=== PATIENT | female | born 1960 | race Caucasian/White ===

== ENCOUNTER 2019-05-15 15:01 | Inpatient (IN) | payer MEDICAID ==
[~2019-05-15] VITALS: Ht 154 cm; Wt 95.3 kg
[2019-05-15] MEDS ORDERED: ONDANSETRON 4 MG TAB.RAPDIS GT PRN (16:00)
[2019-05-15] MEDS ORDERED: GLYCERIN ADULT 1 SUPP.RECT RC PRN (16:00)
[2019-05-15] MEDS ORDERED: NITROGLYCERIN 30 GM TUBE TP PRN (16:00)
[2019-05-15] MEDS ORDERED: MINERAL OIL 133 ML (PYXIS) 1 EA ENEMA RC PRN (16:00)
[2019-05-15] MEDS ORDERED: ACETAMINOPHEN 650 MG/20.3 ML UDC GT PRN (16:00)
[2019-05-15] MEDS ORDERED: POLYETHYLENE GLYCOL 3350 17 GM POWD.PACK GT PRN (16:00)
[2019-05-15] MEDS ORDERED: DOCUSATE SODIUM LIQ 100 MG/10 ML UDC GT PRN (16:00)
[2019-05-15] MEDS ORDERED: NYSTATIN TOP POWDER 15 GM BOTTLE TP SCH ×2 (17:00)
[2019-05-15] MEDS ORDERED: CHLORHEXIDINE GLUCONATE 15 ML UDC MM SCH (21:00)
[2019-05-15 22:00] VITALS: BP 132/72
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
[2019-05-16] VITALS (9 sets, daily range): BP systolic 128–150; BP diastolic 74–90
[2019-05-16] MEDS ORDERED: VITAL AF 1.2 1,000 ML BOTTLE GT PRN (03:00)
[2019-05-16] MEDS ORDERED: ACETAMINOPHEN 650 MG/20 ML UDC- SA PATIENTS-PAIN ONLY GT PRN (07:30)
[2019-05-16] MEDS ORDERED: ACETAMINOPHEN 650 MG/20 ML UDC- SA PATIENTS-FEVER ONLY GT PRN (07:30)
[2019-05-16] MEDS ORDERED: PANTOPRAZOLE 40 MG/PACK PACK GT SCH (07:31)
--- NOTE | 2019-05-16 08:33 | NUR ---
Called pt's daughter Khadijah to inform her that pt is here at [facility]. Left message.
[2019-05-16] MEDS ORDERED: AMAN100T GT (08:54)
[2019-05-16] MEDS ORDERED: NUT.237L65 GT (08:54)
[2019-05-16] MEDS ORDERED: BISA10SU11 RC (08:54)
[2019-05-16] MEDS ORDERED: ONDA4TAB5 GT (08:54)
[2019-05-16] MEDS ORDERED: MINE133E RC (08:54)
[2019-05-16] MEDS ORDERED: METO25TA6 GT (08:54)
[2019-05-16] MEDS ORDERED: ASCO500T9 GT (08:54)
[2019-05-16] MEDS ORDERED: PANT40TA2 GT (08:54)
[2019-05-16] MEDS ORDERED: ENOX40DI9 SQ (08:54)
[2019-05-16] MEDS ORDERED: POLY454P5 GT (08:54)
[2019-05-16] MEDS ORDERED: LEVE1000 PO (08:54)
[2019-05-16] MEDS ORDERED: MAGN400O21 GT (08:54)
[2019-05-16] MEDS ORDERED: MULT-1119 GT (08:54)
[2019-05-16] MEDS ORDERED: NITR1OIN2 TD (08:54)
[2019-05-16] MEDS ORDERED: PROVIGIL GT (08:54)
[2019-05-16] MEDS ORDERED: ACET-73 GT (08:54)
[2019-05-16] MEDS ORDERED: DOCU-141 GT (08:54)
[2019-05-16] MEDS ORDERED: CHLO473M3 MM (08:54)
[2019-05-16] MEDS: ZINC OXIDE 30 GM TUBE TP SCH ×2 (09:00→21:00)
[2019-05-16] MEDS: AMANTADINE HCL 100 MG CAPSULE GT SCH ×2 (09:00→21:00)
[2019-05-16] MEDS: Z GUARD REMEDY 4 OZ OINT TP SCH ×4 (09:00→21:00)
[2019-05-16] MEDS: ASPIRIN 81 MG TAB.CHEW GT SCH (09:00)
[2019-05-16] MEDS: VITAMINS A AND D 56.7 GM TUBE TP SCH ×4 (09:00→21:00)
[2019-05-16] MEDS: ASCORBIC ACID 500 MG TABLET GT SCH (09:00)
[2019-05-16] MEDS: HYDROGEL DRESSING 90 GM TUBE TP SCH ×2 (09:00→21:00)
[2019-05-16] MEDS: CLOTRIMAZOLE 1% 15 GM TUBE TP SCH ×2 (09:00→21:00)
[2019-05-16] MEDS: DOCUSATE SODIUM LIQ 100 MG/10 ML UDC GT SCH (09:00)
[2019-05-16] MEDS: LEVETIRACETAM SOL (5 ML) 100 MG/ML UDC GT SCH ×2 (09:00→21:00)
[2019-05-16] MEDS ORDERED: MULTIVITAMINS,THERAGRAN 1 UDTAB TABLET GT SCH (09:00)
[2019-05-16] MEDS: METOPROLOL TARTRATE 25 MG TABLET GT SCH ×2 (09:00→21:00)
[2019-05-16] MEDS: MODAFINIL 100 MG TABLET GT SCH (09:00)
[2019-05-16 09:25] LABS: BASOPHILS # (AUTO) 0.1 /CMM (0.0-0.2); BASOPHILS % (AUTO) 1.3 % (0.0-2.0); EOSINOPHILS % (AUTO) 11.7 % (0.0-6.0); HEMATOCRIT 35 % (33-45); HEMOGLOBIN 11.4 g/dL (11.5-14.8); LYMPHOCYTES # (AUTO) 1.8 /CMM (0.8-4.8); LYMPHOCYTES % (AUTO) 22.5 % (20.0-44.0); MEAN CORPUSCULAR HGB CONC 33 g/dl (31.0-36.0); MEAN CORPUSCULAR VOLUME 91 fL (82-100); MONOCYTES # (AUTO) 0.6 /CMM (0.1-1.30); MONOCYTES % (AUTO) 7.5 % (2.0-12.0); NEUTROPHILS # (AUTO) 4.6 /CMM (1.8-8.9); PLATELET COUNT (AUTO) 570 /CMM (150-450); RED BLOOD CELL COUNT(AUTO) 3.81 MIL/uL (4.0-5.2)
[2019-05-16 09:30] LABS: CALCIUM, SERUM 9.4 mg/dL (8.5-10.1); CREATININE 0.5 mg/dL (0.6-1.3); POTASSIUM 3.9 mmol/L (3.5-5.1)
[2019-05-16] MEDS: ENOXAPARIN SODIUM 40 MG/0.4 ML DISP.SYRIN SQ SCH ×2 (10:00→19:15)
--- NOTE | 2019-05-16 10:00 | NUR ---
Informed Dr Abebe that pt is here in Subacute. He said his INSIDE TRUCKER Brenda Srivastava will see pt today. Informed INSIDE TRUCKER Brenda Srivastava that pt does not have a current breathing treatment order. She ordered to give Albuterol and Atrovent via neb q 6 hours. She said she will see pt around 2pm today.
--- NOTE | 2019-05-16 10:20 | NUR ---
Notified Dr Carter that Metoprolol 25 mg is not covered, however 50 mg is covered. Received order to give Metoprolol 50 mg 1/2 tab (25 mg) via GT q 12 hours. Also notified him that Amantadine tablet is not covered, however capsule form is covered by insurance. He ordered to change Amantadine from tablet to capsule. Received order to DC Chlorhexidine Gluconate due to non-coverage. Informed Dr Carter that pt's daughter is asking for a second opinion of a neurologist. Dr Wynn was seeing pt at [facility] and he is the same neurologist seeing the patients here in Subacute. Dr Carter said he will see what he can do about it.
--- NOTE | 2019-05-16 10:45 | NUR ---
Pt was seen by PT. Received order for RNA to perform PROM exercises of bilateral lower extremities daily 5x/week Monday through Monday or as tolerated.
--- NOTE | 2019-05-16 11:20 | NUR ---
Protonix not covered by insurance. Notified Dr Carter. Received order to DC Protonix and give Omeprazole 20 mg via GT daily at 0600 for GERD.
[2019-05-16] MEDS ORDERED: TUBERCULIN,PURIF.PROT.DERIV. 5 TU/0.1 ML VIAL ID SCH (13:00)
[2019-05-16] MEDS: ALBUTEROL FS 2.5 MG/0.5 ML VIAL.NEB NEB SCH ×2 (13:30→19:55)
[2019-05-16] MEDS: IPRATROPIUM NEB FS 0.5 MG/2.5 ML AMPUL.NEB NEB SCH ×2 (13:30→19:55)
--- NOTE | 2019-05-16 14:47 | NUR ---
Seen by SUMIT Srivastava. Relayed lab results to her. No new order.
--- NOTE | 2019-05-16 15:15 | NUR ---
Received order to increase GT feeding Vital AF 1.2 from 65 to 70 mL/hr x 20 hours a day per dietary recommendation.
[2019-05-16] MEDS: VITAL AF 1.2 1,000 ML BOTTLE GT PRN (16:55)
[2019-05-16] MEDS ORDERED: ENOXAPARIN SODIUM 40 MG/0.4 ML DISP.SYRIN SQ SCH (22:00)
[2019-05-17] MEDS: IPRATROPIUM NEB FS 0.5 MG/2.5 ML AMPUL.NEB NEB SCH ×4 (02:18→20:10)
[2019-05-17] MEDS: ALBUTEROL FS 2.5 MG/0.5 ML VIAL.NEB NEB SCH ×4 (02:18→20:10)
[2019-05-17] MEDS: OMEPRAZOLE 20 MG CAPSULE.DR GT SCH (05:23)
[2019-05-17 07:38] VITALS: BP 132/88
[2019-05-17 08:30] VITALS: BP 141/89
[2019-05-17] MEDS: CLOTRIMAZOLE 1% 15 GM TUBE TP SCH ×2 (09:00→20:50)
[2019-05-17] MEDS: AMANTADINE HCL 100 MG CAPSULE GT SCH ×2 (09:00→20:49)
[2019-05-17] MEDS: MODAFINIL 100 MG TABLET GT SCH (09:00)
[2019-05-17] MEDS: LEVETIRACETAM SOL (5 ML) 100 MG/ML UDC GT SCH ×2 (09:00→20:48)
[2019-05-17] MEDS: ENOXAPARIN SODIUM 40 MG/0.4 ML DISP.SYRIN SQ SCH (09:00)
[2019-05-17] MEDS: DOCUSATE SODIUM LIQ 100 MG/10 ML UDC GT SCH (09:00)
[2019-05-17] MEDS: ASCORBIC ACID 500 MG TABLET GT SCH (09:00)
[2019-05-17] MEDS: ZINC OXIDE 30 GM TUBE TP SCH ×2 (09:00→20:51)
[2019-05-17] MEDS: Z GUARD REMEDY 4 OZ OINT TP SCH ×4 (09:00→20:50)
[2019-05-17] MEDS: METOPROLOL TARTRATE 25 MG TABLET GT SCH ×2 (09:00→20:49)
[2019-05-17] MEDS: VITAMINS A AND D 56.7 GM TUBE TP SCH ×4 (09:00→20:51)
[2019-05-17] MEDS: ASPIRIN 81 MG TAB.CHEW GT SCH (09:00)
[2019-05-17] MEDS: [UNRECOGNIZED DRUG - OTHER] GT SCH (09:00)
[2019-05-17] MEDS: HYDROGEL DRESSING 90 GM TUBE TP SCH ×2 (09:00→20:49)
--- NOTE | 2019-05-17 09:08 | NUR ---
WOUND CARE CONSULT: PT SEEN FOR SKIN ASSESSMENT AND NOTED TO HAVE ORTHO APPLIANCES ON LEFT ARM AND NECK, RT ANTERIOR LOWER LEG DRY SCABS WITHOUT ERYTHEMA OR DRAINAGE, BILATERAL EAR REDNESS(STAGE 1), SACRAL DIMPLE AND LEFT UNDERBREAST WOUND, PRESENT ON ADMISSION. BILATERAL EAR STAGE 1 AREAS MEASURE 0.5CM X 0.2CM X 0, NO DRAINAGE. LEFT UNDERBREAST WOUND IS YELLOW AND PINK IN COLOR WITH SCANT SEROUS DRAINAGE, NO ODOR, NO PERIWOUND ERYTHEMA. WOUND MEASURES 1CM X 2CM X UTD. RECOMMEND SURGICAL CONSULT. DR SEGOVIA NOTIFIED. DISCUSSED SKIN PROTECTION AND WOUND CARE WITH NURSING STAFF. CONCUR WITH CURRENT ORDERS FOR SKIN PROTECTION AND WOUND CARE (HYDROGEL AND MEPILEX TO LEFT UNDERBREAST WOUND AND MEPILEX/OFFLOADING FOR EARS. WILL SEE PRN. PT ON FIRST STEP EMIR MCKEON. IN AGREEMENT WITH PLAN OF CARE.
[2019-05-17] MEDS ORDERED: LIDOCAINE 1%-EPI 1:100,000 20 ML VIAL TP ONE (09:30)
--- NOTE | 2019-05-17 10:31 | NUR ---
Intake Paperwork: Patient Admitted to [facility] on Wednesday, May 15, 2019 at 2230. Litigation Claim Representative met with the resident's Daughter, Khadijah Hylton [phone] on 04/28/19 at 9am to complete initial admission paperwork (Patient Right's Acknowledgement, Documentation of Preferred Intensity of Care, Conditions of Admission, HERRICK CAMPUSH Agreement, and Voluntary Prior Express Consent form). SW provided patient with a copy of the Bill of Rights, patient information guide and [facility] resident and family guidelines. Khadijah wishes the resident be Full Code (CPR with maximum treatment). SW also completed the initial psychosocial assessment with Khadijah as patient is non-communicative. Admission paperwork was placed into the resident's chart. Litigation Claim Representative educated Khadijah on [facility] Directive and Conservatorship and provided informational packets. Resident's Daughter, Khadijah expressed understanding and stated that she would like to file for conservatorship as there is no conservatorship or POA currently in place. GENEVIEVE provided Khadijah with information for [facility] [employer] [[address] [facility], [address]; [phone]; [phone]] to begin filing for conservatorship. Khadijah expressed contentment and stated she would follow up. Addendum: 05/17/19 at 1156 by RALF VALLEJO Litigation Claim Representative completed the intake paperwork over the phone with the resident's Daughter, Khadijah Hylton [phone] on 04/28/19 at 9am because Khadijah resides 4.5 hrs away in [place], [place]. Addendum: 05/17/19 at 1159 by RALF VALLEJO Litigation Claim Representative completed the intake paperwork over the phone with the resident's Daughter, Khadijah Hylton [phone] on 04/28/19 at 9am as she resides 4.5 hours away in [place], [place].
[2019-05-17] MEDS: VITAL AF 1.2 1,000 ML BOTTLE GT PRN (10:42)
--- NOTE | 2019-05-17 10:59 | NUR ---
Resident seen and examined by RASHAD HammondsO given at this time.
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
--- NOTE | 2019-05-17 14:01 | NUR ---
Resident seen by wound information resource consultant and ELVIS Cruz to assess skin condition. No new order given, they both agreed with initial wound treatment order. According to ELVIS Love, she will dbride wound in the L underbreast wound, consent obtain obtain from resident's daughter Khadijah Hylton witnessed by two LN.
--- NOTE | 2019-05-17 14:46 | NUR ---
GENEVIEVE called the pt.'s daughter, Khadijah Hylton to inquire if the pt. has received their Flu shot or Pneumococcal Vaccine. Per Khadijah, she will contact [facility] [Address: [address] [place] [address] ], to find out and inform GENEVIEVE. Per Khadijah, the pt. was ta at [facility] prior to going to [facility] [[address] [facility] [address] FAX: [phone]; TEL:[phone]]. GENEVIEVE will await call.
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
[2019-05-17 20:30] VITALS: BP 130/81
[2019-05-17] MEDS: MAGNESIUM HYDROXIDE 30 ML UDC GT PRN (22:00)
--- NOTE | 2019-05-17 22:06 | NUR ---
PT RECEIVE STABLE ON CA 40% FIO2 VIA T-BAR, TRACH PATENT AND SECURED, STEPHEN ZAPATA AND MICHAEL BAG IS AT BEDSIDE , WILL CONTINUE TO MONITOR Addendum: 05/17/19 at 2206 by DILLON YOUNGBLOOD RT Amended: Links added.
[2019-05-18] MEDS: ALBUTEROL FS 2.5 MG/0.5 ML VIAL.NEB NEB SCH ×4 (01:00→19:45)
[2019-05-18] MEDS: IPRATROPIUM NEB FS 0.5 MG/2.5 ML AMPUL.NEB NEB SCH ×4 (01:00→19:45)
[2019-05-18 03:51] VITALS: BP 130/81
[2019-05-18 04:01] VITALS: BP 129/89
[2019-05-18] MEDS: OMEPRAZOLE 20 MG CAPSULE.DR GT SCH (05:26)
[2019-05-18] MEDS: VITAL AF 1.2 1,000 ML BOTTLE GT PRN ×2 (05:46→22:00)
[2019-05-18 08:21] VITALS: BP 128/78
[2019-05-18 08:30] VITALS: BP 120/78
[2019-05-18] MEDS: ASPIRIN 81 MG TAB.CHEW GT SCH (08:56)
[2019-05-18] MEDS: DOCUSATE SODIUM LIQ 100 MG/10 ML UDC GT SCH (08:56)
[2019-05-18] MEDS: AMANTADINE HCL 100 MG CAPSULE GT SCH ×2 (08:57→21:17)
[2019-05-18] MEDS: [UNRECOGNIZED DRUG - OTHER] GT SCH (08:57)
[2019-05-18] MEDS: LEVETIRACETAM SOL (5 ML) 100 MG/ML UDC GT SCH ×2 (08:57→21:16)
[2019-05-18] MEDS: ASCORBIC ACID 500 MG TABLET GT SCH (08:57)
[2019-05-18] MEDS: ENOXAPARIN SODIUM 40 MG/0.4 ML DISP.SYRIN SQ SCH (08:58)
[2019-05-18] MEDS: ZINC OXIDE 30 GM TUBE TP SCH ×2 (09:00→21:18)
[2019-05-18] MEDS: VITAMINS A AND D 56.7 GM TUBE TP SCH ×4 (09:00→21:18)
[2019-05-18] MEDS: METOPROLOL TARTRATE 25 MG TABLET GT SCH ×2 (09:00→21:17)
[2019-05-18] MEDS: HYDROGEL DRESSING 90 GM TUBE TP SCH ×2 (09:00→21:18)
[2019-05-18] MEDS: Z GUARD REMEDY 4 OZ OINT TP SCH ×4 (09:00→21:18)
[2019-05-18] MEDS: CLOTRIMAZOLE 1% 15 GM TUBE TP SCH ×2 (09:00→21:18)
[2019-05-18] MEDS: MODAFINIL 100 MG TABLET GT SCH (09:00)
--- NOTE | 2019-05-18 11:53 | NUR ---
Seen and examined by Dr. Antunez, ortho with new order to X ray L humerus. Order carried out. When asked how long patient should keep [place] collar, he is guessing about 6 weeks.
--- NOTE | 2019-05-18 13:00 | NUR ---
Notified Dr. Margarita Sharma that Provingil has not been given to patient because it is not covered by the patient's insurance. Also ask if she knew the patient from the previous facility whether she knows the indication for Amantidine use, she said to follow it up with Dr. Carter or Dr. Walker on Monday. Endorsed.
--- NOTE | 2019-05-18 18:05 | NUR ---
XRAY of the L humerus was done, but according to mechanical technical service specialist they only took the lateral view for now because if they turn the patient, if may worsen her fracture. Once result is available, it will be relayed to the doctor and if needed to take another view, the tech said they will do another retake. Endorsed.
[2019-05-18 20:48] VITALS: BP 127/83
--- NOTE | 2019-05-18 20:57 | NUR ---
PT RECEIVE STABLE ON CA 40% FIO2 VIA T-BAR, TRACH PATENT AND SECURED, STEPHEN ZAPATA AND MICHAEL BAG IS AT BEDSIDE , WILL CONTINUE TO MONITOR Addendum: 05/18/19 at 2056 by DILLON YOUNGBLOOD RT Amended: Links added.
[2019-05-19] MEDS: IPRATROPIUM NEB FS 0.5 MG/2.5 ML AMPUL.NEB NEB SCH ×4 (01:40→20:09)
[2019-05-19] MEDS: ALBUTEROL FS 2.5 MG/0.5 ML VIAL.NEB NEB SCH ×4 (01:40→20:09)
[2019-05-19] MEDS: OMEPRAZOLE 20 MG CAPSULE.DR GT SCH (05:32)
[2019-05-19 07:46] VITALS: BP 148/95
[2019-05-19] MEDS: HYDROGEL DRESSING 90 GM TUBE TP SCH ×2 (09:00→20:08)
[2019-05-19] MEDS: AMANTADINE HCL 100 MG CAPSULE GT SCH ×2 (09:00→20:08)
[2019-05-19] MEDS: DOCUSATE SODIUM LIQ 100 MG/10 ML UDC GT SCH (09:00)
[2019-05-19] MEDS: [UNRECOGNIZED DRUG - OTHER] GT SCH (09:00)
[2019-05-19] MEDS: VITAMINS A AND D 56.7 GM TUBE TP SCH ×4 (09:00→20:09)
[2019-05-19] MEDS: ZINC OXIDE 30 GM TUBE TP SCH ×2 (09:00→20:09)
[2019-05-19] MEDS: ASCORBIC ACID 500 MG TABLET GT SCH (09:00)
[2019-05-19] MEDS: Z GUARD REMEDY 4 OZ OINT TP SCH ×4 (09:00→20:09)
[2019-05-19] MEDS: METOPROLOL TARTRATE 25 MG TABLET GT SCH ×2 (09:00→20:07)
[2019-05-19] MEDS: LEVETIRACETAM SOL (5 ML) 100 MG/ML UDC GT SCH ×2 (09:00→20:07)
[2019-05-19] MEDS: ENOXAPARIN SODIUM 40 MG/0.4 ML DISP.SYRIN SQ SCH (09:00)
[2019-05-19] MEDS: ASPIRIN 81 MG TAB.CHEW GT SCH (09:00)
[2019-05-19] MEDS: CLOTRIMAZOLE 1% 15 GM TUBE TP SCH ×2 (09:00→20:09)
[2019-05-19] MEDS: MODAFINIL 100 MG TABLET GT SCH (09:00)
[2019-05-19] MEDS: VITAL AF 1.2 1,000 ML BOTTLE GT PRN (16:24)
[2019-05-19 20:33] VITALS: BP 139/92
[2019-05-19 21:38] VITALS: BP 139/92
--- NOTE | 2019-05-19 22:09 | NUR ---
PT RECEIVE STABLE ON CA 40% FIO2 VIA T-BAR, TRACH PATENT AND SECURED, STEPHEN ZAPATA AND MICHAEL BAG IS AT BEDSIDE , WILL CONTINUE TO MONITOR Addendum: 05/19/19 at 2209 by DILLON YOUNGBLOOD RT Amended: Links added.
[2019-05-20] MEDS: ALBUTEROL FS 2.5 MG/0.5 ML VIAL.NEB NEB SCH ×4 (01:34→19:44)
[2019-05-20] MEDS: IPRATROPIUM NEB FS 0.5 MG/2.5 ML AMPUL.NEB NEB SCH ×4 (01:34→19:44)
[2019-05-20] MEDS: OMEPRAZOLE 20 MG CAPSULE.DR GT SCH (05:33)
[2019-05-20] MEDS: VITAL AF 1.2 1,000 ML BOTTLE GT PRN (05:39)
[2019-05-20 07:46] VITALS: BP 146/88
[2019-05-20 08:00] VITALS: BP 146/88
[2019-05-20] MEDS: LEVETIRACETAM SOL (5 ML) 100 MG/ML UDC GT SCH ×2 (08:48→20:45)
[2019-05-20] MEDS: [UNRECOGNIZED DRUG - OTHER] GT SCH (08:48)
[2019-05-20] MEDS: ASPIRIN 81 MG TAB.CHEW GT SCH (08:48)
[2019-05-20] MEDS: DOCUSATE SODIUM LIQ 100 MG/10 ML UDC GT SCH (08:48)
[2019-05-20] MEDS: ENOXAPARIN SODIUM 40 MG/0.4 ML DISP.SYRIN SQ SCH (08:49)
[2019-05-20] MEDS: ASCORBIC ACID 500 MG TABLET GT SCH (08:49)
[2019-05-20] MEDS: AMANTADINE HCL 100 MG CAPSULE GT SCH ×2 (08:49→20:47)
[2019-05-20] MEDS: METOPROLOL TARTRATE 25 MG TABLET GT SCH ×2 (08:49→20:46)
[2019-05-20] MEDS: MODAFINIL 100 MG TABLET GT SCH (09:00)
[2019-05-20] MEDS: VITAMINS A AND D 56.7 GM TUBE TP SCH ×4 (10:30→20:48)
[2019-05-20] MEDS: CLOTRIMAZOLE 1% 15 GM TUBE TP SCH ×2 (10:30→20:47)
[2019-05-20] MEDS: ZINC OXIDE 30 GM TUBE TP SCH ×2 (10:30→20:48)
[2019-05-20] MEDS: Z GUARD REMEDY 4 OZ OINT TP SCH ×4 (10:30→20:48)
[2019-05-20] MEDS: HYDROGEL DRESSING 90 GM TUBE TP SCH ×2 (10:30→20:47)
--- NOTE | 2019-05-20 11:10 | NUR ---
Called the office of Dr Antunez. He is seeing patients at this time. Faxed left humerus x-ray result to his office .
--- NOTE | 2019-05-20 15:50 | NUR ---
SW contacted the patient's responsible green party/daughter, Khadijah Hylton [phone] as Khadijah had expressed 05/17/19 that she would be able to sign the intake paperwork over the [id number]-. However, it was not signed. Per Khadijah, she was not able to "make the drive to [place] over the weekend as she does not have the financial means to pay for the travel expenses". GENEVIEVE expressed understanding and informed her that her signature if required for [facility] to provide care for the pt. Khadijah expressed understanding and stated she would come in this week to provide signature to the documents filled out over the phone on 05/17/19.
--- NOTE | 2019-05-20 19:55 | NUR ---
RT NOTE: RECEIVED TRACH PT ON COOL AEROSOL. AMBU BAG @ BEDSIDE. Q6 BREATHING TX GIVEN PER MD ORDERS WITH NO ADVERSE REACTION NOTED. SX DONE PRN. TRACH PATENT AND SECURED. TRACH CARE DONE. NO RESP DISTRESS NOTED AT THIS TIME. WILL CONTINUE TO MONITOR PT Addendum: 05/20/19 at 2008 by CHIN MARINO RT Amended: Links added.
[2019-05-20 20:39] VITALS: BP 133/64
[2019-05-20 21:23] VITALS: BP 133/64
[2019-05-21] MEDS: VITAL AF 1.2 1,000 ML BOTTLE GT PRN (00:51)
[2019-05-21] MEDS: ALBUTEROL FS 2.5 MG/0.5 ML VIAL.NEB NEB SCH ×4 (02:06→19:50)
[2019-05-21] MEDS: IPRATROPIUM NEB FS 0.5 MG/2.5 ML AMPUL.NEB NEB SCH ×4 (02:06→19:50)
[2019-05-21] MEDS: OMEPRAZOLE 20 MG CAPSULE.DR GT SCH (05:51)
[2019-05-21 07:34] VITALS: BP 165/95
[2019-05-21 08:00] VITALS: BP 165/95
[2019-05-21] MEDS: CLOTRIMAZOLE 1% 15 GM TUBE TP SCH ×2 (09:00→21:12)
[2019-05-21] MEDS: Z GUARD REMEDY 4 OZ OINT TP SCH ×4 (09:00→21:12)
[2019-05-21] MEDS: HYDROGEL DRESSING 90 GM TUBE TP SCH ×2 (09:00→21:12)
[2019-05-21] MEDS: VITAMINS A AND D 56.7 GM TUBE TP SCH ×4 (09:00→21:12)
[2019-05-21] MEDS: ZINC OXIDE 30 GM TUBE TP SCH ×2 (09:00→21:12)
[2019-05-21] MEDS: MODAFINIL 100 MG TABLET GT SCH (09:00)
[2019-05-21] MEDS: [UNRECOGNIZED DRUG - OTHER] GT SCH (09:51)
[2019-05-21] MEDS: ASPIRIN 81 MG TAB.CHEW GT SCH (09:51)
[2019-05-21] MEDS: DOCUSATE SODIUM LIQ 100 MG/10 ML UDC GT SCH (09:51)
[2019-05-21] MEDS: METOPROLOL TARTRATE 25 MG TABLET GT SCH ×2 (09:51→21:11)
[2019-05-21] MEDS: LEVETIRACETAM SOL (5 ML) 100 MG/ML UDC GT SCH ×2 (09:51→21:11)
[2019-05-21] MEDS: AMANTADINE HCL 100 MG CAPSULE GT SCH ×2 (09:52→21:12)
[2019-05-21] MEDS: ENOXAPARIN SODIUM 40 MG/0.4 ML DISP.SYRIN SQ SCH (09:52)
[2019-05-21] MEDS: ASCORBIC ACID 500 MG TABLET GT SCH (09:52)
--- NOTE | 2019-05-21 10:05 | NUR ---
Seen and examined by Dr. Abebe, made aware that patient was seen by Dr. Antunez ortho last Monday. He mentioned that trach collar should probably stay for 6 weeks. Reported that Provigil has not been given as it is not covered by insurance, he said that he will take care of it. Gave an order for neurology consult, place an order in [facility] for Dr. Wynn.
[2019-05-21] MEDS ORDERED: NITROGLYCERIN 30 GM TUBE TP PRN (15:18)
--- NOTE | 2019-05-21 15:48 | NUR ---
Spoke with Dr. Wynn, notified that Provigil has been discontinue due to non-covered medication by patient's insurance. MD changed medication to Ritalin 5mg daily. Asked regarding indication for Amantadine, said it is for traumatic brain injury. Order faxed to [facility] and [facility] pharmacy. Informed MD that according to report, patient's daughter is requesting a second opinion to check neurological status of patient but since he also saw the patient at [facility] and no other neurologist on staff, he said he will talk to patient's daughter. Left a message to Khadijah to let us know of her availability.
--- NOTE | 2019-05-21 16:10 | NUR ---
Left a message to Dr. Wynn informing him that per patient's daughter Angela, she is available to speak with MD on the phone anytime tomorrow. Informed Angela of discontinuation of Provingil and new order Ritalin given. Appreciated the call. Spoke with Frances from [facility],to follow-up if medication is covered by insurance, said they will call the doctor to obtain authorization for Ritalin.
[2019-05-21 20:00] VITALS: BP 132/78
[2019-05-21 20:15] VITALS: BP 132/78
--- NOTE | 2019-05-21 23:29 | NUR ---
RT PT RECEIVED ON COOL AEROSOL AT 10 LPM. TRACHED WITH SHILEY 6 XLT. NO RESPIRATORY DISTRESS. AMBU BAG AT HEAD OF BED. SPARE TRACH AT BEDSIDE. WILL CONTINUE TO MONITOR. Addendum: 05/21/19 at 2329 by DANTE CORBIN RT Amended: Links added.
[2019-05-22] MEDS: IPRATROPIUM NEB FS 0.5 MG/2.5 ML AMPUL.NEB NEB SCH ×4 (01:32→19:45)
[2019-05-22] MEDS: ALBUTEROL FS 2.5 MG/0.5 ML VIAL.NEB NEB SCH ×4 (01:32→19:45)
[2019-05-22] MEDS: VITAL AF 1.2 1,000 ML BOTTLE GT PRN ×2 (02:03→18:35)
[2019-05-22] MEDS: OMEPRAZOLE 20 MG CAPSULE.DR GT SCH (05:07)
[2019-05-22] MEDS: MAGNESIUM HYDROXIDE 30 ML UDC GT PRN (06:49)
[2019-05-22 07:27] VITALS: BP 155/89
[2019-05-22] MEDS: Z GUARD REMEDY 4 OZ OINT TP SCH ×4 (09:00→21:39)
[2019-05-22] MEDS: HYDROGEL DRESSING 90 GM TUBE TP SCH ×2 (09:00→21:39)
[2019-05-22] MEDS: CLOTRIMAZOLE 1% 15 GM TUBE TP SCH ×2 (09:00→21:39)
[2019-05-22] MEDS: ZINC OXIDE 30 GM TUBE TP SCH ×2 (09:00→21:39)
[2019-05-22] MEDS: VITAMINS A AND D 56.7 GM TUBE TP SCH ×4 (09:00→21:39)
[2019-05-22] MEDS ORDERED: METHYLPHENIDATE HCL (5MG) 5 MG TABLET GT SCH (09:00)
[2019-05-22] MEDS: [UNRECOGNIZED DRUG - OTHER] GT SCH (09:36)
[2019-05-22] MEDS: LEVETIRACETAM SOL (5 ML) 100 MG/ML UDC GT SCH ×2 (09:36→21:38)
[2019-05-22] MEDS: ASPIRIN 81 MG TAB.CHEW GT SCH (09:36)
[2019-05-22] MEDS: DOCUSATE SODIUM LIQ 100 MG/10 ML UDC GT SCH (09:36)
[2019-05-22] MEDS: ASCORBIC ACID 500 MG TABLET GT SCH (09:37)
[2019-05-22] MEDS: AMANTADINE HCL 100 MG CAPSULE GT SCH ×2 (09:37→21:38)
[2019-05-22] MEDS: METOPROLOL TARTRATE 25 MG TABLET GT SCH ×2 (09:37→21:38)
[2019-05-22] MEDS: ENOXAPARIN SODIUM 40 MG/0.4 ML DISP.SYRIN SQ SCH (09:38)
[2019-05-22 16:59] VITALS: BP 155/89
[2019-05-22] MEDS: BISACODYL SUPP (10 MG) 10 MG/SUPP.RECT SUPP.RECT RC PRN (18:35)
[2019-05-22 19:58] VITALS: BP 130/75
[2019-05-22 20:00] VITALS: BP 130/75
--- NOTE | 2019-05-22 20:00 | NUR ---
RT pt received on cool aerosol at 10 lpm, 40%. trached with shiley 6 xlt. ambu bag at head of bed. spare trach at bedside. no respiratory distress. will continue to monitor. Addendum: 05/23/19 at 0241 by DANTE CORBIN RT Amended: Links added.
[2019-05-23] MEDS: ALBUTEROL FS 2.5 MG/0.5 ML VIAL.NEB NEB SCH ×4 (01:17→19:41)
[2019-05-23] MEDS: IPRATROPIUM NEB FS 0.5 MG/2.5 ML AMPUL.NEB NEB SCH ×4 (01:17→19:41)
[2019-05-23] MEDS: OMEPRAZOLE 20 MG CAPSULE.DR GT SCH (05:22)
[2019-05-23 07:27] VITALS: BP 135/77
[2019-05-23] MEDS: AMANTADINE HCL 100 MG CAPSULE GT SCH ×2 (09:00→20:55)
[2019-05-23] MEDS: HYDROGEL DRESSING 90 GM TUBE TP SCH ×2 (09:00→20:55)
[2019-05-23] MEDS: ASCORBIC ACID 500 MG TABLET GT SCH (09:00)
[2019-05-23] MEDS: METOPROLOL TARTRATE 25 MG TABLET GT SCH ×2 (09:00→20:55)
[2019-05-23] MEDS: LEVETIRACETAM SOL (5 ML) 100 MG/ML UDC GT SCH ×2 (09:00→20:54)
[2019-05-23] MEDS: CLOTRIMAZOLE 1% 15 GM TUBE TP SCH ×2 (09:00→20:55)
[2019-05-23] MEDS: Z GUARD REMEDY 4 OZ OINT TP SCH ×4 (09:00→20:55)
[2019-05-23] MEDS: ASPIRIN 81 MG TAB.CHEW GT SCH (09:00)
[2019-05-23] MEDS: [UNRECOGNIZED DRUG - OTHER] GT SCH (09:00)
[2019-05-23] MEDS: VITAMINS A AND D 56.7 GM TUBE TP SCH ×4 (09:00→20:56)
[2019-05-23] MEDS: ENOXAPARIN SODIUM 40 MG/0.4 ML DISP.SYRIN SQ SCH (09:00)
[2019-05-23] MEDS: ZINC OXIDE 30 GM TUBE TP SCH ×2 (09:00→20:56)
[2019-05-23] MEDS: DOCUSATE SODIUM LIQ 100 MG/10 ML UDC GT SCH (09:00)
--- NOTE | 2019-05-23 10:12 | NUR ---
Followed up Ritalin with [facility] yesterday, spoke with Laly. She said they are waiting to hear from Dr Wynn before they dispense it. Asked them to fax the Schedule II Controlled Substance form and will have Dr Wynn sign it if he comes to the hospital. Called [facility] again today and spoke with Bijal. She said they will call Dr Wynn again today. Asked her to fax the form to Subacute. Informed Dr Wynn that Ritalin has still not been given because pharmacy needs to speak with him before they dispense it. He said he is pretty sure he spoke with somebody. Called [facility] again and spoke with Aide, she denied that Dr Wynn spoke with any of them. She said she will call Dr Wynn herself and call back.
--- NOTE | 2019-05-23 11:44 | NUR ---
Spoke with Bijal (Anyi). She said they already got the approval for Ritalin from Dr Wynn and they will send it today.
[2019-05-23 15:54] VITALS: BP 135/77
--- NOTE | 2019-05-23 15:57 | NUR ---
SW contacted the patient's responsible constitution party/daughter, Khadijah Hylton [phone] to inquire when Khadijah is able to come in to fill out Intake paperwork as it was completed 05/17/19 and needs Khadijah's signatures. Khadijah stated that she is unsure when she is available next to provide signatures for intake paperwork. Per Khadijah she will "work something out" and inform SW when is able to visit the pt. and sign documents.
--- NOTE | 2019-05-23 15:57 | NUR ---
Seen by Dr Wynn. Notified him that pt has not yet receive Ritalin since it is not covered by insurance. Dr Wynn already filled out the controlled substance form. Called [facility] pharmacy and spoke with pharmacist Daniela to ask her what is the covered alternative. She said she tried processing the other medications but they are not covered as well due to pt's age. Ritalin and similar medications are covered for pts younger than 16 years old[address] Wynn. Daniela said they will continue working on the prior authorization. Dr Wynn spoke with pt's daughter on the phone and explained pt's condition to her. structural iron worker also spoke with pt's daughter. Khadijah said she will try to pay for pt's Ritalin. Pt has been occasionally opening her eyes.
--- NOTE | 2019-05-23 17:25 | NUR ---
Dr Wynn ordered to decrease Keppra from 1000 to 750 mg GT q 12 hours.
[2019-05-23 20:00] VITALS: BP_SYST 126
[2019-05-23 20:30] VITALS: BP 126/79
[2019-05-24] MEDS: VITAL AF 1.2 1,000 ML BOTTLE GT PRN ×2 (01:00→21:52)
[2019-05-24] MEDS: ALBUTEROL FS 2.5 MG/0.5 ML VIAL.NEB NEB SCH ×4 (01:30→20:23)
[2019-05-24] MEDS: IPRATROPIUM NEB FS 0.5 MG/2.5 ML AMPUL.NEB NEB SCH ×4 (01:30→20:23)
[2019-05-24] MEDS: OMEPRAZOLE 20 MG CAPSULE.DR GT SCH (06:11)
[2019-05-24 08:07] VITALS: BP 136/84
[2019-05-24] MEDS: ASPIRIN 81 MG TAB.CHEW GT SCH (08:51)
[2019-05-24] MEDS: LEVETIRACETAM SOL (5 ML) 100 MG/ML UDC GT SCH ×2 (08:51→20:09)
[2019-05-24] MEDS: DOCUSATE SODIUM LIQ 100 MG/10 ML UDC GT SCH (08:51)
[2019-05-24] MEDS: [UNRECOGNIZED DRUG - OTHER] GT SCH (08:51)
[2019-05-24] MEDS: ASCORBIC ACID 500 MG TABLET GT SCH (08:53)
[2019-05-24] MEDS: METOPROLOL TARTRATE 25 MG TABLET GT SCH ×2 (08:53→20:10)
[2019-05-24] MEDS: AMANTADINE HCL 100 MG CAPSULE GT SCH ×2 (08:53→20:10)
[2019-05-24] MEDS: ENOXAPARIN SODIUM 40 MG/0.4 ML DISP.SYRIN SQ SCH (08:56)
[2019-05-24] MEDS: VITAMINS A AND D 56.7 GM TUBE TP SCH ×4 (09:00→20:10)
[2019-05-24] MEDS: ZINC OXIDE 30 GM TUBE TP SCH ×2 (09:00→20:10)
[2019-05-24] MEDS ORDERED: PNEUMOCOCCAL 23-VAL P-SAC VAC 0.5 ML VIAL IM ONE (09:00)
[2019-05-24] MEDS: HYDROGEL DRESSING 90 GM TUBE TP SCH ×2 (09:00→20:10)
[2019-05-24] MEDS ORDERED: INFLUENZA VACCINE 2019-20 0.5 ML DISP.SYRIN IM ONE (09:00)
[2019-05-24] MEDS: CLOTRIMAZOLE 1% 15 GM TUBE TP SCH ×2 (09:00→20:10)
[2019-05-24] MEDS: Z GUARD REMEDY 4 OZ OINT TP SCH ×4 (09:00→20:10)
--- NOTE | 2019-05-24 15:46 | NUR ---
COST ESTIMATOR, RALF SPOKE TO DEVAN, DAUGHTER OF PATIENT FOR A VERBAL CONSENT FOR SO TO GIVE CARE FOR HER MOM. TWO RNS WERE ON SPEAKER PHONE WITH PATIENT'S DAUGHTER AND VERIFIED THAT SHE GIVES CONSENT.
[2019-05-24 15:48] VITALS: BP 136/84
--- NOTE | 2019-05-24 15:48 | NUR ---
GENEVIEVE made multiple attempts to have the patients daughterKhadijah come in to get wet signature for Intake paperwork this week. However, per Khadijah, I dont get paid until May 29, 2019 and dont have the financial means to make the trip to [place] before then. Khadijah resides [facility] [place], [place]. GENEVIEVE called the pt.s daughter, Khadijah to discuss intake paperwork.Khadijah gave verbal consent for [facility] to provide medical care for the pt. on 05/24/19 at 1535 and stated she would like the pt. to be Full Code. Verbal consent was also witnessed by 2 RNs: Trina and Stephanie Brumfield. Please see their documentation for further information. Per Khadijah, she will be able to provide a wet signature for intake paperwork upon her next visit. GENEVIEVE will follow up.
[2019-05-24] MEDS: MAGNESIUM HYDROXIDE 30 ML UDC GT PRN (18:12)
[2019-05-24 20:00] VITALS: BP 137/64
[2019-05-24 20:23] VITALS: BP 141/83
[2019-05-24 20:25] VITALS: BP 107/64
[2019-05-24 20:27] VITALS: BP 141/83
--- NOTE | 2019-05-24 22:41 | NUR ---
PT RECEIVE STABLE ON C/A @ 40% FIO2 VIA T-BAR, TRACH PATENT AND SECURED, STEPHEN ZAPATA AND MICHAEL FREITAS IS AT BEDSIDE, WILL CONTINUE TO MONITOR, Addendum: 05/24/19 at 2241 by DILLON YOUNGBLOOD RT Amended: Links added.
[2019-05-25] MEDS: IPRATROPIUM NEB FS 0.5 MG/2.5 ML AMPUL.NEB NEB SCH ×4 (02:08→20:02)
[2019-05-25] MEDS: ALBUTEROL FS 2.5 MG/0.5 ML VIAL.NEB NEB SCH ×4 (02:08→20:02)
[2019-05-25] MEDS: OMEPRAZOLE 20 MG CAPSULE.DR GT SCH (05:07)
[2019-05-25 07:44] VITALS: BP 155/96
[2019-05-25] MEDS: ASCORBIC ACID 500 MG TABLET GT SCH (09:00)
[2019-05-25] MEDS: LEVETIRACETAM SOL (5 ML) 100 MG/ML UDC GT SCH ×2 (09:00→21:18)
[2019-05-25] MEDS: AMANTADINE HCL 100 MG CAPSULE GT SCH ×2 (09:00→21:18)
[2019-05-25] MEDS: Z GUARD REMEDY 4 OZ OINT TP SCH ×4 (09:00→21:19)
[2019-05-25] MEDS: HYDROGEL DRESSING 90 GM TUBE TP SCH ×2 (09:00→21:18)
[2019-05-25] MEDS: ZINC OXIDE 30 GM TUBE TP SCH ×2 (09:00→21:19)
[2019-05-25] MEDS: ASPIRIN 81 MG TAB.CHEW GT SCH (09:00)
[2019-05-25] MEDS: ENOXAPARIN SODIUM 40 MG/0.4 ML DISP.SYRIN SQ SCH (09:00)
[2019-05-25] MEDS: DOCUSATE SODIUM LIQ 100 MG/10 ML UDC GT SCH (09:00)
[2019-05-25] MEDS: METHYLPHENIDATE HCL (5MG) 5 MG TABLET GT SCH (09:00)
[2019-05-25] MEDS: METOPROLOL TARTRATE 25 MG TABLET GT SCH ×2 (09:00→21:18)
[2019-05-25] MEDS: CLOTRIMAZOLE 1% 15 GM TUBE TP SCH ×2 (09:00→21:18)
[2019-05-25] MEDS: [UNRECOGNIZED DRUG - OTHER] GT SCH (09:00)
[2019-05-25] MEDS: VITAMINS A AND D 56.7 GM TUBE TP SCH ×4 (09:00→21:19)
[2019-05-25 13:58] VITALS: BP 138/70
[2019-05-25 18:00] VITALS: BP 134/73
[2019-05-25 20:00] VITALS: BP 119/65
[2019-05-25 21:00] VITALS: BP 119/65
[2019-05-25] MEDS: VITAL AF 1.2 1,000 ML BOTTLE GT PRN (23:58)
[2019-05-26] MEDS: IPRATROPIUM NEB FS 0.5 MG/2.5 ML AMPUL.NEB NEB SCH ×4 (00:55→19:42)
[2019-05-26] MEDS: ALBUTEROL FS 2.5 MG/0.5 ML VIAL.NEB NEB SCH ×4 (00:55→19:42)
[2019-05-26] MEDS: OMEPRAZOLE 20 MG CAPSULE.DR GT SCH (05:12)
[2019-05-26] MEDS: BISACODYL SUPP (10 MG) 10 MG/SUPP.RECT SUPP.RECT RC PRN (06:58)
[2019-05-26 07:53] VITALS: BP 135/84
[2019-05-26] MEDS: CLOTRIMAZOLE 1% 15 GM TUBE TP SCH ×2 (09:00→20:32)
[2019-05-26] MEDS: METHYLPHENIDATE HCL (5MG) 5 MG TABLET GT SCH (09:00)
[2019-05-26] MEDS: VITAMINS A AND D 56.7 GM TUBE TP SCH ×4 (09:00→20:32)
[2019-05-26] MEDS: HYDROGEL DRESSING 90 GM TUBE TP SCH ×2 (09:00→20:31)
[2019-05-26] MEDS: ZINC OXIDE 30 GM TUBE TP SCH ×2 (09:00→20:32)
[2019-05-26] MEDS: Z GUARD REMEDY 4 OZ OINT TP SCH ×4 (09:00→20:32)
[2019-05-26] MEDS: ENOXAPARIN SODIUM 40 MG/0.4 ML DISP.SYRIN SQ SCH (09:00)
[2019-05-26] MEDS: [UNRECOGNIZED DRUG - OTHER] GT SCH (09:57)
[2019-05-26] MEDS: LEVETIRACETAM SOL (5 ML) 100 MG/ML UDC GT SCH ×2 (09:57→20:30)
[2019-05-26] MEDS: DOCUSATE SODIUM LIQ 100 MG/10 ML UDC GT SCH (09:57)
[2019-05-26] MEDS: ASPIRIN 81 MG TAB.CHEW GT SCH (09:57)
[2019-05-26] MEDS: METOPROLOL TARTRATE 25 MG TABLET GT SCH ×2 (09:58→20:31)
[2019-05-26] MEDS: AMANTADINE HCL 100 MG CAPSULE GT SCH ×2 (09:58→20:31)
[2019-05-26] MEDS: ASCORBIC ACID 500 MG TABLET GT SCH (09:58)
[2019-05-26 12:00] VITALS: BP 120/66
[2019-05-26] MEDS: VITAL AF 1.2 1,000 ML BOTTLE GT PRN (16:43)
[2019-05-26 18:04] VITALS: BP 120/65
[2019-05-26 20:00] VITALS: BP 120/57
[2019-05-26 20:31] VITALS: BP 120/57
[2019-05-27] MEDS: ALBUTEROL FS 2.5 MG/0.5 ML VIAL.NEB NEB SCH ×4 (01:43→19:54)
[2019-05-27] MEDS: IPRATROPIUM NEB FS 0.5 MG/2.5 ML AMPUL.NEB NEB SCH ×4 (01:43→19:54)
[2019-05-27] MEDS: OMEPRAZOLE 20 MG CAPSULE.DR GT SCH (05:07)
[2019-05-27 07:50] VITALS: BP 126/59
[2019-05-27] MEDS: ZINC OXIDE 30 GM TUBE TP SCH ×2 (09:00→20:35)
[2019-05-27] MEDS: CLOTRIMAZOLE 1% 15 GM TUBE TP SCH ×2 (09:00→20:35)
[2019-05-27] MEDS: VITAMINS A AND D 56.7 GM TUBE TP SCH ×4 (09:00→20:35)
[2019-05-27] MEDS: HYDROGEL DRESSING 90 GM TUBE TP SCH ×2 (09:00→20:35)
[2019-05-27] MEDS: Z GUARD REMEDY 4 OZ OINT TP SCH ×4 (09:00→20:35)
[2019-05-27] MEDS: DOCUSATE SODIUM LIQ 100 MG/10 ML UDC GT SCH (09:50)
[2019-05-27] MEDS: ASPIRIN 81 MG TAB.CHEW GT SCH (09:50)
[2019-05-27] MEDS: LEVETIRACETAM SOL (5 ML) 100 MG/ML UDC GT SCH ×2 (09:50→20:33)
[2019-05-27] MEDS: [UNRECOGNIZED DRUG - OTHER] GT SCH (09:50)
[2019-05-27] MEDS: METOPROLOL TARTRATE 25 MG TABLET GT SCH ×2 (09:52→20:34)
[2019-05-27] MEDS: ASCORBIC ACID 500 MG TABLET GT SCH (09:52)
[2019-05-27] MEDS: AMANTADINE HCL 100 MG CAPSULE GT SCH ×2 (09:52→20:33)
[2019-05-27] MEDS: METHYLPHENIDATE HCL (5MG) 5 MG TABLET GT SCH (09:59)
[2019-05-27] MEDS: ENOXAPARIN SODIUM 40 MG/0.4 ML DISP.SYRIN SQ SCH (09:59)
[2019-05-27] MEDS: VITAL AF 1.2 1,000 ML BOTTLE GT PRN (10:43)
--- NOTE | 2019-05-27 11:32 | NUR ---
GENEVIEVE contacted [facility] TEL:[phone] and spoke to to inquire how the patients family can pay out of pocket for a 1 month supply of Methylphenidate 5 MG Tablet medication as it is not covered by the insurance at the moment. Per , she will fax GENEVIEVE and application for the family to complete which confirms that they are agreeing to become financially responsible for the payment of the medication. Per , the family will then be billed directly and have various ways of making a payment: online, over the phone or via check. GENEVIEVE will await application via fax.
[2019-05-27 12:00] VITALS: BP 123/74
[2019-05-27 18:29] VITALS: BP 122/73
[2019-05-27 20:21] VITALS: BP 117/72
--- NOTE | 2019-05-27 21:39 | NUR ---
PT RECEIVE STABLE ON 40% CA VIA T-BAR, TRACH PATENT AND SECURED, STEPHEN ZAPATA AND MICHAEL FREITAS IS AT BEDSIDE, WILL CONTINUE TO MONITOR Addendum: 05/27/19 at 2139 by DILLON YOUNGBLOOD RT Amended: Links added.
[2019-05-28] MEDS: IPRATROPIUM NEB FS 0.5 MG/2.5 ML AMPUL.NEB NEB SCH ×4 (01:37→19:48)
[2019-05-28] MEDS: ALBUTEROL FS 2.5 MG/0.5 ML VIAL.NEB NEB SCH ×4 (01:37→19:48)
[2019-05-28] MEDS: OMEPRAZOLE 20 MG CAPSULE.DR GT SCH (06:26)
[2019-05-28] MEDS: VITAL AF 1.2 1,000 ML BOTTLE GT PRN ×2 (07:00→20:45)
[2019-05-28 07:32] VITALS: BP 126/71
--- NOTE | 2019-05-28 08:51 | NUR ---
SW completed the Lead Software Architect portion of Admission MDS. The patients responsible constitution party is her daughter, Khadijah Hylton [phone] who is involved and supportive. The pt. is non-vent, with trache and TF: PEG Vital 1.2 70 ml/hr x 20 hr: (1400ml, 1680 calories, 105 gram protein, 1135ml free water). The pt. will be scheduled to have annual dental and podiatry exam. The pt. last visit by the box finisher, on 05/24/19.
[2019-05-28] MEDS: CLOTRIMAZOLE 1% 15 GM TUBE TP SCH ×2 (09:00→20:45)
[2019-05-28] MEDS: ZINC OXIDE 30 GM TUBE TP SCH ×2 (09:00→20:45)
[2019-05-28] MEDS: ASCORBIC ACID 500 MG TABLET GT SCH (09:00)
[2019-05-28] MEDS: METHYLPHENIDATE HCL (5MG) 5 MG TABLET GT SCH (09:00)
[2019-05-28] MEDS: [UNRECOGNIZED DRUG - OTHER] GT SCH (09:00)
[2019-05-28] MEDS: Z GUARD REMEDY 4 OZ OINT TP SCH ×4 (09:00→20:45)
[2019-05-28] MEDS: ENOXAPARIN SODIUM 40 MG/0.4 ML DISP.SYRIN SQ SCH (09:00)
[2019-05-28] MEDS: METOPROLOL TARTRATE 25 MG TABLET GT SCH ×2 (09:00→20:45)
[2019-05-28] MEDS: DOCUSATE SODIUM LIQ 100 MG/10 ML UDC GT SCH (09:00)
[2019-05-28] MEDS: LEVETIRACETAM SOL (5 ML) 100 MG/ML UDC GT SCH ×2 (09:00→20:44)
[2019-05-28] MEDS: VITAMINS A AND D 56.7 GM TUBE TP SCH ×4 (09:00→20:45)
[2019-05-28] MEDS: AMANTADINE HCL 100 MG CAPSULE GT SCH ×2 (09:00→20:45)
[2019-05-28] MEDS: HYDROGEL DRESSING 90 GM TUBE TP SCH ×2 (09:00→20:45)
[2019-05-28] MEDS: ASPIRIN 81 MG TAB.CHEW GT SCH (09:00)
[2019-05-28 12:00] VITALS: BP 121/70
--- NOTE | 2019-05-28 18:24 | NUR ---
Followed up Ritalin with [facility] today, spoke with Bijal who said that they are still waiting for the insurance's approval, prior authorization has been sent to insurance. She also said that the doctor needs to sign the CII continuance of therapy prescription form. Asked her to fax the form to Subacute as well as to the doctor's office. Pt's daughter Khadijah came to visit this evening and said she will pay for a month's supply of Ritalin (30 tabs). Faxed the paper to [employer] stating that daughter will be responsible for payment of 30 tablets, called them and spoke with Citlali. She said they can send 3 tablets for now while waiting for the doctor's signature. She will send the form to the doctor's office and the 3 tablets of Ritalin will be sent with the 7pm run charlie.
[2019-05-28 18:31] VITALS: BP 121/75
[2019-05-28 20:00] VITALS: BP 109/63
[2019-05-28 20:06] VITALS: BP 117/67
[2019-05-28 20:33] VITALS: BP 117/67
[2019-05-28] MEDS: HYDROGEN PEROXIDE 480 ML BOTTLE TP SCH (21:59)
[2019-05-29] MEDS: IPRATROPIUM NEB FS 0.5 MG/2.5 ML AMPUL.NEB NEB SCH ×4 (01:39→19:43)
[2019-05-29] MEDS: ALBUTEROL FS 2.5 MG/0.5 ML VIAL.NEB NEB SCH ×4 (01:39→19:43)
[2019-05-29] MEDS: OMEPRAZOLE 20 MG CAPSULE.DR GT SCH (06:15)
[2019-05-29] MEDS: BISACODYL SUPP (10 MG) 10 MG/SUPP.RECT SUPP.RECT RC PRN (06:59)
[2019-05-29 07:41] VITALS: BP 144/71
[2019-05-29] MEDS: ASPIRIN 81 MG TAB.CHEW GT SCH (08:40)
[2019-05-29] MEDS: DOCUSATE SODIUM LIQ 100 MG/10 ML UDC GT SCH (08:40)
[2019-05-29] MEDS: LEVETIRACETAM SOL (5 ML) 100 MG/ML UDC GT SCH ×2 (08:41→20:28)
[2019-05-29] MEDS: METOPROLOL TARTRATE 25 MG TABLET GT SCH ×2 (08:41→20:29)
[2019-05-29] MEDS: [UNRECOGNIZED DRUG - OTHER] GT SCH (08:41)
[2019-05-29] MEDS: ASCORBIC ACID 500 MG TABLET GT SCH (08:43)
[2019-05-29] MEDS: AMANTADINE HCL 100 MG CAPSULE GT SCH ×2 (08:43→20:29)
[2019-05-29] MEDS: ENOXAPARIN SODIUM 40 MG/0.4 ML DISP.SYRIN SQ SCH (08:47)
[2019-05-29] MEDS: Z GUARD REMEDY 4 OZ OINT TP SCH ×4 (09:00→20:30)
[2019-05-29] MEDS: HYDROGEN PEROXIDE 480 ML BOTTLE TP SCH ×2 (09:00→20:05)
[2019-05-29] MEDS: CLOTRIMAZOLE 1% 15 GM TUBE TP SCH ×2 (09:00→20:29)
[2019-05-29] MEDS: ZINC OXIDE 30 GM TUBE TP SCH ×2 (09:00→20:30)
[2019-05-29] MEDS: VITAMINS A AND D 56.7 GM TUBE TP SCH ×4 (09:00→20:30)
[2019-05-29] MEDS: METHYLPHENIDATE HCL (5MG) 5 MG TABLET GT SCH (09:00)
[2019-05-29] MEDS: HYDROGEL DRESSING 90 GM TUBE TP SCH ×2 (09:00→20:29)
[2019-05-29 14:44] VITALS: BP 144/71
[2019-05-29] MEDS: VITAL AF 1.2 1,000 ML BOTTLE GT PRN (16:39)
[2019-05-29] MEDS: MAGNESIUM HYDROXIDE 30 ML UDC GT PRN (16:41)
[2019-05-29 19:48] VITALS: BP 119/73
[2019-05-29 20:00] VITALS: BP 119/73
--- NOTE | 2019-05-29 20:37 | NUR ---
RT NOTE PT RECEIVED TRACHED ON COOL AEROSOL @ 35%. AMBU BAG/BACK UP TRACH @ BEDSIDE. TX GIVEN, NO ADVERSE REACTIONS NOTED. SX DONE, TRACH SECURED AND PATENT. WATER LEVEL GOOD. NO SOB NOTED. WILL MONITOR T/O SHIFT. CONT. PULSE OX CONNECTED. Addendum: 05/29/19 at 2037 by BRANDON ABDI RT Amended: Links added.
[2019-05-30] MEDS: ALBUTEROL FS 2.5 MG/0.5 ML VIAL.NEB NEB SCH ×2 (02:09→07:44)
[2019-05-30] MEDS: IPRATROPIUM NEB FS 0.5 MG/2.5 ML AMPUL.NEB NEB SCH ×2 (02:09→07:44)
[2019-05-30] MEDS: OMEPRAZOLE 20 MG CAPSULE.DR GT SCH (05:17)
[2019-05-30] MEDS: VITAL AF 1.2 1,000 ML BOTTLE GT PRN (06:40)
[2019-05-30 07:32] VITALS: BP 151/82
== END 2019-05-28 23:59 | disposition still patient (30) | DRG 951 ==
LOC: SA 21:54
PROVIDERS: ADMIT Internal Medicine Nephrology; ATTEND Internal Medicine Nephrology
PROC: 0HBU0ZZ Excision of Left Breast, Open Approach (ICD-10-PCS; principal; 2019-05-17)
DX: J96.21 Acute and chronic respiratory failure with hypoxia (principal); G93.40 Encephalopathy, unspecified; Z93.0 Tracheostomy status; B35.1 Tinea unguium; D64.9 Anemia, unspecified; S02.119D Unspecified fracture of occiput, subsequent encounter for fracture with routine healing; S06.6X9S Traumatic subarachnoid hemorrhage with loss of consciousness of unspecified duration, sequela; Z87.01 Personal history of pneumonia (recurrent); S22.5XXS Flail chest, sequela; S22.20XS Unspecified fracture of sternum, sequela; S27.0XXS Traumatic pneumothorax, sequela; S36 Injury of intra-abdominal organs; S42.302D Unspecified fracture of shaft of humerus, left arm, subsequent encounter for fracture with routine healing; V89.2XXS Person injured in unspecified motor-vehicle accident, traffic, sequela
CPT/HCPCS: 31720; 36415; 71045-TC; 73060-TC; 80048-TC; 85025-TC; 86580-TC; 87081-TC; 90732; 94640-TC; 94760-TC; 94762-TC; 97530-TC; A4623; A6248; A7526; J1953; J3490; Q2036

== ENCOUNTER 2019-08-02 10:52 | Outpatient (CLI) | payer OTHER ==
[~2019-08-02 10:52] MED LIST: ACET-73 GT; AMAN100T GT; ASCO500T9 GT; BISA10SU11 RC; CHLO473M3 MM; DOCU-141 GT; ENOX40DI9 SQ; LEVE1000 PO; MAGN400O21 GT; METO25TA6 GT; MINE133E RC; MULT-1119 GT; NITR1OIN2 TD; NUT.237L65 GT; ONDA4TAB5 GT; PANT40TA2 GT; POLY454P5 GT; PROVIGIL GT
== END 2019-08-02 23:59 | disposition home or self-care (01) ==
LOC: CT 10:52
PROVIDERS: ATTEND Internal Medicine
DX: S06.9X0A Unspecified intracranial injury without loss of consciousness, initial encounter (principal); S02.113A Unspecified occipital condyle fracture, initial encounter for closed fracture; G91.0 Communicating hydrocephalus; G93.89 Other specified disorders of brain; X58.XXXA Exposure to other specified factors, initial encounter; Y93.89 Activity, other specified; Y92.89 Other specified places as the place of occurrence of the external cause; Y99.8 Other external cause status
CPT/HCPCS: 70450-TC

== ENCOUNTER 2019-08-20 12:42 | Outpatient (CLI) | payer OTHER ==
[~2019-08-20 12:42] MED LIST changes: +ASCO500T20 GT; -ASCO500T9 GT
== END 2019-08-20 23:59 | disposition home or self-care (01) ==
LOC: MRI 12:42
PROVIDERS: ATTEND Internal Medicine
DX: S06.9X0D Unspecified intracranial injury without loss of consciousness, subsequent encounter (principal); S02.113D Unspecified occipital condyle fracture, subsequent encounter for fracture with routine healing; X58.XXXD Exposure to other specified factors, subsequent encounter; R60.0 Localized edema; R52 Pain, unspecified
CPT/HCPCS: 72141-TC

== ENCOUNTER 2022-05-29 | Inpatient (IN) | payer MEDICARE, OTHER ==
[~2022-05-29] VITALS: Ht 154.9 cm; Wt 75.7 kg
[~2022-05-29] MED LIST changes: +LEVE1000 GT; -LEVE1000 PO
[2022-05-31] MEDS ORDERED: MINERAL OIL 133 ML (PYXIS) 1 EA ENEMA RC PRN (06:38)
[2022-05-31] MEDS ORDERED: ONDANSETRON 4 MG TAB.RAPDIS GT PRN (06:38)
[2022-05-31] MEDS ORDERED: BISACODYL SUPP (10 MG) 10 MG/SUPP.RECT SUPP.RECT RC PRN (06:38)
[2022-05-31] MEDS ORDERED: ACETAMINOPHEN 650 MG/20 ML UDC- SA PATIENTS-FEVER ONLY GT PRN (06:38)
[2022-05-31] MEDS ORDERED: TUBERCULIN,PURIF.PROT.DERIV. 5 TU/0.1 ML VIAL ID SCH (06:38)
[2022-05-31] MEDS: IPRATROPIUM NEB FS 0.5 MG/2.5 ML AMPUL.NEB NEB SCH ×3 (07:35→18:30)
[2022-05-31] MEDS: ALBUTEROL FS 2.5 MG/0.5 ML VIAL.NEB NEB SCH ×3 (07:35→18:30)
[2022-05-31 07:42] VITALS: BP 130/71
[2022-05-31] MEDS: LEVETIRACETAM SOL (5 ML) 100 MG/ML UDC GT SCH ×2 (09:00→20:24)
[2022-05-31] MEDS: VITAMINS A AND D 56.7 GM TUBE TP SCH ×4 (09:00→20:24)
[2022-05-31] MEDS: DOCUSATE SODIUM LIQ 100 MG/10 ML UDC GT SCH (09:00)
[2022-05-31] MEDS: METOPROLOL TARTRATE 25 MG TABLET GT SCH ×2 (09:00→20:24)
[2022-05-31] MEDS: ASPIRIN 81 MG TAB.CHEW GT SCH (09:00)
[2022-05-31] MEDS: HYDROGEN PEROXIDE 480 ML BOTTLE TP SCH ×2 (09:00→19:49)
[2022-05-31] MEDS: APIXABAN 2.5 MG TABLET GT SCH ×2 (09:00→17:04)
[2022-05-31] MEDS: MULTIVIT W/MINERALS 1 TAB TABLET GT SCH (09:00)
[2022-05-31] MEDS: ASCORBIC ACID 500 MG TABLET GT SCH (09:00)
[2022-05-31] MEDS: AMANTADINE HCL 100 MG CAPSULE GT SCH ×2 (09:00→20:24)
[2022-05-31] MEDS: VITAL AF 1.2 1,000 ML BOTTLE GT PRN (13:00)
[2022-05-31 19:32] VITALS: BP 144/73
--- NOTE | 2022-05-31 20:52 | NUR ---
RT NOTE RECEIVED PT ON 2LPM W/ BUBBLE HUMIDIFIER (28% FIO2) VIA T-BAR. B/U TRACH AT BEDSIDE. AMBU BAG AT BEDSIDE. SX'ED PRN. NO S/S OF RESPIRATORY DISTRESS NOTED. NO S/S OF SOB NOTED. ALARMS ON AND AUDIBLE
[2022-05-31] MEDS: POLYETHYLENE GLYCOL 3350 17 GM POWD.PACK GT SCH (22:49)
[2022-06-01] MEDS: IPRATROPIUM NEB FS 0.5 MG/2.5 ML AMPUL.NEB NEB SCH ×4 (00:50→20:20)
[2022-06-01] MEDS: ALBUTEROL FS 2.5 MG/0.5 ML VIAL.NEB NEB SCH ×4 (00:50→20:20)
[2022-06-01] MEDS: OMEPRAZOLE 20 MG CAPSULE.DR GT SCH (05:20)
[2022-06-01 07:26] VITALS: BP 140/74
[2022-06-01] MEDS: APIXABAN 2.5 MG TABLET GT SCH ×2 (09:00→17:01)
[2022-06-01] MEDS: ASPIRIN 81 MG TAB.CHEW GT SCH (09:00)
[2022-06-01] MEDS: DOCUSATE SODIUM LIQ 100 MG/10 ML UDC GT SCH (09:00)
[2022-06-01] MEDS: LEVETIRACETAM SOL (5 ML) 100 MG/ML UDC GT SCH ×2 (09:00→21:39)
[2022-06-01] MEDS: VITAMINS A AND D 56.7 GM TUBE TP SCH ×4 (09:00→21:45)
[2022-06-01] MEDS: METOPROLOL TARTRATE 25 MG TABLET GT SCH ×2 (09:00→21:45)
[2022-06-01] MEDS: MULTIVIT W/MINERALS 1 TAB TABLET GT SCH (09:00)
[2022-06-01] MEDS: AMANTADINE HCL 100 MG CAPSULE GT SCH ×2 (09:00→21:45)
[2022-06-01] MEDS: ASCORBIC ACID 500 MG TABLET GT SCH (09:00)
[2022-06-01] MEDS: HYDROGEN PEROXIDE 480 ML BOTTLE TP SCH ×2 (09:43→20:20)
--- NOTE | 2022-06-01 11:16 | NUR ---
Family Invite to IDT Meeting: GENEVIEVE emailed the pt.'s daughter, Khadijah at [email or web address] to invite family to participate in 06/03/2022 IDT meeting between 12:30pm-1:30pm. GENEVIEVE will follow up at a later time.
[2022-06-01 12:07] VITALS: BP 127/65
[2022-06-01] MEDS: VITAL AF 1.2 1,000 ML BOTTLE GT PRN (18:44)
[2022-06-01 20:27] VITALS: BP 132/72
[2022-06-01] MEDS: POLYETHYLENE GLYCOL 3350 17 GM POWD.PACK GT SCH (21:45)
[2022-06-02 00:09] VITALS: BP 106/59
[2022-06-02] MEDS: IPRATROPIUM NEB FS 0.5 MG/2.5 ML AMPUL.NEB NEB SCH ×4 (01:32→13:52)
[2022-06-02] MEDS: ALBUTEROL FS 2.5 MG/0.5 ML VIAL.NEB NEB SCH ×4 (01:32→13:52)
[2022-06-02] MEDS: OMEPRAZOLE 20 MG CAPSULE.DR GT SCH (05:47)
[2022-06-02 07:38] VITALS: BP 143/90
[2022-06-02] MEDS: HYDROGEN PEROXIDE 480 ML BOTTLE TP PRN (08:23)
[2022-06-02] MEDS: ASCORBIC ACID 500 MG TABLET GT SCH (09:00)
[2022-06-02] MEDS: APIXABAN 2.5 MG TABLET GT SCH ×2 (09:00→17:58)
[2022-06-02] MEDS: AMANTADINE HCL 100 MG CAPSULE GT SCH ×2 (09:00→21:08)
[2022-06-02] MEDS: DOCUSATE SODIUM LIQ 100 MG/10 ML UDC GT SCH (09:00)
[2022-06-02] MEDS: LEVETIRACETAM SOL (5 ML) 100 MG/ML UDC GT SCH ×2 (09:00→21:06)
[2022-06-02] MEDS: MULTIVIT W/MINERALS 1 TAB TABLET GT SCH (09:00)
[2022-06-02] MEDS: ASPIRIN 81 MG TAB.CHEW GT SCH (09:00)
[2022-06-02] MEDS: VITAMINS A AND D 56.7 GM TUBE TP SCH ×4 (09:00→21:08)
[2022-06-02] MEDS: HYDROGEN PEROXIDE 480 ML BOTTLE TP SCH ×2 (09:00→19:55)
[2022-06-02] MEDS: METOPROLOL TARTRATE 25 MG TABLET GT SCH ×2 (09:00→21:08)
--- NOTE | 2022-06-02 11:35 | NUR ---
Please see resident's previous account [phone] for all assessments and nurses notes.
[2022-06-02 12:08] VITALS: BP 131/87
--- NOTE | 2022-06-02 13:34 | NUR ---
TX NOT GIVEN DUE STILL PATIENT ON COVID ISOLATION. FACILITY MAINTENANCE MECHANIC NOTIFIED. Addendum: 06/02/22 at 1335 by JOLIE RODRIGUEZ RT Amended: Links added.
--- NOTE | 2022-06-02 13:53 | NUR ---
Dr Abebe ordered to resume breathing treatments via nebulizer. Pt has tested negative for Covid.
[2022-06-02] MEDS: VITAL AF 1.2 1,000 ML BOTTLE GT PRN (18:16)
[2022-06-02 19:39] VITALS: BP 132/65
[2022-06-02] MEDS: POLYETHYLENE GLYCOL 3350 17 GM POWD.PACK GT SCH (21:08)
[2022-06-03 00:07] VITALS: BP 126/58
[2022-06-03] MEDS: ALBUTEROL FS 2.5 MG/0.5 ML VIAL.NEB NEB SCH ×4 (01:41→19:06)
[2022-06-03] MEDS: IPRATROPIUM NEB FS 0.5 MG/2.5 ML AMPUL.NEB NEB SCH ×4 (01:41→19:06)
[2022-06-03] MEDS: OMEPRAZOLE 20 MG CAPSULE.DR GT SCH (05:12)
[2022-06-03 07:39] VITALS: BP 123/74
[2022-06-03] MEDS: APIXABAN 2.5 MG TABLET GT SCH ×2 (09:54→17:45)
[2022-06-03] MEDS: LEVETIRACETAM SOL (5 ML) 100 MG/ML UDC GT SCH ×2 (09:54→20:39)
[2022-06-03] MEDS: ASPIRIN 81 MG TAB.CHEW GT SCH (09:54)
[2022-06-03] MEDS: DOCUSATE SODIUM LIQ 100 MG/10 ML UDC GT SCH (09:54)
[2022-06-03] MEDS: MULTIVIT W/MINERALS 1 TAB TABLET GT SCH (09:56)
[2022-06-03] MEDS: ASCORBIC ACID 500 MG TABLET GT SCH (09:56)
[2022-06-03] MEDS: AMANTADINE HCL 100 MG CAPSULE GT SCH ×2 (09:56→20:39)
[2022-06-03] MEDS: METOPROLOL TARTRATE 25 MG TABLET GT SCH ×2 (09:56→20:39)
[2022-06-03] MEDS: VITAMINS A AND D 56.7 GM TUBE TP SCH ×4 (09:57→20:39)
[2022-06-03] MEDS: HYDROGEN PEROXIDE 480 ML BOTTLE TP SCH ×2 (10:00→21:06)
[2022-06-03] MEDS: HYDROGEN PEROXIDE 480 ML BOTTLE TP PRN (10:01)
--- NOTE | 2022-06-03 15:30 | NUR ---
INTERDISCIPLINARY PLAN OF CARE CONFERENCE took place today. The patients responsible republican, Khadijah [phone] participated via [address] Abebe and Interdisciplinary team discussed the plan of care in detail. Current orders as well as treatments and medications were reviewed. The IDT addressed Khadijah's questions.
[2022-06-03] MEDS: VITAL AF 1.2 1,000 ML BOTTLE GT PRN (17:46)
[2022-06-03 19:05] VITALS: BP 118/65
[2022-06-03] MEDS: POLYETHYLENE GLYCOL 3350 17 GM POWD.PACK GT SCH (22:03)
[2022-06-03 23:49] VITALS: BP 122/70
[2022-06-04] MEDS: ALBUTEROL FS 2.5 MG/0.5 ML VIAL.NEB NEB SCH ×4 (00:38→19:17)
[2022-06-04] MEDS: IPRATROPIUM NEB FS 0.5 MG/2.5 ML AMPUL.NEB NEB SCH ×4 (00:38→19:17)
[2022-06-04] MEDS: OMEPRAZOLE 20 MG CAPSULE.DR GT SCH (06:00)
[2022-06-04 07:21] VITALS: BP 127/70
[2022-06-04] MEDS: HYDROGEN PEROXIDE 480 ML BOTTLE TP SCH ×2 (09:06→20:39)
[2022-06-04] MEDS: ASPIRIN 81 MG TAB.CHEW GT SCH (09:28)
[2022-06-04] MEDS: AMANTADINE HCL 100 MG CAPSULE GT SCH ×2 (09:28→21:34)
[2022-06-04] MEDS: METOPROLOL TARTRATE 25 MG TABLET GT SCH ×2 (09:28→21:34)
[2022-06-04] MEDS: APIXABAN 2.5 MG TABLET GT SCH ×2 (09:28→17:00)
[2022-06-04] MEDS: ASCORBIC ACID 500 MG TABLET GT SCH (09:28)
[2022-06-04] MEDS: LEVETIRACETAM SOL (5 ML) 100 MG/ML UDC GT SCH ×2 (09:28→21:34)
[2022-06-04] MEDS: MULTIVIT W/MINERALS 1 TAB TABLET GT SCH (09:28)
[2022-06-04] MEDS: DOCUSATE SODIUM LIQ 100 MG/10 ML UDC GT SCH (09:28)
[2022-06-04] MEDS: VITAMINS A AND D 56.7 GM TUBE TP SCH ×4 (09:29→21:34)
[2022-06-04 11:33] VITALS: BP 138/88
[2022-06-04] MEDS: VITAL AF 1.2 1,000 ML BOTTLE GT PRN (17:40)
--- NOTE | 2022-06-04 18:02 | NUR ---
Obtained order from Dr. Abebe to discontinue respiratory contact precaution due to Covid. Patient remain asymptomatic, no fever, no coughing, no SOB, no respiratory distress, no signs of Covid-19 symptoms. VS 97.7, 66, 14, 97%, 107/68. Patient has negative Covid-19 antigen test today. Patient's daughter Alena informed of discontinuation of contact respiratory precaution for Covid, appreciated the information provided.
[2022-06-04 19:55] VITALS: BP 129/70
[2022-06-04] MEDS: POLYETHYLENE GLYCOL 3350 17 GM POWD.PACK GT SCH (21:34)
[2022-06-05] MEDS: IPRATROPIUM NEB FS 0.5 MG/2.5 ML AMPUL.NEB NEB SCH ×4 (01:30→18:47)
[2022-06-05] MEDS: ALBUTEROL FS 2.5 MG/0.5 ML VIAL.NEB NEB SCH ×4 (01:30→18:47)
[2022-06-05] MEDS: OMEPRAZOLE 20 MG CAPSULE.DR GT SCH (05:35)
[2022-06-05 07:58] VITALS: BP 125/60
[2022-06-05] MEDS: METOPROLOL TARTRATE 25 MG TABLET GT SCH ×2 (09:00→21:02)
[2022-06-05] MEDS: ASPIRIN 81 MG TAB.CHEW GT SCH (09:45)
[2022-06-05] MEDS: DOCUSATE SODIUM LIQ 100 MG/10 ML UDC GT SCH (09:45)
[2022-06-05] MEDS: APIXABAN 2.5 MG TABLET GT SCH ×2 (09:46→17:45)
[2022-06-05] MEDS: AMANTADINE HCL 100 MG CAPSULE GT SCH ×2 (09:46→21:02)
[2022-06-05] MEDS: LEVETIRACETAM SOL (5 ML) 100 MG/ML UDC GT SCH ×2 (09:46→21:02)
[2022-06-05] MEDS: ASCORBIC ACID 500 MG TABLET GT SCH (09:47)
[2022-06-05] MEDS: VITAMINS A AND D 56.7 GM TUBE TP SCH ×4 (09:47→21:02)
[2022-06-05] MEDS: MULTIVIT W/MINERALS 1 TAB TABLET GT SCH (09:47)
[2022-06-05] MEDS: HYDROGEN PEROXIDE 480 ML BOTTLE TP SCH ×2 (09:51→20:36)
[2022-06-05 19:54] VITALS: BP 124/74
--- NOTE | 2022-06-05 20:38 | NUR ---
Pt. received on 2 LPM with bubble humidifier via t-piece and tolerating tx well. sx prn. no sob. no s/s of acute respiratory distress. trach care done. inner cannula changed.
[2022-06-05] MEDS: POLYETHYLENE GLYCOL 3350 17 GM POWD.PACK GT SCH (21:02)
[2022-06-06] MEDS: IPRATROPIUM NEB FS 0.5 MG/2.5 ML AMPUL.NEB NEB SCH ×4 (00:34→18:43)
[2022-06-06] MEDS: ALBUTEROL FS 2.5 MG/0.5 ML VIAL.NEB NEB SCH ×4 (00:34→18:43)
[2022-06-06 01:32] VITALS: BP 125/77
[2022-06-06] MEDS: OMEPRAZOLE 20 MG CAPSULE.DR GT SCH (05:21)
[2022-06-06 07:09] VITALS: BP 111/59
[2022-06-06] MEDS: APIXABAN 2.5 MG TABLET GT SCH ×2 (08:43→17:00)
[2022-06-06] MEDS: LEVETIRACETAM SOL (5 ML) 100 MG/ML UDC GT SCH ×2 (08:43→20:48)
[2022-06-06] MEDS: DOCUSATE SODIUM LIQ 100 MG/10 ML UDC GT SCH (08:43)
[2022-06-06] MEDS: ASPIRIN 81 MG TAB.CHEW GT SCH (08:43)
[2022-06-06] MEDS: METOPROLOL TARTRATE 25 MG TABLET GT SCH ×2 (08:45→20:49)
[2022-06-06] MEDS: MULTIVIT W/MINERALS 1 TAB TABLET GT SCH (08:45)
[2022-06-06] MEDS: AMANTADINE HCL 100 MG CAPSULE GT SCH ×2 (08:45→20:49)
[2022-06-06] MEDS: VITAMINS A AND D 56.7 GM TUBE TP SCH ×4 (08:45→20:49)
[2022-06-06] MEDS: ASCORBIC ACID 500 MG TABLET GT SCH (08:45)
[2022-06-06] MEDS: HYDROGEN PEROXIDE 480 ML BOTTLE TP SCH ×2 (09:25→20:21)
[2022-06-06 11:57] VITALS: BP 138/62
[2022-06-06] MEDS: VITAL AF 1.2 1,000 ML BOTTLE GT PRN (12:50)
--- NOTE | 2022-06-06 16:30 | NUR ---
Seen and examined by SUMIT Srivastava, no new order given.
[2022-06-06 19:58] VITALS: BP 132/71
[2022-06-06] MEDS: POLYETHYLENE GLYCOL 3350 17 GM POWD.PACK GT SCH (21:49)
[2022-06-07] MEDS: IPRATROPIUM NEB FS 0.5 MG/2.5 ML AMPUL.NEB NEB SCH ×4 (00:37→20:19)
[2022-06-07] MEDS: ALBUTEROL FS 2.5 MG/0.5 ML VIAL.NEB NEB SCH ×4 (00:37→20:19)
[2022-06-07] MEDS: OMEPRAZOLE 20 MG CAPSULE.DR GT SCH (05:14)
[2022-06-07 07:07] VITALS: BP 116/61
[2022-06-07] MEDS: ASPIRIN 81 MG TAB.CHEW GT SCH (08:46)
[2022-06-07] MEDS: APIXABAN 2.5 MG TABLET GT SCH ×2 (08:46→17:03)
[2022-06-07] MEDS: DOCUSATE SODIUM LIQ 100 MG/10 ML UDC GT SCH (08:46)
[2022-06-07] MEDS: LEVETIRACETAM SOL (5 ML) 100 MG/ML UDC GT SCH ×2 (08:48→20:07)
[2022-06-07] MEDS: METOPROLOL TARTRATE 25 MG TABLET GT SCH ×2 (08:48→20:08)
[2022-06-07] MEDS: ASCORBIC ACID 500 MG TABLET GT SCH (08:49)
[2022-06-07] MEDS: AMANTADINE HCL 100 MG CAPSULE GT SCH ×2 (08:49→20:08)
[2022-06-07] MEDS: MULTIVIT W/MINERALS 1 TAB TABLET GT SCH (08:49)
[2022-06-07] MEDS: VITAMINS A AND D 56.7 GM TUBE TP SCH ×4 (08:49→20:08)
[2022-06-07] MEDS: HYDROGEN PEROXIDE 480 ML BOTTLE TP SCH ×2 (09:30→21:04)
[2022-06-07 11:38] VITALS: BP 134/71
[2022-06-07 19:40] VITALS: BP 150/85
--- NOTE | 2022-06-07 21:03 | NUR ---
RT RECEIVED PT ON O2 SETTINGS: 2L FIO2 28%. TOLERATING SETTINGS WITH AN SPO2 OF 97%. NO RESPIRATORY DISTRESS OR SOB NOTED DURING ASSESSMENT. NEB TX GIVEN AND TOLERATED. NO ADVERSE REACTIONS NOTED. SUCTIONED X2. TRACH IS PATENT AND SECURE. EMERGENCY TRACH AND AMBU ARE BEDSIDE.
[2022-06-07] MEDS: POLYETHYLENE GLYCOL 3350 17 GM POWD.PACK GT SCH (22:00)
[2022-06-07] MEDS: VITAL AF 1.2 1,000 ML BOTTLE GT PRN (22:07)
[2022-06-08] MEDS: ALBUTEROL FS 2.5 MG/0.5 ML VIAL.NEB NEB SCH ×4 (01:17→19:49)
[2022-06-08] MEDS: IPRATROPIUM NEB FS 0.5 MG/2.5 ML AMPUL.NEB NEB SCH ×4 (01:17→19:49)
[2022-06-08] MEDS: OMEPRAZOLE 20 MG CAPSULE.DR GT SCH (05:12)
[2022-06-08 08:00] VITALS: BP 129/59
[2022-06-08] MEDS: HYDROGEN PEROXIDE 480 ML BOTTLE TP SCH ×2 (08:12→19:49)
[2022-06-08] MEDS: LEVETIRACETAM SOL (5 ML) 100 MG/ML UDC GT SCH ×2 (09:45→20:13)
[2022-06-08] MEDS: VITAMINS A AND D 56.7 GM TUBE TP SCH ×4 (09:45→20:13)
[2022-06-08] MEDS: AMANTADINE HCL 100 MG CAPSULE GT SCH ×2 (09:45→20:13)
[2022-06-08] MEDS: APIXABAN 2.5 MG TABLET GT SCH ×2 (09:45→17:23)
[2022-06-08] MEDS: MULTIVIT W/MINERALS 1 TAB TABLET GT SCH (09:45)
[2022-06-08] MEDS: METOPROLOL TARTRATE 25 MG TABLET GT SCH ×2 (09:45→20:13)
[2022-06-08] MEDS: ASPIRIN 81 MG TAB.CHEW GT SCH (09:45)
[2022-06-08] MEDS: DOCUSATE SODIUM LIQ 100 MG/10 ML UDC GT SCH (09:45)
[2022-06-08] MEDS: ASCORBIC ACID 500 MG TABLET GT SCH (09:45)
[2022-06-08 12:00] VITALS: BP 108/59
--- NOTE | 2022-06-08 16:12 | NUR ---
RECEIVED PATIENT ON COOL AEROSOL @ 28%. HAS A TRACH SHILEY 6XLT UNCUFFED. AIRWAY PATENT AND SECURE. INLINE HHN TXS KIRBY WELL WITH NO ADVERSE REACTION NOTED. AMBU BAG AND EMERGENCY TRACH AT THE BEDSIDE. SMALL YELLOW THICK SECRETIONS NOTED.
[2022-06-08] MEDS: VITAL AF 1.2 1,000 ML BOTTLE GT PRN (17:23)
[2022-06-08 21:35] VITALS: BP 134/75
[2022-06-08] MEDS: POLYETHYLENE GLYCOL 3350 17 GM POWD.PACK GT SCH (22:40)
[2022-06-08 23:59] VITALS: BP 128/65
[2022-06-09] MEDS: IPRATROPIUM NEB FS 0.5 MG/2.5 ML AMPUL.NEB NEB SCH ×4 (01:35→19:46)
[2022-06-09] MEDS: ALBUTEROL FS 2.5 MG/0.5 ML VIAL.NEB NEB SCH ×4 (01:35→19:46)
[2022-06-09] MEDS: OMEPRAZOLE 20 MG CAPSULE.DR GT SCH (05:17)
[2022-06-09 07:31] VITALS: BP 137/73
[2022-06-09] MEDS: HYDROGEN PEROXIDE 480 ML BOTTLE TP PRN (08:36)
[2022-06-09] MEDS: DOCUSATE SODIUM LIQ 100 MG/10 ML UDC GT SCH (09:12)
[2022-06-09] MEDS: ASPIRIN 81 MG TAB.CHEW GT SCH (09:12)
[2022-06-09] MEDS: APIXABAN 2.5 MG TABLET GT SCH ×2 (09:14→17:00)
[2022-06-09] MEDS: METOPROLOL TARTRATE 25 MG TABLET GT SCH ×2 (09:14→20:18)
[2022-06-09] MEDS: LEVETIRACETAM SOL (5 ML) 100 MG/ML UDC GT SCH ×2 (09:14→20:17)
[2022-06-09] MEDS: VITAMINS A AND D 56.7 GM TUBE TP SCH ×4 (09:15→20:18)
[2022-06-09] MEDS: AMANTADINE HCL 100 MG CAPSULE GT SCH ×2 (09:15→20:18)
[2022-06-09] MEDS: ASCORBIC ACID 500 MG TABLET GT SCH (09:15)
[2022-06-09] MEDS: MULTIVIT W/MINERALS 1 TAB TABLET GT SCH (09:15)
[2022-06-09] MEDS: HYDROGEN PEROXIDE 480 ML BOTTLE TP SCH ×2 (11:10→19:47)
[2022-06-09 14:15] VITALS: BP 140/70
[2022-06-09] MEDS: VITAL AF 1.2 1,000 ML BOTTLE GT PRN (18:37)
[2022-06-09 18:53] VITALS: BP 123/71
[2022-06-09] MEDS: POLYETHYLENE GLYCOL 3350 17 GM POWD.PACK GT SCH (21:13)
[2022-06-10 00:14] VITALS: BP 125/70
[2022-06-10] MEDS: IPRATROPIUM NEB FS 0.5 MG/2.5 ML AMPUL.NEB NEB SCH ×4 (01:40→18:53)
[2022-06-10] MEDS: ALBUTEROL FS 2.5 MG/0.5 ML VIAL.NEB NEB SCH ×4 (01:40→18:53)
[2022-06-10] MEDS: OMEPRAZOLE 20 MG CAPSULE.DR GT SCH (05:29)
[2022-06-10 07:18] VITALS: BP 135/85
[2022-06-10] MEDS: HYDROGEN PEROXIDE 480 ML BOTTLE TP SCH ×2 (09:19→20:31)
[2022-06-10] MEDS: ASPIRIN 81 MG TAB.CHEW GT SCH (09:45)
[2022-06-10] MEDS: DOCUSATE SODIUM LIQ 100 MG/10 ML UDC GT SCH (09:45)
[2022-06-10] MEDS: APIXABAN 2.5 MG TABLET GT SCH ×2 (09:46→16:10)
[2022-06-10] MEDS: LEVETIRACETAM SOL (5 ML) 100 MG/ML UDC GT SCH ×2 (09:47→20:36)
[2022-06-10] MEDS: METOPROLOL TARTRATE 25 MG TABLET GT SCH ×2 (09:48→20:36)
[2022-06-10] MEDS: AMANTADINE HCL 100 MG CAPSULE GT SCH ×2 (09:48→20:36)
[2022-06-10] MEDS: VITAMINS A AND D 56.7 GM TUBE TP SCH ×4 (09:49→20:36)
[2022-06-10] MEDS: ASCORBIC ACID 500 MG TABLET GT SCH (09:49)
[2022-06-10] MEDS: MULTIVIT W/MINERALS 1 TAB TABLET GT SCH (09:49)
[2022-06-10 11:09] VITALS: BP 133/71
--- NOTE | 2022-06-10 17:04 | NUR ---
RT NOTE Pt. received on 2 LPM with bubble humidifier 28% FIO2 via t-piece and tolerating well. Suction pt. 2x + prn. No SOB or respiratory distress noted. Tx. given with no adverse reaction noted. Ambu bag and back up trach is at the bed side. Trach care done. Will keep monitor the pt.
[2022-06-10 19:15] VITALS: BP 129/79
[2022-06-10] MEDS: POLYETHYLENE GLYCOL 3350 17 GM POWD.PACK GT SCH (21:04)
[2022-06-11] MEDS: IPRATROPIUM NEB FS 0.5 MG/2.5 ML AMPUL.NEB NEB SCH ×4 (00:37→19:54)
[2022-06-11] MEDS: ALBUTEROL FS 2.5 MG/0.5 ML VIAL.NEB NEB SCH ×4 (00:37→19:54)
[2022-06-11 00:45] VITALS: BP 116/72
[2022-06-11] MEDS: VITAL AF 1.2 1,000 ML BOTTLE GT PRN (05:05)
[2022-06-11] MEDS: OMEPRAZOLE 20 MG CAPSULE.DR GT SCH (05:05)
[2022-06-11 07:49] VITALS: BP 113/74
[2022-06-11] MEDS: ASPIRIN 81 MG TAB.CHEW GT SCH (08:59)
[2022-06-11] MEDS: DOCUSATE SODIUM LIQ 100 MG/10 ML UDC GT SCH (09:02)
[2022-06-11] MEDS: APIXABAN 2.5 MG TABLET GT SCH ×2 (09:02→16:46)
[2022-06-11] MEDS: LEVETIRACETAM SOL (5 ML) 100 MG/ML UDC GT SCH ×2 (09:03→20:33)
[2022-06-11] MEDS: AMANTADINE HCL 100 MG CAPSULE GT SCH ×2 (09:04→20:34)
[2022-06-11] MEDS: MULTIVIT W/MINERALS 1 TAB TABLET GT SCH (09:04)
[2022-06-11] MEDS: METOPROLOL TARTRATE 25 MG TABLET GT SCH ×2 (09:04→20:34)
[2022-06-11] MEDS: VITAMINS A AND D 56.7 GM TUBE TP SCH ×4 (09:05→20:34)
[2022-06-11] MEDS: ASCORBIC ACID 500 MG TABLET GT SCH (09:05)
[2022-06-11] MEDS: HYDROGEN PEROXIDE 480 ML BOTTLE TP SCH ×2 (09:25→19:54)
[2022-06-11 12:00] VITALS: BP 122/76
[2022-06-11 18:55] VITALS: BP 139/74
[2022-06-11] MEDS: POLYETHYLENE GLYCOL 3350 17 GM POWD.PACK GT SCH (21:03)
[2022-06-11 23:34] VITALS: BP 122/65
[2022-06-12] MEDS: IPRATROPIUM NEB FS 0.5 MG/2.5 ML AMPUL.NEB NEB SCH ×4 (01:37→19:51)
[2022-06-12] MEDS: ALBUTEROL FS 2.5 MG/0.5 ML VIAL.NEB NEB SCH ×4 (01:37→19:51)
[2022-06-12] MEDS: OMEPRAZOLE 20 MG CAPSULE.DR GT SCH (05:25)
[2022-06-12] MEDS: VITAL AF 1.2 1,000 ML BOTTLE GT PRN (05:25)
[2022-06-12 08:01] VITALS: BP 139/77
[2022-06-12] MEDS: HYDROGEN PEROXIDE 480 ML BOTTLE TP SCH ×2 (08:26→19:51)
[2022-06-12] MEDS: ASPIRIN 81 MG TAB.CHEW GT SCH (09:00)
[2022-06-12] MEDS: AMANTADINE HCL 100 MG CAPSULE GT SCH ×2 (09:00→20:42)
[2022-06-12] MEDS: MULTIVIT W/MINERALS 1 TAB TABLET GT SCH (09:00)
[2022-06-12] MEDS: DOCUSATE SODIUM LIQ 100 MG/10 ML UDC GT SCH (09:00)
[2022-06-12] MEDS: LEVETIRACETAM SOL (5 ML) 100 MG/ML UDC GT SCH ×2 (09:00→20:41)
[2022-06-12] MEDS: APIXABAN 2.5 MG TABLET GT SCH ×2 (09:00→16:35)
[2022-06-12] MEDS: ASCORBIC ACID 500 MG TABLET GT SCH (09:00)
[2022-06-12] MEDS: METOPROLOL TARTRATE 25 MG TABLET GT SCH ×2 (09:00→20:42)
[2022-06-12] MEDS: VITAMINS A AND D 56.7 GM TUBE TP SCH ×4 (09:00→20:42)
[2022-06-12 13:00] VITALS: BP 134/76
--- NOTE | 2022-06-12 17:15 | NUR ---
Called and spoke to patients' daughter Khadijah and made aware that one of the residents is tested positive Covid 19 test today. this patient on Covid 19 contact isolation and all precautions observed.
[2022-06-12 19:17] VITALS: BP 117/70
[2022-06-12] MEDS: POLYETHYLENE GLYCOL 3350 17 GM POWD.PACK GT SCH (21:47)
[2022-06-13] MEDS: IPRATROPIUM NEB FS 0.5 MG/2.5 ML AMPUL.NEB NEB SCH ×4 (01:41→19:36)
[2022-06-13] MEDS: ALBUTEROL FS 2.5 MG/0.5 ML VIAL.NEB NEB SCH ×4 (01:41→19:36)
[2022-06-13] MEDS: OMEPRAZOLE 20 MG CAPSULE.DR GT SCH (05:38)
[2022-06-13] MEDS: VITAL AF 1.2 1,000 ML BOTTLE GT PRN (05:38)
[2022-06-13 06:43] LABS: BASOPHILS % (AUTO) 0.3 % (0.0-2.0); HEMATOCRIT 39 % (33-45); HEMOGLOBIN 13.1 g/dL (11.5-14.8); LYMPHOCYTES # (AUTO) 1.9 K/uL (0.8-4.8); LYMPHOCYTES % (AUTO) 24.4 % (20.0-44.0); MEAN CORPUSCULAR HGB CONC 33 g/dl (31.0-36.0); MEAN CORPUSCULAR VOLUME 86 fL (82-100); MONOCYTES # (AUTO) 0.6 K/uL (0.1-1.30); MONOCYTES % (AUTO) 7.5 % (2.0-12.0); NEUTROPHILS % (AUTO) 64.8 % (43.0-81.0); PLATELET COUNT (AUTO) 399 K/uL (150-450); WHITE BLOOD COUNT (AUTO) 7.8 K/uL (4.3-11.0)
[2022-06-13 07:46] LABS: CALCIUM, SERUM 9.9 mg/dL (8.5-10.1); CREATININE 0.5 mg/dL (0.6-1.3); MAGNESIUM 2.2 mg/dL (1.8-2.4); PHOSPHORUS 6.2 mg/dL (2.5-4.9); POTASSIUM 3.9 mmol/L (3.5-5.1)
[2022-06-13] MEDS: HYDROGEN PEROXIDE 480 ML BOTTLE TP SCH ×2 (07:51→19:36)
[2022-06-13 07:54] VITALS: BP 129/76
[2022-06-13] MEDS: METOPROLOL TARTRATE 25 MG TABLET GT SCH ×2 (09:00→20:25)
[2022-06-13] MEDS: ASPIRIN 81 MG TAB.CHEW GT SCH (09:10)
[2022-06-13] MEDS: LEVETIRACETAM SOL (5 ML) 100 MG/ML UDC GT SCH ×2 (09:11→20:25)
[2022-06-13] MEDS: DOCUSATE SODIUM LIQ 100 MG/10 ML UDC GT SCH (09:11)
[2022-06-13] MEDS: APIXABAN 2.5 MG TABLET GT SCH ×2 (09:11→17:21)
[2022-06-13] MEDS: AMANTADINE HCL 100 MG CAPSULE GT SCH ×2 (09:12→20:25)
[2022-06-13] MEDS: VITAMINS A AND D 56.7 GM TUBE TP SCH ×4 (09:12→20:25)
[2022-06-13] MEDS: MULTIVIT W/MINERALS 1 TAB TABLET GT SCH (09:12)
[2022-06-13] MEDS: ASCORBIC ACID 500 MG TABLET GT SCH (09:12)
[2022-06-13 12:05] VITALS: BP 131/72
--- NOTE | 2022-06-13 16:36 | NUR ---
Facility Update: GENEVIEVE emailed the pt.'s daughter, Khadijah and notified them that, "As of 06/12/2022 Two Sub-Acute residents and 1 staff member tested positive for COVID-19 SO continues to following [facility] Health[facility] infection control guidelines. SO will continue response testing and screening for symptoms of Residents and staff." GENEVIEVE attached latest visitation guidelines and encouraged families to receive latest booster.
[2022-06-13 20:21] VITALS: BP 131/78
[2022-06-13] MEDS: POLYETHYLENE GLYCOL 3350 17 GM POWD.PACK GT SCH (21:04)
[2022-06-14] MEDS: IPRATROPIUM NEB FS 0.5 MG/2.5 ML AMPUL.NEB NEB SCH ×4 (01:27→19:37)
[2022-06-14] MEDS: ALBUTEROL FS 2.5 MG/0.5 ML VIAL.NEB NEB SCH ×4 (01:27→19:37)
--- NOTE | 2022-06-14 03:14 | NUR ---
PATIENT RECEIVED ON 28% AEROSOL T-TUBE, TOLERATING WITH NO DISTRESS/SOB NOTED. SUCTIONED FOR MINIMAL, THIN, WHITE SECRETIONS. GIVEN IN-LINE TREATMENTS WITH NO ADVERSE REACTIONS. AMBU BAG AT BEDSIDE. TRACH CARE DONE. Addendum: 06/14/22 at 0315 by LINDSAY RODRIGUES RT Amended: Links added.
[2022-06-14] MEDS: VITAL AF 1.2 1,000 ML BOTTLE GT PRN ×2 (03:23→14:41)
[2022-06-14] MEDS: OMEPRAZOLE 20 MG CAPSULE.DR GT SCH (05:54)
[2022-06-14 07:40] VITALS: BP 142/74
[2022-06-14] MEDS: ASPIRIN 81 MG TAB.CHEW GT SCH (08:26)
[2022-06-14] MEDS: DOCUSATE SODIUM LIQ 100 MG/10 ML UDC GT SCH (08:27)
[2022-06-14] MEDS: LEVETIRACETAM SOL (5 ML) 100 MG/ML UDC GT SCH ×2 (08:28→20:34)
[2022-06-14] MEDS: METOPROLOL TARTRATE 25 MG TABLET GT SCH ×2 (08:30→20:35)
[2022-06-14] MEDS: HYDROGEN PEROXIDE 480 ML BOTTLE TP SCH ×3 (08:31→19:54)
[2022-06-14] MEDS: ASCORBIC ACID 500 MG TABLET GT SCH (08:31)
[2022-06-14] MEDS: VITAMINS A AND D 56.7 GM TUBE TP SCH ×4 (08:31→20:35)
[2022-06-14] MEDS: MULTIVIT W/MINERALS 1 TAB TABLET GT SCH (08:55)
[2022-06-14] MEDS: AMANTADINE HCL 100 MG CAPSULE GT SCH ×2 (09:00→20:35)
[2022-06-14] MEDS: APIXABAN 2.5 MG TABLET GT SCH ×2 (09:45→16:17)
--- NOTE | 2022-06-14 11:32 | NUR ---
Intake Paperwork: GENEVIEVE mailed intake paperwork to Khadijah [[address] [facility] [address]] today per Khadijah's request.
[2022-06-14 11:33] VITALS: BP 139/72
--- NOTE | 2022-06-14 16:37 | NUR ---
Facility Update: GENEVIEVE emailed the pt.'s daughter, Khadijah and notified them that, "1 staff member tested positive for COVID-19 today. SO continues to following [facility] Department of Public Healths infection control guidelines. SO will continue response testing and screening for symptoms of Residents and staff." GENEVIEVE attached latest visitation guidelines and encouraged families to receive latest booster.
[2022-06-14 20:00] VITALS: BP 137/68
[2022-06-14] MEDS: POLYETHYLENE GLYCOL 3350 17 GM POWD.PACK GT SCH (21:09)
[2022-06-15] MEDS: ALBUTEROL FS 2.5 MG/0.5 ML VIAL.NEB NEB SCH ×4 (02:18→20:01)
[2022-06-15] MEDS: IPRATROPIUM NEB FS 0.5 MG/2.5 ML AMPUL.NEB NEB SCH ×4 (02:18→20:01)
[2022-06-15] MEDS: OMEPRAZOLE 20 MG CAPSULE.DR GT SCH (05:30)
[2022-06-15 07:33] VITALS: BP 141/76
[2022-06-15] MEDS: DOCUSATE SODIUM LIQ 100 MG/10 ML UDC GT SCH (09:01)
[2022-06-15] MEDS: ASPIRIN 81 MG TAB.CHEW GT SCH (09:01)
[2022-06-15] MEDS: APIXABAN 2.5 MG TABLET GT SCH ×2 (09:02→16:47)
[2022-06-15] MEDS: LEVETIRACETAM SOL (5 ML) 100 MG/ML UDC GT SCH ×2 (09:02→21:11)
[2022-06-15] MEDS: VITAMINS A AND D 56.7 GM TUBE TP SCH ×4 (09:03→21:12)
[2022-06-15] MEDS: METOPROLOL TARTRATE 25 MG TABLET GT SCH ×2 (09:03→21:12)
[2022-06-15] MEDS: AMANTADINE HCL 100 MG CAPSULE GT SCH ×2 (09:03→21:12)
[2022-06-15] MEDS: MULTIVIT W/MINERALS 1 TAB TABLET GT SCH (09:03)
[2022-06-15] MEDS: ASCORBIC ACID 500 MG TABLET GT SCH (09:03)
[2022-06-15 11:49] VITALS: BP 131/75
--- NOTE | 2022-06-15 13:54 | NUR ---
RT NOTE PATIENT RECEIVED ON 28% AEROSOL T-TUBE, TOLERATING WITH NO DISTRESS/SOB NOTED. SUCTIONED FOR MINIMAL, THIN, WHITE SECRETIONS. GIVEN IN-LINE TREATMENTS WITH NO ADVERSE REACTIONS. AMBU BAG AT BEDSIDE. TRACH CARE DONE. PT STABLE WILL CONTINUE TO MONITOR FOR ANY CHANGES.
[2022-06-15] MEDS: VITAL AF 1.2 1,000 ML BOTTLE GT PRN (17:00)
[2022-06-15 20:00] VITALS: BP 141/73
[2022-06-15] MEDS: HYDROGEN PEROXIDE 480 ML BOTTLE TP SCH (20:01)
[2022-06-15] MEDS: POLYETHYLENE GLYCOL 3350 17 GM POWD.PACK GT SCH (21:12)
[2022-06-16] MEDS: ALBUTEROL FS 2.5 MG/0.5 ML VIAL.NEB NEB SCH ×4 (01:59→19:48)
[2022-06-16] MEDS: IPRATROPIUM NEB FS 0.5 MG/2.5 ML AMPUL.NEB NEB SCH ×4 (01:59→19:48)
[2022-06-16] MEDS: OMEPRAZOLE 20 MG CAPSULE.DR GT SCH (05:39)
[2022-06-16 08:00] VITALS: BP 110/52
[2022-06-16] MEDS: HYDROGEN PEROXIDE 480 ML BOTTLE TP SCH ×2 (09:09→19:49)
[2022-06-16] MEDS: LEVETIRACETAM SOL (5 ML) 100 MG/ML UDC GT SCH ×2 (09:12→21:06)
[2022-06-16] MEDS: DOCUSATE SODIUM LIQ 100 MG/10 ML UDC GT SCH (09:12)
[2022-06-16] MEDS: APIXABAN 2.5 MG TABLET GT SCH ×2 (09:12→16:37)
[2022-06-16] MEDS: ASPIRIN 81 MG TAB.CHEW GT SCH (09:12)
[2022-06-16] MEDS: METOPROLOL TARTRATE 25 MG TABLET GT SCH ×2 (09:13→21:07)
[2022-06-16] MEDS: MULTIVIT W/MINERALS 1 TAB TABLET GT SCH (09:14)
[2022-06-16] MEDS: VITAMINS A AND D 56.7 GM TUBE TP SCH ×4 (09:14→21:07)
[2022-06-16] MEDS: ASCORBIC ACID 500 MG TABLET GT SCH (09:14)
[2022-06-16] MEDS: AMANTADINE HCL 100 MG CAPSULE GT SCH ×2 (09:14→21:07)
[2022-06-16 12:00] VITALS: BP 118/65
[2022-06-16] MEDS: VITAL AF 1.2 1,000 ML BOTTLE GT PRN (14:39)
[2022-06-16 19:29] VITALS: BP 114/67
[2022-06-16] MEDS: POLYETHYLENE GLYCOL 3350 17 GM POWD.PACK GT SCH (21:07)
[2022-06-17 00:22] VITALS: BP 119/71
[2022-06-17] MEDS: ALBUTEROL FS 2.5 MG/0.5 ML VIAL.NEB NEB SCH ×4 (01:32→20:16)
[2022-06-17] MEDS: IPRATROPIUM NEB FS 0.5 MG/2.5 ML AMPUL.NEB NEB SCH ×4 (01:32→20:16)
[2022-06-17] MEDS: OMEPRAZOLE 20 MG CAPSULE.DR GT SCH (05:35)
[2022-06-17] MEDS: DOCUSATE SODIUM LIQ 100 MG/10 ML UDC GT SCH (08:47)
[2022-06-17] MEDS: ASPIRIN 81 MG TAB.CHEW GT SCH (08:47)
[2022-06-17] MEDS: LEVETIRACETAM SOL (5 ML) 100 MG/ML UDC GT SCH ×2 (08:47→21:47)
[2022-06-17] MEDS: APIXABAN 2.5 MG TABLET GT SCH ×2 (08:47→16:23)
[2022-06-17] MEDS: METOPROLOL TARTRATE 25 MG TABLET GT SCH ×2 (08:47→21:48)
[2022-06-17] MEDS: AMANTADINE HCL 100 MG CAPSULE GT SCH ×2 (08:47→21:48)
[2022-06-17] MEDS: ASCORBIC ACID 500 MG TABLET GT SCH (08:48)
[2022-06-17] MEDS: MULTIVIT W/MINERALS 1 TAB TABLET GT SCH (08:48)
[2022-06-17] MEDS: VITAMINS A AND D 56.7 GM TUBE TP SCH ×4 (08:48→21:48)
[2022-06-17] MEDS: HYDROGEN PEROXIDE 480 ML BOTTLE TP SCH ×2 (09:00→20:16)
[2022-06-17] MEDS: VITAL AF 1.2 1,000 ML BOTTLE GT PRN (16:24)
[2022-06-17 20:19] VITALS: BP 140/78
[2022-06-17] MEDS: POLYETHYLENE GLYCOL 3350 17 GM POWD.PACK GT SCH (21:48)
[2022-06-18 01:02] VITALS: BP 144/91
[2022-06-18] MEDS: IPRATROPIUM NEB FS 0.5 MG/2.5 ML AMPUL.NEB NEB SCH ×4 (01:51→18:58)
[2022-06-18] MEDS: ALBUTEROL FS 2.5 MG/0.5 ML VIAL.NEB NEB SCH ×4 (01:51→18:58)
[2022-06-18] MEDS: OMEPRAZOLE 20 MG CAPSULE.DR GT SCH (05:43)
[2022-06-18 08:00] VITALS: BP 122/65
[2022-06-18] MEDS: LEVETIRACETAM SOL (5 ML) 100 MG/ML UDC GT SCH ×2 (08:58→21:15)
[2022-06-18] MEDS: ASPIRIN 81 MG TAB.CHEW GT SCH (08:58)
[2022-06-18] MEDS: DOCUSATE SODIUM LIQ 100 MG/10 ML UDC GT SCH (08:58)
[2022-06-18] MEDS: APIXABAN 2.5 MG TABLET GT SCH ×2 (08:58→16:12)
[2022-06-18] MEDS: VITAMINS A AND D 56.7 GM TUBE TP SCH ×4 (08:59→21:15)
[2022-06-18] MEDS: METOPROLOL TARTRATE 25 MG TABLET GT SCH ×2 (08:59→21:15)
[2022-06-18] MEDS: MULTIVIT W/MINERALS 1 TAB TABLET GT SCH (08:59)
[2022-06-18] MEDS: ASCORBIC ACID 500 MG TABLET GT SCH (08:59)
[2022-06-18] MEDS: AMANTADINE HCL 100 MG CAPSULE GT SCH ×2 (08:59→21:15)
[2022-06-18] MEDS: HYDROGEN PEROXIDE 480 ML BOTTLE TP SCH ×2 (09:51→21:06)
[2022-06-18 12:10] VITALS: BP 121/68
--- NOTE | 2022-06-18 13:04 | NUR ---
Pt. received on trach 28% cool aerosol via t-piece and tolerating well. Suction pt. 2x + prn. No SOB or respiratory distress noted. Tx. given with no adverse reaction noted. Ambu bag and back up trach is at the bed side. Trach is in midline, patent and secured. Trach care done. Will keep monitor the pt.
--- NOTE | 2022-06-18 13:07 | NUR ---
Unable to complete monthly trach tube change due of short staff will endorse to shift engineer RTs. contract preparer aware. Pt. is currently in stable condition. No SOB or respiratory distress noted. Trach is still in midline, patent and secured. Will keep monitor the pt.
[2022-06-18] MEDS: VITAL AF 1.2 1,000 ML BOTTLE GT PRN (17:17)
[2022-06-18 19:56] VITALS: BP 145/86
--- NOTE | 2022-06-18 20:25 | NUR ---
RT RECEIVED PT ON O2 SETTINGS: CA 5L FIO2 28%. TOLERATING SETTINGS WITH AN SPO2 OF 97%. NO RESPIRATORY DISTRESS OR SOB NOTED DURING ASSESSMENT. NEB TX GIVEN AND TOLERATED. NO ADVERSE REACTIONS NOTED. SUCTIONED X2. TRACH IS PATENT AND SECURE. EMERGENCY TRACH AND AMBU ARE BEDSIDE.
[2022-06-18] MEDS: POLYETHYLENE GLYCOL 3350 17 GM POWD.PACK GT SCH (21:15)
--- NOTE | 2022-06-18 23:44 | NUR ---
MONTHLY TRACH CHANGE DONE BY CHRISTIE Phelan RT AND DOLORES Tate RT. NO SOB. NO BLEEDING. DEBONING TEAM LEADER NOTIFIED. USED SPARE TRACH BECAUSE WE COULD NOT FIND EXTRA TRACH. WILL ENDORSE TO DAY SHIFT TO REPLACE EMERGENCY TRACH.
[2022-06-19] MEDS: ALBUTEROL FS 2.5 MG/0.5 ML VIAL.NEB NEB SCH ×4 (01:09→19:13)
[2022-06-19] MEDS: IPRATROPIUM NEB FS 0.5 MG/2.5 ML AMPUL.NEB NEB SCH ×4 (01:09→19:13)
[2022-06-19] MEDS: OMEPRAZOLE 20 MG CAPSULE.DR GT SCH (05:22)
--- NOTE | 2022-06-19 06:00 | NUR ---
RN NOTES S/P TRACHEOSTOMY CHANGED WITH NO ACTIVE BLEEDING NOTED. NO S/S OF PAIN/DISCOMFORT SEEN. WILL CONTINUE TO MONITOR.
[2022-06-19] MEDS: HYDROGEN PEROXIDE 480 ML BOTTLE TP SCH ×2 (08:09→21:19)
[2022-06-19] MEDS: METOPROLOL TARTRATE 25 MG TABLET GT SCH ×2 (08:55→20:39)
[2022-06-19] MEDS: APIXABAN 2.5 MG TABLET GT SCH ×2 (08:55→16:23)
[2022-06-19] MEDS: AMANTADINE HCL 100 MG CAPSULE GT SCH ×2 (08:56→20:39)
[2022-06-19] MEDS: LEVETIRACETAM SOL (5 ML) 100 MG/ML UDC GT SCH ×2 (08:57→20:38)
[2022-06-19] MEDS: ASPIRIN 81 MG TAB.CHEW GT SCH (08:58)
[2022-06-19] MEDS: MULTIVIT W/MINERALS 1 TAB TABLET GT SCH (08:59)
[2022-06-19] MEDS: DOCUSATE SODIUM LIQ 100 MG/10 ML UDC GT SCH (08:59)
[2022-06-19] MEDS: ASCORBIC ACID 500 MG TABLET GT SCH (09:00)
[2022-06-19] MEDS: VITAMINS A AND D 56.7 GM TUBE TP SCH ×4 (09:00→20:39)
--- NOTE | 2022-06-19 16:49 | NUR ---
RECEIVED PATIENT ON COOL AEROSOL @ 28%. HAS A TRACH SHILEY 6 XLT UNCUFFED. AIRWAY PATENT AND SECURE. HHN TXS KIRBY WELL WITH NO ADVERSE REACTION NOTED. AMBU BAG AND EMERGENCY TRACH AT THE BEDSIDE. SMALL YELLOW THICK SECRETIONS NOTED.
--- NOTE | 2022-06-19 21:19 | NUR ---
RT RECEIVED PT ON O2 SETTINGS: CA 5L FIO2 28%. TOLERATING SETTINGS. NO RESPIRATORY DISTRESS OR SOB NOTED DURING ASSESSMENT. NEB TX GIVEN AND TOLERATED. NO ADVERSE REACTIONS NOTED. SUCTIONED X2. TRACH IS PATENT AND SECURE. EMERGENCY TRACH AND AMBU ARE BEDSIDE.
[2022-06-19] MEDS: POLYETHYLENE GLYCOL 3350 17 GM POWD.PACK GT SCH (22:07)
[2022-06-20] MEDS: IPRATROPIUM NEB FS 0.5 MG/2.5 ML AMPUL.NEB NEB SCH ×4 (01:03→20:16)
[2022-06-20] MEDS: ALBUTEROL FS 2.5 MG/0.5 ML VIAL.NEB NEB SCH ×4 (01:03→20:16)
[2022-06-20] MEDS: OMEPRAZOLE 20 MG CAPSULE.DR GT SCH (05:43)
[2022-06-20 07:55] VITALS: BP 150/90
[2022-06-20] MEDS: ASCORBIC ACID 500 MG TABLET GT SCH (09:00)
[2022-06-20] MEDS: AMANTADINE HCL 100 MG CAPSULE GT SCH ×2 (09:00→20:29)
[2022-06-20] MEDS: ASPIRIN 81 MG TAB.CHEW GT SCH (09:00)
[2022-06-20] MEDS: LEVETIRACETAM SOL (5 ML) 100 MG/ML UDC GT SCH ×2 (09:00→20:27)
[2022-06-20] MEDS: APIXABAN 2.5 MG TABLET GT SCH ×2 (09:00→16:46)
[2022-06-20] MEDS: MULTIVIT W/MINERALS 1 TAB TABLET GT SCH (09:00)
[2022-06-20] MEDS: DOCUSATE SODIUM LIQ 100 MG/10 ML UDC GT SCH (09:00)
[2022-06-20] MEDS: VITAMINS A AND D 56.7 GM TUBE TP SCH ×4 (09:00→20:29)
[2022-06-20] MEDS: METOPROLOL TARTRATE 25 MG TABLET GT SCH ×2 (09:00→20:29)
[2022-06-20] MEDS: HYDROGEN PEROXIDE 480 ML BOTTLE TP SCH ×2 (10:43→20:16)
[2022-06-20 12:39] VITALS: BP 129/75
[2022-06-20 19:47] VITALS: BP 125/71
[2022-06-20] MEDS: POLYETHYLENE GLYCOL 3350 17 GM POWD.PACK GT SCH (21:31)
[2022-06-21] MEDS: VITAL AF 1.2 1,000 ML BOTTLE GT PRN (01:58)
[2022-06-21] MEDS: IPRATROPIUM NEB FS 0.5 MG/2.5 ML AMPUL.NEB NEB SCH ×4 (02:09→20:19)
[2022-06-21] MEDS: ALBUTEROL FS 2.5 MG/0.5 ML VIAL.NEB NEB SCH ×4 (02:09→20:20)
[2022-06-21] MEDS: OMEPRAZOLE 20 MG CAPSULE.DR GT SCH (05:08)
[2022-06-21 07:29] VITALS: BP 165/72
[2022-06-21] MEDS: HYDROGEN PEROXIDE 480 ML BOTTLE TP SCH ×2 (07:31→20:20)
--- NOTE | 2022-06-21 08:21 | NUR ---
RT NOTE PATIENT RECEIVED ON 28% AEROSOL T-TUBE, TOLERATING WITH NO DISTRESS/SOB NOTED. TRACH IS PATENT AND SECURED. PT IS SUCTIONED. GIVEN IN-LINE TREATMENTS WITH NO ADVERSE REACTIONS. AMBU BAG AND TRACH AT BEDSIDE. PT STABLE WILL CONTINUE TO MONITOR FOR ANY CHANGES
[2022-06-21] MEDS: APIXABAN 2.5 MG TABLET GT SCH ×2 (09:00→17:27)
[2022-06-21] MEDS: DOCUSATE SODIUM LIQ 100 MG/10 ML UDC GT SCH (09:00)
[2022-06-21] MEDS: ASCORBIC ACID 500 MG TABLET GT SCH (09:00)
[2022-06-21] MEDS: VITAMINS A AND D 56.7 GM TUBE TP SCH ×4 (09:00→20:22)
[2022-06-21] MEDS: LEVETIRACETAM SOL (5 ML) 100 MG/ML UDC GT SCH ×2 (09:00→20:22)
[2022-06-21] MEDS: MULTIVIT W/MINERALS 1 TAB TABLET GT SCH (09:00)
[2022-06-21] MEDS: METOPROLOL TARTRATE 25 MG TABLET GT SCH ×2 (09:00→20:22)
[2022-06-21] MEDS: AMANTADINE HCL 100 MG CAPSULE GT SCH ×2 (09:00→20:22)
[2022-06-21] MEDS: ASPIRIN 81 MG TAB.CHEW GT SCH (09:00)
[2022-06-21 11:57] VITALS: BP 139/69
[2022-06-21 20:13] VITALS: BP 129/66
[2022-06-21] MEDS: POLYETHYLENE GLYCOL 3350 17 GM POWD.PACK GT SCH (21:48)
[2022-06-22] MEDS: IPRATROPIUM NEB FS 0.5 MG/2.5 ML AMPUL.NEB NEB SCH ×4 (02:21→20:01)
[2022-06-22] MEDS: ALBUTEROL FS 2.5 MG/0.5 ML VIAL.NEB NEB SCH ×4 (02:21→20:01)
[2022-06-22] MEDS: VITAL AF 1.2 1,000 ML BOTTLE GT PRN (02:27)
[2022-06-22] MEDS: OMEPRAZOLE 20 MG CAPSULE.DR GT SCH (05:42)
[2022-06-22 07:26] VITALS: BP 122/71
[2022-06-22] MEDS: HYDROGEN PEROXIDE 480 ML BOTTLE TP SCH ×2 (09:00→20:01)
[2022-06-22] MEDS: MULTIVIT W/MINERALS 1 TAB TABLET GT SCH (09:00)
[2022-06-22] MEDS: VITAMINS A AND D 56.7 GM TUBE TP SCH ×4 (09:00→21:26)
[2022-06-22] MEDS: DOCUSATE SODIUM LIQ 100 MG/10 ML UDC GT SCH (09:00)
[2022-06-22] MEDS: ASCORBIC ACID 500 MG TABLET GT SCH (09:00)
[2022-06-22] MEDS: LEVETIRACETAM SOL (5 ML) 100 MG/ML UDC GT SCH ×2 (09:00→21:25)
[2022-06-22] MEDS: APIXABAN 2.5 MG TABLET GT SCH ×2 (09:00→17:00)
[2022-06-22] MEDS: AMANTADINE HCL 100 MG CAPSULE GT SCH ×2 (09:00→21:26)
[2022-06-22] MEDS: METOPROLOL TARTRATE 25 MG TABLET GT SCH ×2 (09:00→21:26)
[2022-06-22] MEDS: ASPIRIN 81 MG TAB.CHEW GT SCH (09:00)
[2022-06-22 13:39] VITALS: BP 152/74
[2022-06-22 20:00] VITALS: BP 103/71
[2022-06-22] MEDS: POLYETHYLENE GLYCOL 3350 17 GM POWD.PACK GT SCH (21:26)
[2022-06-23] MEDS: IPRATROPIUM NEB FS 0.5 MG/2.5 ML AMPUL.NEB NEB SCH ×4 (01:51→19:52)
[2022-06-23] MEDS: ALBUTEROL FS 2.5 MG/0.5 ML VIAL.NEB NEB SCH ×4 (01:51→19:52)
[2022-06-23] MEDS: OMEPRAZOLE 20 MG CAPSULE.DR GT SCH (05:27)
[2022-06-23] MEDS: VITAL AF 1.2 1,000 ML BOTTLE GT PRN (05:27)
[2022-06-23 07:31] VITALS: BP 134/90
[2022-06-23] MEDS: HYDROGEN PEROXIDE 480 ML BOTTLE TP SCH ×2 (08:03→19:52)
[2022-06-23] MEDS: ASPIRIN 81 MG TAB.CHEW GT SCH (09:51)
[2022-06-23] MEDS: DOCUSATE SODIUM LIQ 100 MG/10 ML UDC GT SCH (09:51)
[2022-06-23] MEDS: MULTIVIT W/MINERALS 1 TAB TABLET GT SCH (09:52)
[2022-06-23] MEDS: ASCORBIC ACID 500 MG TABLET GT SCH (09:52)
[2022-06-23] MEDS: APIXABAN 2.5 MG TABLET GT SCH ×2 (09:52→16:18)
[2022-06-23] MEDS: LEVETIRACETAM SOL (5 ML) 100 MG/ML UDC GT SCH ×2 (09:52→21:26)
[2022-06-23] MEDS: VITAMINS A AND D 56.7 GM TUBE TP SCH ×4 (09:52→21:27)
[2022-06-23] MEDS: AMANTADINE HCL 100 MG CAPSULE GT SCH ×2 (09:52→21:26)
[2022-06-23] MEDS: METOPROLOL TARTRATE 25 MG TABLET GT SCH ×2 (09:55→21:26)
[2022-06-23 12:06] VITALS: BP 162/88
[2022-06-23 19:15] VITALS: BP 129/82
[2022-06-23] MEDS: POLYETHYLENE GLYCOL 3350 17 GM POWD.PACK GT SCH (21:27)
[2022-06-23 23:51] VITALS: BP 124/74
[2022-06-24] MEDS: IPRATROPIUM NEB FS 0.5 MG/2.5 ML AMPUL.NEB NEB SCH ×4 (01:53→18:46)
[2022-06-24] MEDS: ALBUTEROL FS 2.5 MG/0.5 ML VIAL.NEB NEB SCH ×4 (01:53→18:46)
[2022-06-24] MEDS: OMEPRAZOLE 20 MG CAPSULE.DR GT SCH (05:20)
[2022-06-24] MEDS: HYDROGEN PEROXIDE 480 ML BOTTLE TP SCH ×2 (06:59→20:53)
[2022-06-24 07:54] VITALS: BP 136/72
[2022-06-24] MEDS: DOCUSATE SODIUM LIQ 100 MG/10 ML UDC GT SCH (09:00)
[2022-06-24] MEDS: MULTIVIT W/MINERALS 1 TAB TABLET GT SCH (09:00)
[2022-06-24] MEDS: ASCORBIC ACID 500 MG TABLET GT SCH (09:00)
[2022-06-24] MEDS: VITAMINS A AND D 56.7 GM TUBE TP SCH ×4 (09:00→21:23)
[2022-06-24] MEDS: APIXABAN 2.5 MG TABLET GT SCH ×2 (09:00→16:54)
[2022-06-24] MEDS: AMANTADINE HCL 100 MG CAPSULE GT SCH ×2 (09:00→21:23)
[2022-06-24] MEDS: METOPROLOL TARTRATE 25 MG TABLET GT SCH ×2 (09:00→21:23)
[2022-06-24] MEDS: ASPIRIN 81 MG TAB.CHEW GT SCH (09:00)
[2022-06-24] MEDS: LEVETIRACETAM SOL (5 ML) 100 MG/ML UDC GT SCH ×2 (09:00→21:22)
[2022-06-24 19:39] VITALS: BP 120/73
[2022-06-24] MEDS: POLYETHYLENE GLYCOL 3350 17 GM POWD.PACK GT SCH (21:23)
[2022-06-24 23:59] VITALS: BP 118/70
[2022-06-25] MEDS: IPRATROPIUM NEB FS 0.5 MG/2.5 ML AMPUL.NEB NEB SCH ×4 (00:39→19:53)
[2022-06-25] MEDS: ALBUTEROL FS 2.5 MG/0.5 ML VIAL.NEB NEB SCH ×4 (00:39→19:53)
[2022-06-25] MEDS: VITAL AF 1.2 1,000 ML BOTTLE GT PRN (05:41)
[2022-06-25] MEDS: OMEPRAZOLE 20 MG CAPSULE.DR GT SCH (05:41)
[2022-06-25 08:01] VITALS: BP 131/67
[2022-06-25] MEDS: LEVETIRACETAM SOL (5 ML) 100 MG/ML UDC GT SCH ×2 (09:32→21:29)
[2022-06-25] MEDS: DOCUSATE SODIUM LIQ 100 MG/10 ML UDC GT SCH (09:32)
[2022-06-25] MEDS: METOPROLOL TARTRATE 25 MG TABLET GT SCH ×2 (09:32→21:30)
[2022-06-25] MEDS: ASPIRIN 81 MG TAB.CHEW GT SCH (09:32)
[2022-06-25] MEDS: APIXABAN 2.5 MG TABLET GT SCH ×2 (09:32→16:56)
[2022-06-25] MEDS: MULTIVIT W/MINERALS 1 TAB TABLET GT SCH (09:33)
[2022-06-25] MEDS: ASCORBIC ACID 500 MG TABLET GT SCH (09:33)
[2022-06-25] MEDS: VITAMINS A AND D 56.7 GM TUBE TP SCH ×4 (09:33→21:30)
[2022-06-25] MEDS: AMANTADINE HCL 100 MG CAPSULE GT SCH ×2 (09:33→21:30)
[2022-06-25] MEDS: HYDROGEN PEROXIDE 480 ML BOTTLE TP SCH ×2 (09:34→19:53)
[2022-06-25 12:07] VITALS: BP 128/60
[2022-06-25 20:07] VITALS: BP 135/75
[2022-06-25] MEDS: POLYETHYLENE GLYCOL 3350 17 GM POWD.PACK GT SCH (21:30)
[2022-06-26] MEDS: IPRATROPIUM NEB FS 0.5 MG/2.5 ML AMPUL.NEB NEB SCH ×4 (01:44→19:53)
[2022-06-26] MEDS: ALBUTEROL FS 2.5 MG/0.5 ML VIAL.NEB NEB SCH ×4 (01:44→19:53)
[2022-06-26] MEDS: OMEPRAZOLE 20 MG CAPSULE.DR GT SCH (05:12)
[2022-06-26] MEDS: VITAL AF 1.2 1,000 ML BOTTLE GT PRN (05:12)
[2022-06-26 07:34] VITALS: BP 138/73
[2022-06-26] MEDS: ASPIRIN 81 MG TAB.CHEW GT SCH (08:51)
[2022-06-26] MEDS: DOCUSATE SODIUM LIQ 100 MG/10 ML UDC GT SCH (08:51)
[2022-06-26] MEDS: LEVETIRACETAM SOL (5 ML) 100 MG/ML UDC GT SCH ×2 (08:51→20:29)
[2022-06-26] MEDS: AMANTADINE HCL 100 MG CAPSULE GT SCH ×2 (08:52→20:29)
[2022-06-26] MEDS: HYDROGEN PEROXIDE 480 ML BOTTLE TP SCH ×2 (08:52→19:53)
[2022-06-26] MEDS: ASCORBIC ACID 500 MG TABLET GT SCH (08:52)
[2022-06-26] MEDS: MULTIVIT W/MINERALS 1 TAB TABLET GT SCH (08:52)
[2022-06-26] MEDS: METOPROLOL TARTRATE 25 MG TABLET GT SCH ×2 (08:52→20:29)
[2022-06-26] MEDS: VITAMINS A AND D 56.7 GM TUBE TP SCH ×4 (08:53→20:30)
[2022-06-26] MEDS: APIXABAN 2.5 MG TABLET GT SCH ×2 (08:55→16:55)
[2022-06-26 12:07] VITALS: BP 132/70
[2022-06-26] MEDS: POLYETHYLENE GLYCOL 3350 17 GM POWD.PACK GT SCH (21:52)
[2022-06-27] MEDS: ALBUTEROL FS 2.5 MG/0.5 ML VIAL.NEB NEB SCH ×4 (01:52→18:33)
[2022-06-27] MEDS: IPRATROPIUM NEB FS 0.5 MG/2.5 ML AMPUL.NEB NEB SCH ×4 (01:52→18:33)
[2022-06-27] MEDS: OMEPRAZOLE 20 MG CAPSULE.DR GT SCH (06:04)
[2022-06-27 07:29] VITALS: BP 139/77
[2022-06-27] MEDS: MULTIVIT W/MINERALS 1 TAB TABLET GT SCH (09:00)
[2022-06-27] MEDS: DOCUSATE SODIUM LIQ 100 MG/10 ML UDC GT SCH (09:00)
[2022-06-27] MEDS: LEVETIRACETAM SOL (5 ML) 100 MG/ML UDC GT SCH ×2 (09:00→21:03)
[2022-06-27] MEDS: AMANTADINE HCL 100 MG CAPSULE GT SCH ×2 (09:00→21:03)
[2022-06-27] MEDS: METOPROLOL TARTRATE 25 MG TABLET GT SCH ×2 (09:00→21:03)
[2022-06-27] MEDS: APIXABAN 2.5 MG TABLET GT SCH ×2 (09:00→17:21)
[2022-06-27] MEDS: VITAMINS A AND D 56.7 GM TUBE TP SCH ×4 (09:00→21:03)
[2022-06-27] MEDS: ASPIRIN 81 MG TAB.CHEW GT SCH (09:00)
[2022-06-27] MEDS: ASCORBIC ACID 500 MG TABLET GT SCH (09:00)
[2022-06-27] MEDS: HYDROGEN PEROXIDE 480 ML BOTTLE TP SCH ×2 (09:21→20:25)
[2022-06-27 11:35] VITALS: BP 136/78
--- NOTE | 2022-06-27 16:33 | NUR ---
Family Invite to IDT Meeting: GENEVIEVE emailed the pt.'s daughter, Khadijah at [email or web address] to invite family to participate in 07/01/2022 IDT meeting between 12:30pm-1:30pm. GENEVIEVE will follow up as needed.
[2022-06-27] MEDS: VITAL AF 1.2 1,000 ML BOTTLE GT PRN (17:23)
[2022-06-27 20:23] VITALS: BP 118/58
[2022-06-27] MEDS: POLYETHYLENE GLYCOL 3350 17 GM POWD.PACK GT SCH (21:58)
[2022-06-28] MEDS: ALBUTEROL FS 2.5 MG/0.5 ML VIAL.NEB NEB SCH ×4 (00:42→19:42)
[2022-06-28] MEDS: IPRATROPIUM NEB FS 0.5 MG/2.5 ML AMPUL.NEB NEB SCH ×4 (00:42→19:42)
[2022-06-28] MEDS: OMEPRAZOLE 20 MG CAPSULE.DR GT SCH (06:13)
[2022-06-28] MEDS: DOCUSATE SODIUM LIQ 100 MG/10 ML UDC GT SCH (08:28)
[2022-06-28] MEDS: LEVETIRACETAM SOL (5 ML) 100 MG/ML UDC GT SCH ×2 (08:28→20:15)
[2022-06-28] MEDS: ASPIRIN 81 MG TAB.CHEW GT SCH (08:28)
[2022-06-28] MEDS: APIXABAN 2.5 MG TABLET GT SCH ×2 (08:28→16:12)
[2022-06-28] MEDS: AMANTADINE HCL 100 MG CAPSULE GT SCH ×2 (08:29→20:16)
[2022-06-28] MEDS: VITAMINS A AND D 56.7 GM TUBE TP SCH ×4 (08:29→20:17)
[2022-06-28] MEDS: ASCORBIC ACID 500 MG TABLET GT SCH (08:29)
[2022-06-28] MEDS: MULTIVIT W/MINERALS 1 TAB TABLET GT SCH (08:29)
[2022-06-28] MEDS: METOPROLOL TARTRATE 25 MG TABLET GT SCH ×2 (08:29→20:16)
[2022-06-28] MEDS: HYDROGEN PEROXIDE 480 ML BOTTLE TP SCH ×2 (09:22→20:37)
--- NOTE | 2022-06-28 14:35 | NUR ---
Intake Paperwork: SW received intake paperwork: (Patient Right's Acknowledgement, Documentation of Preferred Intensity of Care, Statement of rehabilitation Potential, Conditions of Admission, CDPH Agreement, and Voluntary Prior Express Consent form) back from the pt.'s daughter, Khadijah Remy [phone]. Upon inspection Khadijah did not sign Patient Right's Acknowledgement, Documentation of Preferred Intensity of Care, or Statement of rehabilitation Potential. SW called the pt.'s daughter, Khadijah Tate. [phone] and left voicemail notifying her of missing signatures and wether she prefers for paperwork to be mailed back to her a second time or if she is able to come to [place] and sign it. SW will follow up according to Khadijah's preference. GENEVIEVE filed the following paperwork in pt.'s chart: Conditions of Admission, CDPH Agreement, and Voluntary Prior Express Consent form which is signed. GENEVIEVE emailed Khadijah, The patient's Bill of Rights and visitation guidelines. Khadijah is the pt.'s conservator and a copy of the conservatorship paperwork is filed in the pt.'s chart.
[2022-06-28] MEDS: VITAL AF 1.2 1,000 ML BOTTLE GT PRN (16:23)
[2022-06-28 20:00] VITALS: BP 140/76
[2022-06-28] MEDS: POLYETHYLENE GLYCOL 3350 17 GM POWD.PACK GT SCH (21:50)
[2022-06-29] MEDS: IPRATROPIUM NEB FS 0.5 MG/2.5 ML AMPUL.NEB NEB SCH ×4 (01:30→20:08)
[2022-06-29] MEDS: ALBUTEROL FS 2.5 MG/0.5 ML VIAL.NEB NEB SCH ×4 (01:30→20:08)
[2022-06-29] MEDS: OMEPRAZOLE 20 MG CAPSULE.DR GT SCH (05:48)
[2022-06-29 07:51] VITALS: BP 125/73
[2022-06-29] MEDS: DOCUSATE SODIUM LIQ 100 MG/10 ML UDC GT SCH (09:00)
[2022-06-29] MEDS: ASPIRIN 81 MG TAB.CHEW GT SCH (09:00)
[2022-06-29] MEDS: MULTIVIT W/MINERALS 1 TAB TABLET GT SCH (09:00)
[2022-06-29] MEDS: AMANTADINE HCL 100 MG CAPSULE GT SCH ×2 (09:00→21:26)
[2022-06-29] MEDS: VITAMINS A AND D 56.7 GM TUBE TP SCH ×4 (09:00→21:26)
[2022-06-29] MEDS: ASCORBIC ACID 500 MG TABLET GT SCH (09:00)
[2022-06-29] MEDS: LEVETIRACETAM SOL (5 ML) 100 MG/ML UDC GT SCH ×2 (09:00→21:26)
[2022-06-29] MEDS: APIXABAN 2.5 MG TABLET GT SCH ×2 (09:00→16:29)
[2022-06-29] MEDS: METOPROLOL TARTRATE 25 MG TABLET GT SCH ×2 (09:00→21:26)
[2022-06-29] MEDS: HYDROGEN PEROXIDE 480 ML BOTTLE TP SCH ×2 (09:20→20:08)
[2022-06-29 12:20] VITALS: BP 126/71
[2022-06-29] MEDS: VITAL AF 1.2 1,000 ML BOTTLE GT PRN (16:29)
[2022-06-29 20:10] VITALS: BP 127/77
[2022-06-29] MEDS: POLYETHYLENE GLYCOL 3350 17 GM POWD.PACK GT SCH (21:26)
[2022-06-30] MEDS: IPRATROPIUM NEB FS 0.5 MG/2.5 ML AMPUL.NEB NEB SCH ×4 (02:10→19:59)
[2022-06-30] MEDS: ALBUTEROL FS 2.5 MG/0.5 ML VIAL.NEB NEB SCH ×4 (02:10→19:59)
[2022-06-30] MEDS: OMEPRAZOLE 20 MG CAPSULE.DR GT SCH (05:55)
[2022-06-30 07:46] VITALS: BP 127/59
[2022-06-30] MEDS: ASPIRIN 81 MG TAB.CHEW GT SCH (09:07)
[2022-06-30] MEDS: DOCUSATE SODIUM LIQ 100 MG/10 ML UDC GT SCH (09:07)
[2022-06-30] MEDS: MULTIVIT W/MINERALS 1 TAB TABLET GT SCH (09:08)
[2022-06-30] MEDS: ASCORBIC ACID 500 MG TABLET GT SCH (09:08)
[2022-06-30] MEDS: APIXABAN 2.5 MG TABLET GT SCH ×2 (09:08→17:09)
[2022-06-30] MEDS: LEVETIRACETAM SOL (5 ML) 100 MG/ML UDC GT SCH ×2 (09:08→20:20)
[2022-06-30] MEDS: VITAMINS A AND D 56.7 GM TUBE TP SCH ×4 (09:08→20:21)
[2022-06-30] MEDS: AMANTADINE HCL 100 MG CAPSULE GT SCH ×2 (09:08→20:21)
[2022-06-30] MEDS: METOPROLOL TARTRATE 25 MG TABLET GT SCH ×2 (09:08→20:21)
[2022-06-30] MEDS: HYDROGEN PEROXIDE 480 ML BOTTLE TP SCH ×2 (09:53→19:59)
[2022-06-30 12:16] VITALS: BP 121/62
[2022-06-30] MEDS: VITAL AF 1.2 1,000 ML BOTTLE GT PRN (17:09)
[2022-06-30 20:09] VITALS: BP 139/83
[2022-06-30] MEDS: POLYETHYLENE GLYCOL 3350 17 GM POWD.PACK GT SCH (22:43)
[2022-07-01] MEDS: ALBUTEROL FS 2.5 MG/0.5 ML VIAL.NEB NEB SCH ×4 (01:41→20:26)
[2022-07-01] MEDS: IPRATROPIUM NEB FS 0.5 MG/2.5 ML AMPUL.NEB NEB SCH ×4 (01:41→20:26)
[2022-07-01] MEDS: OMEPRAZOLE 20 MG CAPSULE.DR GT SCH (05:07)
[2022-07-01 08:30] VITALS: BP 128/52
[2022-07-01] MEDS: ASPIRIN 81 MG TAB.CHEW GT SCH (09:33)
[2022-07-01] MEDS: ASCORBIC ACID 500 MG TABLET GT SCH (09:33)
[2022-07-01] MEDS: DOCUSATE SODIUM LIQ 100 MG/10 ML UDC GT SCH (09:33)
[2022-07-01] MEDS: AMANTADINE HCL 100 MG CAPSULE GT SCH ×2 (09:33→21:12)
[2022-07-01] MEDS: APIXABAN 2.5 MG TABLET GT SCH ×2 (09:33→16:51)
[2022-07-01] MEDS: MULTIVIT W/MINERALS 1 TAB TABLET GT SCH (09:33)
[2022-07-01] MEDS: VITAMINS A AND D 56.7 GM TUBE TP SCH ×4 (09:33→21:13)
[2022-07-01] MEDS: METOPROLOL TARTRATE 25 MG TABLET GT SCH ×2 (09:33→21:12)
[2022-07-01] MEDS: LEVETIRACETAM SOL (5 ML) 100 MG/ML UDC GT SCH ×2 (09:33→21:12)
[2022-07-01] MEDS: HYDROGEN PEROXIDE 480 ML BOTTLE TP SCH ×2 (09:44→20:26)
--- NOTE | 2022-07-01 13:00 | NUR ---
INTERDISCIPLINARY PLAN OF CARE CONFERENCE took place today. The patients responsible democrat, Khadijah [phone] participated via phone conference[address] Dr. Abebe and Interdisciplinary team discussed the plan of care in detail. Current orders as well as treatments and medications were reviewed. The IDT addressed Khadijah's questions. Per MD order, weekly weights to be completed as well as thyroid panel for pt.'s continuos weight loss.
[2022-07-01 19:54] VITALS: BP 128/60
[2022-07-01] MEDS: POLYETHYLENE GLYCOL 3350 17 GM POWD.PACK GT SCH (21:13)
[2022-07-02] MEDS: ALBUTEROL FS 2.5 MG/0.5 ML VIAL.NEB NEB SCH ×4 (01:28→19:43)
[2022-07-02] MEDS: IPRATROPIUM NEB FS 0.5 MG/2.5 ML AMPUL.NEB NEB SCH ×4 (01:28→19:43)
[2022-07-02] MEDS: OMEPRAZOLE 20 MG CAPSULE.DR GT SCH (05:51)
[2022-07-02 07:42] VITALS: BP 113/62
[2022-07-02 07:57] VITALS: BP 113/62
[2022-07-02] MEDS: DOCUSATE SODIUM LIQ 100 MG/10 ML UDC GT SCH (09:23)
[2022-07-02] MEDS: APIXABAN 2.5 MG TABLET GT SCH ×2 (09:23→16:54)
[2022-07-02] MEDS: ASPIRIN 81 MG TAB.CHEW GT SCH (09:23)
[2022-07-02] MEDS: LEVETIRACETAM SOL (5 ML) 100 MG/ML UDC GT SCH ×2 (09:23→21:15)
[2022-07-02] MEDS: AMANTADINE HCL 100 MG CAPSULE GT SCH ×2 (09:24→21:16)
[2022-07-02] MEDS: ASCORBIC ACID 500 MG TABLET GT SCH (09:24)
[2022-07-02] MEDS: MULTIVIT W/MINERALS 1 TAB TABLET GT SCH (09:24)
[2022-07-02] MEDS: METOPROLOL TARTRATE 25 MG TABLET GT SCH ×2 (09:24→21:16)
[2022-07-02] MEDS: VITAMINS A AND D 56.7 GM TUBE TP SCH ×4 (09:24→21:16)
[2022-07-02] MEDS: HYDROGEN PEROXIDE 480 ML BOTTLE TP SCH ×2 (09:50→19:47)
[2022-07-02 13:34] VITALS: BP 135/60
[2022-07-02] MEDS: VITAL AF 1.2 1,000 ML BOTTLE GT PRN (15:00)
[2022-07-02 19:52] VITALS: BP 126/77
[2022-07-02] MEDS: POLYETHYLENE GLYCOL 3350 17 GM POWD.PACK GT SCH (21:16)
[2022-07-03] MEDS: ALBUTEROL FS 2.5 MG/0.5 ML VIAL.NEB NEB SCH ×4 (01:20→20:17)
[2022-07-03] MEDS: IPRATROPIUM NEB FS 0.5 MG/2.5 ML AMPUL.NEB NEB SCH ×4 (01:20→20:17)
[2022-07-03] MEDS: OMEPRAZOLE 20 MG CAPSULE.DR GT SCH (05:46)
[2022-07-03 07:52] VITALS: BP 144/76
[2022-07-03] MEDS: HYDROGEN PEROXIDE 480 ML BOTTLE TP SCH ×2 (08:14→21:59)
[2022-07-03] MEDS: APIXABAN 2.5 MG TABLET GT SCH ×2 (09:00→16:29)
[2022-07-03] MEDS: MULTIVIT W/MINERALS 1 TAB TABLET GT SCH (09:00)
[2022-07-03] MEDS: ASCORBIC ACID 500 MG TABLET GT SCH (09:00)
[2022-07-03] MEDS: ASPIRIN 81 MG TAB.CHEW GT SCH (09:00)
[2022-07-03] MEDS: VITAMINS A AND D 56.7 GM TUBE TP SCH ×4 (09:00→21:15)
[2022-07-03] MEDS: DOCUSATE SODIUM LIQ 100 MG/10 ML UDC GT SCH (09:00)
[2022-07-03] MEDS: LEVETIRACETAM SOL (5 ML) 100 MG/ML UDC GT SCH ×2 (09:00→21:14)
[2022-07-03] MEDS: AMANTADINE HCL 100 MG CAPSULE GT SCH ×2 (09:00→21:15)
[2022-07-03] MEDS: METOPROLOL TARTRATE 25 MG TABLET GT SCH ×2 (09:00→21:00)
[2022-07-03 13:16] VITALS: BP 136/78
[2022-07-03] MEDS: VITAL AF 1.2 1,000 ML BOTTLE GT PRN (16:24)
[2022-07-03 20:56] VITALS: BP 104/50
[2022-07-03] MEDS: POLYETHYLENE GLYCOL 3350 17 GM POWD.PACK GT SCH (21:15)
[2022-07-04] MEDS: ALBUTEROL FS 2.5 MG/0.5 ML VIAL.NEB NEB SCH ×4 (02:07→20:20)
[2022-07-04] MEDS: IPRATROPIUM NEB FS 0.5 MG/2.5 ML AMPUL.NEB NEB SCH ×4 (02:07→20:20)
[2022-07-04] MEDS: OMEPRAZOLE 20 MG CAPSULE.DR GT SCH (05:21)
[2022-07-04 06:20] LABS: BASOPHILS % (AUTO) 0.6 % (0.0-2.0); EOSINOPHILS % (AUTO) 3.3 % (0.0-6.0); HEMATOCRIT 38 % (33-45); HEMOGLOBIN 12.6 g/dL (11.5-14.8); LYMPHOCYTES # (AUTO) 1.8 K/uL (0.8-4.8); LYMPHOCYTES % (AUTO) 26.1 % (20.0-44.0); MEAN CORPUSCULAR HGB CONC 33 g/dl (31.0-36.0); MEAN CORPUSCULAR VOLUME 86 fL (82-100); MONOCYTES # (AUTO) 0.6 K/uL (0.1-1.30); NEUTROPHILS # (AUTO) 4.3 K/uL (1.8-8.9); PLATELET COUNT (AUTO) 414 K/uL (150-450); RED BLOOD CELL COUNT(AUTO) 4.41 MIL/uL (4.0-5.2)
[2022-07-04 06:45] LABS: CALCIUM, SERUM 9.9 mg/dL (8.5-10.1); CREATININE 0.6 mg/dL (0.6-1.3); MAGNESIUM 2.3 mg/dL (1.8-2.4); PHOSPHORUS 4.2 mg/dL (2.5-4.9); POTASSIUM 4.1 mmol/L (3.5-5.1)
[2022-07-04 06:54] LABS: THYROID STIMULATING HORMONE 1.407 uIU/mL (0.358-3.74)
[2022-07-04 08:38] VITALS: BP 120/63
[2022-07-04] MEDS: APIXABAN 2.5 MG TABLET GT SCH ×2 (08:54→17:48)
[2022-07-04] MEDS: DOCUSATE SODIUM LIQ 100 MG/10 ML UDC GT SCH (08:54)
[2022-07-04] MEDS: LEVETIRACETAM SOL (5 ML) 100 MG/ML UDC GT SCH ×2 (08:54→20:44)
[2022-07-04] MEDS: ASPIRIN 81 MG TAB.CHEW GT SCH (08:54)
[2022-07-04] MEDS: ASCORBIC ACID 500 MG TABLET GT SCH (08:55)
[2022-07-04] MEDS: MULTIVIT W/MINERALS 1 TAB TABLET GT SCH (08:55)
[2022-07-04] MEDS: VITAMINS A AND D 56.7 GM TUBE TP SCH ×4 (08:55→20:45)
[2022-07-04] MEDS: METOPROLOL TARTRATE 25 MG TABLET GT SCH ×2 (08:55→20:44)
[2022-07-04] MEDS: AMANTADINE HCL 100 MG CAPSULE GT SCH ×2 (08:55→20:44)
[2022-07-04] MEDS: HYDROGEN PEROXIDE 480 ML BOTTLE TP SCH ×2 (12:59→20:20)
[2022-07-04 20:05] VITALS: BP 160/73
[2022-07-04] MEDS: POLYETHYLENE GLYCOL 3350 17 GM POWD.PACK GT SCH (22:22)
[2022-07-05] MEDS: ALBUTEROL FS 2.5 MG/0.5 ML VIAL.NEB NEB SCH ×4 (02:11→20:04)
[2022-07-05] MEDS: IPRATROPIUM NEB FS 0.5 MG/2.5 ML AMPUL.NEB NEB SCH ×4 (02:11→20:04)
[2022-07-05] MEDS: OMEPRAZOLE 20 MG CAPSULE.DR GT SCH (05:43)
[2022-07-05 07:13] VITALS: BP 143/68
[2022-07-05] MEDS: ASPIRIN 81 MG TAB.CHEW GT SCH (08:34)
[2022-07-05] MEDS: DOCUSATE SODIUM LIQ 100 MG/10 ML UDC GT SCH (08:34)
[2022-07-05] MEDS: AMANTADINE HCL 100 MG CAPSULE GT SCH ×2 (08:38→21:45)
[2022-07-05] MEDS: VITAMINS A AND D 56.7 GM TUBE TP SCH ×4 (08:38→21:45)
[2022-07-05] MEDS: MULTIVIT W/MINERALS 1 TAB TABLET GT SCH (08:38)
[2022-07-05] MEDS: METOPROLOL TARTRATE 25 MG TABLET GT SCH ×2 (08:38→21:45)
[2022-07-05] MEDS: APIXABAN 2.5 MG TABLET GT SCH ×2 (08:38→17:09)
[2022-07-05] MEDS: LEVETIRACETAM SOL (5 ML) 100 MG/ML UDC GT SCH ×2 (08:38→21:45)
[2022-07-05] MEDS: ASCORBIC ACID 500 MG TABLET GT SCH (08:38)
[2022-07-05] MEDS: HYDROGEN PEROXIDE 480 ML BOTTLE TP SCH ×2 (09:15→20:04)
[2022-07-05 10:58] VITALS: BP 116/63
[2022-07-05] MEDS: VITAL AF 1.2 1,000 ML BOTTLE GT PRN (12:40)
[2022-07-05 20:17] VITALS: BP 125/71
[2022-07-05] MEDS: POLYETHYLENE GLYCOL 3350 17 GM POWD.PACK GT SCH (21:45)
[2022-07-06] MEDS: ALBUTEROL FS 2.5 MG/0.5 ML VIAL.NEB NEB SCH ×4 (01:56→19:52)
[2022-07-06] MEDS: IPRATROPIUM NEB FS 0.5 MG/2.5 ML AMPUL.NEB NEB SCH ×4 (01:56→19:52)
[2022-07-06] MEDS: OMEPRAZOLE 20 MG CAPSULE.DR GT SCH (05:45)
[2022-07-06 08:01] VITALS: BP 133/72
[2022-07-06] MEDS: LEVETIRACETAM SOL (5 ML) 100 MG/ML UDC GT SCH ×2 (09:34→21:01)
[2022-07-06] MEDS: DOCUSATE SODIUM LIQ 100 MG/10 ML UDC GT SCH (09:34)
[2022-07-06] MEDS: ASPIRIN 81 MG TAB.CHEW GT SCH (09:34)
[2022-07-06] MEDS: ASCORBIC ACID 500 MG TABLET GT SCH (09:34)
[2022-07-06] MEDS: APIXABAN 2.5 MG TABLET GT SCH ×2 (09:34→16:44)
[2022-07-06] MEDS: MULTIVIT W/MINERALS 1 TAB TABLET GT SCH (09:34)
[2022-07-06] MEDS: METOPROLOL TARTRATE 25 MG TABLET GT SCH ×2 (09:34→21:01)
[2022-07-06] MEDS: VITAMINS A AND D 56.7 GM TUBE TP SCH ×4 (09:34→21:02)
[2022-07-06] MEDS: AMANTADINE HCL 100 MG CAPSULE GT SCH ×2 (09:34→21:01)
[2022-07-06] MEDS: HYDROGEN PEROXIDE 480 ML BOTTLE TP SCH ×2 (09:56→19:52)
[2022-07-06 12:11] VITALS: BP 126/59
[2022-07-06] MEDS: VITAL AF 1.2 1,000 ML BOTTLE GT PRN (16:35)
[2022-07-06 19:35] VITALS: BP 140/78
[2022-07-06] MEDS: POLYETHYLENE GLYCOL 3350 17 GM POWD.PACK GT SCH (21:02)
[2022-07-07 00:07] VITALS: BP 130/68
[2022-07-07] MEDS: IPRATROPIUM NEB FS 0.5 MG/2.5 ML AMPUL.NEB NEB SCH ×4 (01:53→19:56)
[2022-07-07] MEDS: ALBUTEROL FS 2.5 MG/0.5 ML VIAL.NEB NEB SCH ×4 (01:53→19:56)
[2022-07-07] MEDS: OMEPRAZOLE 20 MG CAPSULE.DR GT SCH (05:26)
[2022-07-07 07:41] VITALS: BP 127/66
[2022-07-07] MEDS: HYDROGEN PEROXIDE 480 ML BOTTLE TP SCH ×2 (08:34→19:56)
[2022-07-07] MEDS: LEVETIRACETAM SOL (5 ML) 100 MG/ML UDC GT SCH ×2 (09:00→21:16)
[2022-07-07] MEDS: DOCUSATE SODIUM LIQ 100 MG/10 ML UDC GT SCH (09:00)
[2022-07-07] MEDS: ASPIRIN 81 MG TAB.CHEW GT SCH (09:00)
[2022-07-07] MEDS: APIXABAN 2.5 MG TABLET GT SCH ×2 (09:00→17:14)
[2022-07-07] MEDS: METOPROLOL TARTRATE 25 MG TABLET GT SCH ×2 (09:01→21:16)
[2022-07-07] MEDS: MULTIVIT W/MINERALS 1 TAB TABLET GT SCH (09:01)
[2022-07-07] MEDS: VITAMINS A AND D 56.7 GM TUBE TP SCH ×4 (09:01→21:16)
[2022-07-07] MEDS: ASCORBIC ACID 500 MG TABLET GT SCH (09:01)
[2022-07-07] MEDS: AMANTADINE HCL 100 MG CAPSULE GT SCH ×2 (09:01→21:16)
[2022-07-07 12:19] VITALS: BP 132/70
[2022-07-07] MEDS: VITAL AF 1.2 1,000 ML BOTTLE GT PRN (13:32)
[2022-07-07 19:33] VITALS: BP 120/62
[2022-07-07] MEDS: POLYETHYLENE GLYCOL 3350 17 GM POWD.PACK GT SCH (21:16)
[2022-07-07 23:54] VITALS: BP 125/63
[2022-07-08] MEDS: IPRATROPIUM NEB FS 0.5 MG/2.5 ML AMPUL.NEB NEB SCH ×4 (01:54→18:59)
[2022-07-08] MEDS: ALBUTEROL FS 2.5 MG/0.5 ML VIAL.NEB NEB SCH ×4 (01:54→18:59)
[2022-07-08] MEDS: OMEPRAZOLE 20 MG CAPSULE.DR GT SCH (05:21)
[2022-07-08 08:00] VITALS: BP 128/74
[2022-07-08] MEDS: HYDROGEN PEROXIDE 480 ML BOTTLE TP SCH ×2 (08:11→20:38)
[2022-07-08] MEDS: ASPIRIN 81 MG TAB.CHEW GT SCH (09:44)
[2022-07-08] MEDS: DOCUSATE SODIUM LIQ 100 MG/10 ML UDC GT SCH (09:44)
[2022-07-08] MEDS: MULTIVIT W/MINERALS 1 TAB TABLET GT SCH (09:45)
[2022-07-08] MEDS: AMANTADINE HCL 100 MG CAPSULE GT SCH ×2 (09:45→20:29)
[2022-07-08] MEDS: METOPROLOL TARTRATE 25 MG TABLET GT SCH ×2 (09:45→20:29)
[2022-07-08] MEDS: LEVETIRACETAM SOL (5 ML) 100 MG/ML UDC GT SCH ×2 (09:45→20:29)
[2022-07-08] MEDS: APIXABAN 2.5 MG TABLET GT SCH ×2 (09:45→16:33)
[2022-07-08] MEDS: VITAMINS A AND D 56.7 GM TUBE TP SCH ×4 (09:45→20:30)
[2022-07-08] MEDS: ASCORBIC ACID 500 MG TABLET GT SCH (09:45)
[2022-07-08 12:00] VITALS: BP 124/52
[2022-07-08] MEDS: VITAL AF 1.2 1,000 ML BOTTLE GT PRN (13:16)
[2022-07-08 19:22] VITALS: BP 111/61
[2022-07-08] MEDS: POLYETHYLENE GLYCOL 3350 17 GM POWD.PACK GT SCH (21:06)
[2022-07-09] MEDS: IPRATROPIUM NEB FS 0.5 MG/2.5 ML AMPUL.NEB NEB SCH ×4 (01:12→18:57)
[2022-07-09] MEDS: ALBUTEROL FS 2.5 MG/0.5 ML VIAL.NEB NEB SCH ×4 (01:12→18:57)
[2022-07-09 01:14] VITALS: BP 147/75
[2022-07-09] MEDS: OMEPRAZOLE 20 MG CAPSULE.DR GT SCH (05:38)
[2022-07-09 07:48] VITALS: BP 118/70
[2022-07-09] MEDS: ASPIRIN 81 MG TAB.CHEW GT SCH (09:21)
[2022-07-09] MEDS: DOCUSATE SODIUM LIQ 100 MG/10 ML UDC GT SCH (09:21)
[2022-07-09] MEDS: LEVETIRACETAM SOL (5 ML) 100 MG/ML UDC GT SCH ×2 (09:21→20:42)
[2022-07-09] MEDS: APIXABAN 2.5 MG TABLET GT SCH ×2 (09:22→17:26)
[2022-07-09] MEDS: ASCORBIC ACID 500 MG TABLET GT SCH (09:23)
[2022-07-09] MEDS: AMANTADINE HCL 100 MG CAPSULE GT SCH ×2 (09:23→20:42)
[2022-07-09] MEDS: METOPROLOL TARTRATE 25 MG TABLET GT SCH ×2 (09:23→20:42)
[2022-07-09] MEDS: MULTIVIT W/MINERALS 1 TAB TABLET GT SCH (09:23)
[2022-07-09] MEDS: VITAMINS A AND D 56.7 GM TUBE TP SCH ×4 (09:24→20:42)
[2022-07-09] MEDS: HYDROGEN PEROXIDE 480 ML BOTTLE TP SCH ×2 (09:36→21:09)
[2022-07-09 12:02] VITALS: BP 115/75
[2022-07-09] MEDS: VITAL AF 1.2 1,000 ML BOTTLE GT PRN (18:28)
[2022-07-09 19:23] VITALS: BP 106/74
[2022-07-09] MEDS: POLYETHYLENE GLYCOL 3350 17 GM POWD.PACK GT SCH (21:08)
[2022-07-09 23:19] VITALS: BP 128/58
[2022-07-10] MEDS: IPRATROPIUM NEB FS 0.5 MG/2.5 ML AMPUL.NEB NEB SCH ×4 (00:33→19:39)
[2022-07-10] MEDS: ALBUTEROL FS 2.5 MG/0.5 ML VIAL.NEB NEB SCH ×4 (00:33→19:39)
[2022-07-10] MEDS: OMEPRAZOLE 20 MG CAPSULE.DR GT SCH (05:27)
[2022-07-10] MEDS: HYDROGEN PEROXIDE 480 ML BOTTLE TP SCH ×2 (08:07→19:39)
[2022-07-10 08:08] VITALS: BP 116/71
[2022-07-10] MEDS: APIXABAN 2.5 MG TABLET GT SCH ×2 (09:17→16:58)
[2022-07-10] MEDS: ASPIRIN 81 MG TAB.CHEW GT SCH (09:17)
[2022-07-10] MEDS: DOCUSATE SODIUM LIQ 100 MG/10 ML UDC GT SCH (09:17)
[2022-07-10] MEDS: LEVETIRACETAM SOL (5 ML) 100 MG/ML UDC GT SCH ×2 (09:17→21:01)
[2022-07-10] MEDS: METOPROLOL TARTRATE 25 MG TABLET GT SCH ×2 (09:17→21:02)
[2022-07-10] MEDS: VITAMINS A AND D 56.7 GM TUBE TP SCH ×4 (09:18→21:03)
[2022-07-10] MEDS: MULTIVIT W/MINERALS 1 TAB TABLET GT SCH (09:18)
[2022-07-10] MEDS: ASCORBIC ACID 500 MG TABLET GT SCH (09:18)
[2022-07-10] MEDS: AMANTADINE HCL 100 MG CAPSULE GT SCH ×2 (09:18→21:02)
[2022-07-10 17:27] VITALS: BP 111/68
[2022-07-10 20:43] VITALS: BP 134/76
[2022-07-10] MEDS: POLYETHYLENE GLYCOL 3350 17 GM POWD.PACK GT SCH (21:03)
[2022-07-11] MEDS: IPRATROPIUM NEB FS 0.5 MG/2.5 ML AMPUL.NEB NEB SCH ×4 (01:54→19:02)
[2022-07-11] MEDS: ALBUTEROL FS 2.5 MG/0.5 ML VIAL.NEB NEB SCH ×4 (01:54→19:02)
[2022-07-11] MEDS: OMEPRAZOLE 20 MG CAPSULE.DR GT SCH (05:24)
[2022-07-11 07:49] VITALS: BP 147/87
[2022-07-11] MEDS: VITAL AF 1.2 1,000 ML BOTTLE GT PRN (08:00)
[2022-07-11] MEDS: HYDROGEN PEROXIDE 480 ML BOTTLE TP SCH ×2 (09:24→20:32)
[2022-07-11] MEDS: AMANTADINE HCL 100 MG CAPSULE GT SCH ×2 (09:48→20:27)
[2022-07-11] MEDS: VITAMINS A AND D 56.7 GM TUBE TP SCH ×4 (09:48→20:28)
[2022-07-11] MEDS: ASCORBIC ACID 500 MG TABLET GT SCH (09:48)
[2022-07-11] MEDS: ASPIRIN 81 MG TAB.CHEW GT SCH (09:48)
[2022-07-11] MEDS: APIXABAN 2.5 MG TABLET GT SCH ×2 (09:48→17:02)
[2022-07-11] MEDS: MULTIVIT W/MINERALS 1 TAB TABLET GT SCH (09:48)
[2022-07-11] MEDS: LEVETIRACETAM SOL (5 ML) 100 MG/ML UDC GT SCH ×2 (09:48→20:27)
[2022-07-11] MEDS: DOCUSATE SODIUM LIQ 100 MG/10 ML UDC GT SCH (09:48)
[2022-07-11] MEDS: METOPROLOL TARTRATE 25 MG TABLET GT SCH ×2 (09:48→20:27)
[2022-07-11 12:59] VITALS: BP 115/67
[2022-07-11 19:42] VITALS: BP 118/65
[2022-07-11] MEDS: POLYETHYLENE GLYCOL 3350 17 GM POWD.PACK GT SCH (22:03)
[2022-07-12] MEDS: IPRATROPIUM NEB FS 0.5 MG/2.5 ML AMPUL.NEB NEB SCH ×4 (00:45→20:00)
[2022-07-12] MEDS: ALBUTEROL FS 2.5 MG/0.5 ML VIAL.NEB NEB SCH ×4 (00:45→20:00)
[2022-07-12 01:49] VITALS: BP 136/65
[2022-07-12] MEDS: OMEPRAZOLE 20 MG CAPSULE.DR GT SCH (05:20)
[2022-07-12 07:49] VITALS: BP 146/78
[2022-07-12] MEDS: ASPIRIN 81 MG TAB.CHEW GT SCH (08:06)
[2022-07-12] MEDS: DOCUSATE SODIUM LIQ 100 MG/10 ML UDC GT SCH (08:06)
[2022-07-12] MEDS: ASCORBIC ACID 500 MG TABLET GT SCH (08:07)
[2022-07-12] MEDS: LEVETIRACETAM SOL (5 ML) 100 MG/ML UDC GT SCH ×2 (08:07→20:26)
[2022-07-12] MEDS: APIXABAN 2.5 MG TABLET GT SCH ×2 (08:07→17:00)
[2022-07-12] MEDS: VITAMINS A AND D 56.7 GM TUBE TP SCH ×4 (08:07→20:26)
[2022-07-12] MEDS: AMANTADINE HCL 100 MG CAPSULE GT SCH ×2 (08:07→20:26)
[2022-07-12] MEDS: MULTIVIT W/MINERALS 1 TAB TABLET GT SCH (08:07)
[2022-07-12] MEDS: METOPROLOL TARTRATE 25 MG TABLET GT SCH ×2 (08:07→20:26)
--- NOTE | 2022-07-12 08:30 | NUR ---
Seen and examined by Dr. Abebe, no new order given.
[2022-07-12] MEDS: HYDROGEN PEROXIDE 480 ML BOTTLE TP SCH ×2 (09:46→20:00)
[2022-07-12] MEDS: VITAL AF 1.2 1,000 ML BOTTLE GT PRN (11:47)
[2022-07-12 19:42] VITALS: BP 137/65
[2022-07-12] MEDS: POLYETHYLENE GLYCOL 3350 17 GM POWD.PACK GT SCH (21:57)
[2022-07-13] MEDS: ALBUTEROL FS 2.5 MG/0.5 ML VIAL.NEB NEB SCH ×4 (01:41→20:18)
[2022-07-13] MEDS: IPRATROPIUM NEB FS 0.5 MG/2.5 ML AMPUL.NEB NEB SCH ×4 (01:41→20:18)
[2022-07-13] MEDS: OMEPRAZOLE 20 MG CAPSULE.DR GT SCH (05:24)
[2022-07-13] MEDS: HYDROGEN PEROXIDE 480 ML BOTTLE TP SCH ×2 (08:31→20:18)
[2022-07-13] MEDS: DOCUSATE SODIUM LIQ 100 MG/10 ML UDC GT SCH (09:05)
[2022-07-13] MEDS: ASPIRIN 81 MG TAB.CHEW GT SCH (09:05)
[2022-07-13] MEDS: APIXABAN 2.5 MG TABLET GT SCH ×2 (09:06→16:53)
[2022-07-13] MEDS: METOPROLOL TARTRATE 25 MG TABLET GT SCH ×2 (09:06→21:00)
[2022-07-13] MEDS: MULTIVIT W/MINERALS 1 TAB TABLET GT SCH (09:06)
[2022-07-13] MEDS: ASCORBIC ACID 500 MG TABLET GT SCH (09:06)
[2022-07-13] MEDS: AMANTADINE HCL 100 MG CAPSULE GT SCH ×2 (09:06→21:05)
[2022-07-13] MEDS: LEVETIRACETAM SOL (5 ML) 100 MG/ML UDC GT SCH ×2 (09:06→21:03)
[2022-07-13] MEDS: VITAMINS A AND D 56.7 GM TUBE TP SCH ×4 (09:07→21:05)
[2022-07-13] MEDS: VITAL AF 1.2 1,000 ML BOTTLE GT PRN (13:34)
[2022-07-13 19:35] VITALS: BP 107/54
[2022-07-13] MEDS: POLYETHYLENE GLYCOL 3350 17 GM POWD.PACK GT SCH (21:05)
[2022-07-14] MEDS: IPRATROPIUM NEB FS 0.5 MG/2.5 ML AMPUL.NEB NEB SCH ×4 (01:42→20:02)
[2022-07-14] MEDS: ALBUTEROL FS 2.5 MG/0.5 ML VIAL.NEB NEB SCH ×4 (01:42→20:02)
[2022-07-14] MEDS: OMEPRAZOLE 20 MG CAPSULE.DR GT SCH (05:17)
[2022-07-14 07:47] VITALS: BP 121/79
[2022-07-14] MEDS: ASPIRIN 81 MG TAB.CHEW GT SCH (09:55)
[2022-07-14] MEDS: DOCUSATE SODIUM LIQ 100 MG/10 ML UDC GT SCH (09:55)
[2022-07-14] MEDS: LEVETIRACETAM SOL (5 ML) 100 MG/ML UDC GT SCH ×2 (09:56→20:33)
[2022-07-14] MEDS: METOPROLOL TARTRATE 25 MG TABLET GT SCH ×2 (09:56→20:33)
[2022-07-14] MEDS: HYDROGEN PEROXIDE 480 ML BOTTLE TP SCH ×2 (09:56→20:02)
[2022-07-14] MEDS: ASCORBIC ACID 500 MG TABLET GT SCH (09:56)
[2022-07-14] MEDS: VITAMINS A AND D 56.7 GM TUBE TP SCH ×4 (09:56→20:33)
[2022-07-14] MEDS: MULTIVIT W/MINERALS 1 TAB TABLET GT SCH (09:56)
[2022-07-14] MEDS: AMANTADINE HCL 100 MG CAPSULE GT SCH ×2 (09:56→20:33)
[2022-07-14] MEDS: APIXABAN 2.5 MG TABLET GT SCH ×2 (09:56→17:36)
[2022-07-14 12:03] VITALS: BP 143/79
[2022-07-14] MEDS: VITAL AF 1.2 1,000 ML BOTTLE GT PRN (15:00)
[2022-07-14 19:24] VITALS: BP 145/73
[2022-07-14] MEDS: POLYETHYLENE GLYCOL 3350 17 GM POWD.PACK GT SCH (21:21)
[2022-07-15 00:12] VITALS: BP 118/65
[2022-07-15] MEDS: ALBUTEROL FS 2.5 MG/0.5 ML VIAL.NEB NEB SCH ×4 (01:50→19:00)
[2022-07-15] MEDS: IPRATROPIUM NEB FS 0.5 MG/2.5 ML AMPUL.NEB NEB SCH ×4 (01:50→19:00)
[2022-07-15] MEDS: OMEPRAZOLE 20 MG CAPSULE.DR GT SCH (05:10)
[2022-07-15 07:11] VITALS: BP 133/79
[2022-07-15] MEDS: METOPROLOL TARTRATE 25 MG TABLET GT SCH ×2 (09:00→21:00)
[2022-07-15] MEDS: ASPIRIN 81 MG TAB.CHEW GT SCH (09:39)
[2022-07-15] MEDS: DOCUSATE SODIUM LIQ 100 MG/10 ML UDC GT SCH (09:39)
[2022-07-15] MEDS: LEVETIRACETAM SOL (5 ML) 100 MG/ML UDC GT SCH ×2 (09:40→21:10)
[2022-07-15] MEDS: APIXABAN 2.5 MG TABLET GT SCH ×2 (09:40→16:24)
[2022-07-15] MEDS: ASCORBIC ACID 500 MG TABLET GT SCH (09:42)
[2022-07-15] MEDS: AMANTADINE HCL 100 MG CAPSULE GT SCH ×2 (09:42→21:11)
[2022-07-15] MEDS: MULTIVIT W/MINERALS 1 TAB TABLET GT SCH (09:42)
[2022-07-15] MEDS: VITAMINS A AND D 56.7 GM TUBE TP SCH ×4 (09:43→21:11)
[2022-07-15] MEDS: HYDROGEN PEROXIDE 480 ML BOTTLE TP SCH ×2 (09:53→21:00)
[2022-07-15 11:59] VITALS: BP 135/79
[2022-07-15] MEDS: VITAL AF 1.2 1,000 ML BOTTLE GT PRN (14:15)
[2022-07-15 19:32] VITALS: BP 104/56
[2022-07-15] MEDS: POLYETHYLENE GLYCOL 3350 17 GM POWD.PACK GT SCH (21:11)
[2022-07-15 23:22] VITALS: BP 110/62
[2022-07-16] MEDS: IPRATROPIUM NEB FS 0.5 MG/2.5 ML AMPUL.NEB NEB SCH ×4 (01:07→19:38)
[2022-07-16] MEDS: ALBUTEROL FS 2.5 MG/0.5 ML VIAL.NEB NEB SCH ×4 (01:07→19:39)
[2022-07-16] MEDS: OMEPRAZOLE 20 MG CAPSULE.DR GT SCH (05:32)
[2022-07-16 08:26] VITALS: BP 162/76
[2022-07-16 08:27] VITALS: BP 109/76
[2022-07-16] MEDS: HYDROGEN PEROXIDE 480 ML BOTTLE TP SCH ×2 (08:27→21:24)
[2022-07-16] MEDS: ASPIRIN 81 MG TAB.CHEW GT SCH (09:29)
[2022-07-16] MEDS: LEVETIRACETAM SOL (5 ML) 100 MG/ML UDC GT SCH ×2 (09:29→21:14)
[2022-07-16] MEDS: DOCUSATE SODIUM LIQ 100 MG/10 ML UDC GT SCH (09:29)
[2022-07-16] MEDS: APIXABAN 2.5 MG TABLET GT SCH ×2 (09:29→17:07)
[2022-07-16] MEDS: VITAMINS A AND D 56.7 GM TUBE TP SCH ×4 (09:30→21:15)
[2022-07-16] MEDS: ASCORBIC ACID 500 MG TABLET GT SCH (09:30)
[2022-07-16] MEDS: AMANTADINE HCL 100 MG CAPSULE GT SCH ×2 (09:30→21:15)
[2022-07-16] MEDS: METOPROLOL TARTRATE 25 MG TABLET GT SCH ×2 (09:30→21:00)
[2022-07-16] MEDS: MULTIVIT W/MINERALS 1 TAB TABLET GT SCH (09:30)
--- NOTE | 2022-07-16 15:56 | NUR ---
Monthly Progress Note: Resident on Activity program was seen and sensory stimulation stimulation was provided. Daily News, Texture Time, Hand Massage. Classical and soft music. Resident was also provided with Movies like A Country Wedding, It Was Always You and Love On The Sidelines from [employer]. Resident has no significant change. These Activities will continue as current or as needed.
[2022-07-16] MEDS: VITAL AF 1.2 1,000 ML BOTTLE GT PRN (18:33)
[2022-07-16 18:51] VITALS: BP 107/53
[2022-07-16] MEDS: POLYETHYLENE GLYCOL 3350 17 GM POWD.PACK GT SCH (21:15)
[2022-07-17 01:52] VITALS: BP 115/62
[2022-07-17] MEDS: IPRATROPIUM NEB FS 0.5 MG/2.5 ML AMPUL.NEB NEB SCH ×4 (02:07→18:43)
[2022-07-17] MEDS: ALBUTEROL FS 2.5 MG/0.5 ML VIAL.NEB NEB SCH ×4 (02:07→18:43)
[2022-07-17] MEDS: OMEPRAZOLE 20 MG CAPSULE.DR GT SCH (06:00)
[2022-07-17 08:11] VITALS: BP 144/82
[2022-07-17] MEDS: ASPIRIN 81 MG TAB.CHEW GT SCH (08:25)
[2022-07-17] MEDS: DOCUSATE SODIUM LIQ 100 MG/10 ML UDC GT SCH (08:25)
[2022-07-17] MEDS: ASCORBIC ACID 500 MG TABLET GT SCH (08:26)
[2022-07-17] MEDS: MULTIVIT W/MINERALS 1 TAB TABLET GT SCH (08:26)
[2022-07-17] MEDS: METOPROLOL TARTRATE 25 MG TABLET GT SCH ×2 (08:26→20:58)
[2022-07-17] MEDS: LEVETIRACETAM SOL (5 ML) 100 MG/ML UDC GT SCH ×2 (08:26→20:58)
[2022-07-17] MEDS: VITAMINS A AND D 56.7 GM TUBE TP SCH ×4 (08:26→20:58)
[2022-07-17] MEDS: APIXABAN 2.5 MG TABLET GT SCH ×2 (08:26→16:09)
[2022-07-17] MEDS: AMANTADINE HCL 100 MG CAPSULE GT SCH ×2 (08:26→20:58)
[2022-07-17] MEDS: HYDROGEN PEROXIDE 480 ML BOTTLE TP SCH ×2 (09:21→20:02)
[2022-07-17] MEDS: VITAL AF 1.2 1,000 ML BOTTLE GT PRN (16:04)
[2022-07-17 19:45] VITALS: BP 108/54
[2022-07-17] MEDS: POLYETHYLENE GLYCOL 3350 17 GM POWD.PACK GT SCH (21:08)
[2022-07-18 00:11] VITALS: BP 129/70
[2022-07-18] MEDS: ALBUTEROL FS 2.5 MG/0.5 ML VIAL.NEB NEB SCH ×4 (00:35→20:22)
[2022-07-18] MEDS: IPRATROPIUM NEB FS 0.5 MG/2.5 ML AMPUL.NEB NEB SCH ×4 (00:35→20:22)
[2022-07-18] MEDS: OMEPRAZOLE 20 MG CAPSULE.DR GT SCH (05:12)
[2022-07-18 07:39] VITALS: BP 133/72
[2022-07-18] MEDS: ASPIRIN 81 MG TAB.CHEW GT SCH (09:22)
[2022-07-18] MEDS: DOCUSATE SODIUM LIQ 100 MG/10 ML UDC GT SCH (09:22)
[2022-07-18] MEDS: METOPROLOL TARTRATE 25 MG TABLET GT SCH ×2 (09:23→20:32)
[2022-07-18] MEDS: AMANTADINE HCL 100 MG CAPSULE GT SCH ×2 (09:23→20:32)
[2022-07-18] MEDS: MULTIVIT W/MINERALS 1 TAB TABLET GT SCH (09:23)
[2022-07-18] MEDS: VITAMINS A AND D 56.7 GM TUBE TP SCH ×4 (09:23→20:32)
[2022-07-18] MEDS: ASCORBIC ACID 500 MG TABLET GT SCH (09:23)
[2022-07-18] MEDS: APIXABAN 2.5 MG TABLET GT SCH ×2 (09:23→16:10)
[2022-07-18] MEDS: LEVETIRACETAM SOL (5 ML) 100 MG/ML UDC GT SCH ×2 (09:23→20:32)
[2022-07-18] MEDS: HYDROGEN PEROXIDE 480 ML BOTTLE TP SCH ×2 (09:53→21:16)
[2022-07-18 14:00] VITALS: BP 139/53
[2022-07-18] MEDS: VITAL AF 1.2 1,000 ML BOTTLE GT PRN (15:13)
--- NOTE | 2022-07-18 16:15 | NUR ---
Virtual rounds done with SUMIT Srivastava, no new order given.
[2022-07-18 19:08] VITALS: BP 153/81
[2022-07-18] MEDS: POLYETHYLENE GLYCOL 3350 17 GM POWD.PACK GT SCH (21:46)
[2022-07-19] MEDS: ALBUTEROL FS 2.5 MG/0.5 ML VIAL.NEB NEB SCH ×4 (01:02→19:30)
[2022-07-19] MEDS: IPRATROPIUM NEB FS 0.5 MG/2.5 ML AMPUL.NEB NEB SCH ×4 (01:02→19:30)
[2022-07-19] MEDS: OMEPRAZOLE 20 MG CAPSULE.DR GT SCH (05:38)
[2022-07-19] MEDS: DOCUSATE SODIUM LIQ 100 MG/10 ML UDC GT SCH (08:21)
[2022-07-19] MEDS: ASPIRIN 81 MG TAB.CHEW GT SCH (08:21)
[2022-07-19] MEDS: ASCORBIC ACID 500 MG TABLET GT SCH (08:22)
[2022-07-19] MEDS: APIXABAN 2.5 MG TABLET GT SCH ×2 (08:22→16:27)
[2022-07-19] MEDS: AMANTADINE HCL 100 MG CAPSULE GT SCH ×2 (08:22→20:49)
[2022-07-19] MEDS: VITAMINS A AND D 56.7 GM TUBE TP SCH ×4 (08:22→20:49)
[2022-07-19] MEDS: METOPROLOL TARTRATE 25 MG TABLET GT SCH ×2 (08:22→20:49)
[2022-07-19] MEDS: LEVETIRACETAM SOL (5 ML) 100 MG/ML UDC GT SCH ×2 (08:22→20:48)
[2022-07-19] MEDS: MULTIVIT W/MINERALS 1 TAB TABLET GT SCH (08:22)
[2022-07-19] MEDS: HYDROGEN PEROXIDE 480 ML BOTTLE TP SCH ×2 (08:28→20:50)
--- NOTE | 2022-07-19 09:00 | NUR ---
Seen and examined by Dr. Abebe, no new order given.
--- NOTE | 2022-07-19 10:44 | NUR ---
TRACH CHANGE SUPPOSE TO BE CHANGE ON PATIENT BUT WE DON'T HAVE PROXIMAL 6XLT TRACH AVAILABLE. I INFORMED DR. CORDOVA BUT SAID NOT TO CHANGE TO DISTAL TRACH. HE SAID TO WAIT TILL WE HAVE 6XLT PROXIMAL. CLINICAL SPECIALTY REP WERE ALSO INFORMED ABOUT THE SITUATION. Addendum: 07/19/22 at 1048 by ELLIOT MARIANO RT Amended: Links added.
[2022-07-19] MEDS: VITAL AF 1.2 1,000 ML BOTTLE GT PRN (12:30)
[2022-07-19 20:03] VITALS: BP 131/67
[2022-07-19] MEDS: POLYETHYLENE GLYCOL 3350 17 GM POWD.PACK GT SCH (22:15)
[2022-07-20] MEDS: ALBUTEROL FS 2.5 MG/0.5 ML VIAL.NEB NEB SCH ×4 (02:01→20:12)
[2022-07-20] MEDS: IPRATROPIUM NEB FS 0.5 MG/2.5 ML AMPUL.NEB NEB SCH ×4 (02:01→20:12)
[2022-07-20] MEDS: OMEPRAZOLE 20 MG CAPSULE.DR GT SCH (05:31)
[2022-07-20 07:18] VITALS: BP 132/59
[2022-07-20] MEDS: HYDROGEN PEROXIDE 480 ML BOTTLE TP SCH ×2 (09:00→20:12)
[2022-07-20] MEDS: ASCORBIC ACID 500 MG TABLET GT SCH (09:45)
[2022-07-20] MEDS: LEVETIRACETAM SOL (5 ML) 100 MG/ML UDC GT SCH ×2 (09:45→21:29)
[2022-07-20] MEDS: MULTIVIT W/MINERALS 1 TAB TABLET GT SCH (09:45)
[2022-07-20] MEDS: ASPIRIN 81 MG TAB.CHEW GT SCH (09:45)
[2022-07-20] MEDS: APIXABAN 2.5 MG TABLET GT SCH ×2 (09:45→16:33)
[2022-07-20] MEDS: AMANTADINE HCL 100 MG CAPSULE GT SCH ×2 (09:45→21:31)
[2022-07-20] MEDS: DOCUSATE SODIUM LIQ 100 MG/10 ML UDC GT SCH (09:45)
[2022-07-20] MEDS: METOPROLOL TARTRATE 25 MG TABLET GT SCH ×2 (09:45→21:00)
[2022-07-20] MEDS: VITAMINS A AND D 56.7 GM TUBE TP SCH ×4 (09:45→21:31)
[2022-07-20 11:49] VITALS: BP 137/77
[2022-07-20] MEDS: VITAL AF 1.2 1,000 ML BOTTLE GT PRN (12:20)
[2022-07-20 20:15] VITALS: BP 142/74
[2022-07-20] MEDS: POLYETHYLENE GLYCOL 3350 17 GM POWD.PACK GT SCH (21:31)
[2022-07-21 00:53] VITALS: BP 111/64
[2022-07-21] MEDS: IPRATROPIUM NEB FS 0.5 MG/2.5 ML AMPUL.NEB NEB SCH ×4 (01:43→19:54)
[2022-07-21] MEDS: ALBUTEROL FS 2.5 MG/0.5 ML VIAL.NEB NEB SCH ×4 (01:43→19:54)
[2022-07-21] MEDS: OMEPRAZOLE 20 MG CAPSULE.DR GT SCH (05:47)
[2022-07-21] MEDS: VITAL AF 1.2 1,000 ML BOTTLE GT PRN (06:34)
[2022-07-21 07:11] VITALS: BP 116/78
[2022-07-21] MEDS: HYDROGEN PEROXIDE 480 ML BOTTLE TP SCH ×2 (08:52→19:54)
[2022-07-21] MEDS: ASPIRIN 81 MG TAB.CHEW GT SCH (09:14)
[2022-07-21] MEDS: DOCUSATE SODIUM LIQ 100 MG/10 ML UDC GT SCH (09:14)
[2022-07-21] MEDS: MULTIVIT W/MINERALS 1 TAB TABLET GT SCH (09:15)
[2022-07-21] MEDS: APIXABAN 2.5 MG TABLET GT SCH ×2 (09:15→16:34)
[2022-07-21] MEDS: ASCORBIC ACID 500 MG TABLET GT SCH (09:15)
[2022-07-21] MEDS: VITAMINS A AND D 56.7 GM TUBE TP SCH ×4 (09:15→21:20)
[2022-07-21] MEDS: METOPROLOL TARTRATE 25 MG TABLET GT SCH ×2 (09:15→21:20)
[2022-07-21] MEDS: AMANTADINE HCL 100 MG CAPSULE GT SCH ×2 (09:15→21:20)
[2022-07-21] MEDS: LEVETIRACETAM SOL (5 ML) 100 MG/ML UDC GT SCH ×2 (09:15→21:19)
--- NOTE | 2022-07-21 11:31 | NUR ---
TRACH CHANGE DONE TODAY WITHOUT ISSUE AND REMAIN STABLE WITH BILATERAL BS AND EQUAL CHEST RISE. NO SOB. TRACH SIZE 6XLT PROXIMALWAS NOT AVAILABLE ON THE DUE DATE RT SALES AND CUSTOMER RELATIONS REP NOTIFIED, SO WHO SAID NOT TO USE ANOTHER EXCEPT PROXIMAL. SAMMYING MACHINE OPERATOR NOTIFIED WELL. Addendum: 07/21/22 at 1136 by ELLIOT MARIANO RT Amended: Links added.
[2022-07-21 13:22] VITALS: BP 132/68
[2022-07-21 18:42] VITALS: BP 110/58
[2022-07-21] MEDS: POLYETHYLENE GLYCOL 3350 17 GM POWD.PACK GT SCH (21:20)
[2022-07-22 00:34] VITALS: BP 115/52
[2022-07-22] MEDS: ALBUTEROL FS 2.5 MG/0.5 ML VIAL.NEB NEB SCH ×4 (01:48→20:07)
[2022-07-22] MEDS: IPRATROPIUM NEB FS 0.5 MG/2.5 ML AMPUL.NEB NEB SCH ×4 (01:48→20:07)
[2022-07-22] MEDS: OMEPRAZOLE 20 MG CAPSULE.DR GT SCH (05:47)
[2022-07-22] MEDS: VITAL AF 1.2 1,000 ML BOTTLE GT PRN (06:07)
[2022-07-22 08:00] VITALS: BP 149/73
[2022-07-22] MEDS: HYDROGEN PEROXIDE 480 ML BOTTLE TP SCH ×2 (09:24→20:07)
[2022-07-22] MEDS: ASPIRIN 81 MG TAB.CHEW GT SCH (09:47)
[2022-07-22] MEDS: APIXABAN 2.5 MG TABLET GT SCH ×2 (09:47→17:03)
[2022-07-22] MEDS: DOCUSATE SODIUM LIQ 100 MG/10 ML UDC GT SCH (09:47)
[2022-07-22] MEDS: METOPROLOL TARTRATE 25 MG TABLET GT SCH ×2 (09:48→21:38)
[2022-07-22] MEDS: VITAMINS A AND D 56.7 GM TUBE TP SCH ×4 (09:48→21:38)
[2022-07-22] MEDS: LEVETIRACETAM SOL (5 ML) 100 MG/ML UDC GT SCH ×2 (09:48→21:37)
[2022-07-22] MEDS: AMANTADINE HCL 100 MG CAPSULE GT SCH ×2 (09:48→21:38)
[2022-07-22] MEDS: MULTIVIT W/MINERALS 1 TAB TABLET GT SCH (09:48)
[2022-07-22] MEDS: ASCORBIC ACID 500 MG TABLET GT SCH (09:48)
[2022-07-22 19:44] VITALS: BP 130/68
[2022-07-22] MEDS: POLYETHYLENE GLYCOL 3350 17 GM POWD.PACK GT SCH (21:38)
[2022-07-23 01:31] VITALS: BP 120/58
[2022-07-23] MEDS: ALBUTEROL FS 2.5 MG/0.5 ML VIAL.NEB NEB SCH ×4 (01:37→19:51)
[2022-07-23] MEDS: IPRATROPIUM NEB FS 0.5 MG/2.5 ML AMPUL.NEB NEB SCH ×4 (01:37→19:51)
[2022-07-23] MEDS: VITAL AF 1.2 1,000 ML BOTTLE GT PRN (05:47)
[2022-07-23] MEDS: OMEPRAZOLE 20 MG CAPSULE.DR GT SCH (05:47)
[2022-07-23 07:08] VITALS: BP 137/74
[2022-07-23] MEDS: HYDROGEN PEROXIDE 480 ML BOTTLE TP SCH ×2 (09:27→19:51)
[2022-07-23] MEDS: MULTIVIT W/MINERALS 1 TAB TABLET GT SCH (09:31)
[2022-07-23] MEDS: DOCUSATE SODIUM LIQ 100 MG/10 ML UDC GT SCH (09:31)
[2022-07-23] MEDS: ASPIRIN 81 MG TAB.CHEW GT SCH (09:31)
[2022-07-23] MEDS: AMANTADINE HCL 100 MG CAPSULE GT SCH ×2 (09:31→20:30)
[2022-07-23] MEDS: APIXABAN 2.5 MG TABLET GT SCH ×2 (09:31→16:31)
[2022-07-23] MEDS: LEVETIRACETAM SOL (5 ML) 100 MG/ML UDC GT SCH ×2 (09:31→20:30)
[2022-07-23] MEDS: ASCORBIC ACID 500 MG TABLET GT SCH (09:31)
[2022-07-23] MEDS: METOPROLOL TARTRATE 25 MG TABLET GT SCH ×2 (09:31→20:30)
[2022-07-23] MEDS: VITAMINS A AND D 56.7 GM TUBE TP SCH ×4 (09:31→20:30)
[2022-07-23 11:52] VITALS: BP 156/87
[2022-07-23 19:06] VITALS: BP 114/60
[2022-07-23] MEDS: POLYETHYLENE GLYCOL 3350 17 GM POWD.PACK GT SCH (21:09)
[2022-07-24 00:02] VITALS: BP 122/65
[2022-07-24] MEDS: ALBUTEROL FS 2.5 MG/0.5 ML VIAL.NEB NEB SCH ×4 (01:46→19:52)
[2022-07-24] MEDS: IPRATROPIUM NEB FS 0.5 MG/2.5 ML AMPUL.NEB NEB SCH ×4 (01:46→19:52)
[2022-07-24] MEDS: OMEPRAZOLE 20 MG CAPSULE.DR GT SCH (05:22)
[2022-07-24 07:13] VITALS: BP 147/77
[2022-07-24] MEDS: DOCUSATE SODIUM LIQ 100 MG/10 ML UDC GT SCH (08:38)
[2022-07-24] MEDS: ASPIRIN 81 MG TAB.CHEW GT SCH (08:38)
[2022-07-24] MEDS: ASCORBIC ACID 500 MG TABLET GT SCH (08:39)
[2022-07-24] MEDS: METOPROLOL TARTRATE 25 MG TABLET GT SCH ×2 (08:39→20:56)
[2022-07-24] MEDS: LEVETIRACETAM SOL (5 ML) 100 MG/ML UDC GT SCH ×2 (08:39→20:56)
[2022-07-24] MEDS: MULTIVIT W/MINERALS 1 TAB TABLET GT SCH (08:39)
[2022-07-24] MEDS: APIXABAN 2.5 MG TABLET GT SCH ×2 (08:39→16:37)
[2022-07-24] MEDS: VITAMINS A AND D 56.7 GM TUBE TP SCH ×4 (08:39→20:56)
[2022-07-24] MEDS: AMANTADINE HCL 100 MG CAPSULE GT SCH ×2 (08:39→20:56)
[2022-07-24] MEDS: HYDROGEN PEROXIDE 480 ML BOTTLE TP SCH ×2 (09:33→19:53)
[2022-07-24 12:12] VITALS: BP 147/84
[2022-07-24 19:29] VITALS: BP 135/76
[2022-07-24] MEDS: POLYETHYLENE GLYCOL 3350 17 GM POWD.PACK GT SCH (21:42)
[2022-07-25 00:10] VITALS: BP 141/75
[2022-07-25] MEDS: IPRATROPIUM NEB FS 0.5 MG/2.5 ML AMPUL.NEB NEB SCH ×4 (01:44→19:30)
[2022-07-25] MEDS: ALBUTEROL FS 2.5 MG/0.5 ML VIAL.NEB NEB SCH ×4 (01:44→19:30)
[2022-07-25] MEDS: VITAL AF 1.2 1,000 ML BOTTLE GT PRN (04:16)
[2022-07-25] MEDS: OMEPRAZOLE 20 MG CAPSULE.DR GT SCH (05:25)
[2022-07-25 07:14] VITALS: BP 125/74
[2022-07-25] MEDS: ASPIRIN 81 MG TAB.CHEW GT SCH (08:49)
[2022-07-25] MEDS: DOCUSATE SODIUM LIQ 100 MG/10 ML UDC GT SCH (08:49)
[2022-07-25] MEDS: LEVETIRACETAM SOL (5 ML) 100 MG/ML UDC GT SCH ×2 (08:51→20:40)
[2022-07-25] MEDS: METOPROLOL TARTRATE 25 MG TABLET GT SCH ×2 (08:51→20:41)
[2022-07-25] MEDS: APIXABAN 2.5 MG TABLET GT SCH ×2 (08:51→16:23)
[2022-07-25] MEDS: VITAMINS A AND D 56.7 GM TUBE TP SCH ×4 (08:52→20:42)
[2022-07-25] MEDS: MULTIVIT W/MINERALS 1 TAB TABLET GT SCH (08:52)
[2022-07-25] MEDS: ASCORBIC ACID 500 MG TABLET GT SCH (08:52)
[2022-07-25] MEDS: AMANTADINE HCL 100 MG CAPSULE GT SCH ×2 (08:52→20:42)
[2022-07-25] MEDS: HYDROGEN PEROXIDE 480 ML BOTTLE TP SCH ×2 (09:00→20:54)
[2022-07-25 12:24] VITALS: BP 139/76
--- NOTE | 2022-07-25 13:00 | NUR ---
Seen and examined by SUMIT Srivastava, no new order given.
[2022-07-25 20:00] VITALS: BP 117/74
[2022-07-25] MEDS: POLYETHYLENE GLYCOL 3350 17 GM POWD.PACK GT SCH (21:25)
[2022-07-26] MEDS: IPRATROPIUM NEB FS 0.5 MG/2.5 ML AMPUL.NEB NEB SCH ×4 (02:20→20:14)
[2022-07-26] MEDS: ALBUTEROL FS 2.5 MG/0.5 ML VIAL.NEB NEB SCH ×4 (02:20→20:14)
[2022-07-26] MEDS: VITAL AF 1.2 1,000 ML BOTTLE GT PRN (03:55)
[2022-07-26] MEDS: OMEPRAZOLE 20 MG CAPSULE.DR GT SCH (05:36)
[2022-07-26 07:47] VITALS: BP 122/72
[2022-07-26] MEDS: ASPIRIN 81 MG TAB.CHEW GT SCH (08:24)
[2022-07-26] MEDS: DOCUSATE SODIUM LIQ 100 MG/10 ML UDC GT SCH (08:24)
[2022-07-26] MEDS: VITAMINS A AND D 56.7 GM TUBE TP SCH ×4 (08:25→20:26)
[2022-07-26] MEDS: ASCORBIC ACID 500 MG TABLET GT SCH (08:25)
[2022-07-26] MEDS: APIXABAN 2.5 MG TABLET GT SCH ×2 (08:25→16:06)
[2022-07-26] MEDS: METOPROLOL TARTRATE 25 MG TABLET GT SCH ×2 (08:25→20:25)
[2022-07-26] MEDS: AMANTADINE HCL 100 MG CAPSULE GT SCH ×2 (08:25→20:25)
[2022-07-26] MEDS: LEVETIRACETAM SOL (5 ML) 100 MG/ML UDC GT SCH ×2 (08:25→20:25)
[2022-07-26] MEDS: MULTIVIT W/MINERALS 1 TAB TABLET GT SCH (08:25)
[2022-07-26] MEDS: HYDROGEN PEROXIDE 480 ML BOTTLE TP SCH ×2 (09:25→20:14)
[2022-07-26 20:00] VITALS: BP 142/74
[2022-07-26] MEDS: POLYETHYLENE GLYCOL 3350 17 GM POWD.PACK GT SCH (21:48)
[2022-07-27] MEDS: ALBUTEROL FS 2.5 MG/0.5 ML VIAL.NEB NEB SCH ×4 (01:06→20:01)
[2022-07-27] MEDS: IPRATROPIUM NEB FS 0.5 MG/2.5 ML AMPUL.NEB NEB SCH ×4 (01:06→20:01)
[2022-07-27] MEDS: OMEPRAZOLE 20 MG CAPSULE.DR GT SCH (05:33)
[2022-07-27 08:40] VITALS: BP 117/57
[2022-07-27] MEDS: VITAMINS A AND D 56.7 GM TUBE TP SCH ×4 (09:00→21:13)
[2022-07-27] MEDS: METOPROLOL TARTRATE 25 MG TABLET GT SCH ×2 (09:00→21:13)
[2022-07-27] MEDS: ASPIRIN 81 MG TAB.CHEW GT SCH (09:00)
[2022-07-27] MEDS: DOCUSATE SODIUM LIQ 100 MG/10 ML UDC GT SCH (09:00)
[2022-07-27] MEDS: MULTIVIT W/MINERALS 1 TAB TABLET GT SCH (09:00)
[2022-07-27] MEDS: APIXABAN 2.5 MG TABLET GT SCH ×2 (09:00→17:00)
[2022-07-27] MEDS: ASCORBIC ACID 500 MG TABLET GT SCH (09:00)
[2022-07-27] MEDS: LEVETIRACETAM SOL (5 ML) 100 MG/ML UDC GT SCH ×2 (09:00→21:12)
[2022-07-27] MEDS: AMANTADINE HCL 100 MG CAPSULE GT SCH ×2 (09:00→21:13)
[2022-07-27] MEDS: HYDROGEN PEROXIDE 480 ML BOTTLE TP SCH ×2 (09:07→20:01)
[2022-07-27] MEDS: VITAL AF 1.2 1,000 ML BOTTLE GT PRN (18:28)
[2022-07-27 20:00] VITALS: BP 138/97
[2022-07-27] MEDS: POLYETHYLENE GLYCOL 3350 17 GM POWD.PACK GT SCH (21:13)
[2022-07-28] MEDS: IPRATROPIUM NEB FS 0.5 MG/2.5 ML AMPUL.NEB NEB SCH ×4 (01:45→19:20)
[2022-07-28] MEDS: ALBUTEROL FS 2.5 MG/0.5 ML VIAL.NEB NEB SCH ×4 (01:45→19:20)
[2022-07-28] MEDS: OMEPRAZOLE 20 MG CAPSULE.DR GT SCH (05:14)
[2022-07-28 07:23] VITALS: BP 147/78
[2022-07-28 07:23] LABS: BASOPHILS % (AUTO) 0.4 % (0.0-2.0); EOSINOPHILS % (AUTO) 2.3 % (0.0-6.0); HEMATOCRIT 40 % (33-45); HEMOGLOBIN 13.1 g/dL (11.5-14.8); LYMPHOCYTES # (AUTO) 2.3 K/uL (0.8-4.8); LYMPHOCYTES % (AUTO) 23.4 % (20.0-44.0); MEAN CORPUSCULAR HGB CONC 33 g/dl (31.0-36.0); MEAN CORPUSCULAR VOLUME 87 fL (82-100); MONOCYTES # (AUTO) 0.6 K/uL (0.1-1.30); MONOCYTES % (AUTO) 6.4 % (2.0-12.0); NEUTROPHILS # (AUTO) 6.6 K/uL (1.8-8.9); NEUTROPHILS % (AUTO) 67.5 % (43.0-81.0); PLATELET COUNT (AUTO) 420 K/uL (150-450); RED BLOOD CELL COUNT(AUTO) 4.59 MIL/uL (4.0-5.2); WHITE BLOOD COUNT (AUTO) 9.7 K/uL (4.3-11.0)
[2022-07-28 07:48] LABS: CALCIUM, SERUM 9.6 mg/dL (8.5-10.1); CREATININE 0.5 mg/dL (0.6-1.3); MAGNESIUM 2.1 mg/dL (1.8-2.4); PHOSPHORUS 3.6 mg/dL (2.5-4.9)
[2022-07-28] MEDS: DOCUSATE SODIUM LIQ 100 MG/10 ML UDC GT SCH (08:57)
[2022-07-28] MEDS: ASPIRIN 81 MG TAB.CHEW GT SCH (08:57)
[2022-07-28] MEDS: LEVETIRACETAM SOL (5 ML) 100 MG/ML UDC GT SCH ×2 (08:58→21:13)
[2022-07-28] MEDS: APIXABAN 2.5 MG TABLET GT SCH ×2 (08:58→17:07)
[2022-07-28] MEDS: VITAMINS A AND D 56.7 GM TUBE TP SCH ×4 (08:59→21:13)
[2022-07-28] MEDS: METOPROLOL TARTRATE 25 MG TABLET GT SCH ×2 (08:59→21:13)
[2022-07-28] MEDS: AMANTADINE HCL 100 MG CAPSULE GT SCH ×2 (08:59→21:13)
[2022-07-28] MEDS: MULTIVIT W/MINERALS 1 TAB TABLET GT SCH (08:59)
[2022-07-28] MEDS: ASCORBIC ACID 500 MG TABLET GT SCH (08:59)
[2022-07-28] MEDS: HYDROGEN PEROXIDE 480 ML BOTTLE TP SCH ×2 (09:16→21:42)
[2022-07-28 11:41] VITALS: BP 139/75
--- NOTE | 2022-07-28 18:00 | NUR ---
Invited pt's daughter Khadijah to participate in the IDT meeting tomorrow at 1230 pm.
[2022-07-28] MEDS: VITAL AF 1.2 1,000 ML BOTTLE GT PRN (18:03)
[2022-07-28 19:29] VITALS: BP_SYST 105; BP_SYST 137; BP_DIAS 53; BP_DIAS 79
--- NOTE | 2022-07-28 20:30 | NUR ---
RT Received pt on CA 5L 28% as ordered. No respiratory distress or SOB upon initial assessment. SPO2 99%. Q6 nebulizer tx given and tolerated. Suctioned x2 & PRN. Minimal thick secretions. Trach is patent and secured. Emergency trach bedside.
[2022-07-28] MEDS: POLYETHYLENE GLYCOL 3350 17 GM POWD.PACK GT SCH (21:13)
[2022-07-29 00:25] VITALS: BP 145/79
[2022-07-29] MEDS: IPRATROPIUM NEB FS 0.5 MG/2.5 ML AMPUL.NEB NEB SCH ×4 (01:16→20:02)
[2022-07-29] MEDS: ALBUTEROL FS 2.5 MG/0.5 ML VIAL.NEB NEB SCH ×4 (01:16→20:02)
[2022-07-29] MEDS: OMEPRAZOLE 20 MG CAPSULE.DR GT SCH (05:55)
[2022-07-29 07:17] VITALS: BP 135/53
[2022-07-29] MEDS: DOCUSATE SODIUM LIQ 100 MG/10 ML UDC GT SCH (08:01)
[2022-07-29] MEDS: ASPIRIN 81 MG TAB.CHEW GT SCH (08:01)
[2022-07-29] MEDS: VITAMINS A AND D 56.7 GM TUBE TP SCH ×4 (08:02→20:44)
[2022-07-29] MEDS: ASCORBIC ACID 500 MG TABLET GT SCH (08:02)
[2022-07-29] MEDS: APIXABAN 2.5 MG TABLET GT SCH ×2 (08:02→17:07)
[2022-07-29] MEDS: AMANTADINE HCL 100 MG CAPSULE GT SCH ×2 (08:02→20:44)
[2022-07-29] MEDS: MULTIVIT W/MINERALS 1 TAB TABLET GT SCH (08:02)
[2022-07-29] MEDS: METOPROLOL TARTRATE 25 MG TABLET GT SCH ×2 (08:02→20:44)
[2022-07-29] MEDS: LEVETIRACETAM SOL (5 ML) 100 MG/ML UDC GT SCH ×2 (08:02→20:43)
[2022-07-29] MEDS: HYDROGEN PEROXIDE 480 ML BOTTLE TP SCH ×2 (09:07→20:02)
[2022-07-29 11:30] VITALS: BP 129/71
--- NOTE | 2022-07-29 14:00 | NUR ---
INTERDISCIPLINARY PLAN OF CARE CONFERENCE took place today. The pt.'s s daughter Alena participated the phone conference . Dr. Abebe and Interdisciplinary team discussed the plan of care in detail. Current orders as well as treatments and medications were reviewed. No new order given. No new order given. Alena appreciative of the care provided.
[2022-07-29] MEDS: VITAL AF 1.2 1,000 ML BOTTLE GT PRN (17:16)
[2022-07-29 18:56] VITALS: BP 140/74
[2022-07-29] MEDS: POLYETHYLENE GLYCOL 3350 17 GM POWD.PACK GT SCH (21:11)
[2022-07-30 00:15] VITALS: BP 129/75
[2022-07-30] MEDS: ALBUTEROL FS 2.5 MG/0.5 ML VIAL.NEB NEB SCH ×4 (01:09→19:57)
[2022-07-30] MEDS: IPRATROPIUM NEB FS 0.5 MG/2.5 ML AMPUL.NEB NEB SCH ×4 (01:09→19:57)
[2022-07-30] MEDS: OMEPRAZOLE 20 MG CAPSULE.DR GT SCH (05:24)
[2022-07-30 07:13] VITALS: BP 143/75
[2022-07-30] MEDS: METOPROLOL TARTRATE 25 MG TABLET GT SCH ×2 (09:00→20:11)
[2022-07-30] MEDS: HYDROGEN PEROXIDE 480 ML BOTTLE TP SCH ×2 (09:18→21:04)
[2022-07-30] MEDS: DOCUSATE SODIUM LIQ 100 MG/10 ML UDC GT SCH (09:51)
[2022-07-30] MEDS: ASPIRIN 81 MG TAB.CHEW GT SCH (09:51)
[2022-07-30] MEDS: APIXABAN 2.5 MG TABLET GT SCH ×2 (09:51→16:32)
[2022-07-30] MEDS: AMANTADINE HCL 100 MG CAPSULE GT SCH ×2 (09:52→20:11)
[2022-07-30] MEDS: LEVETIRACETAM SOL (5 ML) 100 MG/ML UDC GT SCH ×2 (09:52→20:10)
[2022-07-30] MEDS: VITAMINS A AND D 56.7 GM TUBE TP SCH ×4 (09:52→20:11)
[2022-07-30] MEDS: ASCORBIC ACID 500 MG TABLET GT SCH (09:52)
[2022-07-30] MEDS: MULTIVIT W/MINERALS 1 TAB TABLET GT SCH (09:52)
[2022-07-30 11:12] VITALS: BP 119/65
[2022-07-30] MEDS: VITAL AF 1.2 1,000 ML BOTTLE GT PRN (11:12)
[2022-07-30 19:33] VITALS: BP 158/83
[2022-07-30] MEDS: POLYETHYLENE GLYCOL 3350 17 GM POWD.PACK GT SCH (21:52)
[2022-07-31] MEDS: IPRATROPIUM NEB FS 0.5 MG/2.5 ML AMPUL.NEB NEB SCH ×4 (01:42→19:01)
[2022-07-31] MEDS: ALBUTEROL FS 2.5 MG/0.5 ML VIAL.NEB NEB SCH ×4 (01:42→19:01)
[2022-07-31] MEDS: OMEPRAZOLE 20 MG CAPSULE.DR GT SCH (05:03)
[2022-07-31 07:23] VITALS: BP 122/67
[2022-07-31] MEDS: DOCUSATE SODIUM LIQ 100 MG/10 ML UDC GT SCH (08:32)
[2022-07-31] MEDS: ASPIRIN 81 MG TAB.CHEW GT SCH (08:32)
[2022-07-31] MEDS: LEVETIRACETAM SOL (5 ML) 100 MG/ML UDC GT SCH ×2 (08:35→20:55)
[2022-07-31] MEDS: APIXABAN 2.5 MG TABLET GT SCH ×2 (08:35→16:55)
[2022-07-31] MEDS: METOPROLOL TARTRATE 25 MG TABLET GT SCH ×2 (08:35→20:57)
[2022-07-31] MEDS: AMANTADINE HCL 100 MG CAPSULE GT SCH ×2 (08:36→20:57)
[2022-07-31] MEDS: VITAMINS A AND D 56.7 GM TUBE TP SCH ×4 (08:36→20:57)
[2022-07-31] MEDS: MULTIVIT W/MINERALS 1 TAB TABLET GT SCH (08:36)
[2022-07-31] MEDS: ASCORBIC ACID 500 MG TABLET GT SCH (08:36)
[2022-07-31] MEDS: HYDROGEN PEROXIDE 480 ML BOTTLE TP SCH ×2 (09:14→20:43)
[2022-07-31] MEDS: VITAL AF 1.2 1,000 ML BOTTLE GT PRN (16:48)
[2022-07-31 20:00] VITALS: BP 139/93
[2022-07-31] MEDS: POLYETHYLENE GLYCOL 3350 17 GM POWD.PACK GT SCH (21:25)
[2022-08-01] MEDS: ALBUTEROL FS 2.5 MG/0.5 ML VIAL.NEB NEB SCH ×4 (01:07→18:48)
[2022-08-01] MEDS: IPRATROPIUM NEB FS 0.5 MG/2.5 ML AMPUL.NEB NEB SCH ×4 (01:07→18:48)
[2022-08-01] MEDS: OMEPRAZOLE 20 MG CAPSULE.DR GT SCH (05:43)
[2022-08-01 07:51] VITALS: BP 127/73
[2022-08-01] MEDS: HYDROGEN PEROXIDE 480 ML BOTTLE TP SCH ×2 (09:21→20:40)
[2022-08-01] MEDS: ASPIRIN 81 MG TAB.CHEW GT SCH (09:48)
[2022-08-01] MEDS: DOCUSATE SODIUM LIQ 100 MG/10 ML UDC GT SCH (09:48)
[2022-08-01] MEDS: APIXABAN 2.5 MG TABLET GT SCH ×2 (09:49→17:04)
[2022-08-01] MEDS: LEVETIRACETAM SOL (5 ML) 100 MG/ML UDC GT SCH ×2 (09:50→20:48)
[2022-08-01] MEDS: AMANTADINE HCL 100 MG CAPSULE GT SCH ×2 (09:51→20:49)
[2022-08-01] MEDS: METOPROLOL TARTRATE 25 MG TABLET GT SCH ×2 (09:51→20:49)
[2022-08-01] MEDS: VITAMINS A AND D 56.7 GM TUBE TP SCH ×4 (09:52→20:49)
[2022-08-01] MEDS: ASCORBIC ACID 500 MG TABLET GT SCH (09:52)
[2022-08-01] MEDS: MULTIVIT W/MINERALS 1 TAB TABLET GT SCH (09:52)
[2022-08-01] MEDS: VITAL AF 1.2 1,000 ML BOTTLE GT PRN (18:58)
[2022-08-01 20:00] VITALS: BP 137/79
[2022-08-01] MEDS: POLYETHYLENE GLYCOL 3350 17 GM POWD.PACK GT SCH (21:14)
[2022-08-02] MEDS: ALBUTEROL FS 2.5 MG/0.5 ML VIAL.NEB NEB SCH ×4 (00:39→19:00)
[2022-08-02] MEDS: IPRATROPIUM NEB FS 0.5 MG/2.5 ML AMPUL.NEB NEB SCH ×4 (00:39→19:00)
[2022-08-02] MEDS: OMEPRAZOLE 20 MG CAPSULE.DR GT SCH (05:56)
[2022-08-02 07:37] VITALS: BP 129/77
[2022-08-02] MEDS: HYDROGEN PEROXIDE 480 ML BOTTLE TP SCH ×2 (09:35→20:29)
[2022-08-02] MEDS: DOCUSATE SODIUM LIQ 100 MG/10 ML UDC GT SCH (09:38)
[2022-08-02] MEDS: ASPIRIN 81 MG TAB.CHEW GT SCH (09:38)
[2022-08-02] MEDS: ASCORBIC ACID 500 MG TABLET GT SCH (09:39)
[2022-08-02] MEDS: MULTIVIT W/MINERALS 1 TAB TABLET GT SCH (09:39)
[2022-08-02] MEDS: AMANTADINE HCL 100 MG CAPSULE GT SCH ×2 (09:39→21:40)
[2022-08-02] MEDS: METOPROLOL TARTRATE 25 MG TABLET GT SCH ×2 (09:39→21:40)
[2022-08-02] MEDS: VITAMINS A AND D 56.7 GM TUBE TP SCH ×4 (09:39→21:40)
[2022-08-02] MEDS: APIXABAN 2.5 MG TABLET GT SCH ×2 (09:39→16:42)
[2022-08-02] MEDS: LEVETIRACETAM SOL (5 ML) 100 MG/ML UDC GT SCH ×2 (09:39→21:40)
[2022-08-02 12:26] VITALS: BP 126/75
[2022-08-02] MEDS: VITAL AF 1.2 1,000 ML BOTTLE GT PRN (16:52)
[2022-08-02 20:27] VITALS: BP 139/74
[2022-08-02] MEDS: POLYETHYLENE GLYCOL 3350 17 GM POWD.PACK GT SCH (21:40)
[2022-08-03] MEDS: ALBUTEROL FS 2.5 MG/0.5 ML VIAL.NEB NEB SCH ×4 (00:37→19:46)
[2022-08-03] MEDS: IPRATROPIUM NEB FS 0.5 MG/2.5 ML AMPUL.NEB NEB SCH ×4 (00:37→19:46)
[2022-08-03] MEDS: OMEPRAZOLE 20 MG CAPSULE.DR GT SCH (05:48)
[2022-08-03 07:22] VITALS: BP 158/83
[2022-08-03] MEDS: DOCUSATE SODIUM LIQ 100 MG/10 ML UDC GT SCH (08:26)
[2022-08-03] MEDS: ASPIRIN 81 MG TAB.CHEW GT SCH (08:26)
[2022-08-03] MEDS: MULTIVIT W/MINERALS 1 TAB TABLET GT SCH (08:27)
[2022-08-03] MEDS: AMANTADINE HCL 100 MG CAPSULE GT SCH ×2 (08:27→21:19)
[2022-08-03] MEDS: VITAMINS A AND D 56.7 GM TUBE TP SCH ×4 (08:27→21:19)
[2022-08-03] MEDS: LEVETIRACETAM SOL (5 ML) 100 MG/ML UDC GT SCH ×2 (08:27→21:19)
[2022-08-03] MEDS: METOPROLOL TARTRATE 25 MG TABLET GT SCH ×2 (08:27→21:19)
[2022-08-03] MEDS: APIXABAN 2.5 MG TABLET GT SCH ×2 (08:27→16:43)
[2022-08-03] MEDS: ASCORBIC ACID 500 MG TABLET GT SCH (08:27)
[2022-08-03] MEDS: HYDROGEN PEROXIDE 480 ML BOTTLE TP SCH ×2 (09:07→19:46)
[2022-08-03] MEDS: VITAL AF 1.2 1,000 ML BOTTLE GT PRN (15:44)
[2022-08-03 20:00] VITALS: BP 138/78
[2022-08-03] MEDS: POLYETHYLENE GLYCOL 3350 17 GM POWD.PACK GT SCH (21:19)
[2022-08-04] MEDS: IPRATROPIUM NEB FS 0.5 MG/2.5 ML AMPUL.NEB NEB SCH ×4 (01:30→19:51)
[2022-08-04] MEDS: ALBUTEROL FS 2.5 MG/0.5 ML VIAL.NEB NEB SCH ×4 (01:30→19:51)
[2022-08-04] MEDS: OMEPRAZOLE 20 MG CAPSULE.DR GT SCH (05:31)
[2022-08-04 07:07] VITALS: BP 103/69
[2022-08-04] MEDS: ASPIRIN 81 MG TAB.CHEW GT SCH (08:19)
[2022-08-04] MEDS: DOCUSATE SODIUM LIQ 100 MG/10 ML UDC GT SCH (08:19)
[2022-08-04] MEDS: LEVETIRACETAM SOL (5 ML) 100 MG/ML UDC GT SCH ×2 (08:20→21:05)
[2022-08-04] MEDS: APIXABAN 2.5 MG TABLET GT SCH ×2 (08:20→17:02)
[2022-08-04] MEDS: METOPROLOL TARTRATE 25 MG TABLET GT SCH ×2 (08:20→21:05)
[2022-08-04] MEDS: AMANTADINE HCL 100 MG CAPSULE GT SCH ×2 (08:20→21:05)
[2022-08-04] MEDS: VITAMINS A AND D 56.7 GM TUBE TP SCH ×4 (08:20→21:05)
[2022-08-04] MEDS: ASCORBIC ACID 500 MG TABLET GT SCH (08:20)
[2022-08-04] MEDS: MULTIVIT W/MINERALS 1 TAB TABLET GT SCH (08:20)
[2022-08-04] MEDS: HYDROGEN PEROXIDE 480 ML BOTTLE TP SCH ×2 (09:04→19:51)
[2022-08-04 12:00] VITALS: BP 103/52
[2022-08-04] MEDS: VITAL AF 1.2 1,000 ML BOTTLE GT PRN (16:52)
[2022-08-04 19:04] VITALS: BP 113/67
[2022-08-04] MEDS: POLYETHYLENE GLYCOL 3350 17 GM POWD.PACK GT SCH (21:05)
[2022-08-04 23:58] VITALS: BP 113/67
[2022-08-05] MEDS: ALBUTEROL FS 2.5 MG/0.5 ML VIAL.NEB NEB SCH ×4 (01:36→19:34)
[2022-08-05] MEDS: IPRATROPIUM NEB FS 0.5 MG/2.5 ML AMPUL.NEB NEB SCH ×4 (01:36→19:34)
[2022-08-05] MEDS: OMEPRAZOLE 20 MG CAPSULE.DR GT SCH (05:06)
[2022-08-05 07:29] VITALS: BP 127/71
[2022-08-05] MEDS: HYDROGEN PEROXIDE 480 ML BOTTLE TP SCH ×2 (08:10→19:34)
[2022-08-05] MEDS: ASPIRIN 81 MG TAB.CHEW GT SCH (09:24)
[2022-08-05] MEDS: VITAMINS A AND D 56.7 GM TUBE TP SCH ×4 (09:24→20:19)
[2022-08-05] MEDS: MULTIVIT W/MINERALS 1 TAB TABLET GT SCH (09:24)
[2022-08-05] MEDS: DOCUSATE SODIUM LIQ 100 MG/10 ML UDC GT SCH (09:24)
[2022-08-05] MEDS: LEVETIRACETAM SOL (5 ML) 100 MG/ML UDC GT SCH ×2 (09:24→20:18)
[2022-08-05] MEDS: ASCORBIC ACID 500 MG TABLET GT SCH (09:24)
[2022-08-05] MEDS: AMANTADINE HCL 100 MG CAPSULE GT SCH ×2 (09:24→20:19)
[2022-08-05] MEDS: APIXABAN 2.5 MG TABLET GT SCH ×2 (09:24→17:17)
[2022-08-05] MEDS: METOPROLOL TARTRATE 25 MG TABLET GT SCH ×2 (09:24→20:19)
[2022-08-05 11:17] VITALS: BP 136/69
--- NOTE | 2022-08-05 11:43 | NUR ---
VISITATION GUIDELINES: GENEVIEVE emailed the pt.'s daughter, Khadijah notifying family of the latest changes in visitation guidelines as recommended by [facility] Department of Public Health. GENEVIEVE educated family that they still need to make apt. for visit, length of visit has been increased to 3 hours, and pt.'s will be screened for COVID-19 symptoms upon entry and not be allowed in if they are COVID positive, have any COVID symptoms, have been exposed to COVID positive person within the last 14 days. GENEVIEVE educated families about latest physical distancing, PPE, face mask recommendation for visits.
--- NOTE | 2022-08-05 16:31 | NUR ---
RECEIVED PATIENT ON COOL AEROSOL @ 28%. AIRWAY PATENT AND SECURE. HHN TXS KIRBY WELL WITH NO ADVERSE REACTION NOTED. AMBU BAG AND EMERGENCY TRACH AT THE BEDSIDE. SMALL YELLOW THICK SECRETIONS NOTED.
[2022-08-05] MEDS: VITAL AF 1.2 1,000 ML BOTTLE GT PRN (18:12)
[2022-08-05 19:12] VITALS: BP 121/73
[2022-08-05] MEDS: POLYETHYLENE GLYCOL 3350 17 GM POWD.PACK GT SCH (21:15)
[2022-08-06 00:04] VITALS: BP 125/69
[2022-08-06] MEDS: ALBUTEROL FS 2.5 MG/0.5 ML VIAL.NEB NEB SCH ×4 (01:34→19:19)
[2022-08-06] MEDS: IPRATROPIUM NEB FS 0.5 MG/2.5 ML AMPUL.NEB NEB SCH ×4 (01:34→19:19)
[2022-08-06] MEDS: OMEPRAZOLE 20 MG CAPSULE.DR GT SCH (05:24)
[2022-08-06 07:06] VITALS: BP 139/82
[2022-08-06] MEDS: DOCUSATE SODIUM LIQ 100 MG/10 ML UDC GT SCH (08:37)
[2022-08-06] MEDS: APIXABAN 2.5 MG TABLET GT SCH ×2 (08:37→16:42)
[2022-08-06] MEDS: ASPIRIN 81 MG TAB.CHEW GT SCH (08:37)
[2022-08-06] MEDS: ASCORBIC ACID 500 MG TABLET GT SCH (08:38)
[2022-08-06] MEDS: METOPROLOL TARTRATE 25 MG TABLET GT SCH ×2 (08:38→20:31)
[2022-08-06] MEDS: MULTIVIT W/MINERALS 1 TAB TABLET GT SCH (08:38)
[2022-08-06] MEDS: AMANTADINE HCL 100 MG CAPSULE GT SCH ×2 (08:38→20:31)
[2022-08-06] MEDS: LEVETIRACETAM SOL (5 ML) 100 MG/ML UDC GT SCH ×2 (08:38→20:30)
[2022-08-06] MEDS: VITAMINS A AND D 56.7 GM TUBE TP SCH ×4 (08:38→20:31)
[2022-08-06] MEDS: HYDROGEN PEROXIDE 480 ML BOTTLE TP SCH ×2 (09:06→19:19)
[2022-08-06 11:26] VITALS: BP 142/76
[2022-08-06] MEDS: VITAL AF 1.2 1,000 ML BOTTLE GT PRN (16:49)
[2022-08-06 19:31] VITALS: BP 119/67
[2022-08-06] MEDS: POLYETHYLENE GLYCOL 3350 17 GM POWD.PACK GT SCH (22:00)
[2022-08-06 23:53] VITALS: BP 129/68
[2022-08-07] MEDS: ALBUTEROL FS 2.5 MG/0.5 ML VIAL.NEB NEB SCH ×4 (01:34→19:54)
[2022-08-07] MEDS: IPRATROPIUM NEB FS 0.5 MG/2.5 ML AMPUL.NEB NEB SCH ×4 (01:34→19:54)
[2022-08-07] MEDS: OMEPRAZOLE 20 MG CAPSULE.DR GT SCH (05:34)
[2022-08-07 07:47] VITALS: BP 122/77
[2022-08-07] MEDS: HYDROGEN PEROXIDE 480 ML BOTTLE TP SCH ×2 (08:48→19:54)
[2022-08-07] MEDS: APIXABAN 2.5 MG TABLET GT SCH ×2 (09:56→17:15)
[2022-08-07] MEDS: DOCUSATE SODIUM LIQ 100 MG/10 ML UDC GT SCH (09:56)
[2022-08-07] MEDS: ASPIRIN 81 MG TAB.CHEW GT SCH (09:56)
[2022-08-07] MEDS: LEVETIRACETAM SOL (5 ML) 100 MG/ML UDC GT SCH ×2 (09:58→20:13)
[2022-08-07] MEDS: ASCORBIC ACID 500 MG TABLET GT SCH (09:59)
[2022-08-07] MEDS: VITAMINS A AND D 56.7 GM TUBE TP SCH ×4 (09:59→20:13)
[2022-08-07] MEDS: MULTIVIT W/MINERALS 1 TAB TABLET GT SCH (09:59)
[2022-08-07] MEDS: AMANTADINE HCL 100 MG CAPSULE GT SCH ×2 (09:59→20:13)
[2022-08-07] MEDS: METOPROLOL TARTRATE 25 MG TABLET GT SCH ×2 (09:59→20:13)
[2022-08-07 19:06] VITALS: BP 109/57
[2022-08-07] MEDS: POLYETHYLENE GLYCOL 3350 17 GM POWD.PACK GT SCH (21:43)
[2022-08-07 23:39] VITALS: BP 115/72
[2022-08-08] MEDS: ALBUTEROL FS 2.5 MG/0.5 ML VIAL.NEB NEB SCH ×4 (02:01→19:30)
[2022-08-08] MEDS: IPRATROPIUM NEB FS 0.5 MG/2.5 ML AMPUL.NEB NEB SCH ×4 (02:01→19:30)
[2022-08-08] MEDS: OMEPRAZOLE 20 MG CAPSULE.DR GT SCH (05:10)
[2022-08-08 07:53] VITALS: BP 136/74
[2022-08-08] MEDS: HYDROGEN PEROXIDE 480 ML BOTTLE TP SCH ×2 (09:00→20:37)
[2022-08-08] MEDS: DOCUSATE SODIUM LIQ 100 MG/10 ML UDC GT SCH (09:34)
[2022-08-08] MEDS: ASPIRIN 81 MG TAB.CHEW GT SCH (09:34)
[2022-08-08] MEDS: MULTIVIT W/MINERALS 1 TAB TABLET GT SCH (09:35)
[2022-08-08] MEDS: AMANTADINE HCL 100 MG CAPSULE GT SCH ×2 (09:35→20:36)
[2022-08-08] MEDS: VITAMINS A AND D 56.7 GM TUBE TP SCH ×4 (09:35→20:36)
[2022-08-08] MEDS: METOPROLOL TARTRATE 25 MG TABLET GT SCH ×2 (09:35→20:36)
[2022-08-08] MEDS: LEVETIRACETAM SOL (5 ML) 100 MG/ML UDC GT SCH ×2 (09:35→20:36)
[2022-08-08] MEDS: ASCORBIC ACID 500 MG TABLET GT SCH (09:35)
[2022-08-08] MEDS: APIXABAN 2.5 MG TABLET GT SCH ×2 (09:35→17:33)
[2022-08-08 11:33] VITALS: BP 138/75
--- NOTE | 2022-08-08 13:00 | NUR ---
Seen and examined by SUMIT Srivastava no new order given.
[2022-08-08 19:56] VITALS: BP 135/65
--- NOTE | 2022-08-08 21:00 | NUR ---
RN NOTES Received new order from Jonel Panda, to d/c GTF: Vital AF @ 60ml/hr, new order for Jevity 1.2 @ 60ml/hr x 20 hr provide 1200ml/1440kcal/day, noted and carried out.
[2022-08-08] MEDS: POLYETHYLENE GLYCOL 3350 17 GM POWD.PACK GT SCH (21:13)
[2022-08-09] MEDS: IPRATROPIUM NEB FS 0.5 MG/2.5 ML AMPUL.NEB NEB SCH ×4 (01:30→19:30)
[2022-08-09] MEDS: ALBUTEROL FS 2.5 MG/0.5 ML VIAL.NEB NEB SCH ×4 (01:30→19:30)
[2022-08-09] MEDS: OMEPRAZOLE 20 MG CAPSULE.DR GT SCH (05:14)
[2022-08-09 07:32] VITALS: BP 139/71
[2022-08-09] MEDS: ASPIRIN 81 MG TAB.CHEW GT SCH (09:16)
[2022-08-09] MEDS: DOCUSATE SODIUM LIQ 100 MG/10 ML UDC GT SCH (09:16)
[2022-08-09] MEDS: VITAMINS A AND D 56.7 GM TUBE TP SCH ×4 (09:18→21:36)
[2022-08-09] MEDS: AMANTADINE HCL 100 MG CAPSULE GT SCH ×2 (09:18→21:36)
[2022-08-09] MEDS: MULTIVIT W/MINERALS 1 TAB TABLET GT SCH (09:18)
[2022-08-09] MEDS: APIXABAN 2.5 MG TABLET GT SCH ×2 (09:18→17:00)
[2022-08-09] MEDS: ASCORBIC ACID 500 MG TABLET GT SCH (09:18)
[2022-08-09] MEDS: LEVETIRACETAM SOL (5 ML) 100 MG/ML UDC GT SCH ×2 (09:18→21:35)
[2022-08-09] MEDS: METOPROLOL TARTRATE 25 MG TABLET GT SCH ×2 (09:18→21:36)
[2022-08-09] MEDS: HYDROGEN PEROXIDE 480 ML BOTTLE TP SCH ×2 (09:40→20:56)
[2022-08-09 19:00] VITALS: BP 106/63
[2022-08-09] MEDS: POLYETHYLENE GLYCOL 3350 17 GM POWD.PACK GT SCH (21:36)
[2022-08-10] MEDS: ALBUTEROL FS 2.5 MG/0.5 ML VIAL.NEB NEB SCH ×4 (01:45→19:55)
[2022-08-10] MEDS: IPRATROPIUM NEB FS 0.5 MG/2.5 ML AMPUL.NEB NEB SCH ×4 (01:45→19:55)
[2022-08-10] MEDS: OMEPRAZOLE 20 MG CAPSULE.DR GT SCH (05:53)
[2022-08-10 08:00] VITALS: BP 118/77
[2022-08-10] MEDS: APIXABAN 2.5 MG TABLET GT SCH ×2 (08:47→16:30)
[2022-08-10] MEDS: DOCUSATE SODIUM LIQ 100 MG/10 ML UDC GT SCH (08:47)
[2022-08-10] MEDS: ASPIRIN 81 MG TAB.CHEW GT SCH (08:47)
[2022-08-10] MEDS: ASCORBIC ACID 500 MG TABLET GT SCH (08:48)
[2022-08-10] MEDS: AMANTADINE HCL 100 MG CAPSULE GT SCH ×2 (08:48→20:53)
[2022-08-10] MEDS: VITAMINS A AND D 56.7 GM TUBE TP SCH ×4 (08:48→20:53)
[2022-08-10] MEDS: METOPROLOL TARTRATE 25 MG TABLET GT SCH ×2 (08:48→20:53)
[2022-08-10] MEDS: MULTIVIT W/MINERALS 1 TAB TABLET GT SCH (08:48)
[2022-08-10] MEDS: LEVETIRACETAM SOL (5 ML) 100 MG/ML UDC GT SCH ×2 (08:48→20:52)
[2022-08-10] MEDS: HYDROGEN PEROXIDE 480 ML BOTTLE TP SCH ×2 (09:47→19:55)
[2022-08-10 12:00] VITALS: BP 119/57
[2022-08-10] MEDS: JEVITY 1.2 CAL 1,000 ML BOTTLE GT PRN (16:20)
[2022-08-10 19:11] VITALS: BP 135/74
[2022-08-10] MEDS: POLYETHYLENE GLYCOL 3350 17 GM POWD.PACK GT SCH (21:14)
[2022-08-11] MEDS: IPRATROPIUM NEB FS 0.5 MG/2.5 ML AMPUL.NEB NEB SCH ×4 (01:50→19:00)
[2022-08-11] MEDS: ALBUTEROL FS 2.5 MG/0.5 ML VIAL.NEB NEB SCH ×4 (01:50→19:00)
[2022-08-11] MEDS: OMEPRAZOLE 20 MG CAPSULE.DR GT SCH (05:48)
[2022-08-11 07:03] VITALS: BP 153/75
[2022-08-11] MEDS: LEVETIRACETAM SOL (5 ML) 100 MG/ML UDC GT SCH ×2 (08:23→21:21)
[2022-08-11] MEDS: APIXABAN 2.5 MG TABLET GT SCH ×2 (08:23→16:52)
[2022-08-11] MEDS: ASPIRIN 81 MG TAB.CHEW GT SCH (08:23)
[2022-08-11] MEDS: DOCUSATE SODIUM LIQ 100 MG/10 ML UDC GT SCH (08:23)
[2022-08-11] MEDS: METOPROLOL TARTRATE 25 MG TABLET GT SCH ×2 (08:24→21:22)
[2022-08-11] MEDS: ASCORBIC ACID 500 MG TABLET GT SCH (08:24)
[2022-08-11] MEDS: AMANTADINE HCL 100 MG CAPSULE GT SCH ×2 (08:24→21:22)
[2022-08-11] MEDS: VITAMINS A AND D 56.7 GM TUBE TP SCH ×4 (08:24→21:22)
[2022-08-11] MEDS: MULTIVIT W/MINERALS 1 TAB TABLET GT SCH (08:24)
[2022-08-11] MEDS: HYDROGEN PEROXIDE 480 ML BOTTLE TP SCH ×2 (08:53→20:58)
[2022-08-11 11:49] VITALS: BP 147/76
[2022-08-11] MEDS: JEVITY 1.2 CAL 1,000 ML BOTTLE GT PRN (17:21)
[2022-08-11 19:50] VITALS: BP 110/57
[2022-08-11] MEDS: POLYETHYLENE GLYCOL 3350 17 GM POWD.PACK GT SCH (21:22)
[2022-08-12] MEDS: IPRATROPIUM NEB FS 0.5 MG/2.5 ML AMPUL.NEB NEB SCH ×4 (02:04→20:29)
[2022-08-12] MEDS: ALBUTEROL FS 2.5 MG/0.5 ML VIAL.NEB NEB SCH ×4 (02:04→20:29)
[2022-08-12] MEDS: OMEPRAZOLE 20 MG CAPSULE.DR GT SCH (05:50)
[2022-08-12 07:15] VITALS: BP 136/76
[2022-08-12] MEDS: HYDROGEN PEROXIDE 480 ML BOTTLE TP SCH ×2 (08:55→20:29)
[2022-08-12] MEDS: ASPIRIN 81 MG TAB.CHEW GT SCH (09:20)
[2022-08-12] MEDS: DOCUSATE SODIUM LIQ 100 MG/10 ML UDC GT SCH (09:20)
[2022-08-12] MEDS: VITAMINS A AND D 56.7 GM TUBE TP SCH ×4 (09:21→20:26)
[2022-08-12] MEDS: METOPROLOL TARTRATE 25 MG TABLET GT SCH ×2 (09:21→20:26)
[2022-08-12] MEDS: LEVETIRACETAM SOL (5 ML) 100 MG/ML UDC GT SCH ×2 (09:21→20:25)
[2022-08-12] MEDS: MULTIVIT W/MINERALS 1 TAB TABLET GT SCH (09:21)
[2022-08-12] MEDS: ASCORBIC ACID 500 MG TABLET GT SCH (09:21)
[2022-08-12] MEDS: APIXABAN 2.5 MG TABLET GT SCH ×2 (09:21→16:28)
[2022-08-12] MEDS: AMANTADINE HCL 100 MG CAPSULE GT SCH ×2 (09:21→20:26)
[2022-08-12 11:03] VITALS: BP 129/78
[2022-08-12 19:27] VITALS: BP 110/73
[2022-08-12] MEDS: POLYETHYLENE GLYCOL 3350 17 GM POWD.PACK GT SCH (21:05)
[2022-08-13 00:58] VITALS: BP 115/70
[2022-08-13] MEDS: IPRATROPIUM NEB FS 0.5 MG/2.5 ML AMPUL.NEB NEB SCH ×4 (01:25→18:30)
[2022-08-13] MEDS: ALBUTEROL FS 2.5 MG/0.5 ML VIAL.NEB NEB SCH ×4 (01:25→18:30)
[2022-08-13] MEDS: OMEPRAZOLE 20 MG CAPSULE.DR GT SCH (05:25)
[2022-08-13 07:24] VITALS: BP 146/75
[2022-08-13] MEDS: DOCUSATE SODIUM LIQ 100 MG/10 ML UDC GT SCH (08:20)
[2022-08-13] MEDS: ASPIRIN 81 MG TAB.CHEW GT SCH (08:20)
[2022-08-13] MEDS: LEVETIRACETAM SOL (5 ML) 100 MG/ML UDC GT SCH ×2 (08:21→20:18)
[2022-08-13] MEDS: APIXABAN 2.5 MG TABLET GT SCH ×2 (08:21→16:23)
[2022-08-13] MEDS: METOPROLOL TARTRATE 25 MG TABLET GT SCH ×2 (08:21→20:18)
[2022-08-13] MEDS: AMANTADINE HCL 100 MG CAPSULE GT SCH ×2 (08:22→20:18)
[2022-08-13] MEDS: ASCORBIC ACID 500 MG TABLET GT SCH (08:22)
[2022-08-13] MEDS: VITAMINS A AND D 56.7 GM TUBE TP SCH ×4 (08:22→20:18)
[2022-08-13] MEDS: MULTIVIT W/MINERALS 1 TAB TABLET GT SCH (08:22)
[2022-08-13] MEDS: HYDROGEN PEROXIDE 480 ML BOTTLE TP SCH ×2 (09:20→20:19)
[2022-08-13 12:10] VITALS: BP 145/72
--- NOTE | 2022-08-13 14:30 | NUR ---
Monthly Progress Note: Resident on Activity program was seen and sensory stimulation was provided. Room Visits, Soft Touch, Sweet Smell, Feelings, Radio 101.1, Grooming, Reality Orientation. Mass on TV or Tablet. Resident open eyes and looks at you when speaking with her. These Activities will continue as needed.
[2022-08-13] MEDS: JEVITY 1.2 CAL 1,000 ML BOTTLE GT PRN (17:42)
[2022-08-13 19:32] VITALS: BP 116/73
[2022-08-13] MEDS: POLYETHYLENE GLYCOL 3350 17 GM POWD.PACK GT SCH (21:04)
[2022-08-14] MEDS: IPRATROPIUM NEB FS 0.5 MG/2.5 ML AMPUL.NEB NEB SCH ×4 (00:36→18:39)
[2022-08-14] MEDS: ALBUTEROL FS 2.5 MG/0.5 ML VIAL.NEB NEB SCH ×4 (00:36→18:39)
[2022-08-14] MEDS: OMEPRAZOLE 20 MG CAPSULE.DR GT SCH (05:09)
[2022-08-14 07:00] VITALS: BP 151/63
[2022-08-14] MEDS: ASPIRIN 81 MG TAB.CHEW GT SCH (08:46)
[2022-08-14] MEDS: LEVETIRACETAM SOL (5 ML) 100 MG/ML UDC GT SCH ×2 (08:46→20:43)
[2022-08-14] MEDS: DOCUSATE SODIUM LIQ 100 MG/10 ML UDC GT SCH (08:46)
[2022-08-14] MEDS: APIXABAN 2.5 MG TABLET GT SCH ×2 (08:46→16:51)
[2022-08-14] MEDS: MULTIVIT W/MINERALS 1 TAB TABLET GT SCH (08:47)
[2022-08-14] MEDS: ASCORBIC ACID 500 MG TABLET GT SCH (08:47)
[2022-08-14] MEDS: METOPROLOL TARTRATE 25 MG TABLET GT SCH ×2 (08:47→20:47)
[2022-08-14] MEDS: VITAMINS A AND D 56.7 GM TUBE TP SCH ×4 (08:47→20:48)
[2022-08-14] MEDS: AMANTADINE HCL 100 MG CAPSULE GT SCH ×2 (08:47→20:47)
[2022-08-14] MEDS: HYDROGEN PEROXIDE 480 ML BOTTLE TP SCH ×2 (09:27→20:15)
[2022-08-14 11:55] VITALS: BP 134/75
[2022-08-14 19:47] VITALS: BP 119/67
[2022-08-14] MEDS: POLYETHYLENE GLYCOL 3350 17 GM POWD.PACK GT SCH (21:16)
[2022-08-15] MEDS: IPRATROPIUM NEB FS 0.5 MG/2.5 ML AMPUL.NEB NEB SCH ×4 (00:42→20:20)
[2022-08-15] MEDS: ALBUTEROL FS 2.5 MG/0.5 ML VIAL.NEB NEB SCH ×4 (00:42→20:20)
[2022-08-15] MEDS: OMEPRAZOLE 20 MG CAPSULE.DR GT SCH (06:17)
[2022-08-15] MEDS: ASPIRIN 81 MG TAB.CHEW GT SCH (08:12)
[2022-08-15] MEDS: DOCUSATE SODIUM LIQ 100 MG/10 ML UDC GT SCH (08:13)
[2022-08-15] MEDS: APIXABAN 2.5 MG TABLET GT SCH ×2 (08:14→16:46)
[2022-08-15] MEDS: LEVETIRACETAM SOL (5 ML) 100 MG/ML UDC GT SCH ×2 (08:14→21:45)
[2022-08-15 08:15] VITALS: BP 133/58
[2022-08-15] MEDS: MULTIVIT W/MINERALS 1 TAB TABLET GT SCH (08:15)
[2022-08-15] MEDS: METOPROLOL TARTRATE 25 MG TABLET GT SCH ×2 (08:15→21:45)
[2022-08-15] MEDS: ASCORBIC ACID 500 MG TABLET GT SCH (08:15)
[2022-08-15] MEDS: AMANTADINE HCL 100 MG CAPSULE GT SCH ×2 (08:15→21:45)
[2022-08-15] MEDS: VITAMINS A AND D 56.7 GM TUBE TP SCH ×4 (08:16→21:45)
[2022-08-15] MEDS: HYDROGEN PEROXIDE 480 ML BOTTLE TP SCH ×2 (09:11→20:20)
[2022-08-15] MEDS: JEVITY 1.2 CAL 1,000 ML BOTTLE GT PRN (18:31)
[2022-08-15 19:42] VITALS: BP 131/69
[2022-08-15 19:45] VITALS: BP 131/69
[2022-08-15] MEDS: POLYETHYLENE GLYCOL 3350 17 GM POWD.PACK GT SCH (21:45)
[2022-08-16] MEDS: ALBUTEROL FS 2.5 MG/0.5 ML VIAL.NEB NEB SCH ×4 (01:55→19:45)
[2022-08-16] MEDS: IPRATROPIUM NEB FS 0.5 MG/2.5 ML AMPUL.NEB NEB SCH ×4 (01:55→19:45)
[2022-08-16] MEDS: OMEPRAZOLE 20 MG CAPSULE.DR GT SCH (05:55)
[2022-08-16 08:02] VITALS: BP 121/76
[2022-08-16] MEDS: LEVETIRACETAM SOL (5 ML) 100 MG/ML UDC GT SCH ×2 (09:14→20:35)
[2022-08-16] MEDS: ASPIRIN 81 MG TAB.CHEW GT SCH (09:14)
[2022-08-16] MEDS: APIXABAN 2.5 MG TABLET GT SCH ×2 (09:14→16:43)
[2022-08-16] MEDS: DOCUSATE SODIUM LIQ 100 MG/10 ML UDC GT SCH (09:14)
[2022-08-16] MEDS: METOPROLOL TARTRATE 25 MG TABLET GT SCH ×2 (09:15→20:36)
[2022-08-16] MEDS: ASCORBIC ACID 500 MG TABLET GT SCH (09:15)
[2022-08-16] MEDS: AMANTADINE HCL 100 MG CAPSULE GT SCH ×2 (09:15→20:36)
[2022-08-16] MEDS: VITAMINS A AND D 56.7 GM TUBE TP SCH ×4 (09:15→20:36)
[2022-08-16] MEDS: MULTIVIT W/MINERALS 1 TAB TABLET GT SCH (09:15)
[2022-08-16] MEDS: HYDROGEN PEROXIDE 480 ML BOTTLE TP SCH ×2 (09:24→19:45)
--- NOTE | 2022-08-16 11:25 | NUR ---
RT NOTE PT TRACH HAS BEEN CHANGED TO 6 XLT PROXIMAL CUFFED. PT IS CURRENTLY STABLE SHOWING BILATERAL CHEST RISE AND NO SIGNS OF S.O.B. COMPOUND MACHINE OPERATOR AWARE OF CHANGE. WILL CONTINUE TO MONITOR FOR ANY CHANGES.
--- NOTE | 2022-08-16 11:30 | NUR ---
Trach change done by RT Trey and RT Moise. Pt tolerated procedure well. Minimal bleeding noted.
[2022-08-16 18:59] VITALS: BP 147/71
[2022-08-16] MEDS: POLYETHYLENE GLYCOL 3350 17 GM POWD.PACK GT SCH (21:06)
[2022-08-17] MEDS: IPRATROPIUM NEB FS 0.5 MG/2.5 ML AMPUL.NEB NEB SCH ×4 (02:04→19:44)
[2022-08-17] MEDS: ALBUTEROL FS 2.5 MG/0.5 ML VIAL.NEB NEB SCH ×4 (02:04→19:44)
[2022-08-17] MEDS: OMEPRAZOLE 20 MG CAPSULE.DR GT SCH (05:43)
[2022-08-17 07:05] VITALS: BP 148/76
[2022-08-17] MEDS: HYDROGEN PEROXIDE 480 ML BOTTLE TP SCH ×2 (09:23→19:44)
[2022-08-17] MEDS: APIXABAN 2.5 MG TABLET GT SCH ×2 (09:40→16:49)
[2022-08-17] MEDS: ASPIRIN 81 MG TAB.CHEW GT SCH (09:40)
[2022-08-17] MEDS: LEVETIRACETAM SOL (5 ML) 100 MG/ML UDC GT SCH ×2 (09:40→21:18)
[2022-08-17] MEDS: DOCUSATE SODIUM LIQ 100 MG/10 ML UDC GT SCH (09:40)
[2022-08-17] MEDS: ASCORBIC ACID 500 MG TABLET GT SCH (09:41)
[2022-08-17] MEDS: VITAMINS A AND D 56.7 GM TUBE TP SCH ×4 (09:41→21:26)
[2022-08-17] MEDS: AMANTADINE HCL 100 MG CAPSULE GT SCH ×2 (09:41→21:26)
[2022-08-17] MEDS: MULTIVIT W/MINERALS 1 TAB TABLET GT SCH (09:41)
[2022-08-17] MEDS: METOPROLOL TARTRATE 25 MG TABLET GT SCH ×2 (09:41→21:26)
[2022-08-17 19:32] VITALS: BP 125/71
[2022-08-17] MEDS: POLYETHYLENE GLYCOL 3350 17 GM POWD.PACK GT SCH (21:26)
[2022-08-18 00:21] VITALS: BP 120/69
[2022-08-18] MEDS: IPRATROPIUM NEB FS 0.5 MG/2.5 ML AMPUL.NEB NEB SCH ×4 (01:55→20:27)
[2022-08-18] MEDS: ALBUTEROL FS 2.5 MG/0.5 ML VIAL.NEB NEB SCH ×4 (01:55→20:27)
[2022-08-18] MEDS: OMEPRAZOLE 20 MG CAPSULE.DR GT SCH (05:32)
[2022-08-18 07:15] VITALS: BP 126/63
[2022-08-18] MEDS: HYDROGEN PEROXIDE 480 ML BOTTLE TP SCH ×2 (08:33→20:27)
[2022-08-18] MEDS: ASPIRIN 81 MG TAB.CHEW GT SCH (09:40)
[2022-08-18] MEDS: DOCUSATE SODIUM LIQ 100 MG/10 ML UDC GT SCH (09:40)
[2022-08-18] MEDS: APIXABAN 2.5 MG TABLET GT SCH ×2 (09:41→17:30)
[2022-08-18] MEDS: LEVETIRACETAM SOL (5 ML) 100 MG/ML UDC GT SCH ×2 (09:42→20:43)
[2022-08-18] MEDS: MULTIVIT W/MINERALS 1 TAB TABLET GT SCH (09:43)
[2022-08-18] MEDS: AMANTADINE HCL 100 MG CAPSULE GT SCH ×2 (09:43→20:44)
[2022-08-18] MEDS: METOPROLOL TARTRATE 25 MG TABLET GT SCH ×2 (09:43→20:44)
[2022-08-18] MEDS: VITAMINS A AND D 56.7 GM TUBE TP SCH ×4 (09:44→20:44)
[2022-08-18] MEDS: ASCORBIC ACID 500 MG TABLET GT SCH (09:44)
[2022-08-18 12:17] VITALS: BP 141/83
[2022-08-18 19:32] VITALS: BP 145/75
[2022-08-18] MEDS: POLYETHYLENE GLYCOL 3350 17 GM POWD.PACK GT SCH (21:05)
[2022-08-18 23:34] VITALS: BP 133/71
[2022-08-19] MEDS: ALBUTEROL FS 2.5 MG/0.5 ML VIAL.NEB NEB SCH ×4 (02:12→18:50)
[2022-08-19] MEDS: IPRATROPIUM NEB FS 0.5 MG/2.5 ML AMPUL.NEB NEB SCH ×4 (02:12→18:50)
[2022-08-19] MEDS: OMEPRAZOLE 20 MG CAPSULE.DR GT SCH (05:21)
[2022-08-19] MEDS: JEVITY 1.2 CAL 1,000 ML BOTTLE GT PRN (06:11)
[2022-08-19 07:01] VITALS: BP 143/85
[2022-08-19] MEDS: METOPROLOL TARTRATE 25 MG TABLET GT SCH ×2 (09:00→21:04)
[2022-08-19] MEDS: HYDROGEN PEROXIDE 480 ML BOTTLE TP SCH ×2 (09:20→20:21)
[2022-08-19] MEDS: ASPIRIN 81 MG TAB.CHEW GT SCH (09:43)
[2022-08-19] MEDS: DOCUSATE SODIUM LIQ 100 MG/10 ML UDC GT SCH (09:44)
[2022-08-19] MEDS: APIXABAN 2.5 MG TABLET GT SCH ×2 (09:44→16:58)
[2022-08-19] MEDS: LEVETIRACETAM SOL (5 ML) 100 MG/ML UDC GT SCH ×2 (09:46→21:03)
[2022-08-19] MEDS: AMANTADINE HCL 100 MG CAPSULE GT SCH ×2 (09:46→21:04)
[2022-08-19] MEDS: ASCORBIC ACID 500 MG TABLET GT SCH (09:47)
[2022-08-19] MEDS: VITAMINS A AND D 56.7 GM TUBE TP SCH ×4 (09:47→21:04)
[2022-08-19] MEDS: MULTIVIT W/MINERALS 1 TAB TABLET GT SCH (09:47)
[2022-08-19 14:25] VITALS: BP 146/92
[2022-08-19 19:36] VITALS: BP 129/95
[2022-08-19] MEDS: POLYETHYLENE GLYCOL 3350 17 GM POWD.PACK GT SCH (21:04)
[2022-08-20] MEDS: ALBUTEROL FS 2.5 MG/0.5 ML VIAL.NEB NEB SCH ×4 (00:41→19:51)
[2022-08-20] MEDS: IPRATROPIUM NEB FS 0.5 MG/2.5 ML AMPUL.NEB NEB SCH ×4 (00:41→19:51)
[2022-08-20] MEDS: OMEPRAZOLE 20 MG CAPSULE.DR GT SCH (05:32)
[2022-08-20 07:29] VITALS: BP 145/65
[2022-08-20] MEDS: METOPROLOL TARTRATE 25 MG TABLET GT SCH ×2 (09:00→20:46)
[2022-08-20] MEDS: HYDROGEN PEROXIDE 480 ML BOTTLE TP SCH ×2 (09:01→19:51)
[2022-08-20] MEDS: DOCUSATE SODIUM LIQ 100 MG/10 ML UDC GT SCH (09:47)
[2022-08-20] MEDS: ASPIRIN 81 MG TAB.CHEW GT SCH (09:47)
[2022-08-20] MEDS: APIXABAN 2.5 MG TABLET GT SCH ×2 (09:47→16:28)
[2022-08-20] MEDS: LEVETIRACETAM SOL (5 ML) 100 MG/ML UDC GT SCH ×2 (09:47→20:45)
[2022-08-20] MEDS: VITAMINS A AND D 56.7 GM TUBE TP SCH ×4 (09:48→20:46)
[2022-08-20] MEDS: MULTIVIT W/MINERALS 1 TAB TABLET GT SCH (09:48)
[2022-08-20] MEDS: ASCORBIC ACID 500 MG TABLET GT SCH (09:48)
[2022-08-20] MEDS: AMANTADINE HCL 100 MG CAPSULE GT SCH ×2 (09:48→20:46)
[2022-08-20] MEDS: JEVITY 1.2 CAL 1,000 ML BOTTLE GT PRN (09:49)
[2022-08-20 11:47] VITALS: BP 139/69
[2022-08-20 19:17] VITALS: BP 143/69
[2022-08-20] MEDS: POLYETHYLENE GLYCOL 3350 17 GM POWD.PACK GT SCH (21:28)
[2022-08-21 00:11] VITALS: BP 129/61
[2022-08-21] MEDS: IPRATROPIUM NEB FS 0.5 MG/2.5 ML AMPUL.NEB NEB SCH ×4 (01:52→19:32)
[2022-08-21] MEDS: ALBUTEROL FS 2.5 MG/0.5 ML VIAL.NEB NEB SCH ×4 (01:52→19:32)
[2022-08-21] MEDS: OMEPRAZOLE 20 MG CAPSULE.DR GT SCH (05:35)
[2022-08-21 08:06] VITALS: BP 146/65
[2022-08-21] MEDS: HYDROGEN PEROXIDE 480 ML BOTTLE TP SCH ×2 (09:07→19:32)
[2022-08-21] MEDS: APIXABAN 2.5 MG TABLET GT SCH ×2 (09:45→16:54)
[2022-08-21] MEDS: DOCUSATE SODIUM LIQ 100 MG/10 ML UDC GT SCH (09:45)
[2022-08-21] MEDS: ASPIRIN 81 MG TAB.CHEW GT SCH (09:45)
[2022-08-21] MEDS: LEVETIRACETAM SOL (5 ML) 100 MG/ML UDC GT SCH ×2 (09:45→20:09)
[2022-08-21] MEDS: ASCORBIC ACID 500 MG TABLET GT SCH (09:46)
[2022-08-21] MEDS: VITAMINS A AND D 56.7 GM TUBE TP SCH ×4 (09:46→20:09)
[2022-08-21] MEDS: METOPROLOL TARTRATE 25 MG TABLET GT SCH ×2 (09:46→20:09)
[2022-08-21] MEDS: AMANTADINE HCL 100 MG CAPSULE GT SCH ×2 (09:46→20:09)
[2022-08-21] MEDS: MULTIVIT W/MINERALS 1 TAB TABLET GT SCH (09:46)
[2022-08-21 11:56] VITALS: BP 131/81
[2022-08-21 19:48] VITALS: BP 159/75
[2022-08-21] MEDS: POLYETHYLENE GLYCOL 3350 17 GM POWD.PACK GT SCH (21:08)
[2022-08-22 00:47] VITALS: BP 157/72
[2022-08-22] MEDS: ALBUTEROL FS 2.5 MG/0.5 ML VIAL.NEB NEB SCH ×4 (01:52→18:39)
[2022-08-22] MEDS: IPRATROPIUM NEB FS 0.5 MG/2.5 ML AMPUL.NEB NEB SCH ×4 (01:52→18:39)
[2022-08-22] MEDS: JEVITY 1.2 CAL 1,000 ML BOTTLE GT PRN (04:02)
[2022-08-22] MEDS: OMEPRAZOLE 20 MG CAPSULE.DR GT SCH (05:04)
[2022-08-22 07:09] VITALS: BP 133/74
[2022-08-22] MEDS: METOPROLOL TARTRATE 25 MG TABLET GT SCH ×2 (09:00→20:10)
[2022-08-22] MEDS: ASPIRIN 81 MG TAB.CHEW GT SCH (09:22)
[2022-08-22] MEDS: DOCUSATE SODIUM LIQ 100 MG/10 ML UDC GT SCH (09:22)
[2022-08-22] MEDS: AMANTADINE HCL 100 MG CAPSULE GT SCH ×2 (09:23→20:11)
[2022-08-22] MEDS: MULTIVIT W/MINERALS 1 TAB TABLET GT SCH (09:23)
[2022-08-22] MEDS: LEVETIRACETAM SOL (5 ML) 100 MG/ML UDC GT SCH ×2 (09:23→20:08)
[2022-08-22] MEDS: ASCORBIC ACID 500 MG TABLET GT SCH (09:23)
[2022-08-22] MEDS: APIXABAN 2.5 MG TABLET GT SCH ×2 (09:23→16:19)
[2022-08-22] MEDS: VITAMINS A AND D 56.7 GM TUBE TP SCH ×4 (09:23→20:11)
[2022-08-22] MEDS: HYDROGEN PEROXIDE 480 ML BOTTLE TP SCH ×2 (09:28→20:34)
[2022-08-22 10:54] VITALS: BP 131/71
--- NOTE | 2022-08-22 16:48 | NUR ---
Noted redness and dryness in both eyes. Notified CLIENT SUCCESS DIRECTOR Brenda Srivastava. She ordered to give artificial tears 1 drop to each eye q 6 hours. Notified Khadijah.
[2022-08-22 20:02] VITALS: BP 140/70
[2022-08-22] MEDS: POLYETHYLENE GLYCOL 3350 17 GM POWD.PACK GT SCH (21:18)
[2022-08-23] MEDS: ALBUTEROL FS 2.5 MG/0.5 ML VIAL.NEB NEB SCH ×4 (00:40→18:48)
[2022-08-23] MEDS: IPRATROPIUM NEB FS 0.5 MG/2.5 ML AMPUL.NEB NEB SCH ×4 (00:40→18:48)
[2022-08-23 01:14] VITALS: BP 134/77
[2022-08-23] MEDS: JEVITY 1.2 CAL 1,000 ML BOTTLE GT PRN (03:45)
[2022-08-23] MEDS: POLYVINYL ALCOHOL 15 ML BOTTLE EACHEYE SCH ×5 (05:26→23:23)
[2022-08-23] MEDS: OMEPRAZOLE 20 MG CAPSULE.DR GT SCH (05:26)
[2022-08-23 08:00] VITALS: BP 145/83
[2022-08-23] MEDS: ASPIRIN 81 MG TAB.CHEW GT SCH (08:52)
[2022-08-23] MEDS: DOCUSATE SODIUM LIQ 100 MG/10 ML UDC GT SCH (08:52)
[2022-08-23] MEDS: ASCORBIC ACID 500 MG TABLET GT SCH (08:53)
[2022-08-23] MEDS: METOPROLOL TARTRATE 25 MG TABLET GT SCH ×2 (08:53→20:37)
[2022-08-23] MEDS: MULTIVIT W/MINERALS 1 TAB TABLET GT SCH (08:53)
[2022-08-23] MEDS: LEVETIRACETAM SOL (5 ML) 100 MG/ML UDC GT SCH ×2 (08:53→20:37)
[2022-08-23] MEDS: AMANTADINE HCL 100 MG CAPSULE GT SCH ×2 (08:53→20:37)
[2022-08-23] MEDS: VITAMINS A AND D 56.7 GM TUBE TP SCH ×4 (08:53→20:37)
[2022-08-23] MEDS: APIXABAN 2.5 MG TABLET GT SCH ×2 (09:00→17:42)
[2022-08-23] MEDS: HYDROGEN PEROXIDE 480 ML BOTTLE TP SCH ×2 (09:44→20:27)
[2022-08-23 19:53] VITALS: BP 153/85
[2022-08-23] MEDS: POLYETHYLENE GLYCOL 3350 17 GM POWD.PACK GT SCH (21:58)
[2022-08-24] MEDS: IPRATROPIUM NEB FS 0.5 MG/2.5 ML AMPUL.NEB NEB SCH ×4 (01:49→19:58)
[2022-08-24] MEDS: ALBUTEROL FS 2.5 MG/0.5 ML VIAL.NEB NEB SCH ×4 (01:49→19:58)
[2022-08-24] MEDS: OMEPRAZOLE 20 MG CAPSULE.DR GT SCH (05:47)
[2022-08-24] MEDS: POLYVINYL ALCOHOL 15 ML BOTTLE EACHEYE SCH ×4 (05:47→23:22)
[2022-08-24 07:25] VITALS: BP 138/63
[2022-08-24] MEDS: DOCUSATE SODIUM LIQ 100 MG/10 ML UDC GT SCH (08:27)
[2022-08-24] MEDS: ASPIRIN 81 MG TAB.CHEW GT SCH (08:27)
[2022-08-24] MEDS: LEVETIRACETAM SOL (5 ML) 100 MG/ML UDC GT SCH ×2 (08:27→20:42)
[2022-08-24] MEDS: APIXABAN 2.5 MG TABLET GT SCH ×2 (08:27→16:24)
[2022-08-24] MEDS: AMANTADINE HCL 100 MG CAPSULE GT SCH ×2 (08:28→20:43)
[2022-08-24] MEDS: METOPROLOL TARTRATE 25 MG TABLET GT SCH ×2 (08:28→20:42)
[2022-08-24] MEDS: VITAMINS A AND D 56.7 GM TUBE TP SCH ×4 (08:28→20:43)
[2022-08-24] MEDS: MULTIVIT W/MINERALS 1 TAB TABLET GT SCH (08:28)
[2022-08-24] MEDS: ASCORBIC ACID 500 MG TABLET GT SCH (08:28)
[2022-08-24] MEDS: HYDROGEN PEROXIDE 480 ML BOTTLE TP SCH ×2 (09:17→19:58)
[2022-08-24 11:25] VITALS: BP 146/74
[2022-08-24] MEDS: JEVITY 1.2 CAL 1,000 ML BOTTLE GT PRN (14:41)
[2022-08-24 19:48] VITALS: BP 136/60
[2022-08-24] MEDS: POLYETHYLENE GLYCOL 3350 17 GM POWD.PACK GT SCH (21:28)
[2022-08-25] MEDS: ALBUTEROL FS 2.5 MG/0.5 ML VIAL.NEB NEB SCH ×4 (01:55→19:55)
[2022-08-25] MEDS: HYDROGEN PEROXIDE 480 ML BOTTLE TP SCH ×3 (01:55→19:55)
[2022-08-25] MEDS: IPRATROPIUM NEB FS 0.5 MG/2.5 ML AMPUL.NEB NEB SCH ×4 (01:55→19:55)
[2022-08-25] MEDS: OMEPRAZOLE 20 MG CAPSULE.DR GT SCH (05:38)
[2022-08-25] MEDS: POLYVINYL ALCOHOL 15 ML BOTTLE EACHEYE SCH ×4 (05:38→23:44)
[2022-08-25 07:28] VITALS: BP 150/78
[2022-08-25] MEDS: DOCUSATE SODIUM LIQ 100 MG/10 ML UDC GT SCH (08:37)
[2022-08-25] MEDS: ASPIRIN 81 MG TAB.CHEW GT SCH (08:37)
[2022-08-25] MEDS: APIXABAN 2.5 MG TABLET GT SCH ×2 (08:38→16:17)
[2022-08-25] MEDS: LEVETIRACETAM SOL (5 ML) 100 MG/ML UDC GT SCH ×2 (08:38→21:20)
[2022-08-25] MEDS: METOPROLOL TARTRATE 25 MG TABLET GT SCH ×2 (08:39→21:20)
[2022-08-25] MEDS: AMANTADINE HCL 100 MG CAPSULE GT SCH ×2 (08:39→21:21)
[2022-08-25] MEDS: MULTIVIT W/MINERALS 1 TAB TABLET GT SCH (08:40)
[2022-08-25] MEDS: VITAMINS A AND D 56.7 GM TUBE TP SCH ×4 (08:40→21:21)
[2022-08-25] MEDS: ASCORBIC ACID 500 MG TABLET GT SCH (08:40)
--- NOTE | 2022-08-25 10:00 | NUR ---
Purplish discoloration noted on pt's right breast. Pt on Eliquis. No facial grimacing noted. Pt appears comfortable. Notified Khadijah.
[2022-08-25 11:19] VITALS: BP 128/69
--- NOTE | 2022-08-25 15:30 | NUR ---
SOCIOCULTURAL ANTHROPOLOGY PROFESSOR: Pt. is scheduled to be seen by Software Asset Manager, Dr. Garcia after 1:30pm for eye exam.
[2022-08-25] MEDS: JEVITY 1.2 CAL 1,000 ML BOTTLE GT PRN (16:18)
[2022-08-25 18:50] VITALS: BP 145/84
[2022-08-25] MEDS: POLYETHYLENE GLYCOL 3350 17 GM POWD.PACK GT SCH (21:21)
[2022-08-25] MEDS: ACETAMINOPHEN 650 MG/20 ML UDC- SA PATIENTS-PAIN ONLY GT PRN (22:38)
[2022-08-25 23:13] VITALS: BP 151/72
[2022-08-26] MEDS: ALBUTEROL FS 2.5 MG/0.5 ML VIAL.NEB NEB SCH ×4 (01:49→20:24)
[2022-08-26] MEDS: IPRATROPIUM NEB FS 0.5 MG/2.5 ML AMPUL.NEB NEB SCH ×4 (01:49→20:24)
[2022-08-26] MEDS: POLYVINYL ALCOHOL 15 ML BOTTLE EACHEYE SCH ×3 (05:28→18:00)
[2022-08-26] MEDS: OMEPRAZOLE 20 MG CAPSULE.DR GT SCH (05:28)
[2022-08-26 07:24] VITALS: BP 156/68
[2022-08-26] MEDS: HYDROGEN PEROXIDE 480 ML BOTTLE TP SCH ×2 (09:24→21:31)
[2022-08-26] MEDS: ASPIRIN 81 MG TAB.CHEW GT SCH (09:56)
[2022-08-26] MEDS: DOCUSATE SODIUM LIQ 100 MG/10 ML UDC GT SCH (09:56)
[2022-08-26] MEDS: LEVETIRACETAM SOL (5 ML) 100 MG/ML UDC GT SCH ×2 (09:56→21:08)
[2022-08-26] MEDS: APIXABAN 2.5 MG TABLET GT SCH ×2 (09:56→16:18)
[2022-08-26] MEDS: AMANTADINE HCL 100 MG CAPSULE GT SCH ×2 (09:57→20:29)
[2022-08-26] MEDS: ASCORBIC ACID 500 MG TABLET GT SCH (09:57)
[2022-08-26] MEDS: METOPROLOL TARTRATE 25 MG TABLET GT SCH ×2 (09:57→20:29)
[2022-08-26] MEDS: MULTIVIT W/MINERALS 1 TAB TABLET GT SCH (09:57)
[2022-08-26] MEDS: VITAMINS A AND D 56.7 GM TUBE TP SCH ×4 (09:57→20:30)
[2022-08-26 11:07] VITALS: BP 121/88
--- NOTE | 2022-08-26 13:30 | NUR ---
Received a cll from Khadijah aware of the purlish discoloration on the patient's R breast. Patient denies any pain in the area. Patient was also seen by Dr. Garcia, mangle feeder. He examined patient's R eye redness, with new order to apply Lacrilube opth Q HS. Alena informed. Order carried out.
[2022-08-26] MEDS: JEVITY 1.2 CAL 1,000 ML BOTTLE GT PRN (16:14)
[2022-08-26 19:43] VITALS: BP 157/95
--- NOTE | 2022-08-26 20:43 | NUR ---
RT Received pt on CA 28% 5L, as ordered. 99% on initial assessment. No S/S of respiratory distress or SOB. Q6 nebulizer Tx given and tolerated. No adverse reactions noted. Suctioned x2 and PRN. Moderate amount of thick brown secretions. Trach is patent and secured. Emergency trach and ambu-bag are at bedside.
[2022-08-26] MEDS: LANOLIN/MIN OIL/PETROLAT,WHT 3.5 GM TUBE OP SCH (21:08)
[2022-08-26] MEDS: POLYETHYLENE GLYCOL 3350 17 GM POWD.PACK GT SCH (21:08)
[2022-08-27] MEDS: POLYVINYL ALCOHOL 15 ML BOTTLE EACHEYE SCH ×5 (00:18→23:52)
[2022-08-27 01:11] VITALS: BP 154/70
[2022-08-27] MEDS: ALBUTEROL FS 2.5 MG/0.5 ML VIAL.NEB NEB SCH ×4 (02:05→20:20)
[2022-08-27] MEDS: IPRATROPIUM NEB FS 0.5 MG/2.5 ML AMPUL.NEB NEB SCH ×4 (02:05→20:20)
[2022-08-27] MEDS: OMEPRAZOLE 20 MG CAPSULE.DR GT SCH (05:07)
[2022-08-27 07:40] VITALS: BP 153/86
[2022-08-27] MEDS: HYDROGEN PEROXIDE 480 ML BOTTLE TP SCH ×2 (09:37→21:18)
[2022-08-27] MEDS: DOCUSATE SODIUM LIQ 100 MG/10 ML UDC GT SCH (09:43)
[2022-08-27] MEDS: ASPIRIN 81 MG TAB.CHEW GT SCH (09:43)
[2022-08-27] MEDS: APIXABAN 2.5 MG TABLET GT SCH ×2 (09:43→16:29)
[2022-08-27] MEDS: METOPROLOL TARTRATE 25 MG TABLET GT SCH ×2 (09:44→21:18)
[2022-08-27] MEDS: LEVETIRACETAM SOL (5 ML) 100 MG/ML UDC GT SCH ×2 (09:44→21:18)
[2022-08-27] MEDS: MULTIVIT W/MINERALS 1 TAB TABLET GT SCH (09:45)
[2022-08-27] MEDS: AMANTADINE HCL 100 MG CAPSULE GT SCH ×2 (09:45→21:18)
[2022-08-27] MEDS: ASCORBIC ACID 500 MG TABLET GT SCH (09:45)
[2022-08-27] MEDS: VITAMINS A AND D 56.7 GM TUBE TP SCH ×4 (11:45→21:18)
[2022-08-27 12:15] VITALS: BP 119/82
[2022-08-27] MEDS: JEVITY 1.2 CAL 1,000 ML BOTTLE GT PRN (15:11)
--- NOTE | 2022-08-27 20:28 | NUR ---
RT Received pt on CA 28% 5L, as ordered. 98% on initial assessment. No S/S of respiratory distress or SOB. Q6 nebulizer Tx given and tolerated. No adverse reactions noted. Suctioned x2 and PRN. Moderate amount of thick brown secretions. Trach is patent and secured. Emergency trach and ambu-bag are at bedside.
[2022-08-27 20:40] VITALS: BP 154/77
[2022-08-27] MEDS: LANOLIN/MIN OIL/PETROLAT,WHT 3.5 GM TUBE OP SCH (21:18)
[2022-08-27] MEDS: POLYETHYLENE GLYCOL 3350 17 GM POWD.PACK GT SCH (21:18)
[2022-08-28] MEDS: IPRATROPIUM NEB FS 0.5 MG/2.5 ML AMPUL.NEB NEB SCH ×4 (01:57→19:55)
[2022-08-28] MEDS: ALBUTEROL FS 2.5 MG/0.5 ML VIAL.NEB NEB SCH ×4 (01:57→19:55)
[2022-08-28] MEDS: POLYVINYL ALCOHOL 15 ML BOTTLE EACHEYE SCH ×4 (05:05→23:21)
[2022-08-28] MEDS: OMEPRAZOLE 20 MG CAPSULE.DR GT SCH (05:05)
[2022-08-28 07:30] VITALS: BP 152/78
[2022-08-28] MEDS: ASCORBIC ACID 500 MG TABLET GT SCH (09:00)
[2022-08-28] MEDS: LEVETIRACETAM SOL (5 ML) 100 MG/ML UDC GT SCH ×2 (09:00→21:30)
[2022-08-28] MEDS: VITAMINS A AND D 56.7 GM TUBE TP SCH ×4 (09:00→21:31)
[2022-08-28] MEDS: DOCUSATE SODIUM LIQ 100 MG/10 ML UDC GT SCH (09:00)
[2022-08-28] MEDS: METOPROLOL TARTRATE 25 MG TABLET GT SCH ×2 (09:00→21:00)
[2022-08-28] MEDS: ASPIRIN 81 MG TAB.CHEW GT SCH (09:00)
[2022-08-28] MEDS: MULTIVIT W/MINERALS 1 TAB TABLET GT SCH (09:00)
[2022-08-28] MEDS: APIXABAN 2.5 MG TABLET GT SCH ×2 (09:00→17:37)
[2022-08-28] MEDS: AMANTADINE HCL 100 MG CAPSULE GT SCH ×2 (09:00→21:30)
[2022-08-28] MEDS: HYDROGEN PEROXIDE 480 ML BOTTLE TP SCH ×2 (09:42→20:08)
--- NOTE | 2022-08-28 14:20 | NUR ---
Patient up in ivonne-chair taken in the activity room to be with her family who are visiting. Explained to Khadijah (daughter) that facility is reassessing and evaluating patient's use of side rails as it could be a form of a restraint. Discussed the risk and benefits of having side rails up like entrapment of body parts between the side rails and mattress, possible skin discoloration and skin tear. Since the patient is using specialty mattress for skin management this makes it easier for patient to slide off the side of the bed which could possibly caught parts of her body in between the side rails and the mattress. Explained that alternatives were tried such as pillows on each side but due to involuntary movement during coughing, patient observed to slightly move out of position. Khadijah agreed as she observed patient moving her R hand and grabbing her hand. She said " I am OK with the side rails up, I don't want her to fall". Khadijah gave consent for the use of side rails.
--- NOTE | 2022-08-28 16:19 | NUR ---
Resident was put back to bed, made comfortable, side rails were put down to assess possibility of reducing or discontinuing use of side rails. 1 pillow were placed on both sides. Will continue to monitor.
--- NOTE | 2022-08-28 18:00 | NUR ---
Resident in bed, appears comfortable, awake and her right hand holding her blanket. Pillows stayed in place. Will continue to monitor.
[2022-08-28 18:53] VITALS: BP 136/71
[2022-08-28 19:50] VITALS: BP 103/72
[2022-08-28] MEDS: POLYETHYLENE GLYCOL 3350 17 GM POWD.PACK GT SCH (21:31)
[2022-08-28] MEDS: LANOLIN/MIN OIL/PETROLAT,WHT 3.5 GM TUBE OP SCH (21:31)
[2022-08-29] MEDS: MAGNESIUM HYDROXIDE 30 ML UDC GT PRN ×2 (00:15→18:00)
[2022-08-29] MEDS: IPRATROPIUM NEB FS 0.5 MG/2.5 ML AMPUL.NEB NEB SCH ×4 (00:43→18:34)
[2022-08-29] MEDS: ALBUTEROL FS 2.5 MG/0.5 ML VIAL.NEB NEB SCH ×4 (00:43→18:34)
[2022-08-29] MEDS: OMEPRAZOLE 20 MG CAPSULE.DR GT SCH (05:23)
[2022-08-29] MEDS: POLYVINYL ALCOHOL 15 ML BOTTLE EACHEYE SCH ×4 (05:23→23:40)
[2022-08-29 08:00] VITALS: BP 128/62
[2022-08-29] MEDS: ASPIRIN 81 MG TAB.CHEW GT SCH (08:43)
[2022-08-29] MEDS: DOCUSATE SODIUM LIQ 100 MG/10 ML UDC GT SCH (08:43)
[2022-08-29] MEDS: APIXABAN 2.5 MG TABLET GT SCH ×2 (08:44→16:51)
[2022-08-29] MEDS: LEVETIRACETAM SOL (5 ML) 100 MG/ML UDC GT SCH ×2 (08:45→21:34)
[2022-08-29] MEDS: AMANTADINE HCL 100 MG CAPSULE GT SCH ×2 (08:46→21:34)
[2022-08-29] MEDS: METOPROLOL TARTRATE 25 MG TABLET GT SCH ×2 (08:46→21:34)
[2022-08-29] MEDS: VITAMINS A AND D 56.7 GM TUBE TP SCH ×4 (08:47→21:35)
[2022-08-29] MEDS: ASCORBIC ACID 500 MG TABLET GT SCH (08:47)
[2022-08-29] MEDS: MULTIVIT W/MINERALS 1 TAB TABLET GT SCH (08:47)
[2022-08-29] MEDS: HYDROGEN PEROXIDE 480 ML BOTTLE TP SCH ×2 (09:28→20:20)
[2022-08-29 12:22] VITALS: BP 143/58
[2022-08-29 20:07] VITALS: BP_SYST 112; BP_SYST 130; BP_DIAS 58; BP_DIAS 61
[2022-08-29] MEDS: POLYETHYLENE GLYCOL 3350 17 GM POWD.PACK GT SCH (21:35)
[2022-08-29] MEDS: LANOLIN/MIN OIL/PETROLAT,WHT 3.5 GM TUBE OP SCH (21:35)
[2022-08-30] MEDS: IPRATROPIUM NEB FS 0.5 MG/2.5 ML AMPUL.NEB NEB SCH ×4 (00:52→18:57)
[2022-08-30] MEDS: ALBUTEROL FS 2.5 MG/0.5 ML VIAL.NEB NEB SCH ×4 (00:52→18:57)
[2022-08-30] MEDS: JEVITY 1.2 CAL 1,000 ML BOTTLE GT PRN (05:53)
[2022-08-30] MEDS: OMEPRAZOLE 20 MG CAPSULE.DR GT SCH (05:53)
[2022-08-30] MEDS: POLYVINYL ALCOHOL 15 ML BOTTLE EACHEYE SCH ×4 (05:53→23:05)
[2022-08-30] MEDS: HYDROGEN PEROXIDE 480 ML BOTTLE TP SCH ×2 (08:07→20:23)
[2022-08-30] MEDS: ASPIRIN 81 MG TAB.CHEW GT SCH (08:32)
[2022-08-30] MEDS: DOCUSATE SODIUM LIQ 100 MG/10 ML UDC GT SCH (08:32)
[2022-08-30] MEDS: ASCORBIC ACID 500 MG TABLET GT SCH (08:33)
[2022-08-30] MEDS: MULTIVIT W/MINERALS 1 TAB TABLET GT SCH (08:33)
[2022-08-30] MEDS: LEVETIRACETAM SOL (5 ML) 100 MG/ML UDC GT SCH ×2 (08:33→20:27)
[2022-08-30] MEDS: AMANTADINE HCL 100 MG CAPSULE GT SCH ×2 (08:33→20:29)
[2022-08-30] MEDS: METOPROLOL TARTRATE 25 MG TABLET GT SCH ×2 (08:33→20:27)
[2022-08-30] MEDS: VITAMINS A AND D 56.7 GM TUBE TP SCH ×4 (08:33→20:30)
[2022-08-30] MEDS: APIXABAN 2.5 MG TABLET GT SCH ×2 (08:33→16:47)
--- NOTE | 2022-08-30 14:21 | NUR ---
Pt asleep in bed, noted her right leg dangling off the edge of the bed. Repositioned pt to the center of the bed. Pillows placed on her sides for support. Pt clean and dry.
[2022-08-30 22:00] VITALS: BP 156/77
[2022-08-30] MEDS: LANOLIN/MIN OIL/PETROLAT,WHT 3.5 GM TUBE OP SCH (22:06)
[2022-08-30] MEDS: POLYETHYLENE GLYCOL 3350 17 GM POWD.PACK GT SCH (22:06)
[2022-08-31] MEDS: ALBUTEROL FS 2.5 MG/0.5 ML VIAL.NEB NEB SCH ×4 (01:27→19:52)
[2022-08-31] MEDS: IPRATROPIUM NEB FS 0.5 MG/2.5 ML AMPUL.NEB NEB SCH ×4 (01:27→19:52)
[2022-08-31] MEDS: OMEPRAZOLE 20 MG CAPSULE.DR GT SCH (05:21)
[2022-08-31] MEDS: POLYVINYL ALCOHOL 15 ML BOTTLE EACHEYE SCH ×4 (05:21→23:12)
[2022-08-31 07:17] VITALS: BP 139/62
[2022-08-31] MEDS: ASPIRIN 81 MG TAB.CHEW GT SCH (08:13)
[2022-08-31] MEDS: DOCUSATE SODIUM LIQ 100 MG/10 ML UDC GT SCH (08:13)
[2022-08-31] MEDS: APIXABAN 2.5 MG TABLET GT SCH ×2 (08:14→16:52)
[2022-08-31] MEDS: METOPROLOL TARTRATE 25 MG TABLET GT SCH ×2 (08:14→21:12)
[2022-08-31] MEDS: VITAMINS A AND D 56.7 GM TUBE TP SCH ×4 (08:14→21:13)
[2022-08-31] MEDS: MULTIVIT W/MINERALS 1 TAB TABLET GT SCH (08:14)
[2022-08-31] MEDS: ASCORBIC ACID 500 MG TABLET GT SCH (08:14)
[2022-08-31] MEDS: LEVETIRACETAM SOL (5 ML) 100 MG/ML UDC GT SCH ×2 (08:14→21:12)
[2022-08-31] MEDS: AMANTADINE HCL 100 MG CAPSULE GT SCH ×2 (08:14→21:12)
[2022-08-31] MEDS: HYDROGEN PEROXIDE 480 ML BOTTLE TP SCH ×2 (09:15→19:52)
[2022-08-31] MEDS: JEVITY 1.2 CAL 1,000 ML BOTTLE GT PRN (13:05)
[2022-08-31 13:32] VITALS: BP 149/79
[2022-08-31 19:36] VITALS: BP 155/76
[2022-08-31] MEDS: POLYETHYLENE GLYCOL 3350 17 GM POWD.PACK GT SCH (21:14)
[2022-08-31] MEDS: LANOLIN/MIN OIL/PETROLAT,WHT 3.5 GM TUBE OP SCH (21:15)
[2022-09-01] MEDS: ALBUTEROL FS 2.5 MG/0.5 ML VIAL.NEB NEB SCH ×4 (01:45→19:51)
[2022-09-01] MEDS: IPRATROPIUM NEB FS 0.5 MG/2.5 ML AMPUL.NEB NEB SCH ×4 (01:45→19:51)
[2022-09-01] MEDS: OMEPRAZOLE 20 MG CAPSULE.DR GT SCH (05:33)
[2022-09-01] MEDS: POLYVINYL ALCOHOL 15 ML BOTTLE EACHEYE SCH ×3 (05:33→17:45)
[2022-09-01 06:56] VITALS: BP 156/71
[2022-09-01] MEDS: DOCUSATE SODIUM LIQ 100 MG/10 ML UDC GT SCH (08:13)
[2022-09-01] MEDS: ASPIRIN 81 MG TAB.CHEW GT SCH (08:13)
[2022-09-01] MEDS: APIXABAN 2.5 MG TABLET GT SCH ×2 (08:14→16:50)
[2022-09-01] MEDS: LEVETIRACETAM SOL (5 ML) 100 MG/ML UDC GT SCH ×2 (08:15→20:28)
[2022-09-01] MEDS: METOPROLOL TARTRATE 25 MG TABLET GT SCH ×2 (08:16→20:29)
[2022-09-01] MEDS: VITAMINS A AND D 56.7 GM TUBE TP SCH ×4 (08:16→20:29)
[2022-09-01] MEDS: MULTIVIT W/MINERALS 1 TAB TABLET GT SCH (08:16)
[2022-09-01] MEDS: ASCORBIC ACID 500 MG TABLET GT SCH (08:16)
[2022-09-01] MEDS: AMANTADINE HCL 100 MG CAPSULE GT SCH ×2 (08:16→20:29)
[2022-09-01] MEDS: HYDROGEN PEROXIDE 480 ML BOTTLE TP SCH ×2 (09:05→19:51)
--- NOTE | 2022-09-01 11:05 | NUR ---
Seen and examined by Brenda Srivastava, no new order given.
[2022-09-01 11:35] VITALS: BP 143/72
[2022-09-01] MEDS: JEVITY 1.2 CAL 1,000 ML BOTTLE GT PRN (11:57)
[2022-09-01 20:33] VITALS: BP 120/74
[2022-09-01] MEDS: POLYETHYLENE GLYCOL 3350 17 GM POWD.PACK GT SCH (21:05)
[2022-09-01] MEDS: LANOLIN/MIN OIL/PETROLAT,WHT 3.5 GM TUBE OP SCH (21:06)
[2022-09-02] MEDS: POLYVINYL ALCOHOL 15 ML BOTTLE EACHEYE SCH ×4 (00:03→18:00)
[2022-09-02] MEDS: ALBUTEROL FS 2.5 MG/0.5 ML VIAL.NEB NEB SCH ×4 (02:03→18:41)
[2022-09-02] MEDS: IPRATROPIUM NEB FS 0.5 MG/2.5 ML AMPUL.NEB NEB SCH ×4 (02:03→18:41)
[2022-09-02] MEDS: OMEPRAZOLE 20 MG CAPSULE.DR GT SCH (05:10)
[2022-09-02 08:00] VITALS: BP 154/86
[2022-09-02] MEDS: HYDROGEN PEROXIDE 480 ML BOTTLE TP SCH ×2 (09:11→21:07)
[2022-09-02] MEDS: DOCUSATE SODIUM LIQ 100 MG/10 ML UDC GT SCH (09:20)
[2022-09-02] MEDS: ASPIRIN 81 MG TAB.CHEW GT SCH (09:20)
[2022-09-02] MEDS: ASCORBIC ACID 500 MG TABLET GT SCH (09:21)
[2022-09-02] MEDS: APIXABAN 2.5 MG TABLET GT SCH ×2 (09:21→16:37)
[2022-09-02] MEDS: MULTIVIT W/MINERALS 1 TAB TABLET GT SCH (09:21)
[2022-09-02] MEDS: METOPROLOL TARTRATE 25 MG TABLET GT SCH ×2 (09:21→21:47)
[2022-09-02] MEDS: AMANTADINE HCL 100 MG CAPSULE GT SCH ×2 (09:21→21:47)
[2022-09-02] MEDS: VITAMINS A AND D 56.7 GM TUBE TP SCH ×4 (09:21→21:47)
[2022-09-02] MEDS: LEVETIRACETAM SOL (5 ML) 100 MG/ML UDC GT SCH ×2 (09:21→21:46)
[2022-09-02] MEDS: JEVITY 1.2 CAL 1,000 ML BOTTLE GT PRN (10:07)
[2022-09-02 11:54] VITALS: BP 149/73
--- NOTE | 2022-09-02 16:31 | NUR ---
VISITATION GUIDELINES: GENEVIEVE emailed the pt.'s family notifying them of the latest changes in visitation guidelines as recommended by [facility] Department of Public Health. GENEVIEVE educated them to screen themselves for COVID-19 symptoms and avoid visiting is symptomatic.
[2022-09-02 20:29] VITALS: BP 127/77
[2022-09-02] MEDS: POLYETHYLENE GLYCOL 3350 17 GM POWD.PACK GT SCH (21:47)
[2022-09-02] MEDS: LANOLIN/MIN OIL/PETROLAT,WHT 3.5 GM TUBE OP SCH (21:47)
[2022-09-03 00:11] VITALS: BP 130/78
[2022-09-03] MEDS: ALBUTEROL FS 2.5 MG/0.5 ML VIAL.NEB NEB SCH ×4 (02:17→19:52)
[2022-09-03] MEDS: IPRATROPIUM NEB FS 0.5 MG/2.5 ML AMPUL.NEB NEB SCH ×4 (02:17→19:52)
[2022-09-03] MEDS: POLYVINYL ALCOHOL 15 ML BOTTLE EACHEYE SCH ×4 (06:00→17:26)
[2022-09-03] MEDS: OMEPRAZOLE 20 MG CAPSULE.DR GT SCH (06:00)
[2022-09-03 07:16] LABS: BASOPHILS % (AUTO) 0.4 % (0.0-2.0); HEMATOCRIT 36 % (33-45); HEMOGLOBIN 11.9 g/dL (11.5-14.8); LYMPHOCYTES # (AUTO) 2.8 K/uL (0.8-4.8); LYMPHOCYTES % (AUTO) 30.5 % (20.0-44.0); MEAN CORPUSCULAR HGB CONC 33 g/dl (31.0-36.0); MEAN CORPUSCULAR VOLUME 86 fL (82-100); MONOCYTES # (AUTO) 0.8 K/uL (0.1-1.30); MONOCYTES % (AUTO) 8.3 % (2.0-12.0); NEUTROPHILS # (AUTO) 5.1 K/uL (1.8-8.9); NEUTROPHILS % (AUTO) 55.8 % (43.0-81.0); PLATELET COUNT (AUTO) 340 K/uL (150-450); RED BLOOD CELL COUNT(AUTO) 4.22 MIL/uL (4.0-5.2); WHITE BLOOD COUNT (AUTO) 9.1 K/uL (4.3-11.0)
[2022-09-03 07:52] VITALS: BP 130/83
[2022-09-03] MEDS: DOCUSATE SODIUM LIQ 100 MG/10 ML UDC GT SCH (08:55)
[2022-09-03] MEDS: APIXABAN 2.5 MG TABLET GT SCH ×2 (08:55→16:52)
[2022-09-03] MEDS: ASPIRIN 81 MG TAB.CHEW GT SCH (08:55)
[2022-09-03] MEDS: LEVETIRACETAM SOL (5 ML) 100 MG/ML UDC GT SCH ×2 (08:55→20:28)
[2022-09-03] MEDS: MULTIVIT W/MINERALS 1 TAB TABLET GT SCH (08:56)
[2022-09-03] MEDS: VITAMINS A AND D 56.7 GM TUBE TP SCH ×4 (08:56→20:29)
[2022-09-03] MEDS: AMANTADINE HCL 100 MG CAPSULE GT SCH ×2 (08:56→20:29)
[2022-09-03] MEDS: ASCORBIC ACID 500 MG TABLET GT SCH (08:56)
[2022-09-03] MEDS: METOPROLOL TARTRATE 25 MG TABLET GT SCH ×2 (08:56→20:29)
[2022-09-03 09:14] LABS: CALCIUM, SERUM 9.7 mg/dL (8.5-10.1); CREATININE 0.5 mg/dL (0.6-1.3); PHOSPHORUS 3.8 mg/dL (2.5-4.9); POTASSIUM 3.8 mmol/L (3.5-5.1)
[2022-09-03] MEDS: HYDROGEN PEROXIDE 480 ML BOTTLE TP SCH ×2 (09:53→19:52)
[2022-09-03] MEDS: JEVITY 1.2 CAL 1,000 ML BOTTLE GT PRN (12:05)
[2022-09-03 19:43] VITALS: BP 146/75
[2022-09-03] MEDS: POLYETHYLENE GLYCOL 3350 17 GM POWD.PACK GT SCH (22:37)
[2022-09-03] MEDS: LANOLIN/MIN OIL/PETROLAT,WHT 3.5 GM TUBE OP SCH (22:37)
[2022-09-03 23:45] VITALS: BP 154/51
[2022-09-04] MEDS: POLYVINYL ALCOHOL 15 ML BOTTLE EACHEYE SCH ×4 (00:37→17:16)
[2022-09-04] MEDS: ALBUTEROL FS 2.5 MG/0.5 ML VIAL.NEB NEB SCH ×4 (01:57→19:58)
[2022-09-04] MEDS: IPRATROPIUM NEB FS 0.5 MG/2.5 ML AMPUL.NEB NEB SCH ×4 (01:57→19:58)
[2022-09-04] MEDS: OMEPRAZOLE 20 MG CAPSULE.DR GT SCH (05:17)
[2022-09-04 07:48] VITALS: BP 136/85
[2022-09-04] MEDS: MULTIVIT W/MINERALS 1 TAB TABLET GT SCH (09:00)
[2022-09-04] MEDS: DOCUSATE SODIUM LIQ 100 MG/10 ML UDC GT SCH (09:00)
[2022-09-04] MEDS: VITAMINS A AND D 56.7 GM TUBE TP SCH ×4 (09:00→21:46)
[2022-09-04] MEDS: ASCORBIC ACID 500 MG TABLET GT SCH (09:00)
[2022-09-04] MEDS: LEVETIRACETAM SOL (5 ML) 100 MG/ML UDC GT SCH ×2 (09:00→21:44)
[2022-09-04] MEDS: METOPROLOL TARTRATE 25 MG TABLET GT SCH ×2 (09:00→21:45)
[2022-09-04] MEDS: AMANTADINE HCL 100 MG CAPSULE GT SCH ×2 (09:00→21:46)
[2022-09-04] MEDS: APIXABAN 2.5 MG TABLET GT SCH ×2 (09:00→17:16)
[2022-09-04] MEDS: ASPIRIN 81 MG TAB.CHEW GT SCH (09:00)
[2022-09-04] MEDS: HYDROGEN PEROXIDE 480 ML BOTTLE TP SCH ×2 (09:20→19:58)
[2022-09-04] MEDS: JEVITY 1.2 CAL 1,000 ML BOTTLE GT PRN (16:39)
[2022-09-04 19:24] VITALS: BP 114/70
[2022-09-04] MEDS: LANOLIN/MIN OIL/PETROLAT,WHT 3.5 GM TUBE OP SCH (21:47)
[2022-09-04] MEDS: POLYETHYLENE GLYCOL 3350 17 GM POWD.PACK GT SCH (21:47)
[2022-09-05] MEDS: POLYVINYL ALCOHOL 15 ML BOTTLE EACHEYE SCH ×4 (00:24→17:20)
[2022-09-05] MEDS: ALBUTEROL FS 2.5 MG/0.5 ML VIAL.NEB NEB SCH ×4 (01:58→19:53)
[2022-09-05] MEDS: IPRATROPIUM NEB FS 0.5 MG/2.5 ML AMPUL.NEB NEB SCH ×4 (01:58→19:53)
[2022-09-05] MEDS: OMEPRAZOLE 20 MG CAPSULE.DR GT SCH (05:19)
[2022-09-05 07:28] VITALS: BP 147/75
[2022-09-05] MEDS: HYDROGEN PEROXIDE 480 ML BOTTLE TP SCH ×2 (09:04→21:03)
[2022-09-05] MEDS: AMANTADINE HCL 100 MG CAPSULE GT SCH ×2 (09:11→20:30)
[2022-09-05] MEDS: METOPROLOL TARTRATE 25 MG TABLET GT SCH ×2 (09:11→20:28)
[2022-09-05] MEDS: APIXABAN 2.5 MG TABLET GT SCH ×2 (09:11→17:20)
[2022-09-05] MEDS: ASCORBIC ACID 500 MG TABLET GT SCH (09:11)
[2022-09-05] MEDS: LEVETIRACETAM SOL (5 ML) 100 MG/ML UDC GT SCH ×2 (09:11→20:27)
[2022-09-05] MEDS: ASPIRIN 81 MG TAB.CHEW GT SCH (09:11)
[2022-09-05] MEDS: DOCUSATE SODIUM LIQ 100 MG/10 ML UDC GT SCH (09:11)
[2022-09-05] MEDS: MULTIVIT W/MINERALS 1 TAB TABLET GT SCH (09:11)
[2022-09-05] MEDS: VITAMINS A AND D 56.7 GM TUBE TP SCH ×4 (09:12→20:30)
[2022-09-05 11:54] VITALS: BP 129/68
[2022-09-05] MEDS: JEVITY 1.2 CAL 1,000 ML BOTTLE GT PRN (16:22)
[2022-09-05 20:00] VITALS: BP 125/65
[2022-09-05] MEDS: POLYETHYLENE GLYCOL 3350 17 GM POWD.PACK GT SCH (21:45)
[2022-09-05] MEDS: LANOLIN/MIN OIL/PETROLAT,WHT 3.5 GM TUBE OP SCH (21:45)
[2022-09-06] MEDS: POLYVINYL ALCOHOL 15 ML BOTTLE EACHEYE SCH ×4 (00:39→18:47)
[2022-09-06] MEDS: IPRATROPIUM NEB FS 0.5 MG/2.5 ML AMPUL.NEB NEB SCH ×4 (01:43→20:02)
[2022-09-06] MEDS: ALBUTEROL FS 2.5 MG/0.5 ML VIAL.NEB NEB SCH ×4 (01:43→20:02)
[2022-09-06] MEDS: OMEPRAZOLE 20 MG CAPSULE.DR GT SCH (05:26)
[2022-09-06 07:15] VITALS: BP 150/77
--- NOTE | 2022-09-06 09:00 | NUR ---
Seen and examined by Dr. Abebe, no new order given.
[2022-09-06] MEDS: HYDROGEN PEROXIDE 480 ML BOTTLE TP SCH ×2 (09:03→21:08)
[2022-09-06] MEDS: APIXABAN 2.5 MG TABLET GT SCH ×2 (09:18→16:22)
[2022-09-06] MEDS: DOCUSATE SODIUM LIQ 100 MG/10 ML UDC GT SCH (09:18)
[2022-09-06] MEDS: ASPIRIN 81 MG TAB.CHEW GT SCH (09:18)
[2022-09-06] MEDS: METOPROLOL TARTRATE 25 MG TABLET GT SCH ×2 (09:19→20:07)
[2022-09-06] MEDS: AMANTADINE HCL 100 MG CAPSULE GT SCH ×2 (09:19→20:07)
[2022-09-06] MEDS: ASCORBIC ACID 500 MG TABLET GT SCH (09:19)
[2022-09-06] MEDS: MULTIVIT W/MINERALS 1 TAB TABLET GT SCH (09:19)
[2022-09-06] MEDS: VITAMINS A AND D 56.7 GM TUBE TP SCH ×4 (09:19→20:07)
[2022-09-06] MEDS: LEVETIRACETAM SOL (5 ML) 100 MG/ML UDC GT SCH ×2 (09:19→20:07)
[2022-09-06 11:49] VITALS: BP 147/72
[2022-09-06] MEDS: JEVITY 1.2 CAL 1,000 ML BOTTLE GT PRN (16:21)
[2022-09-06] MEDS: POLYETHYLENE GLYCOL 3350 17 GM POWD.PACK GT SCH (21:06)
[2022-09-06] MEDS: LANOLIN/MIN OIL/PETROLAT,WHT 3.5 GM TUBE OP SCH (21:06)
--- NOTE | 2022-09-06 21:30 | NUR ---
RN NOTES Received new order to d/c previous side rails order and for 2 side rails up d/t diagnosis of seizure disorder, noted and carried out.
[2022-09-07] MEDS: POLYVINYL ALCOHOL 15 ML BOTTLE EACHEYE SCH ×4 (00:20→17:01)
[2022-09-07] MEDS: IPRATROPIUM NEB FS 0.5 MG/2.5 ML AMPUL.NEB NEB SCH ×4 (01:40→19:35)
[2022-09-07] MEDS: ALBUTEROL FS 2.5 MG/0.5 ML VIAL.NEB NEB SCH ×4 (01:40→19:35)
[2022-09-07] MEDS: OMEPRAZOLE 20 MG CAPSULE.DR GT SCH (05:31)
[2022-09-07 07:39] VITALS: BP 139/77
[2022-09-07] MEDS: METOPROLOL TARTRATE 25 MG TABLET GT SCH ×2 (09:00→21:02)
[2022-09-07] MEDS: ASPIRIN 81 MG TAB.CHEW GT SCH (09:00)
[2022-09-07] MEDS: ASCORBIC ACID 500 MG TABLET GT SCH (09:00)
[2022-09-07] MEDS: APIXABAN 2.5 MG TABLET GT SCH ×2 (09:00→16:22)
[2022-09-07] MEDS: MULTIVIT W/MINERALS 1 TAB TABLET GT SCH (09:00)
[2022-09-07] MEDS: VITAMINS A AND D 56.7 GM TUBE TP SCH ×4 (09:00→21:02)
[2022-09-07] MEDS: AMANTADINE HCL 100 MG CAPSULE GT SCH ×2 (09:00→21:02)
[2022-09-07] MEDS: DOCUSATE SODIUM LIQ 100 MG/10 ML UDC GT SCH (09:00)
[2022-09-07] MEDS: LEVETIRACETAM SOL (5 ML) 100 MG/ML UDC GT SCH ×2 (09:00→21:02)
[2022-09-07] MEDS: HYDROGEN PEROXIDE 480 ML BOTTLE TP SCH ×2 (09:18→19:35)
[2022-09-07 12:12] VITALS: BP 133/72
[2022-09-07] MEDS: JEVITY 1.2 CAL 1,000 ML BOTTLE GT PRN (16:22)
[2022-09-07] MEDS: POLYETHYLENE GLYCOL 3350 17 GM POWD.PACK GT SCH (21:02)
[2022-09-07] MEDS: LANOLIN/MIN OIL/PETROLAT,WHT 3.5 GM TUBE OP SCH (21:03)
[2022-09-08] MEDS: POLYVINYL ALCOHOL 15 ML BOTTLE EACHEYE SCH ×5 (00:17→23:11)
[2022-09-08] MEDS: IPRATROPIUM NEB FS 0.5 MG/2.5 ML AMPUL.NEB NEB SCH ×4 (00:57→19:55)
[2022-09-08] MEDS: ALBUTEROL FS 2.5 MG/0.5 ML VIAL.NEB NEB SCH ×4 (00:57→19:55)
[2022-09-08] MEDS: OMEPRAZOLE 20 MG CAPSULE.DR GT SCH (05:17)
[2022-09-08 07:52] VITALS: BP 141/63
[2022-09-08] MEDS: HYDROGEN PEROXIDE 480 ML BOTTLE TP SCH ×2 (08:09→19:55)
[2022-09-08] MEDS: DOCUSATE SODIUM LIQ 100 MG/10 ML UDC GT SCH (09:00)
[2022-09-08] MEDS: VITAMINS A AND D 56.7 GM TUBE TP SCH ×4 (09:00→20:50)
[2022-09-08] MEDS: ASPIRIN 81 MG TAB.CHEW GT SCH (09:00)
[2022-09-08] MEDS: METOPROLOL TARTRATE 25 MG TABLET GT SCH ×2 (09:00→20:50)
[2022-09-08] MEDS: LEVETIRACETAM SOL (5 ML) 100 MG/ML UDC GT SCH ×2 (09:00→20:49)
[2022-09-08] MEDS: AMANTADINE HCL 100 MG CAPSULE GT SCH ×2 (09:00→20:50)
[2022-09-08] MEDS: APIXABAN 2.5 MG TABLET GT SCH ×2 (09:00→16:09)
[2022-09-08] MEDS: ASCORBIC ACID 500 MG TABLET GT SCH (09:00)
[2022-09-08] MEDS: MULTIVIT W/MINERALS 1 TAB TABLET GT SCH (09:00)
--- NOTE | 2022-09-08 10:41 | NUR ---
Lopressor held due to HR 59. There is a parameter to hold Lopressor if HR less than or equal to 65.
[2022-09-08] MEDS: JEVITY 1.2 CAL 1,000 ML BOTTLE GT PRN (14:04)
--- NOTE | 2022-09-08 15:55 | NUR ---
RECEIVED PATIENT ON COOL AEROSOL @28%. HAS A TRACH SHILEY 6 XLT UNCUFFED. AIRWAY PATENT AND SECURE. HHN TXS KIRBY WELL WITH NO ADVERSE REACTION NOTED. AMBU BAG AND EMERGENCY TRACH AT THE BEDSIDE. MODERATE YELLOW SECRETIONS NOTED.
[2022-09-08 19:38] VITALS: BP 143/62
[2022-09-08] MEDS: ACETAMINOPHEN 650 MG/20 ML UDC- SA PATIENTS-PAIN ONLY GT PRN (20:57)
[2022-09-08] MEDS: LANOLIN/MIN OIL/PETROLAT,WHT 3.5 GM TUBE OP SCH (21:01)
[2022-09-08] MEDS: POLYETHYLENE GLYCOL 3350 17 GM POWD.PACK GT SCH (21:01)
[2022-09-09 01:12] VITALS: BP 129/65
[2022-09-09] MEDS: IPRATROPIUM NEB FS 0.5 MG/2.5 ML AMPUL.NEB NEB SCH ×4 (01:14→18:40)
[2022-09-09] MEDS: ALBUTEROL FS 2.5 MG/0.5 ML VIAL.NEB NEB SCH ×4 (01:14→18:40)
[2022-09-09] MEDS: OMEPRAZOLE 20 MG CAPSULE.DR GT SCH (05:07)
[2022-09-09] MEDS: POLYVINYL ALCOHOL 15 ML BOTTLE EACHEYE SCH ×4 (05:07→23:12)
[2022-09-09 07:53] VITALS: BP 152/81
[2022-09-09] MEDS: HYDROGEN PEROXIDE 480 ML BOTTLE TP SCH ×2 (09:06→20:06)
[2022-09-09] MEDS: DOCUSATE SODIUM LIQ 100 MG/10 ML UDC GT SCH (09:46)
[2022-09-09] MEDS: ASPIRIN 81 MG TAB.CHEW GT SCH (09:46)
[2022-09-09] MEDS: APIXABAN 2.5 MG TABLET GT SCH ×2 (09:47→17:51)
[2022-09-09] MEDS: LEVETIRACETAM SOL (5 ML) 100 MG/ML UDC GT SCH ×2 (09:49→20:16)
[2022-09-09] MEDS: MULTIVIT W/MINERALS 1 TAB TABLET GT SCH (09:50)
[2022-09-09] MEDS: ASCORBIC ACID 500 MG TABLET GT SCH (09:50)
[2022-09-09] MEDS: METOPROLOL TARTRATE 25 MG TABLET GT SCH ×2 (09:50→20:16)
[2022-09-09] MEDS: VITAMINS A AND D 56.7 GM TUBE TP SCH ×4 (09:50→20:16)
[2022-09-09] MEDS: AMANTADINE HCL 100 MG CAPSULE GT SCH ×2 (09:50→20:16)
[2022-09-09 11:31] VITALS: BP 137/68
--- NOTE | 2022-09-09 14:09 | NUR ---
INTERDISCIPLINARY PLAN OF CARE CONFERENCE took place today. The pt.'s s daughter Alena participated the phone conference . Dr. Abebe and Interdisciplinary team discussed the plan of care in detail. Current orders as well as treatments, medications and side rail use were reviewed. Previous SR order was d/nicole, new order written as 2 SR up due to diagnosis of seizure. It was mentioned as reported by night warehouse manager, patient is not sleeping well at night. Will change Amantadine administration to be given in the morning and afternoon and evaluate if change of time administration will have an effect in patient's sleeping pattern. Endorsed.
[2022-09-09] MEDS: JEVITY 1.2 CAL 1,000 ML BOTTLE GT PRN (14:56)
[2022-09-09 19:19] VITALS: BP 148/63
[2022-09-09] MEDS: LANOLIN/MIN OIL/PETROLAT,WHT 3.5 GM TUBE OP SCH (21:04)
[2022-09-09] MEDS: POLYETHYLENE GLYCOL 3350 17 GM POWD.PACK GT SCH (21:04)
[2022-09-10 00:17] VITALS: BP 115/74
[2022-09-10] MEDS: ALBUTEROL FS 2.5 MG/0.5 ML VIAL.NEB NEB SCH ×4 (00:54→18:32)
[2022-09-10] MEDS: IPRATROPIUM NEB FS 0.5 MG/2.5 ML AMPUL.NEB NEB SCH ×4 (00:54→18:32)
[2022-09-10] MEDS: OMEPRAZOLE 20 MG CAPSULE.DR GT SCH (05:15)
[2022-09-10] MEDS: POLYVINYL ALCOHOL 15 ML BOTTLE EACHEYE SCH ×3 (05:15→18:13)
[2022-09-10 07:33] VITALS: BP 121/82
[2022-09-10] MEDS ORDERED: AMANTADINE HCL 100 MG CAPSULE GT SCH (09:00)
[2022-09-10] MEDS: HYDROGEN PEROXIDE 480 ML BOTTLE TP SCH ×2 (09:06→21:00)
[2022-09-10] MEDS: LEVETIRACETAM SOL (5 ML) 100 MG/ML UDC GT SCH ×2 (09:27→20:52)
[2022-09-10] MEDS: APIXABAN 2.5 MG TABLET GT SCH ×2 (09:27→16:58)
[2022-09-10] MEDS: DOCUSATE SODIUM LIQ 100 MG/10 ML UDC GT SCH (09:27)
[2022-09-10] MEDS: ASPIRIN 81 MG TAB.CHEW GT SCH (09:27)
[2022-09-10] MEDS: METOPROLOL TARTRATE 25 MG TABLET GT SCH ×2 (09:28→20:52)
[2022-09-10] MEDS: MULTIVIT W/MINERALS 1 TAB TABLET GT SCH (09:29)
[2022-09-10] MEDS: AMANTADINE HCL 100 MG CAPSULE GT SCH ×2 (09:29→16:58)
[2022-09-10] MEDS: ASCORBIC ACID 500 MG TABLET GT SCH (09:30)
[2022-09-10] MEDS: VITAMINS A AND D 56.7 GM TUBE TP SCH ×4 (09:30→20:52)
[2022-09-10 14:52] VITALS: BP 131/75
[2022-09-10] MEDS: JEVITY 1.2 CAL 1,000 ML BOTTLE GT PRN (18:10)
[2022-09-10 20:05] VITALS: BP 135/76
[2022-09-10] MEDS: POLYETHYLENE GLYCOL 3350 17 GM POWD.PACK GT SCH (21:12)
[2022-09-10] MEDS: LANOLIN/MIN OIL/PETROLAT,WHT 3.5 GM TUBE OP SCH (21:12)
[2022-09-11] MEDS: POLYVINYL ALCOHOL 15 ML BOTTLE EACHEYE SCH ×4 (00:43→17:44)
[2022-09-11] MEDS: ALBUTEROL FS 2.5 MG/0.5 ML VIAL.NEB NEB SCH ×4 (01:23→19:10)
[2022-09-11] MEDS: IPRATROPIUM NEB FS 0.5 MG/2.5 ML AMPUL.NEB NEB SCH ×4 (01:23→19:10)
[2022-09-11] MEDS: OMEPRAZOLE 20 MG CAPSULE.DR GT SCH (05:01)
--- NOTE | 2022-09-11 05:45 | NUR ---
RN NOTES PATIENT IN BED, ASLEEP AND COMFORTABLE. ABLE TO SLEEP THRU THE NIGHT FOR ABOUT 6-8HRS. REPOSITIONED, BED LOW AND LOCKED, CALL LIGHT IN REACH. WILL CONTINUE TO MONITOR.
--- NOTE | 2022-09-11 06:00 | NUR ---
Patient sleeping comfortable in bed at this time with no sign of distress or discomfort noted. Patient slept 6-8 hours throughout the night. Will continue to monitor.
[2022-09-11 08:02] VITALS: BP 157/71
[2022-09-11] MEDS: APIXABAN 2.5 MG TABLET GT SCH ×2 (09:00→17:44)
[2022-09-11] MEDS: AMANTADINE HCL 100 MG CAPSULE GT SCH ×2 (09:00→17:44)
[2022-09-11] MEDS: METOPROLOL TARTRATE 25 MG TABLET GT SCH ×2 (09:00→20:24)
[2022-09-11] MEDS: LEVETIRACETAM SOL (5 ML) 100 MG/ML UDC GT SCH ×2 (09:00→20:22)
[2022-09-11] MEDS: VITAMINS A AND D 56.7 GM TUBE TP SCH ×4 (09:00→20:24)
[2022-09-11] MEDS: ASCORBIC ACID 500 MG TABLET GT SCH (09:00)
[2022-09-11] MEDS: ASPIRIN 81 MG TAB.CHEW GT SCH (09:00)
[2022-09-11] MEDS: MULTIVIT W/MINERALS 1 TAB TABLET GT SCH (09:00)
[2022-09-11] MEDS: DOCUSATE SODIUM LIQ 100 MG/10 ML UDC GT SCH (09:00)
[2022-09-11] MEDS: HYDROGEN PEROXIDE 480 ML BOTTLE TP SCH ×2 (09:29→20:20)
[2022-09-11 20:31] VITALS: BP 142/70
[2022-09-11] MEDS: LANOLIN/MIN OIL/PETROLAT,WHT 3.5 GM TUBE OP SCH (21:02)
[2022-09-11] MEDS: POLYETHYLENE GLYCOL 3350 17 GM POWD.PACK GT SCH (21:02)
[2022-09-12] MEDS: POLYVINYL ALCOHOL 15 ML BOTTLE EACHEYE SCH ×4 (00:03→17:51)
[2022-09-12] MEDS: IPRATROPIUM NEB FS 0.5 MG/2.5 ML AMPUL.NEB NEB SCH ×4 (01:56→19:48)
[2022-09-12] MEDS: ALBUTEROL FS 2.5 MG/0.5 ML VIAL.NEB NEB SCH ×4 (01:56→19:48)
[2022-09-12] MEDS: OMEPRAZOLE 20 MG CAPSULE.DR GT SCH (05:30)
[2022-09-12] MEDS: JEVITY 1.2 CAL 1,000 ML BOTTLE GT PRN (06:11)
[2022-09-12 07:53] VITALS: BP 160/64
[2022-09-12] MEDS: HYDROGEN PEROXIDE 480 ML BOTTLE TP SCH ×2 (08:11→19:48)
[2022-09-12] MEDS: ASPIRIN 81 MG TAB.CHEW GT SCH (09:45)
[2022-09-12] MEDS: APIXABAN 2.5 MG TABLET GT SCH ×2 (09:45→17:50)
[2022-09-12] MEDS: DOCUSATE SODIUM LIQ 100 MG/10 ML UDC GT SCH (09:45)
[2022-09-12] MEDS: METOPROLOL TARTRATE 25 MG TABLET GT SCH ×2 (09:46→20:18)
[2022-09-12] MEDS: LEVETIRACETAM SOL (5 ML) 100 MG/ML UDC GT SCH ×2 (09:46→20:18)
[2022-09-12] MEDS: ASCORBIC ACID 500 MG TABLET GT SCH (09:47)
[2022-09-12] MEDS: VITAMINS A AND D 56.7 GM TUBE TP SCH ×4 (09:47→20:18)
[2022-09-12] MEDS: MULTIVIT W/MINERALS 1 TAB TABLET GT SCH (09:47)
[2022-09-12] MEDS: AMANTADINE HCL 100 MG CAPSULE GT SCH ×2 (09:47→17:50)
--- NOTE | 2022-09-12 15:57 | NUR ---
RECEIVED PATIENT ON COOL AEROSOL @ 28%. HAS A TRACH SHILEY 6 XLT UNCUFFED. AIRWAY PATENT AND SECURE. HHN TXS KIRBY WELL WITH NO ADVERSE REACTION NOTED. NO SOB NOTED. AMBU BAG AND EMERGENCY TRACH AT THE BEDSIDE. MODERATE YELLOW SECRETIONS NOTED.
[2022-09-12 19:43] VITALS: BP 146/82
[2022-09-12] MEDS: POLYETHYLENE GLYCOL 3350 17 GM POWD.PACK GT SCH (21:06)
[2022-09-12] MEDS: LANOLIN/MIN OIL/PETROLAT,WHT 3.5 GM TUBE OP SCH (21:06)
[2022-09-13] MEDS: POLYVINYL ALCOHOL 15 ML BOTTLE EACHEYE SCH ×5 (00:33→23:24)
[2022-09-13] MEDS: IPRATROPIUM NEB FS 0.5 MG/2.5 ML AMPUL.NEB NEB SCH ×4 (02:08→19:27)
[2022-09-13] MEDS: ALBUTEROL FS 2.5 MG/0.5 ML VIAL.NEB NEB SCH ×4 (02:08→19:27)
[2022-09-13] MEDS: OMEPRAZOLE 20 MG CAPSULE.DR GT SCH (05:45)
[2022-09-13 07:15] VITALS: BP 134/77
[2022-09-13] MEDS: DOCUSATE SODIUM LIQ 100 MG/10 ML UDC GT SCH (08:56)
[2022-09-13] MEDS: ASPIRIN 81 MG TAB.CHEW GT SCH (08:56)
[2022-09-13] MEDS: APIXABAN 2.5 MG TABLET GT SCH ×2 (08:57→17:05)
[2022-09-13] MEDS: AMANTADINE HCL 100 MG CAPSULE GT SCH ×2 (08:57→17:05)
[2022-09-13] MEDS: ASCORBIC ACID 500 MG TABLET GT SCH (08:57)
[2022-09-13] MEDS: LEVETIRACETAM SOL (5 ML) 100 MG/ML UDC GT SCH ×2 (08:57→20:24)
[2022-09-13] MEDS: MULTIVIT W/MINERALS 1 TAB TABLET GT SCH (08:57)
[2022-09-13] MEDS: METOPROLOL TARTRATE 25 MG TABLET GT SCH ×2 (08:57→20:24)
[2022-09-13] MEDS: HYDROGEN PEROXIDE 480 ML BOTTLE TP SCH ×2 (08:57→21:52)
[2022-09-13] MEDS: VITAMINS A AND D 56.7 GM TUBE TP SCH ×4 (08:58→20:24)
--- NOTE | 2022-09-13 17:14 | NUR ---
Pt noted with purplish discoloration on the right inner eyelid. Pt was observed rubbing/scratching her eyes, forehead, and head. Pt does not appear to be in pain. Notified MANAGER ADVERTISING Brenda Srivastava and pt's daughter Khadijah. Addendum: 09/13/22 at 1718 by BRANDON BECKETT RN Pt on Eliruthann.
[2022-09-13 20:12] VITALS: BP 129/59
[2022-09-13] MEDS: POLYETHYLENE GLYCOL 3350 17 GM POWD.PACK GT SCH (21:53)
[2022-09-13] MEDS: LANOLIN/MIN OIL/PETROLAT,WHT 3.5 GM TUBE OP SCH (21:53)
[2022-09-14] MEDS: IPRATROPIUM NEB FS 0.5 MG/2.5 ML AMPUL.NEB NEB SCH ×4 (01:30→19:50)
[2022-09-14] MEDS: ALBUTEROL FS 2.5 MG/0.5 ML VIAL.NEB NEB SCH ×4 (01:30→19:50)
[2022-09-14] MEDS: POLYVINYL ALCOHOL 15 ML BOTTLE EACHEYE SCH ×3 (05:09→18:54)
[2022-09-14] MEDS: OMEPRAZOLE 20 MG CAPSULE.DR GT SCH (05:09)
[2022-09-14 07:26] VITALS: BP 132/63
[2022-09-14] MEDS: DOCUSATE SODIUM LIQ 100 MG/10 ML UDC GT SCH (09:00)
[2022-09-14] MEDS: AMANTADINE HCL 100 MG CAPSULE GT SCH ×2 (09:00→17:00)
[2022-09-14] MEDS: VITAMINS A AND D 56.7 GM TUBE TP SCH ×4 (09:00→21:32)
[2022-09-14] MEDS: METOPROLOL TARTRATE 25 MG TABLET GT SCH ×2 (09:00→21:32)
[2022-09-14] MEDS: ASPIRIN 81 MG TAB.CHEW GT SCH (09:00)
[2022-09-14] MEDS: APIXABAN 2.5 MG TABLET GT SCH ×2 (09:00→17:00)
[2022-09-14] MEDS: MULTIVIT W/MINERALS 1 TAB TABLET GT SCH (09:00)
[2022-09-14] MEDS: LEVETIRACETAM SOL (5 ML) 100 MG/ML UDC GT SCH ×2 (09:00→21:32)
[2022-09-14] MEDS: ASCORBIC ACID 500 MG TABLET GT SCH (09:00)
[2022-09-14] MEDS: HYDROGEN PEROXIDE 480 ML BOTTLE TP SCH ×2 (09:17→19:50)
[2022-09-14] MEDS: JEVITY 1.2 CAL 1,000 ML BOTTLE GT PRN (12:29)
[2022-09-14 15:31] VITALS: BP 127/66
[2022-09-14 20:00] VITALS: BP 141/77
[2022-09-14] MEDS: LANOLIN/MIN OIL/PETROLAT,WHT 3.5 GM TUBE OP SCH (21:32)
[2022-09-14] MEDS: POLYETHYLENE GLYCOL 3350 17 GM POWD.PACK GT SCH (21:32)
[2022-09-15] MEDS: POLYVINYL ALCOHOL 15 ML BOTTLE EACHEYE SCH ×4 (00:04→17:14)
[2022-09-15] MEDS: IPRATROPIUM NEB FS 0.5 MG/2.5 ML AMPUL.NEB NEB SCH ×4 (01:53→20:28)
[2022-09-15] MEDS: ALBUTEROL FS 2.5 MG/0.5 ML VIAL.NEB NEB SCH ×4 (01:54→20:28)
[2022-09-15] MEDS: OMEPRAZOLE 20 MG CAPSULE.DR GT SCH (05:07)
[2022-09-15 07:38] VITALS: BP 128/58
[2022-09-15] MEDS: HYDROGEN PEROXIDE 480 ML BOTTLE TP SCH ×2 (08:14→20:28)
[2022-09-15] MEDS: ASPIRIN 81 MG TAB.CHEW GT SCH (08:53)
[2022-09-15] MEDS: DOCUSATE SODIUM LIQ 100 MG/10 ML UDC GT SCH (08:53)
[2022-09-15] MEDS: LEVETIRACETAM SOL (5 ML) 100 MG/ML UDC GT SCH ×2 (08:54→20:42)
[2022-09-15] MEDS: APIXABAN 2.5 MG TABLET GT SCH ×2 (08:54→16:54)
[2022-09-15] MEDS: METOPROLOL TARTRATE 25 MG TABLET GT SCH ×2 (08:55→20:42)
[2022-09-15] MEDS: AMANTADINE HCL 100 MG CAPSULE GT SCH ×2 (08:56→16:54)
[2022-09-15] MEDS: ASCORBIC ACID 500 MG TABLET GT SCH (08:56)
[2022-09-15] MEDS: MULTIVIT W/MINERALS 1 TAB TABLET GT SCH (08:56)
[2022-09-15] MEDS: VITAMINS A AND D 56.7 GM TUBE TP SCH ×4 (08:57→20:43)
[2022-09-15] MEDS: JEVITY 1.2 CAL 1,000 ML BOTTLE GT PRN (14:51)
--- NOTE | 2022-09-15 15:27 | NUR ---
RECEIVED PATIENT ON COOL AEROSOL @ 28%. HAS A TRACH SHILEY 6XLT. AIRWAY PATENT AND SECURE. HHN TXS KIRBY WELL WITH NO ADVERSE REACTION NOTED. AMBU BAG AND EMERGENCY TRACH AT THE BEDSIDE. SMALL YELLOW SECRETIONS NOTED.
--- NOTE | 2022-09-15 15:30 | NUR ---
Seen and examined by SUMIT Srivastava, no new order given.
[2022-09-15 20:02] VITALS: BP 130/56
[2022-09-15] MEDS: POLYETHYLENE GLYCOL 3350 17 GM POWD.PACK GT SCH (21:30)
[2022-09-15] MEDS: LANOLIN/MIN OIL/PETROLAT,WHT 3.5 GM TUBE OP SCH (21:30)
[2022-09-16] MEDS: POLYVINYL ALCOHOL 15 ML BOTTLE EACHEYE SCH ×5 (00:09→23:59)
[2022-09-16] MEDS: IPRATROPIUM NEB FS 0.5 MG/2.5 ML AMPUL.NEB NEB SCH ×4 (01:56→18:47)
[2022-09-16] MEDS: ALBUTEROL FS 2.5 MG/0.5 ML VIAL.NEB NEB SCH ×4 (01:56→18:47)
[2022-09-16] MEDS: OMEPRAZOLE 20 MG CAPSULE.DR GT SCH (05:29)
[2022-09-16 08:33] VITALS: BP 139/63
[2022-09-16] MEDS: ASPIRIN 81 MG TAB.CHEW GT SCH (09:00)
[2022-09-16] MEDS: METOPROLOL TARTRATE 25 MG TABLET GT SCH ×2 (09:00→21:15)
[2022-09-16] MEDS: LEVETIRACETAM SOL (5 ML) 100 MG/ML UDC GT SCH ×2 (09:00→21:14)
[2022-09-16] MEDS: MULTIVIT W/MINERALS 1 TAB TABLET GT SCH (09:00)
[2022-09-16] MEDS: ASCORBIC ACID 500 MG TABLET GT SCH (09:00)
[2022-09-16] MEDS: VITAMINS A AND D 56.7 GM TUBE TP SCH ×4 (09:00→21:15)
[2022-09-16] MEDS: DOCUSATE SODIUM LIQ 100 MG/10 ML UDC GT SCH (09:00)
[2022-09-16] MEDS: AMANTADINE HCL 100 MG CAPSULE GT SCH ×2 (09:00→16:57)
[2022-09-16] MEDS: APIXABAN 2.5 MG TABLET GT SCH ×2 (09:00→16:57)
[2022-09-16] MEDS: HYDROGEN PEROXIDE 480 ML BOTTLE TP SCH ×2 (09:12→20:40)
[2022-09-16] MEDS: JEVITY 1.2 CAL 1,000 ML BOTTLE GT PRN (19:05)
[2022-09-16 19:20] VITALS: BP 109/55
[2022-09-16] MEDS: POLYETHYLENE GLYCOL 3350 17 GM POWD.PACK GT SCH (21:15)
[2022-09-16] MEDS: LANOLIN/MIN OIL/PETROLAT,WHT 3.5 GM TUBE OP SCH (21:16)
[2022-09-17 00:39] VITALS: BP 110/56
[2022-09-17] MEDS: IPRATROPIUM NEB FS 0.5 MG/2.5 ML AMPUL.NEB NEB SCH ×4 (00:46→19:46)
[2022-09-17] MEDS: ALBUTEROL FS 2.5 MG/0.5 ML VIAL.NEB NEB SCH ×4 (00:46→19:46)
[2022-09-17] MEDS: OMEPRAZOLE 20 MG CAPSULE.DR GT SCH (05:26)
[2022-09-17] MEDS: POLYVINYL ALCOHOL 15 ML BOTTLE EACHEYE SCH ×3 (05:26→17:03)
[2022-09-17 07:48] VITALS: BP 103/48
[2022-09-17] MEDS: DOCUSATE SODIUM LIQ 100 MG/10 ML UDC GT SCH (08:52)
[2022-09-17] MEDS: LEVETIRACETAM SOL (5 ML) 100 MG/ML UDC GT SCH ×3 (08:52→21:35)
[2022-09-17] MEDS: APIXABAN 2.5 MG TABLET GT SCH ×2 (08:52→16:31)
[2022-09-17] MEDS: ASPIRIN 81 MG TAB.CHEW GT SCH (08:52)
[2022-09-17] MEDS: ASCORBIC ACID 500 MG TABLET GT SCH (08:53)
[2022-09-17] MEDS: HYDROGEN PEROXIDE 480 ML BOTTLE TP SCH ×2 (08:53→19:46)
[2022-09-17] MEDS: MULTIVIT W/MINERALS 1 TAB TABLET GT SCH (08:53)
[2022-09-17] MEDS: AMANTADINE HCL 100 MG CAPSULE GT SCH ×2 (08:53→16:31)
[2022-09-17] MEDS: VITAMINS A AND D 56.7 GM TUBE TP SCH ×6 (08:53→21:36)
[2022-09-17] MEDS: METOPROLOL TARTRATE 25 MG TABLET GT SCH ×3 (08:53→21:36)
--- NOTE | 2022-09-17 09:11 | NUR ---
RT NOTE PT TRACH HAS BEEN CHANGED. NO BLEEDING NOTED. PT SHOWING BILATERAL CHEST RISE AND NO S.O.B. MOTIVATIONAL SPEAKER AWARE OF CHANGE. PT IS CURRENTLY STABLE WILL CONTINUE TO MONITOR FOR ANY CHANGES.
[2022-09-17 12:09] VITALS: BP 118/56
[2022-09-17 18:58] VITALS: BP 116/57
[2022-09-17] MEDS: JEVITY 1.2 CAL 1,000 ML BOTTLE GT PRN (19:01)
[2022-09-17] MEDS: POLYETHYLENE GLYCOL 3350 17 GM POWD.PACK GT SCH ×2 (21:20→21:36)
[2022-09-17] MEDS: LANOLIN/MIN OIL/PETROLAT,WHT 3.5 GM TUBE OP SCH ×2 (21:20→21:36)
[2022-09-17 21:36] VITALS: BP 121/74
--- NOTE | 2022-09-17 23:25 | NUR ---
Buttoner notes, Nurse called by Rt Dalton at bedside, Pt noted with episode of resp. distress. Resp. care provided initial vitals obtained Temp. 98.2 Hr 98 Bp 160/90 O2sat below 80's. charger operator helper assessed at bedside.
[2022-09-17 23:52] LABS: ABG BASE EXCESS -1.5 mmol/L; ABG OXYGEN SATURATION 90.9 % (92.0-98.5); ABG PCO2 40.1 mmHg (35.0-45.0); ABG PH 7.384 (7.350-7.450); ABG PO2 64.3 mmHg (75.0-100.0); AaDO2 608.6 mmHg; COHb 0.6 % (0.5-1.5); MetHb 0.2 % (0.0-1.5); O2Hb 90.2 % (94.0-97.0); SITE, ABG Right Radial; VENT MODE, BG 100% NRB
--- NOTE | 2022-09-18 00:08 | NUR ---
Called pt's daughter Khadijah Hylton and notified regarding pt's change of condition- informed pt with sudden episode of respiratory distress, and has to be transferred to ER dept per facility protocol/ MD's order and for emergency evaluation, informed pt's daughter after ED most likely pt will be transferred to acute care- ICU. Daughter appreciative of call and verbalized wish to make sure to call her anytime with any changes on her mom's condition.
--- NOTE | 2022-09-18 00:25 | NUR ---
RN NOTES RT CALLED FOR PATIENT HAVING RESPIRATORY DISTRESS AT 2320, SEEN TACHYPNEIC, USING HER ACCESSORY MUSCLES TO BREATH; BREATHING TREATMENT ON-GOING, SPO2 ON THE 80'S. SUCTIONING DONE WITH THICK BROWNISH SECRETION, AMBU BAG WITH 100% OXYGEN INCREASED SPO2 TO 86-87%. BLOOD SUGAR 205mg/dl. LARGE ENGINE ASSEMBLER PAGED 8368, CAME AT BEDSIDE TRACHEOSTOMY TUBE CHANGED; STAT ABG AND CXR DONE. CALLED AWAITING CALL BACK. ABG RESULT IN WITH DECREASED IN PO2 LEVEL. SPO2 WON'T GO UP ABOVE 90% EVEN WITH CONTINUOUS AMBU BAGGING WITH 100% OXYGEN. SUPERANNUATION CLERK DECIDED TO TRANSFER PATIENT TO ER SHE NEEDS TO BE ON VENTILATOR AT HIGHER THAN 50% FiO2. RN LIQUID CENTER ASSEMBLER AWARE. TRANSFERRED TO ER BED 8 AT 0005, BEDSIDE REPORT GIVEN TO RN AND . FAMILY NOTIFIED. ENDORSED ACCORDINGLY.
--- NOTE | 2022-09-18 01:23 | NUR ---
RT NOTES AT 2320 I WALKED IN TO SEE PATIENT IN RESP DISTRESS USING HER ACCESSORY MUSCLES. PT WAS SATURATING IN THE LOW 80'S. CALLED RN INTO ROOM. SUCTIONING DONE WITH THICK YELLOW BROWN SECRETION. BAGGING PATIENT ON 100% OXYGEN. CHANGED TRACHEOSTOMY TUBE AT BEDSIDE TO SEE IF TUBE WAS BLOCKED. ABG AND CHEST XRAY DONE AT BEDSIDE. PT WAS TRANSFERRED TO ER AND PLACED ON VENT.
[2022-09-18] MEDS ORDERED: APIX2.5T GT (09:09)
[2022-09-18] MEDS ORDERED: MINE3.5O RIGHTEYE (09:09)
[2022-09-18] MEDS ORDERED: NA P133E RC (09:09)
[2022-09-18] MEDS ORDERED: PETR113O TP (09:09)
[2022-09-18] MEDS ORDERED: ASPI-1169 GT (09:09)
[2022-09-18] MEDS ORDERED: POLY15DR40 EACHEYE (09:09)
[2022-09-18] MEDS ORDERED: IPRA3AMP23 IH (09:09)
[2022-09-18] MEDS ORDERED: OMEP20CA15 GT (09:09)
[2023-05-12] MEDS ORDERED: TUBERCULIN,PURIF.PROT.DERIV. 5 TU/0.1 ML VIAL ID SCH (09:00)
== END 2022-09-18 12:00 | disposition short-term general hospital (02) | DRG 189 ==
LOC: SA
PROVIDERS: ADMIT Internal Medicine Nephrology; ATTEND Internal Medicine Nephrology
DX: J96.11 Chronic respiratory failure with hypoxia (principal); G93.40 Encephalopathy, unspecified; S06.6X9S Traumatic subarachnoid hemorrhage with loss of consciousness of unspecified duration, sequela; S42.302D Unspecified fracture of shaft of humerus, left arm, subsequent encounter for fracture with routine healing; V89.2XXS Person injured in unspecified motor-vehicle accident, traffic, sequela; Z20.822 Contact with and (suspected) exposure to COVID-19; Z93.0 Tracheostomy status; Z74.01 Bed confinement status; S22.5XXS Flail chest, sequela; S36 Injury of intra-abdominal organs; Z93.1 Gastrostomy status; L60.3 Nail dystrophy; S20.102A Unspecified superficial injuries of breast, left breast, initial encounter; S00.431A Contusion of right ear, initial encounter; X58.XXXA Exposure to other specified factors, initial encounter; Y93.9 Activity, unspecified; Y92.9 Unspecified place or not applicable; L98.8 Other specified disorders of the skin and subcutaneous tissue; L30.4 Erythema intertrigo
CPT/HCPCS: 31720; 36415; 36600; 71045-TC; 80048-TC; 82803-TC; 82962-TC; 83735-TC; 84100-TC; 84439-TC; 84443-TC; 84480; 85025-TC; 86580-TC; 94003-TC; 94640-TC; 94760-TC; 94799-TC; 99082-TC; A4623; A7526; U0003

== ENCOUNTER 2022-09-18 00:08 | Inpatient (IN) | payer MEDICARE, OTHER ==
[2022-09-18] VITALS (39 sets, daily range): BP systolic 84–147; BP diastolic 41–77
[~2022-09-18] VITALS: Ht 154.9 cm; Wt 82.1 kg
[2022-09-18] MEDS ORDERED: VANCOMYCIN 1 GM in IV D5W 250 ML IV ONE (00:30)
[2022-09-18] MEDS ORDERED: PIPERACILLIN /TAZOBACTAM 3.375 G in IV D5W 50 ML IV ONE (00:30)
--- NOTE | 2022-09-18 00:30 | NUR ---
RT Pt received trached w/ Shiley XLT #6 cuffed being ventilated w/ ambubag. Pt placed on [facility] vent per Md order on settings AC mode, RR 18, VT 450, FIO2 100%, PEEP +5. Airway patent and secured. Alarms set and audible. Will cont to monitor.
[2022-09-18] MEDS ORDERED: PIPERACILLIN /TAZOBACTAM 3.375 G VIAL IV ONE (00:38)
[2022-09-18] MEDS ORDERED: VANCOMYCIN 1 GM VIAL ONE (00:38)
[2022-09-18] MEDS ORDERED: CT SWABBABLE VALVE TRANS SET 1 EA INFUS.SET MC ONE (01:02)
[2022-09-18] MEDS ORDERED: IOHEXOL-350 100 ML VIAL IV ONE (01:02)
[2022-09-18 01:09] LABS: BASOPHILS # (AUTO) 0.1 K/uL (0.0-0.2); BASOPHILS % (AUTO) 0.2 % (0.0-2.0); EOSINOPHILS % (AUTO) 0.1 % (0.0-6.0); HEMATOCRIT 33 % (33-45); HEMOGLOBIN 10.5 g/dL (11.5-14.8); LYMPHOCYTES % (AUTO) 2.7 % (20.0-44.0); MEAN CORPUSCULAR HGB CONC 32 g/dl (31.0-36.0); MEAN CORPUSCULAR VOLUME 88 fL (82-100); MONOCYTES # (AUTO) 1.6 K/uL (0.1-1.30); MONOCYTES % (AUTO) 4.5 % (2.0-12.0); NEUTROPHILS # (AUTO) 33.8 K/uL (1.8-8.9); NEUTROPHILS % (AUTO) 92.5 % (43.0-81.0); PLATELET COUNT (AUTO) 586 K/uL (150-450); RED BLOOD CELL COUNT(AUTO) 3.76 MIL/uL (4.0-5.2)
[2022-09-18 01:13] LABS: WHITE BLOOD COUNT (AUTO) 36.5 K/uL (4.3-11.0)
--- NOTE | 2022-09-18 01:30 | NUR ---
PT TAKEN TO CT VIA HUMBERTO
--- NOTE | 2022-09-18 01:31 | NUR ---
IV LINE STARTED AT LFA 20G, BLOOD DRAWN AND SENT TO LAB
[2022-09-18 01:39] LABS: CALCIUM, SERUM 10.1 mg/dL (8.5-10.1); CARBON DIOXIDE 27 mmol/L (21-32); CHLORIDE 98 mmol/L (98-107); CREATININE 0.7 mg/dL (0.6-1.3); GLUCOSE 112 mg/dL (74-106); POTASSIUM 4.5 mmol/L (3.5-5.1); SODIUM SERUM 135 mmol/L (136-145); UREA NITROGEN, BLOOD 13 mg/dL (7-18)
[2022-09-18 01:44] LABS: ALANINE AMINOTRANSFERASE 119 U/L (12-78); ALBUMIN 2.6 g/dL (3.4-5.0); ALKALINE PHOSPHATASE 268 U/L (46-116); ASPARTATE AMINOTRANSFERASE 63 U/L (15-37); BILIRUBIN,DIRECT 0.5 mg/dL (0.0-0.2); BILIRUBIN,TOTAL 0.9 mg/dL (0.2-1.0); TOTAL PROTEIN, SERUM 7.2 g/dL (6.4-8.2)
[2022-09-18] MEDS ORDERED: ASPIRIN 81 MG TAB.CHEW PO ONE (02:00)
[2022-09-18] MEDS ORDERED: ASPIRIN 81 MG TAB.CHEW ONE (02:10)
--- NOTE | 2022-09-18 02:30 | NUR ---
covid swab collected, sent to lab
[2022-09-18] MEDS ORDERED: ACETAMINOPHEN 325 MG TABLET PO PRN (04:30)
[2022-09-18] MEDS ORDERED: MINERAL OIL 133 ML (PYXIS) 1 EA ENEMA RC PRN (04:30)
[2022-09-18] MEDS ORDERED: ONDANSETRON HCL/PF 4 MG/2 ML VIAL IVP PRN (04:30)
[2022-09-18] MEDS ORDERED: VITAL AF 1.2 1,000 ML BOTTLE GT SCH (04:30)
[2022-09-18 04:31] LABS: COLOR,URINE DARK YELLOW (YELLOW)
[2022-09-18 04:32] LABS: PH,URINE 6.5 (5.0-8.0); PROTEIN,URINE 1+ mg/dl (NEGATIVE); UGLUCOSE NEGATIVE (NEGATIVE)
--- NOTE | 2022-09-18 04:32 | NUR ---
REPORT GIVEN TO ED RN
[2022-09-18 04:33] LABS: BACTERIA,URINE Moderate /HPF (None Seen); BILIRUBIN,URINE NEGATIVE (NEGATIVE); LEUKOCYTE ESTERASE ,URINE LARGE (NEGATIVE); NITRITE, URINE NEGATIVE (NEGATIVE); SQUAMOUS EPITHELIAL CELL,UR Few /HPF (None Seen); UROBILINOGEN,URINE 0.2 EU/dL (0.2); WBC,URINE 51-80 /HPF (0-3)
[2022-09-18 04:37] LABS: BASOPHILS % (AUTO) 0.2 % (0.0-2.0); HEMATOCRIT 32 % (33-45); HEMOGLOBIN 10.4 g/dL (11.5-14.8); LYMPHOCYTES # (AUTO) 0.4 K/uL (0.8-4.8); LYMPHOCYTES % (AUTO) 1.6 % (20.0-44.0); MEAN CORPUSCULAR HGB CONC 32 g/dl (31.0-36.0); MEAN CORPUSCULAR VOLUME 88 fL (82-100); MONOCYTES # (AUTO) 0.7 K/uL (0.1-1.30); NEUTROPHILS # (AUTO) 21.6 K/uL (1.8-8.9); NEUTROPHILS % (AUTO) 95.2 % (43.0-81.0); PLATELET COUNT (AUTO) 401 K/uL (150-450); RED BLOOD CELL COUNT(AUTO) 3.67 MIL/uL (4.0-5.2); WHITE BLOOD COUNT (AUTO) 22.7 K/uL (4.3-11.0)
[2022-09-18] MEDS ORDERED: ENOXAPARIN SODIUM 40 MG/0.4 ML DISP.SYRIN SQ SCH (04:39)
[2022-09-18 04:48] LABS: CALCIUM, SERUM 9.9 mg/dL (8.5-10.1); CREATININE 0.7 mg/dL (0.6-1.3); MAGNESIUM 2.1 mg/dL (1.8-2.4); PHOSPHORUS 2.5 mg/dL (2.5-4.9)
--- NOTE | 2022-09-18 04:50 | NUR ---
PT TRASNFERRED TO ICU 253 VIA ACLS PROTOCOL. RT AND RN AT BEDSIDE. VS WNL
[2022-09-18] MEDS: IV NS 0.9% 1,000 ML IV PRN ×2 (04:57→17:45)
[2022-09-18 05:42] LABS: ABG BASE EXCESS 0.9 mmol/L; ABG OXYGEN SATURATION 95.6 % (92.0-98.5); ABG PCO2 37.4 mmHg (35.0-45.0); ABG PH 7.442 (7.350-7.450); ABG PO2 77.5 mmHg (75.0-100.0); AaDO2 309.2 mmHg; COHb 0.1 % (0.5-1.5); MetHb 0.4 % (0.0-1.5); O2Hb 95.1 % (94.0-97.0); SITE, ABG Right Radial
--- NOTE | 2022-09-18 07:10 | NUR ---
RN OPEN ICU NOTE: NON VERBAL. OPENED EYES WHEN TACTILE STIMULI, AND CLOSED AGAIN. MOIST ORAL MUCOSA. TRACH WITH VENT AT PRESCRIBED SETTINGS. VT 450, AC 18, FIO2 60%, PEEP OF 5. CALENDER LET OFF OPERATOR SINUS RHYTHM 78. IV ON LEFT FOREARM G20, PATENT WITH IVF OF NS75 ML/HR. NO S/S OF COMPLICATIONS. GT IN PLACE PATENT NO RESIDUAL. LIZ CATHETER WITH ORANGE URINE IN COLOR. HOB ELEVATED. BILATERAL HALF SIDE RAILS UP X2. BED IN LOW POSITION, LOCKED, EXIT ALARM ON, CALL LIGHT IN REACH.
[2022-09-18] MEDS: PANTOPRAZOLE 40 MG/PACK PACK GT SCH (08:32)
[2022-09-18] MEDS: PIPERACILLIN /TAZOBACTAM 3.375 G in IV D5W 100 ML IV SCH ×2 (08:32→16:08)
[2022-09-18] MEDS: METOPROLOL TARTRATE 25 MG TABLET GT SCH ×2 (09:00→21:34)
[2022-09-18] MEDS ORDERED: APIX2.5T GT (09:09)
[2022-09-18] MEDS ORDERED: OMEP20CA15 GT (09:09)
[2022-09-18] MEDS ORDERED: POLY15DR40 EACHEYE (09:09)
[2022-09-18] MEDS ORDERED: MINE3.5O RIGHTEYE (09:09)
[2022-09-18] MEDS ORDERED: PETR113O TP (09:09)
[2022-09-18] MEDS ORDERED: NA P133E RC (09:09)
[2022-09-18] MEDS ORDERED: IPRA3AMP23 IH (09:09)
[2022-09-18] MEDS ORDERED: ASPI-1169 GT (09:09)
[2022-09-18] MEDS: DOCUSATE SODIUM LIQ 100 MG/10 ML UDC GT SCH (09:37)
[2022-09-18] MEDS: LEVETIRACETAM SOL (5 ML) 100 MG/ML UDC GT SCH ×2 (09:38→21:34)
[2022-09-18] MEDS: AMANTADINE HCL 100 MG CAPSULE GT SCH ×2 (09:38→21:33)
[2022-09-18] MEDS: MULTIVITAMINS,THERAGRAN 1 UDTAB TABLET GT SCH (09:38)
[2022-09-18] MEDS: ASCORBIC ACID 500 MG TABLET GT SCH (09:39)
[2022-09-18] MEDS: CHLORHEXIDINE GLUCONATE 15 ML UDC MM SCH ×2 (09:39→21:34)
[2022-09-18] MEDS: ACETAMINOPHEN 650 MG/20.3 ML UDC GT PRN (09:42)
--- NOTE | 2022-09-18 10:00 | NUR ---
DOCTOR AYE INFORMED METOPROLOL 25 MG HELD BP 98/49 HR 75, AND TROPONIN LEVEL TODAY AT 0415 AM WAS 1986.
[2022-09-18] MEDS: VANCOMYCIN 1 GM in IV D5W 250 ML IV SCH ×2 (11:22→22:21)
[2022-09-18 12:37] LABS: BAND % (MANUAL) 3 % (0.0-5.0); BASOPHILS % (MANUAL) 0 % (0.0-2.0); EOSINOPHILS % (MANUAL) 2 % (0-4); LYMPHOCYTES % (MANUAL) 4 % (16-48); MONOCYTES % (MANUAL) 7 % (0-11.0); NEUTROPHILS % (MANUAL) 84 (42-76)
--- NOTE | 2022-09-18 14:00 | NUR ---
DAUGHTER DEVAN LEE UPDATED ON PATIENT CONDITION AND CURRENT ORDERS.
--- NOTE | 2022-09-18 18:18 | NUR ---
RN CLOSING ICU NOTE: NON VERBAL. OPENED EYES WHEN TACTILE STIMULI OCCASIONALLY. MOIST ORAL MUCOSA. TRACH WITH VENT AT PRESCRIBED SETTINGS. VT 450, AC 18, FIO2 60%, PEEP OF 5. CABLE TOOL DRILLER SINUS RHYTHM 67. IV ON LEFT FOREARM G20, PATENT WITH ABX ORDERED. RIGHT UPPER ARM MIDLINE PATENT WITH IVF OF NS75 ML/HR. NO S/S OF COMPLICATIONS. GT IN PLACE PATENT NO RESIDUAL. LIZ CATHETER WITH ORANGE URINE IN COLOR. HOB ELEVATED. BILATERAL HALF SIDE RAILS UP X2. BED IN LOW POSITION, LOCKED, EXIT ALARM ON, CALL LIGHT IN REACH. TOTAL CARE PROVIDED. TURNED AND REPOSITIONED. ON AIR MATTRESS. SPUTUM WAS COLLECTED AND LAB INFORMED.
--- NOTE | 2022-09-18 19:05 | NUR ---
RN OPENING NOTES RECEIVED PATIENT ON BED, OBTUNDED. ON TRACH, SIZE S#6 WITH VENT SETTING AC- 18, TIDAL VOLUME- 450,. FIO2-60%, PEEP- 5. NO SOB NOTED. AFEBRILE, NOS/S OF DISTRESS NOTED. NOTED WITH BERNARD MIDLINE AND LEFT FOREARM #20, FLUSHED WITH NS NO S/S OF INFILTRATION NOTED. RUNNING WITH NS @ 75 ML/HR. PEG TUBE PATENT AND INTACT, VERIFIED PLACEMENT BY AUSCULTATION, NO RESIDUAL NOTED UPON ASPIRATION, HED OF BED KEPT ELEVATED. LIZ CATHETER PATENT INTACT, DRAINING WITH YELLOW URINE OUT PUT VIA GRAVITY. ALL SAFETY PRECAUTION PROVIDED. BED IN LOWEST POSITION, LOCKED. CALL LIGHT WITH IN REACH.
[2022-09-19] VITALS (57 sets, daily range): BP systolic 53–162; BP diastolic 26–98
[2022-09-19] MEDS: PIPERACILLIN /TAZOBACTAM 3.375 G in IV D5W 100 ML IV SCH ×4 (00:06→23:33)
[2022-09-19 05:22] LABS: CREATININE 0.7 mg/dL (0.6-1.3); POTASSIUM 3.6 mmol/L (3.5-5.1)
[2022-09-19] MEDS: IV NS 0.9% 1,000 ML IV PRN ×2 (07:00→21:57)
--- NOTE | 2022-09-19 07:00 | NUR ---
RN NOTES RECEIVED PT ON BED , TRACH/ VENT DEPENDENT , TOLERATING VENT SETTING , O2 SAT WNL, TRACH CARE DONE, RESPONDS TO PAINFUL STIMULI, ON TELE SR HR IN 70'S, LIZ DRAINING TO GRAVITY, TF AT 65CC/HR RUNNING , IV SITES CDI, SR UP x3, CALL LIGHT WITHIN EASY REACH, BED LOCKED AND IN LOWEST POSITION, CONTINUE TO MONITOR .
--- NOTE | 2022-09-19 07:29 | NUR ---
WOUND CARE CONSULT: PT SEEN FOR LOW WANDY SCORE. PT NOTED TO HAVE SACRAL SCARRING. PT IS IN FIRST STEP CIRS LOW AIRLOSS MATTRESS. DISCUSSED SKIN PROTECTION WITH NURSING STAFF. MD IN AGREEMENT WITH PLAN OF CARE.
[2022-09-19] MEDS: AMANTADINE HCL 100 MG CAPSULE GT SCH ×2 (08:22→20:29)
[2022-09-19] MEDS: LEVETIRACETAM SOL (5 ML) 100 MG/ML UDC GT SCH ×2 (08:22→20:28)
[2022-09-19] MEDS: ASCORBIC ACID 500 MG TABLET GT SCH (08:24)
[2022-09-19] MEDS: DOCUSATE SODIUM LIQ 100 MG/10 ML UDC GT SCH (08:24)
[2022-09-19] MEDS: PANTOPRAZOLE 40 MG/PACK PACK GT SCH (08:24)
[2022-09-19] MEDS: MULTIVITAMINS,THERAGRAN 1 UDTAB TABLET GT SCH (08:24)
[2022-09-19] MEDS: CHLORHEXIDINE GLUCONATE 15 ML UDC MM SCH ×2 (08:24→20:28)
[2022-09-19] MEDS: METOPROLOL TARTRATE 25 MG TABLET GT SCH ×2 (08:26→20:30)
[2022-09-19] MEDS: ENOXAPARIN SODIUM 40 MG/0.4 ML DISP.SYRIN SQ SCH (08:26)
[2022-09-19] MEDS ORDERED: Z GUARD REMEDY 4 OZ OINT TP PRN (09:00)
[2022-09-19] MEDS: JEVITY 1.2 CAL 1,000 ML BOTTLE GT PRN (09:52)
[2022-09-19] MEDS: VANCOMYCIN 1 GM in IV D5W 250 ML IV SCH ×2 (10:55→22:44)
[2022-09-19] MEDS: ACETAMINOPHEN 650 MG/20.3 ML UDC GT PRN ×2 (13:35→19:47)
--- NOTE | 2022-09-19 14:00 | NUR ---
RN NOTES PT'S DAUGHTER DEVAN REQUESTING TO TALK TO PRIMARY CARE , DR ESPAÑA NOTIFIED
--- NOTE | 2022-09-19 18:00 | NUR ---
RN NOTES PT TRANSFER TO ROOM 108 [facility] STATUS VIA ACLS PROTOCAL IN STABLE CONDITION, NO BELONGINGS NOTED , REPORT GIVEN TO ALANA GARZA FOR CONTINUITY OF CARE .
--- NOTE | 2022-09-19 18:05 | NUR ---
RN NOTE PT TRANSFERRED FROM ICU TO [facility]. THERE IS NO S/S OF ACUTE DISTRESS NOTED. VS TAKEN, BP 134/58, TEMP 99.5, O2 90%, HR 91, RR 30. NO BELONGINGS. WILL CONTINUE TO MONITOR.
--- NOTE | 2022-09-19 18:27 | NUR ---
RN NOTE FOUND PATIENT IN DISTRESS, SOB, AND USING ACCESSORY MUSCLE, CALLED RAPID RESPONSE AT THIS TIME. PLACED O2 SAT, PATIENT SPO2 WAS 40%, STARTED AMBU BAG ON HER, SPO2 STARTED TO GOING UP.
--- NOTE | 2022-09-19 18:35 | NUR ---
RN NOTE RAPID RESPONSE TEAM ARRIVED. PLACED PATIENT ON 100% FIO2. CHECKED PATIENTS VITAL SIGNS, RECORDED IN RAPID RESPONSE INTERVENTION.
--- NOTE | 2022-09-19 18:45 | NUR ---
RN NOTES TRANSFERRED PATIENT BACK TO ICU WITH RT TEAM AND ACLS PROTOCOL, REPORT GIVEN TO STEEL ERECTING PUSHER FOR ERNESTINE. RT BY BEDSIDE.
[2022-09-19 19:15] LABS: ABG BASE EXCESS -4.5 mmol/L; ABG OXYGEN SATURATION 67.2 % (92.0-98.5); ABG PCO2 46.5 mmHg (35.0-45.0); ABG PH 7.292 (7.350-7.450); ABG PO2 40.2 mmHg (75.0-100.0); AaDO2 626.3 mmHg; COHb 0.3 % (0.5-1.5); MetHb 0.3 % (0.0-1.5); O2Hb 66.8 % (94.0-97.0); PEEP,BG 5 cm H2O; SITE, ABG Right Radial; VT, ABG 450 mL
[2022-09-19] MEDS: PROPOFOL 100 ML IV PRN (19:26)
--- NOTE | 2022-09-19 19:47 | NUR ---
RN NOTE PT NOTED TO HAVE TEMP OF 101.4. PT ADMINISTERED TYLENOL [address] CO[address]ING ME[address]URES IN [address]. WILL MONITOR FOR EFFECTIVENESS.
[2022-09-19 20:53] LABS: ABG OXYGEN SATURATION 69.9 % (92.0-98.5); ABG PCO2 39.2 mmHg (35.0-45.0); ABG PH 7.334 (7.350-7.450); AaDO2 633.8 mmHg; COHb 0.1 % (0.5-1.5); MetHb 0.3 % (0.0-1.5); O2Hb 69.6 % (94.0-97.0); PEEP,BG 8 cm H2O; SITE, ABG Right Radial; VENT MODE, BG AC18 VT450 100% PEEP+8; VT, ABG 450 mL
--- NOTE | 2022-09-19 21:18 | NUR ---
DIRECTOR DAY CARE CENTER OPENING NOTE PT RECEIVED IN BED, OBTUNDED, OPENS EYES. PT ON TRACH SHILEY SIZE #6, AC 18, TV 450, 100% FIO2, PEEP 8 WITH CURRENT O2SAT OF 69%; PT APPEARS TACHYPNEIC AND SOB WITH RESPIRATIONS IN THE 40S. PT ATTACHED TO BEDSIDE MONITOR, SR WITH HR 96. LIZ INTACT AND PATENT, DRAINING CLEAR AND YELLOW URINE. GT INTACT AND PATENT WITH JEVITY AT 50 ML/HR; NO RESIDUALS NOTED. BERNARD MIDLINE AND LFA 20G INTACT AND PATENT, FLUSHES EASILY WITH NO RESISTANCE; NS AT 75 ML/HR AND PROPOFOL AT 35 MCG/KG/MIN. COOLING MEASURES IN PLACE FOR MOST RECENT TEMP OF 101.1F. LIZ INTACT AND PATENT, DRAINING CLEAR AND YELLOW URINE. BED IN LOWEST POSITION, CALL LIGHT WITHIN REACH, SIDE RAILS UP X3. WILL CONTINUE TO MONITOR THROUGHOUT THE NIGHT.
[2022-09-19] MEDS ORDERED: NOREPINEPHRINE 4 MG/4 ML AMPUL IV ONE (22:15)
[2022-09-19] MEDS: NOREPINEPHRINE 32 MG in IV NS 0.9% 218 ML IV PRN (22:21)
[2022-09-20] VITALS (92 sets, daily range): BP systolic 80–145; BP diastolic 21–106
[2022-09-20] MEDS: PROPOFOL 100 ML IV PRN ×4 (00:06→20:23)
[2022-09-20 03:58] LABS: EOSINOPHILS % (AUTO) 0.1 % (0.0-6.0); HEMATOCRIT 30 % (33-45); HEMOGLOBIN 9.5 g/dL (11.5-14.8); LYMPHOCYTES # (AUTO) 1.2 K/uL (0.8-4.8); LYMPHOCYTES % (AUTO) 4.2 % (20.0-44.0); MEAN CORPUSCULAR HGB CONC 32 g/dl (31.0-36.0); MEAN CORPUSCULAR VOLUME 88 fL (82-100); MONOCYTES # (AUTO) 1.1 K/uL (0.1-1.30); NEUTROPHILS # (AUTO) 25.7 K/uL (1.8-8.9); NEUTROPHILS % (AUTO) 91.7 % (43.0-81.0); PLATELET COUNT (AUTO) 528 K/uL (150-450); RED BLOOD CELL COUNT(AUTO) 3.37 MIL/uL (4.0-5.2); WHITE BLOOD COUNT (AUTO) 28.1 K/uL (4.3-11.0)
[2022-09-20 04:34] LABS: CALCIUM, SERUM 9.4 mg/dL (8.5-10.1); CREATININE 1.3 mg/dL (0.6-1.3); MAGNESIUM 2.3 mg/dL (1.8-2.4); PHOSPHORUS 2.5 mg/dL (2.5-4.9)
[2022-09-20] MEDS: JEVITY 1.2 CAL 1,000 ML BOTTLE GT PRN (06:18)
--- NOTE | 2022-09-20 06:55 | NUR ---
SPEEDBOAT DRIVER CLOSING NOTE PT REMAINS IN BED, OBTUNDED, OPENS EYES. CONTINUES TO BE ON SAME VENT SETTINGS, TOLERATING WELL WITH O2SAT RANGING FROM 93%-100%; RESPIRATIONS IN THE 20S; NO S/S OF RESP DISTRESS, SOB RESOLVED, NON-LABORED AND EQUAL BREATHING. ATTACHED TO BEDSIDE MONITOR, SR WITH HR RANGING FROM 73-97. LIZ INTACT AND PATENT, DRAINING CLOUDY AND YELLOW URINE. GTF JEVITY INFUSING AT 50 ML/HR; TOLERATED WELL WITH NO RESIDUALS. BERNARD MIDLINE AND LFA 20G INTACT AND PATENT, FLUSHES EASILY WITH NO RESISTANCE; LEVO AT 0.1 MCG/KG/MIN, PROPOFOL AT 30 MCG/KG/MIN, AND NS AT 75 ML/HR. WOUNDS CLEANSED AND NEW DRESSING APPLIED. ALL DUE MEDS ADMINISTERED DURING THE NIGHT. BED IN LOWEST POSITION, CALL LIGHT WITHIN REACH, SIDE RAILS UP X3. WILL ENDORSE TO DAYSHIFT NURSE TO CONTINUE CARE.
--- NOTE | 2022-09-20 07:15 | NUR ---
ICU OPEN RN NOTE: OBTUNDED. TRACH WITH VENT AT PRESCRIBED SETTINGS. MOIST ORAL MUCOSA. RN LPN LVN WITH SINUS RHYTHM 73. IVF OF NS 75ML/HR. LEVO @0.1MCG/KG/MIN AND PROPOFOL @ 30MCG/KG/MIN ON RIGHT UPPER ARM MIDLINE. LEFT FOREARM IV G20 PATENT. NO S/ OF COMPLICATIONS. JEVITY 1.2 RUNNING AT 50ML/HR. LIZ CATHETER WITH YELLOW URINE. HOB ELEVATED. ASPIRATION PRECAUTIONS MAINTAINED. BILATERAL HALF SIDE RAIL UP X2. BED IN LOW POSITION, LOCKED, EXIT ALARM ON. CALL LIGHT IN REACH.
[2022-09-20 08:12] LABS: ABG BASE EXCESS -0.7 mmol/L; ABG PCO2 35.2 mmHg (35.0-45.0); ABG PH 7.436 (7.350-7.450); ABG PO2 216.1 mmHg (75.0-100.0); AaDO2 317.3 mmHg; COHb 0.3 % (0.5-1.5); MetHb 0.3 % (0.0-1.5); O2Hb 98.4 % (94.0-97.0); SITE, ABG Right Radial; VENT MODE, BG ac 18 450 +8 80%
[2022-09-20] MEDS: PIPERACILLIN /TAZOBACTAM 3.375 G in IV D5W 100 ML IV SCH (08:18)
[2022-09-20] MEDS: PANTOPRAZOLE 40 MG/PACK PACK GT SCH (08:19)
[2022-09-20] MEDS: METOPROLOL TARTRATE 25 MG TABLET GT SCH ×2 (09:00→20:24)
--- NOTE | 2022-09-20 09:15 | NUR ---
DAUGHTER DEVAN CALLED AND UPDATED HER ON PATIENT CONDITION.
[2022-09-20] MEDS: AMANTADINE HCL 100 MG CAPSULE GT SCH ×2 (09:56→20:24)
[2022-09-20] MEDS: LEVETIRACETAM SOL (5 ML) 100 MG/ML UDC GT SCH ×2 (09:56→20:23)
[2022-09-20] MEDS: CHLORHEXIDINE GLUCONATE 15 ML UDC MM SCH ×2 (09:56→20:23)
[2022-09-20] MEDS: MULTIVITAMINS,THERAGRAN 1 UDTAB TABLET GT SCH (09:56)
[2022-09-20] MEDS: DOCUSATE SODIUM LIQ 100 MG/10 ML UDC GT SCH (09:56)
[2022-09-20] MEDS: ASCORBIC ACID 500 MG TABLET GT SCH (09:58)
[2022-09-20] MEDS: ENOXAPARIN SODIUM 40 MG/0.4 ML DISP.SYRIN SQ SCH (09:59)
--- NOTE | 2022-09-20 09:59 | NUR ---
METOPROLOL 0900 DOSE HELD BP 113/68, HR 77. LEVO WAS INCREASED AT 0830 TO 0.2MCG/KG/MIN DUE TO BP 81/54 MAP 63.
--- NOTE | 2022-09-20 11:30 | NUR ---
PEEP DECREASED TO 5 BY RN. FIO2 50% RR37. BP 115/75 98%. BILATERAL LOWER EXTREMITIES CONTINUED MOTTLED, Addendum: 09/20/22 at 1400 by MARLENY WHITE RN PEEP DECREASED TO 5 BY RT.
--- NOTE | 2022-09-20 13:30 | NUR ---
DOCTOR RAH INFORMED PATIENT CONTINUE TO BE NOTED WITH MOTTLED BLE. PEDAL PULSES PALPABLE.
[2022-09-20] MEDS: MEROPENEM 500 MG in IV NS 0.9% 50 ML IV SCH ×2 (14:52→20:23)
[2022-09-20] MEDS: IV NS 0.9% 1,000 ML IV PRN (17:25)
[2022-09-20] MEDS: ACETAMINOPHEN 650 MG/20.3 ML UDC GT PRN (17:34)
--- NOTE | 2022-09-20 18:42 | NUR ---
ICU OPEN RN NOTE: SEDATED. TRACH WITH VENT AT PRESCRIBED SETTINGS. MOIST ORAL MUCOSA. SKIN IS WARM AND DRY, AND BLE MOTTLED SKIN. PALPABLE PEDAL PULSES. DRY KILN OPERATOR WITH SINUS RHYTHM 83. IVF OF NS 100ML/HR LEFT FOREARM PERIPHERAL IV G20. LEVO @0.2MCG/KG/MIN AND PROPOFOL @ 30MCG/KG/MIN ON RIGHT UPPER ARM MIDLINE. NO S/S OF COMPLICATIONS. JEVITY 1.2 RUNNING AT 50ML/HR. LIZ CATHETER WITH YELLOW URINE. TURNED AND REPOSITIONED, KETP CLEAN AND COMFORTABLE. ASPIRATION PRECAUTIONS MAINTAINED. HOB ELEVATED. ASPIRATION PRECAUTIONS MAINTAINED. BILATERAL HALF SIDE RAIL UP X2. BED IN LOW POSITION, LOCKED, EXIT ALARM ON. CALL LIGHT IN REACH. Addendum: 09/20/22 at 1847 by MARLENY WHITE RN CLOSING NOTE:
[2022-09-20] MEDS: NOREPINEPHRINE 32 MG in IV NS 0.9% 218 ML IV PRN (19:17)
[2022-09-20 20:48] LABS: ABG BASE EXCESS -3.6 mmol/L; ABG OXYGEN SATURATION 69.3 % (92.0-98.5); ABG PCO2 44.1 mmHg (35.0-45.0); ABG PH 7.322 (7.350-7.450); ABG PO2 40.6 mmHg (75.0-100.0); AaDO2 628.3 mmHg; COHb 0.3 % (0.5-1.5); MetHb 0.2 % (0.0-1.5); PEEP,BG 5 cm H2O; SITE, ABG Right Radial; VT, ABG 450 mL
--- NOTE | 2022-09-20 21:01 | NUR ---
RN NOTE PT'S O2SAT FOUND TO BE IN THE 70S WITH RESPIRATIONS IN THE 50S. PT RECEIVED WITH VENT SETTING OF 50% FIO2 AND PEEP OF 5. ABG DONE WITH PO2 OF 40.6. FIO2 INCREASED TO 100% AND PEEP TO 8. JEANNE ABAD NOTIFIED, AWAITING RESPONSE.
--- NOTE | 2022-09-20 21:04 | NUR ---
SENIOR ACCOUNTING ASSOCIATE OPENING NOTE PT RECEIVED IN BED, OBTUNDED, OPENS EYES. PT WITH SHILEY SIZE #6, AC 18, TV 450, 100% FIO2, PEEP 8 WITH CURRENT O2SAT OF 84%, PT FOUND TO BE TACHYPNEIC WITH RESPIRATIONS IN THE 50S; NON-LABORED AND EQUAL BREATHING. PT ATTACHED TO BEDSIDE MONITOR, SR WITH HR 86. LIZ INTACT AND PATENT, DRAINING CLOUDY AND YELLOW URINE. GT JEVITY AT 50 ML/HR; NO RESIDUALS NOTED. BERNARD MIDLINE AND LFA 20G INTACT AND PATENT WITH PROPOFOL AT 50 MCG/KG/MIN AND NS AT 100 ML/HR. BED IN LOWEST POSITION, CALL LIGHT WITHIN REACH, SIDE RAILS UP X3. WILL CONTINUE TO MONITOR THROUGHOUT THE NIGHT.
--- NOTE | 2022-09-20 22:26 | NUR ---
RN NOTE SPOKE WIT PULMONOLOGY ON-CALL DR. MCGREGOR. PER BALBIR, INCREASE PEEP TO 10 AND THEN TO 12 TOLERATED AND KEEP O2SAT >90%; THEN FOLLOW UP WITH AM CHEST X-RAY AND ABG.
--- NOTE | 2022-09-20 22:35 | NUR ---
RN NOTE RT AT BEDSIDE AND PEEP CHANGED FROM 8 TO 10 AT THIS TIME. WILL CONTINUE TO MONITOR.
[2022-09-20] MEDS ORDERED: VANCOMYCIN 1.25 GM in IV D5W 250 ML IV SCH (23:00)
--- NOTE | 2022-09-20 23:09 | NUR ---
RN NOTE VANCO TROUGH 26. [facility] CALLED AND CONFIRMED WITH PHARMACIST CAMERON SALAZAR TO HOLD VANCO 1.25 GM SCHEDULED FOR 2300
[2022-09-21] VITALS (95 sets, daily range): BP systolic 82–126; BP diastolic 28–88
[2022-09-21] MEDS: ACETAMINOPHEN 650 MG/20.3 ML UDC GT PRN ×2 (00:03→20:21)
--- NOTE | 2022-09-21 00:03 | NUR ---
RN NOTE PT NOTED TO HAVE TEMP OF 100.5. TYLENOL 650 MG ADMINISTERED WITH COOLING MEASURES IN PLACE.
[2022-09-21] MEDS: PROPOFOL 100 ML IV PRN ×8 (00:16→23:36)
--- NOTE | 2022-09-21 00:30 | NUR ---
RN NOTE RT AT BEDSIDE, CHANGED PEEP FROM 10 TO 12 WITH O2SAT FLUCTUATING FROM 93%-85%. WILL CONTINUE TO MONITOR.
[2022-09-21] MEDS: JEVITY 1.2 CAL 1,000 ML BOTTLE GT PRN ×2 (03:20→16:00)
[2022-09-21] MEDS: IV NS 0.9% 1,000 ML IV PRN ×2 (03:20→12:51)
[2022-09-21 03:58] LABS: BASOPHILS % (AUTO) 0.1 % (0.0-2.0); EOSINOPHILS % (AUTO) 5.1 % (0.0-6.0); HEMATOCRIT 27 % (33-45); HEMOGLOBIN 8.6 g/dL (11.5-14.8); LYMPHOCYTES # (AUTO) 1.2 K/uL (0.8-4.8); LYMPHOCYTES % (AUTO) 6.2 % (20.0-44.0); MEAN CORPUSCULAR HGB CONC 32 g/dl (31.0-36.0); MEAN CORPUSCULAR VOLUME 87 fL (82-100); MONOCYTES # (AUTO) 0.5 K/uL (0.1-1.30); MONOCYTES % (AUTO) 2.4 % (2.0-12.0); NEUTROPHILS # (AUTO) 17.1 K/uL (1.8-8.9); NEUTROPHILS % (AUTO) 86.2 % (43.0-81.0); PLATELET COUNT (AUTO) 425 K/uL (150-450); RED BLOOD CELL COUNT(AUTO) 3.08 MIL/uL (4.0-5.2); WHITE BLOOD COUNT (AUTO) 19.9 K/uL (4.3-11.0)
[2022-09-21 04:16] LABS: CREATININE 1.8 mg/dL (0.6-1.3); MAGNESIUM 2.5 mg/dL (1.8-2.4); PHOSPHORUS 2.9 mg/dL (2.5-4.9); POTASSIUM 4.1 mmol/L (3.5-5.1)
--- NOTE | 2022-09-21 06:50 | NUR ---
FOREST MANAGEMENT TEACHER CLOSING NOTE PT REMAINS IN BED, SEDATED, MOVES LOWER EXTREMITIES TO PAIN, PERRLA. CONTINUES TO BE ON AC 18, TV 450, 100% FIO2, PEEP 12; TOLERATING WELL WITH O2SAT RANGING FROM 90%-100%; RESPIRATIONS BETTER CONTROLLED AND IS IN THE 20S. FEVER RESOLVED WITH TYLENOL AND COOLING MEASURES. ATTACHED TO BEDSIDE MONITOR, SR WITH HR RANGING FROM 74-95. LIZ INTACT AND PATENT, DRAINING YELLOW AND CLOUDY URINE. JEVITY RUNNING AT 50 ML/HR; TOLERATING WELL WITH NO RESIDUALS. IV ACCESS ON BERNARD MIDLINE AND LFA 20G INTACT AND PATENT, FLUSHES EASILY WITH NO RESISTANCE; LEVO AT 0.09 MCG/KG/MIN, PROPOFOL AT 50 MCG/KG/MIN, AND NS AT 100 ML/HR. ALL DUE MEDS ADMINISTERED DURING THE NIGHT. BED IN LOWEST POSITION, CALL LIGHT WITHIN REACH, SIDE RAILS UP X3. WILL ENDORSE TO DAYSHIFT NURSE TO CONTINUE CARE.
--- NOTE | 2022-09-21 08:20 | NUR ---
RN NOTES PT IS VERY TACHYPNEIC. RECEIVED VERBAL ORDERS FROM DR. CORDOVA TO PLACE AN ORDER TO INCREASE TITRATION OF PROPOFOL UP TO MAXIMUM OF 100 MCG/KG/HR.
[2022-09-21] MEDS: ENOXAPARIN SODIUM 40 MG/0.4 ML DISP.SYRIN SQ SCH (08:23)
[2022-09-21] MEDS: CHLORHEXIDINE GLUCONATE 15 ML UDC MM SCH ×2 (08:23→20:21)
[2022-09-21] MEDS: LEVETIRACETAM SOL (5 ML) 100 MG/ML UDC GT SCH ×2 (08:24→20:21)
[2022-09-21] MEDS: AMANTADINE HCL 100 MG CAPSULE GT SCH ×2 (08:25→20:22)
[2022-09-21] MEDS: ASCORBIC ACID 500 MG TABLET GT SCH (08:25)
[2022-09-21] MEDS: DOCUSATE SODIUM LIQ 100 MG/10 ML UDC GT SCH (08:25)
[2022-09-21] MEDS: METOPROLOL TARTRATE 25 MG TABLET GT SCH ×2 (08:25→20:22)
[2022-09-21] MEDS: PANTOPRAZOLE 40 MG/PACK PACK GT SCH (08:25)
[2022-09-21] MEDS: MULTIVITAMINS,THERAGRAN 1 UDTAB TABLET GT SCH (08:25)
[2022-09-21] MEDS ORDERED: PROPOFOL 100 ML IV PRN (08:30)
[2022-09-21] MEDS: MEROPENEM 500 MG in IV NS 0.9% 50 ML IV SCH ×2 (09:14→20:25)
[2022-09-21 09:17] LABS: ABG BASE EXCESS -4.4 mmol/L; ABG OXYGEN SATURATION 98.1 % (92.0-98.5); ABG PCO2 37.7 mmHg (35.0-45.0); ABG PH 7.357 (7.350-7.450); ABG PO2 118.4 mmHg (75.0-100.0); AaDO2 556.9 mmHg; COHb 0.3 % (0.5-1.5); MetHb 0.2 % (0.0-1.5); O2Hb 97.6 % (94.0-97.0); PEEP,BG 12 cm H2O; SITE, ABG Right Radial; VENT MODE, BG AC 18 100% fi02; VT, ABG 450 mL
--- NOTE | 2022-09-21 12:00 | NUR ---
RN NOTES NOTIFIED DR. MONREAL THAT PT'S GASTRIC RESIDUAL WAS AT 25 ML AND THAT FEEDING SEEMS TO BE COMING OUT OF HER TRACH AREA. PER THE DOCTOR, STOP FEEDING AT THIS TIME.
--- NOTE | 2022-09-21 19:22 | NUR ---
RN CLOSING NOTES PT LOOKS COMFORTABLE. CURRENTLY ON FIO2 OF 100% W/PEEP OF 10 AND TOLERATING WELL. US BLE COMPLETED AND PENDING RESULTS AT THIS TIME. PT STILL ON DIPRIVAN AT 75 MCG/KG/HR AND LEVOPHED AT 0.14 MCG/KG/HR. REPORT GIVEN TO PRINCESS GARZA FOR CONTINUATION OF CARE.
[2022-09-21] MEDS: NOREPINEPHRINE 32 MG in IV NS 0.9% 218 ML IV PRN (19:56)
--- NOTE | 2022-09-21 20:25 | NUR ---
RN NOTE PT NOTED TO HAVE TEMP OF 100.3. PT ADMINISTERED TYLENOL 650 MG WITH COOLING MEASURES IN PLACE. WILL CONTINUE TO MONITOR
--- NOTE | 2022-09-21 21:03 | NUR ---
STREET LIGHT SERVICER SUPERVISOR OPENING NOTE PT RECEIVED IN BED, SEDATED. PT WITH SHILEY SIZE #6, AC 18, TV 450, FIO2 100%, PEEP 10 WITH CURRENT O2SAT OF 96%; TOLERATING VENT WELL WITH CURRENT RESPIRATION OF 25; OTHERWISE NO SIGNS OF RESP DISTRESS, NO SOB, NON-LABORED AND EQUAL BREATHING. PT ATTACHED TO BEDSIDE MONITOR, SR WITH HR OF 81. LIZ INTACT AND PATENT, DRAINING CLOUDY AND YELLOW URINE. JEVITY RUNNING AT 45 ML/HR, NO RESIDUALS NOTED. BERNARD MIDLINE AND LFA 20G INTACT AND PATENT, WITH LEVO AT 0.1 MCG/KG/MIN, PROPOFOL AT 75 MCG/KG/MIN, AND NS AT 50 ML/HR. BED IN LOWEST POSITION, CALL LIGHT WITHIN REACH, SIDE RAILS UP X3. WILL CONTINUE TO MONITOR THROUGHOUT THE NIGHT.
--- NOTE | 2022-09-21 22:36 | NUR ---
RN NOTE PT'S DAUGHTER DEVAN LEE CALLED, UPDATED DAUGHTER WITH PT'S CONDITIONS AND PLAN OF CARE.
[2022-09-21] MEDS ORDERED: VANCOMYCIN 1 GM in IV D5W 250 ML IV SCH (23:00)
--- NOTE | 2022-09-21 23:33 | NUR ---
RN NOTE VANCO 1 GM SCHEDULED FOR 2300 NOT ADMINISTERED VANCO TROUGH IS 26.
[2022-09-22] VITALS (87 sets, daily range): BP systolic 70–165; BP diastolic 19–85
[2022-09-22] MEDS: PROPOFOL 100 ML IV PRN ×7 (02:42→20:29)
[2022-09-22 03:47] LABS: BASOPHILS % (AUTO) 0.2 % (0.0-2.0); EOSINOPHILS % (AUTO) 8.6 % (0.0-6.0); HEMATOCRIT 24 % (33-45); HEMOGLOBIN 7.7 g/dL (11.5-14.8); LYMPHOCYTES # (AUTO) 1.3 K/uL (0.8-4.8); LYMPHOCYTES % (AUTO) 7.4 % (20.0-44.0); MEAN CORPUSCULAR HGB CONC 32 g/dl (31.0-36.0); MEAN CORPUSCULAR VOLUME 87 fL (82-100); MONOCYTES # (AUTO) 0.7 K/uL (0.1-1.30); MONOCYTES % (AUTO) 4.2 % (2.0-12.0); NEUTROPHILS # (AUTO) 13.6 K/uL (1.8-8.9); NEUTROPHILS % (AUTO) 79.6 % (43.0-81.0); PLATELET COUNT (AUTO) 402 K/uL (150-450); RED BLOOD CELL COUNT(AUTO) 2.77 MIL/uL (4.0-5.2); WHITE BLOOD COUNT (AUTO) 17.1 K/uL (4.3-11.0)
[2022-09-22 03:59] LABS: CALCIUM, SERUM 8.8 mg/dL (8.5-10.1); CREATININE 2.3 mg/dL (0.6-1.3); MAGNESIUM 2.6 mg/dL (1.8-2.4); PHOSPHORUS 4.3 mg/dL (2.5-4.9); POTASSIUM 4.7 mmol/L (3.5-5.1)
[2022-09-22] MEDS: IV NS 0.9% 1,000 ML IV PRN (05:51)
--- NOTE | 2022-09-22 06:30 | NUR ---
APPLICATIONS TESTER CLOSING NOTE PT REMAINS IN BED, SEDATED. CONTINUES TO BE ON SAME VENT SETTINGS, TOLERATING WELL WITH O2SAT RANGING FORM 91%-100% WITH NO S/S OF RESP DISTRESS. ATTACHED TO BEDSIDE MONITOR, SR WITH HR RANGING FROM 69-83. LIZ INTACT AND PATENT, DRAINING CLOUDY AND YELLOW URINE. GTF JEVITY RUNNING AT 45 ML/HR X20 HRS; WILL ENDORSE TO TURN FEEDING OFF AT 1200; TOLERATED WELL WITH NO RESIDUALS, NO N/V/D. BERNARD MIDLINE AND LFA 20G INTACT AND PATENT, LEVO AT 0.06 MCG/KG/MIN, PROPOFOL AT 75 MCG/KG/MIN, AND NS AT 50 ML/HR. FEVER RESOLVED WITH TYLENOL AND COOLING MEASURES. ALL DUE MEDS ADMINISTERED DURING THE NIGHT. BED IN LOWEST POSITION, CALL LIGHT WITHIN REACH, SIDE RAILS UP X3. WILL ENDORSE TO DAYSHIFT NURSE.
--- NOTE | 2022-09-22 07:05 | NUR ---
RN NOTES RECEIVED PT ON BED, TRACH / VENT DEPENDED,TOLERATING VENT SETTING WELL, SEDATED ON PROPOFOL AT 75 MCG/KG/MIN, ON TELE SR, HR IN 70'S , LIZ DRAINING TO GRAVITY, SMALL AMOUNT OF DARK GREENISH GASTRIC DRAINAGE NOTED IN PT'S MOUTH AND AT THE TRACH SITE, NO TF RESIDUAL NOTED, TF HELD AT THIS TIME, WILL NOTIFY BERNARD GRACE MIDLINE AND LFA 20G INTACT AND PATENT, WITH LEVO AT 0.06 MCG/KG/MIN FOR BP SUPPORT , NS AT 50 ML/HR. BED LOCKED AND IN LOWEST POSITION, CALL LIGHT WITHIN EASY REACH, SIDE RAILS UP X3. WILL CONTINUE TO MONITOR.
[2022-09-22] MEDS: CHLORHEXIDINE GLUCONATE 15 ML UDC MM SCH ×2 (08:16→20:28)
[2022-09-22] MEDS: ASCORBIC ACID 500 MG TABLET GT SCH (08:16)
[2022-09-22] MEDS: PANTOPRAZOLE 40 MG/PACK PACK GT SCH (08:17)
[2022-09-22] MEDS: AMANTADINE HCL 100 MG CAPSULE GT SCH ×2 (08:17→20:28)
[2022-09-22] MEDS: DOCUSATE SODIUM LIQ 100 MG/10 ML UDC GT SCH (08:17)
[2022-09-22] MEDS: LEVETIRACETAM SOL (5 ML) 100 MG/ML UDC GT SCH ×2 (08:17→20:28)
[2022-09-22] MEDS: MEROPENEM 500 MG in IV NS 0.9% 50 ML IV SCH ×2 (08:18→20:28)
[2022-09-22] MEDS: MULTIVITAMINS,THERAGRAN 1 UDTAB TABLET GT SCH (08:18)
[2022-09-22] MEDS: IV D5/ 0.9% NACL 1,000 ML IV PRN ×2 (08:45→23:02)
[2022-09-22] MEDS: METOPROLOL TARTRATE 25 MG TABLET GT SCH (09:00)
[2022-09-22] MEDS: ENOXAPARIN SODIUM 40 MG/0.4 ML DISP.SYRIN SQ SCH (09:00)
--- NOTE | 2022-09-22 19:29 | NUR ---
MANAGER INTELLIGENCE, INITIAL ASSESSMENT. RECEIVED THE PT REST IN BED. TRACH TO VENT CONNECTED. SETTINGS TV 450, RATE 18, FIO2 65%, PEEP 12. SAT 98%. NO ACUTE DISTRESS NOTED. HOME HEALTH SPEECH THERAPIST SHOWING NSR, IV RT UPPER ARM MID LINE. IVF D5 NS 75 ML/H, LEVOPHED 0.04MCG.KG/MIN, PROPOFOL 65 MCG/KG/MIN, FC PATENT. GT INTACT, WILL CONTINUE TO MONITOR VITALS.
[2022-09-22] MEDS ORDERED: AMIODARONE 150 MG/3 ML VIAL IV ONE ×2 (21:57→21:59)
[2022-09-22] MEDS ORDERED: PHENYLEPHRINE 100 MG in IV NS 0.9% 240 ML IV PRN (22:00)
[2022-09-22] MEDS ORDERED: ADENOSINE 6 MG/2 ML VIAL IVP ONE ×2 (22:00)
[2022-09-22] MEDS ORDERED: AMIODARONE 150 MG in IV D5W 100 ML IV ONE (22:00)
--- NOTE | 2022-09-22 22:17 | NUR ---
RN NOTE AMIO DRIP NOT STARTED; PT HR WENT DOWN TO 40s. WILL CONTINUE TO MONITOR AND ASSESS THROUGHOUT THE SHIFT.
[2022-09-22] MEDS ORDERED: AMIODARONE 450 MG in IV D5W 241 ML IV PRN (22:30)
[2022-09-22] MEDS ORDERED: VANCOMYCIN 0.75 GM in IV D5W 250 ML IV SCH (23:00)
[2022-09-22] MEDS: NOREPINEPHRINE 32 MG in IV NS 0.9% 218 ML IV PRN (23:01)
--- NOTE | 2022-09-22 23:05 | NUR ---
ENVIRONMENTAL ENGINEERING INTERN. PT HAVING V TACH STARTED AT 2152, ADENOSINE 6 MGIV GIVEN AT 2200. STILL PT HAVING V TACH. AGAIN ADENOSINE 12 MG IV X1 GIVEN AT 2204. STILL PT HAVING SUSTAIN V TACH. AMIODARONE BOLUS GIVEN. NO IMPROVEMENT. PT NEVER LOST PULSE . SUMIT DICKEY AT BED SIDE. SHOCK THE PT WITH 200 JOULES ON A BIPHASIC DEFIBRILLATOR. AT 2214. PT COVERTED TO S ARIELLE. THEN BECOME NSR . BMP AND MG ORDERED. PT IS STABLE CONDITION AT THIS TIME, . WILL CONTINUE TO MONITOR VITALS.
[2022-09-22 23:27] LABS: CREATININE 3.1 mg/dL (0.6-1.3); POTASSIUM 5.1 mmol/L (3.5-5.1)
[2022-09-22 23:30] LABS: MAGNESIUM 2.6 mg/dL (1.8-2.4)
[2022-09-23] VITALS (83 sets, daily range): BP systolic 81–119; BP diastolic 45–88
[2022-09-23] MEDS: PROPOFOL 100 ML IV PRN ×7 (00:55→23:53)
[2022-09-23 04:51] LABS: BASOPHILS % (AUTO) 0.1 % (0.0-2.0); EOSINOPHILS % (AUTO) 2.1 % (0.0-6.0); HEMATOCRIT 23 % (33-45); HEMOGLOBIN 7.5 g/dL (11.5-14.8); LYMPHOCYTES # (AUTO) 1.1 K/uL (0.8-4.8); LYMPHOCYTES % (AUTO) 5.2 % (20.0-44.0); MEAN CORPUSCULAR HGB CONC 33 g/dl (31.0-36.0); MEAN CORPUSCULAR VOLUME 85 fL (82-100); MONOCYTES % (AUTO) 4.6 % (2.0-12.0); PLATELET COUNT (AUTO) 462 K/uL (150-450); RED BLOOD CELL COUNT(AUTO) 2.69 MIL/uL (4.0-5.2); WHITE BLOOD COUNT (AUTO) 21.6 K/uL (4.3-11.0)
[2022-09-23 05:03] LABS: CALCIUM, SERUM 8.9 mg/dL (8.5-10.1); CREATININE 3.1 mg/dL (0.6-1.3); MAGNESIUM 2.8 mg/dL (1.8-2.4); PHOSPHORUS 5.2 mg/dL (2.5-4.9); POTASSIUM 5.2 mmol/L (3.5-5.1)
--- NOTE | 2022-09-23 05:24 | NUR ---
PRODUCTION FOREMAN. AM CARE GIVEN. REMAINING SAME VENT SETTINGS TOLERATED WELL. SAT 98%, NO ACUTE DISTRESS NOTED. REPORT CLERK SHOWING NSR. IV RT UPPER ARM MID LINE IVF D5NS 75 ML/H, LEVOPHED 0.06MCG/KG/MIN, PROPOFOL 60 MCG/KG/MIN, HOB ELEVATED. GT INTACT. FC PATENT. TURN AND REPOSITION Q2H. WILL CONTINUE TO MONITOR VITALS.
[2022-09-23] MEDS: PANTOPRAZOLE 40 MG/PACK PACK GT SCH (07:30)
--- NOTE | 2022-09-23 08:00 | NUR ---
RECEIVE THE PATIENT ON TRACH TO VENT ,AC 18 TV 450 PEEP 12 FIO2 50% O2SAT 94% AT THIS TIME SEDATED ON PROPOFOL GTT 60MCG ,IS ON LEVOPHED GTT 0.06MCG AT THIS TIME ,NO MOVEMENT ON EXTRIMITIES ,PUPILS ARE EQUAL AND SLUGGISH ,NPO ,HAS GTUBE IN PLACE ,FEEDING ON HOLD AT THIS TIME, SR ON MONITOR ,NO FEVER
[2022-09-23 08:24] LABS: ABG BASE EXCESS -7.6 mmol/L; ABG OXYGEN SATURATION 94.1 % (92.0-98.5); ABG PCO2 35.2 mmHg (35.0-45.0); ABG PH 7.321 (7.350-7.450); ABG PO2 79.2 mmHg (75.0-100.0); AaDO2 237.7 mmHg; COHb 0.3 % (0.5-1.5); MetHb 0.6 % (0.0-1.5); O2Hb 93.3 % (94.0-97.0); SITE, ABG Right Radial; VENT MODE, BG AC 18 450 50%+12
[2022-09-23] MEDS: AMANTADINE HCL 100 MG CAPSULE GT SCH ×2 (09:00→21:57)
[2022-09-23] MEDS: DOCUSATE SODIUM LIQ 100 MG/10 ML UDC GT SCH (09:00)
[2022-09-23] MEDS: MULTIVITAMINS,THERAGRAN 1 UDTAB TABLET GT SCH (09:00)
[2022-09-23] MEDS: ASCORBIC ACID 500 MG TABLET GT SCH (09:00)
[2022-09-23] MEDS: CHLORHEXIDINE GLUCONATE 15 ML UDC MM SCH ×2 (09:27→21:56)
[2022-09-23] MEDS: MEROPENEM 500 MG in IV NS 0.9% 50 ML IV SCH ×2 (09:32→21:57)
[2022-09-23] MEDS: LEVETIRACETAM SOL (5 ML) 100 MG/ML UDC GT SCH ×2 (09:33→21:56)
[2022-09-23] MEDS: METOCLOPRAMIDE HCL 10 MG/2 ML VIAL IV SCH ×3 (13:14→23:57)
[2022-09-23] MEDS: IV D5/ 0.9% NACL 1,000 ML IV PRN (14:04)
[2022-09-23] MEDS: JEVITY 1.2 CAL 1,000 ML BOTTLE GT PRN (14:36)
[2022-09-23] MEDS: NOREPINEPHRINE 32 MG in IV NS 0.9% 218 ML IV PRN (19:11)
--- NOTE | 2022-09-23 19:40 | NUR ---
SOFTWARE DESIGN ANALYST. INITIAL ASSESSMENT. RECEIVED THE PT REST IN BED. TRACH TO VENT. TRACH SHILEY XLT-6, RATE 18,TV 450,FIO2 50%PEEP 12SAT 98%. NO ACUTE DISTRESS NOTED. BARBER TOOL SHARPENER SHOWING NSR, GT INTACT. FEEDING STARTED 30 ML/H, TRACH SITE LEAKING NOTED. FC PATENT. IV RT UPPER ARM MID LINE, LT FA 20G. LEVOPHED 0.06 MCG/KG/MIN, PROPOFOL 60 MCG/KG/MIN,IVF D5NS 75 ML/H. WILL CONTINUE TO MONITOR VITALS.
--- NOTE | 2022-09-23 19:46 | NUR ---
PT TRACH TO VENT FIO2 60% AT THIS TIME PEEP12 TV 450 RATE 18 SR ON MONITOR, NO FEVER, ON PROPOFOL GTT 60MCG FOR SEDATION ,IS ON LEVOPHED GTT 0.06MCG AT THIS TIME ,SBP.>[address] ,ONLY 125 ML URINE OUT PUT ,MD AWARE GTUBE FEEDING WITH JEVITY ,1.2 STARTED AT 1420 AND CONTINIUED
[2022-09-24] VITALS (84 sets, daily range): BP systolic 82–147; BP diastolic 41–81
--- NOTE | 2022-09-24 03:52 | NUR ---
multicultural manager. am care given. remaining same vent settings tolerated well. sat 99%. no acute distress noted. manager cardiac showing s vera. hob elevated. gt feeding not tolerated well. coffee colored thick secretion coming from the gt and around the neck.feeding held. fc patent urine draining. turn and reposition q2h. will continue to monitor vitals.
[2022-09-24] MEDS: PROPOFOL 100 ML IV PRN ×3 (04:40→12:53)
[2022-09-24 04:58] LABS: BASOPHILS # (AUTO) 0.1 K/uL (0.0-0.2); BASOPHILS % (AUTO) 0.3 % (0.0-2.0); EOSINOPHILS % (AUTO) 7.1 % (0.0-6.0); HEMATOCRIT 24 % (33-45); HEMOGLOBIN 7.8 g/dL (11.5-14.8); LYMPHOCYTES # (AUTO) 1.9 K/uL (0.8-4.8); LYMPHOCYTES % (AUTO) 8.8 % (20.0-44.0); MEAN CORPUSCULAR HGB CONC 32 g/dl (31.0-36.0); MEAN CORPUSCULAR VOLUME 86 fL (82-100); MONOCYTES # (AUTO) 1.7 K/uL (0.1-1.30); MONOCYTES % (AUTO) 7.8 % (2.0-12.0); PLATELET COUNT (AUTO) 551 K/uL (150-450); RED BLOOD CELL COUNT(AUTO) 2.81 MIL/uL (4.0-5.2); WHITE BLOOD COUNT (AUTO) 21.1 K/uL (4.3-11.0)
[2022-09-24 05:19] LABS: CALCIUM, SERUM 8.9 mg/dL (8.5-10.1); CREATININE 3.2 mg/dL (0.6-1.3); MAGNESIUM 2.8 mg/dL (1.8-2.4); PHOSPHORUS 7.1 mg/dL (2.5-4.9); POTASSIUM 4.9 mmol/L (3.5-5.1)
[2022-09-24] MEDS: IV D5/ 0.9% NACL 1,000 ML IV PRN ×2 (05:52→18:01)
[2022-09-24] MEDS: METOCLOPRAMIDE HCL 10 MG/2 ML VIAL IV SCH ×3 (05:57→19:02)
[2022-09-24] MEDS: PANTOPRAZOLE 40 MG/PACK PACK GT SCH (07:30)
[2022-09-24 07:38] LABS: ABG BASE EXCESS -8.9 mmol/L; ABG OXYGEN SATURATION 99.3 % (92.0-98.5); ABG PCO2 33.3 mmHg (35.0-45.0); ABG PH 7.312 (7.350-7.450); ABG PO2 226.2 mmHg (75.0-100.0); COHb 0.3 % (0.5-1.5); MetHb 0.4 % (0.0-1.5); O2Hb 98.6 % (94.0-97.0); SITE, ABG Right Radial
--- NOTE | 2022-09-24 08:00 | NUR ---
rn notes received patient trachea /vent dependent. setting's are p-12, fio2-50%. no acute respiratory distress,. vss. infusing Diprivan 40 mcg/kg/min, Levophed 0.06 mcg/kg/min, and D5NS @ 75 ml/hr on BERNARD MIDLINE intact. GT intact, residual was 650 ml. held po medication. hospitalist aware of. Haines draining via gravity. assist turn and reposition q 2hr . will follow up.
[2022-09-24] MEDS: SEVELAMER CARBONATE 800 MG POWD.PACK GT SCH ×3 (08:30→16:09)
[2022-09-24] MEDS: LEVETIRACETAM SOL (5 ML) 100 MG/ML UDC GT SCH (08:33)
[2022-09-24] MEDS: MEROPENEM 500 MG in IV NS 0.9% 50 ML IV SCH ×2 (08:33→21:16)
[2022-09-24] MEDS: MULTIVITAMINS,THERAGRAN 1 UDTAB TABLET GT SCH (09:00)
[2022-09-24] MEDS: AMANTADINE HCL 100 MG CAPSULE GT SCH ×2 (09:00→21:16)
[2022-09-24] MEDS: ASCORBIC ACID 500 MG TABLET GT SCH (09:00)
[2022-09-24] MEDS: DOCUSATE SODIUM LIQ 100 MG/10 ML UDC GT SCH (09:00)
[2022-09-24] MEDS ORDERED: VANCOMYCIN 500 MG in IV D5W 100ml IV SCH (12:00)
[2022-09-24] MEDS: CHLORHEXIDINE GLUCONATE 15 ML UDC MM SCH ×2 (12:55→21:17)
--- NOTE | 2022-09-24 13:00 | NUR ---
rn notes sedation vacation done via Dr Bustillos's order.
[2022-09-24] MEDS: HYDROCORTISONE SOD SUCCINATE 100 MG/2 ML VIAL IV SCH ×3 (13:10→21:16)
--- NOTE | 2022-09-24 13:15 | NUR ---
rn notes sedation vacation at this time per Dr Haile's order. will follow up.
--- NOTE | 2022-09-24 18:30 | NUR ---
rn notes PM CARE DONE, SUCTION, DUE MEDICATION ADMINISTERED. ASSIST TURN AND REPOSTION. DIPRIVAN, AND LEVOPHED TITRATED PER PROTOCOL, URINE OUTPUT WAS 480 ML, SMALL BOWEL MOVEMENT. ENDORSED ONCOMING NURSE ERNESTINE.
--- NOTE | 2022-09-24 19:15 | NUR ---
Verbal bedside report received from Adeline GARZA day primary RN. Upon entering room it was noted that cardiac bedside monitor was off. Total screen was black. Portable bedside monitor set up by Day nurse before report accepted however unable to obatin current BP for pt. Pt. is currently on propofol gtts. and levophed gtts. tooth clerk and LENS MOUNTER aware . Unable to turn mponitor back on, pt. was switched to room 259. No incidents occured during transfer. When attached to new room monitoring manager SR depicted on monitor. Pt. acclimated to room. Charge nurse and LENS MOUNTER at bedside assisting with transfer. Complete initail assessment rendered. See nursing flowsheet for details. Monitored for acute distress, pain, and overall change in clinical status.
[2022-09-24] MEDS ORDERED: KEPPRA 1000 MG in IV NS 100 ML IV SCH (21:00)
[2022-09-25] VITALS (35 sets, daily range): BP systolic 76–183; BP diastolic 47–132
[2022-09-25] MEDS: METOCLOPRAMIDE HCL 10 MG/2 ML VIAL IV SCH (01:05)
[2022-09-25] MEDS: PROPOFOL 100 ML IV PRN (01:07)
--- NOTE | 2022-09-25 03:04 | NUR ---
cODE BLUE CALLED. PT. IN PULSELESS VTACH. SEE CODE SHEET FOR DETAILS OF RESUSITATION.
[2022-09-25] MEDS ORDERED: AMIODARONE 150 MG/3 ML VIAL IV ONE (03:11)
[2022-09-25 03:30] LABS: BASOPHILS # (AUTO) 0.1 K/uL (0.0-0.2); BASOPHILS % (AUTO) 0.4 % (0.0-2.0); EOSINOPHILS % (AUTO) 0.3 % (0.0-6.0); HEMATOCRIT 22 % (33-45); LYMPHOCYTES # (AUTO) 2.4 K/uL (0.8-4.8); LYMPHOCYTES % (AUTO) 14.5 % (20.0-44.0); MEAN CORPUSCULAR HGB CONC 28 g/dl (31.0-36.0); MEAN CORPUSCULAR VOLUME 100 fL (82-100); MONOCYTES # (AUTO) 0.4 K/uL (0.1-1.30); MONOCYTES % (AUTO) 2.3 % (2.0-12.0); NEUTROPHILS # (AUTO) 13.7 K/uL (1.8-8.9); NEUTROPHILS % (AUTO) 82.5 % (43.0-81.0); PLATELET COUNT (AUTO) 407 K/uL (150-450); RED BLOOD CELL COUNT(AUTO) 2.15 MIL/uL (4.0-5.2); WHITE BLOOD COUNT (AUTO) 16.6 K/uL (4.3-11.0)
[2022-09-25] MEDS ORDERED: AMIODARONE 450 MG in IV D5W 241 ML IV PRN (03:30)
[2022-09-25 03:33] LABS: HEMOGLOBIN 5.9 g/dL (11.5-14.8)
--- NOTE | 2022-09-25 04:00 | NUR ---
ICU/STREET CLEANING EQUIPMENT OPERATOR CRITICAL LAB OF LOW H/H 5.02/17, TOLD THIS TO NOBLE SOLIS. WHO THEN ORDERED 2 UNITS PRBC
--- NOTE | 2022-09-25 04:20 | NUR ---
GUITAR MAKERTELESALES SPECIALIST FAST FOOD SHIFT SUPERVISOR KELVIN TALKED TO PT'S DAUGHTER DEVAN LEE /[phone]/ UPDATED PT CONDITION AFTER CODE BLUE & POOR PROGNOSIS. FAMILY AGREED TO PLACE PT TO DNR CODE.
[2022-09-25 04:21] LABS: ABG BASE EXCESS -10.7 mmol/L; ABG PCO2 40.6 mmHg (35.0-45.0); ABG PH 7.219 (7.350-7.450); ABG PO2 48.6 mmHg (75.0-100.0); AaDO2 623.8 mmHg; COHb 0.1 % (0.5-1.5); MetHb 0.3 % (0.0-1.5); O2Hb 72.7 % (94.0-97.0); PEEP,BG 10 cm H2O; SITE, ABG Right Radial; VT, ABG 450 mL
[2022-09-25] MEDS: IV D5/ 0.9% NACL 1,000 ML IV PRN (04:44)
[2022-09-25] MEDS ORDERED: PHENYLEPHRINE 10 MG/ML VIAL ONE (04:45)
[2022-09-25] MEDS: HYDROCORTISONE SOD SUCCINATE 100 MG/2 ML VIAL IV SCH (04:52)
[2022-09-25] MEDS ORDERED: PHENYLEPHRINE 50 MG in IV NS 0.9% 245 ML IV PRN (05:00)
--- NOTE | 2022-09-25 05:19 | NUR ---
[facility] called. I spoke with BECKA. Body is cleared to be released. Reference # [id number].
--- NOTE | 2022-09-25 06:00 | NUR ---
POST MORTEM CARE RENDERED. SECURITY CALLED TO TAKE BODY.
[2022-09-25] MEDS ORDERED: SODIUM BICARBONATE SYR 50 MEQ/50 ML DISP.SYRIN IV ONE (11:34)
[2022-09-25] MEDS ORDERED: EPINEPHRINE (1:10,000) SYRINGE 1 MG/10 ML DISP.SYRIN IVP ONE (11:34)
[2022-09-25 12:44] LABS: BASOPHILS % (MANUAL) 0 % (0.0-2.0); EOSINOPHILS % (MANUAL) 0 % (0-4); LYMPHOCYTES % (MANUAL) 12 % (16-48); MONOCYTES % (MANUAL) 2 % (0-11.0); NEUTROPHILS % (MANUAL) 86 (42-76)
--- NOTE | 2022-09-28 10:26 | NUR ---
GENEVIEVE called the pt.'s daughter, Khadijah [phone] and provided emotional support due to the passing of the patient. Khadijah expressed appreciation. Khadijah stated that they have worked out the cremation arrangements for pt. Noted.
== END 2022-09-25 06:19 | DRG 207 ==
LOC: ER 00:28 → ICU 04:25 → TELE-TD 09-19 17:50 → ICU 09-19 18:54
PROVIDERS: ADMIT Nurse Practitioner Acute Care; ATTEND Student in an Organized Health Care Education/Training Program
PROC: 5A1955Z Respiratory Ventilation, Greater than 96 Consecutive Hours (ICD-10-PCS; principal; 2022-09-18)
PROC: 5A2204Z Restoration of Cardiac Rhythm, Single (ICD-10-PCS; 2022-09-22)
DX: J95.851 Ventilator associated pneumonia (principal); A41.9 Sepsis, unspecified organism; I21.A1 Myocardial infarction type 2; J96.21 Acute and chronic respiratory failure with hypoxia; E43 Unspecified severe protein-calorie malnutrition; R53.2 Functional quadriplegia; G93.41 Metabolic encephalopathy; J69.0 Pneumonitis due to inhalation of food and vomit; N17.0 Acute kidney failure with tubular necrosis; R65.21 Severe sepsis with septic shock; N39.0 Urinary tract infection, site not specified; Z99.11 Dependence on respirator [ventilator] status; G93.40 Encephalopathy, unspecified; D68.59 Other primary thrombophilia; E87.1 Hypo-osmolality and hyponatremia; I47.20 Ventricular tachycardia, unspecified; Y84.8 Other medical procedures as the cause of abnormal reaction of the patient, or of later complication, without mention of misadventure at the time of the procedure; Y92.199 Unspecified place in other specified residential institution as the place of occurrence of the external cause; Z20.822 Contact with and (suspected) exposure to COVID-19; Z87.820 Personal history of traumatic brain injury; Z93.1 Gastrostomy status; Z93.0 Tracheostomy status; R13.10 Dysphagia, unspecified; V89.2XXS Person injured in unspecified motor-vehicle accident, traffic, sequela; N18.9 Chronic kidney disease, unspecified; Z87.81 Personal history of (healed) traumatic fracture; Z98.890 Other specified postprocedural states; Z79.01 Long term (current) use of anticoagulants; Z79.899 Other long term (current) drug therapy; B96.89 Other specified bacterial agents as the cause of diseases classified elsewhere; Z86.16 Personal history of COVID-19; D63.8 Anemia in other chronic diseases classified elsewhere; E86.1 Hypovolemia; Z79.51 Long term (current) use of inhaled steroids; Z79.82 Long term (current) use of aspirin; E88.09 Other disorders of plasma-protein metabolism, not elsewhere classified; N14.11 Contrast-induced nephropathy; Y95 Nosocomial condition; K31.84 Gastroparesis; Z87.09 Personal history of other diseases of the respiratory system; L27.0 Generalized skin eruption due to drugs and medicaments taken internally; T44.4X5A Adverse effect of predominantly alpha-adrenoreceptor agonists, initial encounter; Y92.239 Unspecified place in hospital as the place of occurrence of the external cause; I48.91 Unspecified atrial fibrillation; B96.5 Pseudomonas (aeruginosa) (mallei) (pseudomallei) as the cause of diseases classified elsewhere
CPT/HCPCS: 31720; 36415; 36600; 70450-TC; 71045-TC; 74018; 80048-TC; 80061-TC; 80076-TC; 80202-TC; 81001; 82533; 82550-TC; 82803-TC; 82962-TC; 83605-TC; 83735-TC; 84100-TC; 84478-TC; 84484-TC; 85025-TC; 85730-TC; 86850-TC; 87040-TC; 87081-TC; 87086-TC; 93307-TC; 94002-TC; 94003-TC; 94799-TC; 99082-TC; A4223; A6253; A6403; A7526; C9803; G0378; J0153; J0171; J0282; J1650; J1720; J1953; J2185; J2370; J2543; J2765; J3370; J3490; J7030; J7042; J7050; J7060; Q9967